=== PATIENT | female | born 1945 | race Caucasian/White ===

== ENCOUNTER → 2020-08-17 10:28 | Outpatient (BNVA) | payer MEDICARE, SELFPAY | PROVIDERS: PCP Internal Medicine; Visit Provider Internal Medicine Cardiovascular Disease | DX: I48.0 Paroxysmal atrial fibrillation (principal); I71.2 Thoracic aortic aneurysm, without rupture | CPT/HCPCS: 93005; 99212 ==

== ENCOUNTER 2021-02-23 09:53 | Outpatient (REF) | payer MEDICARE, SELFPAY ==
[2021-02-23 12:33] LABS: Hematocrit 43.8 % (37-47); Hemoglobin 14.4 g/dl (12.0-16.0); Mean Corpuscular HGB Conc 32.9 g/dl (31.0-35.0); Mean Corpuscular Hemoglobin 29.7 pg (27.0-33.0); Mean Corpuscular Volume 90.3 fL (80-98); Mean Platelet Volume 11.7 fL (9.4-12.3); Platelet Count 261 X10*3/uL (160-400); Red Blood Count 4.85 X10*6/uL (4.20-5.50); Red Cell Distribution Width 12.6 % (11.0-16.0); White Blood Count 7.5 X10*3/uL (4.8-10.8)
[2021-02-23 12:46] LABS: Anion Gap 14 (12-20); Blood Urea Nitrogen 17 mg/dL (9-16); Calcium 10.1 mg/dL (8.4-10.2); Carbon Dioxide 25 mmol/L (22-29); Chloride 106 mmol/L (96-108); Estimated Glomerular Filt Rate > 60; Glucose Random 117 mg/dL (60-115); Potassium 4.2 mmol/L (3.3-5.1); Sodium 141 mmol/L (135-145)
== END 2021-02-23 09:54 | disposition home or self-care (01) ==
LOC: HO.LAB 09:53
PROVIDERS: PCP Internal Medicine; Referring Provider Internal Medicine; Visit Provider Internal Medicine Cardiovascular Disease
DX: I48.0 Paroxysmal atrial fibrillation (principal); I71.2 Thoracic aortic aneurysm, without rupture; Z79.899 Other long term (current) drug therapy
CPT/HCPCS: 36415; 80048; 85027; 93005; 99212

== ENCOUNTER → 2021-03-30 09:31 | Outpatient (REF) | payer MEDICARE, SELFPAY ==
--- NOTE | 2021-03-30 09:35 | CA_ITS ---
Transthoracic Echocardiogram Patient (Last, First, Middle): Robyn Barrios A Gender: Female Date of : 1945 Age: 75 Procedure Date: 03/30/2021 Procedure Type: Transthoracic Echocardiogram Location: OP Height: 162.56 cm Weight: 81.65 kg BSA: 1.87 m2 Heart Rate: bpm BP: 125 / 82 mmHg Senior [employer]: [employer] Referring MD: Bolivar Whitaker MD Toe Laster: Bolivar Whitaker MD Symptoms: I71.2 - Thoracic aortic aneurysm, without rupture Study Quality: Fair ECG Rhythm: Sinus Conclusions: - 1. Normal LV systolic function with impaired relaxation filling pattern 2. Mildly dilated left atrium 3. Normal cardiac valvular Doppler 4. Mildly dilated ascending aorta at 4.3 cm 5. No pericardial effusion 6. Normal RV systolic pressure Findings Left Ventricle Normal left ventricular size, thickness, and systolic function. The visually estimated ejection fraction is between 55-60%. Spectral Doppler is indicative of an impaired relaxation filling pattern. E/E prime ratio is between 8 and 15 consistent with indeterminate filling pressures. Right Ventricle Normal right ventricular cavity size and systolic function. Atria The left atrium is mildly dilated. There is no evidence of interatrial shunt. The right atrium is likely dilated. Aortic Valve Normal aortic valve structure and function. There is no aortic valve stenosis. There is no aortic valve regurgitation. Mitral Valve There is mild anterior and posterior mitral leaflet thickening. There is trace mitral valve regurgitation. There is no mitral valve stenosis. Pulmonic Valve The pulmonic valve is likely normal. Tricuspid Valve Likely normal tricuspid valve structure and function. There is trace tricuspid valve regurgitation. The right ventricular systolic pressure is 21 mmHg. There is no evidence of pulmonary hypertension. Great Vessels The pulmonary artery was not well visualized. There is mild dilatation of the ascending aorta measuring 4.30 cm. Venous The inferior vena cava is normal in size and collapses greater than 50% with inspiration. Pericardium/Pleural There is no evidence of pericardial effusion. Prior Study Comparison No significant change compared to prior study dated: 01/24/2020. Measurements 2D Linear Measurements IVSd: 0.82 0.6-0.9/0.6-1.0 cm LVIDd: 4.55 3.9-5.3/4.2-5.9 cm LVIDd Index: 2.43 2.4-3.2/2.2-3.1 cm/m2 LVIDs: 2.87 2.0-3.6 cm LVPWd: 0.88 0.7-1.1 cm Ao Root: 3.40 2.1-3.5 cm LA Diam: 3.00 2.7-3.8/3.0-4.0 cm LAIDs Index: 1.60 1.5-2.3 cm/m2 LV Mass: 156.31 67-162/88-224 g LV Mass Index: 83.59 43-95/49-115 g/m2 LVOT Diam: 2.30 3.0+(-)1.3 cm 2D Systolic Function EF 4C: 56.20 >55% EF 2C: 49.70 >55% Mitral Valve MV Pk E: 0.56 MV PK A: 0.63 MV Decel Time: 338.00 E/A: 0.90 E'Lateral: 6.31 E'Medial: 5.33 E/E' Med: 10.60 E/E' Lat: 8.90 PHT: 99.00 MVA PHT: 2.22 Decel Bulloch: 1.67 Aortic Valve AoV Pk Adrian: 1.26 AoV Mn Adrian: 0.96 AoV VTI: 0.30 AoV Pk Grad: 6.00 Aov Mn Grad: 4.00 JENNI Cont.VTI: 2.91 LVOT LVOT Pk Adrian: 0.85 LVOT Mn Adrian: 0.59 LVOT VTI: 0.21 LVOT Pk Grad: 3.00 LVOT Mn Grad: 2.00 LVOT Diam: 2.30 LVOT Area: 4.15 Diastolic Function MV Pk E: 0.56 MV Pk A: 0.63 E/A: 0.90 E'Medial: 5.33 E/E' Med: 10.60 E' Laterial: 6.31 E/E' Lat: 8.90 Tricuspid Valve TR Pk Adrian: 2.10 TR Pk Grad: 18.00 RA Press: 3.00 RVSP: 21.00 Great Vessels Aorta Ao Root-2D: 3.40 2.0-3.7 cm Ao Asc: 4.30 2.1-3.4 cm Updated in Other Vendor System with Status of Final Bolivar Whitaker MD electronically signed on 03/30/2021 2:50:48 PM with status of Final
== END ==
LOC: HO.CARD 09:31
PROVIDERS: Visit Provider Internal Medicine Cardiovascular Disease
DX: I71.2 Thoracic aortic aneurysm, without rupture (principal)
CPT/HCPCS: 93306

== ENCOUNTER 2021-07-07 13:40 | Emergency (ER) | payer MEDICARE, SELFPAY ==
--- NOTE | ~2021-07-07 | XR_ITS ---
EXAMINATION: RIGHT HAND AND WRIST X-RAY CLINICAL INFORMATION: Fall. Pain. COMPARISON: None TECHNIQUE: 4 views of the right hand and wrist FINDINGS: Bone alignment is normal. No acute fracture or dislocation is seen. There is a well-corticated soft tissue ossification adjacent to the dorsal wrist seen on the lateral view suggestive of an old triquetral fracture. There is arthritis at the first SKILLED NURSING joint and trapezoid trapezium scaphoid joints. There is diffuse soft tissue swelling of the wrist and distal forearm. XR/XR hand wrist RT IMPRESSION: Probable old triquetral fracture. No acute fracture or dislocation. Degenerative changes.
[2021-07-07 16:37] VITALS: BP 161/78; PULSE 70; RESP 16; TEMP 36.6; O2SAT 98; BMI 30.9
--- NOTE | 2021-07-07 16:48 | ED_ITS ---
HPI - Extremity Problem General Chief complaint: Extremity Injury, Upper Stated complaint: R hand swelling/redness Time Seen by Provider: 07/07/21 16:36 Source: patient Mode of arrival: ambulatory Limitations: no limitations History of Present Illness HPI Narrative: 76-year-old female with a history of hypertension, AFib on eliquis, high cholesterol here with reports of right hand pain and swelling after a fall which occurred on Monday. Patient tells me she slipped on the snow catching herself with her right hand. She also did strike her left upper arm. Since the fall she has been having pain in the right hand. She is right-hand dominant. She denies any head strike or loss of consciousness. No associated numbness, tingling, weakness, fevers. Related Data Home Medications Medication Instructions Recorded Confirmed hydrochlorothiazide 25 mg tablet 25 mg PO DAILY 08/17/20 02/23/21 simvastatin 10 mg tablet 10 mg PO BEDTIME 08/17/20 02/23/21 metoprolol succinate 25 mg 25 mg PO DAILY tab 02/23/21 02/23/21 tablet,extended release 24 hr Previous Rx's Medication Instructions Recorded flecainide 100 mg tablet 100 mg PO Q12H #180 cap 11/30/20 apixaban 5 mg tablet (Eliquis) 5 mg PO BID #60 tab 05/21/21 potassium chloride 20 mEq 20 meq PO DAILY 30 Days #30 tab 05/21/21 tablet,extended release Allergies Allergy/AdvReac Type Severity Reaction Status Date / Time No Known Allergies Allergy Verified 02/23/21 11:03 Review of Systems Review of Systems: Yes all other systems are reviewed and are negative Constitutional: Constitutional: Reports no additional constitutional complaints, Denies body ache(s), Denies chills, Denies fever(s), Denies headache(s) and Denies weakness Eyes: Eyes: Reports no additional eye complaints and Denies change in vision ENT: Reports system reviewed and no additional complaints, except as documented, Denies dizziness, Denies headache(s), Denies nasal congestion, Denies nasal discharge and Denies neck pain Cardiovascular: Cardiovascular: Reports no additional cardiovascular complaints, Denies chest pain, Denies leg edema and Denies dyspnea Respiratory: Respiratory: Reports no additional respiratory complaints, Denies cough and Denies dyspnea Gastrointestinal: Gastrointestinal: Reports no additional gastrointestinal complaints, Denies abdominal pain, Denies diarrhea, Denies nausea and Denies vomiting Genitourinary: Genitourinary: Reports no additional female genitourinary compl aints and Denies urinary incontinence Musculoskeletal: Musculoskeletal: Reports no additional musculoskeletal complaints, Denies back pain, Reports arthralgias, Reports joint swelling, Denies neck pain, Denies numbness and Denies tingling Integumentary/Breasts: Skin/Breast: Reports system reviewed and no additional complaints, except as docu and Denies rash Neurologic: Reports system reviewed and no additional complaints, except as documented, Denies Abnormal speech present, Denies dizziness, Denies headache(s), Denies numbness, Denies tingling and Denies weakness PMFSH Past Medical History Attestation statement: The following information was validated with the patient. Source: old records reviewed and nursing notes reviewed Medical History HTN (hypertension) Left anterior fascicular block Paroxysmal atrial fibrillation Thoracic aortic aneurysm Surgical History History of hysterectomy Family History Family History Father CVD (cardiovascular disease) Mother No problems noted. Social History Social History Patient Tobacco Use Status: Never used Tobacco Advance Directives: No Advance Directives Information Provided: Yes Physical Exam Vital Signs: Vital Signs: Last Vital Signs Temp 97.9 F 07/07/21 16:37 Pulse 70 07/07/21 16:37 Resp 16 07/07/21 16:37 BP 161/78 H 07/07/21 16:37 Pulse Ox 98 07/07/21 16:37 BMI result Body Mass Index 30.9 Const: General: cooperative, healthy appearing, comfortable and no acute distress Orientation/consciousness: patient oriented x3 Limitations: no limitations HENMT: Head: Yes normal to inspection Ears: hearing grossly normal bilaterally General nose exam: Normal external nose present Face and sinus: Yes normal facial exam Mouth: Normal oral and palatal mucosa present Throat: Yes posterior oropharynx normal Eyes: General: appearance normal, both eyes and all related structures Pupils: Equal, round and reactive pupils present Neck: Neck: Yes normal visual inspection Chest: Chest palpation & inspection: normal inspection of the chest Resp: Effort & Inspection: normal respiratory effort Auscultation: clear to auscultation bilaterally Cardio: Rate: regular rate Rhythm: regular rhythm Peripheral pulses: Peripheral pulses 2+ throughout GI: Inspection: Yes normal to inspection Palpation (GI): Soft to palpation and nontender Auscultation: normal bowel sounds Back/Spine/Pelvis: Thoracic/Lumbar Spine: thoracic and lumbar spine normal to inspection Skin: General skin exam: no rashes or lesions noted Neuro: General: patient oriented x3, no focal motor deficits and normal sensation to monofilament Cranial nerves: Yes Equal, round and reactive pupils present Cognition (Neuro): normal cognition Speech: No Abnormal speech present Gait exam (Neuro): Normal gait present Motor exam (neuro): 5/5 motor strength present throughout Extrem: Other: Patient has swelling, tenderness over the distal right wrist at the ulnar aspect with pain with flexion and extension of the wrist Neurovascular intact distally No snuffbox tenderness General: Yes normal to inspection Course Course Course Narrative: 76-year-old female here with right upper extremity pain and swelling after a mechanical fall 2 days ago. Will check x-rays [id number]-ray show -Probable old triquetral fracture. No acute fracture or dislocation. Degenerative changes.? I spoke to the patient. She has no previous injury to this arm. She is quite tender over the reported old fractures we will treated as presumed new fracture and placed her in a splint. Reviewed worrisome signs symptoms with the patient. Reviewed rice. Reviewed follow-up with Orthopedics. Comfortable plan for discharge home. MDM - Extremity (Nontraumatic) Medical Records Attestation: I reviewed the patient's medical records. Lab Data Attestation: I reviewed the patient's lab results. Imaging Data wrist x-ray: Attestation: I personally reviewed and interpreted this imaging study as follows: Radiologist's impression: Launch?Image [address] [address] XRay Report Signed Patient: Robyn Barrios MR#: [id number] : 1945 Acct:[id number] Age/Sex: 76 / F ADM Date: 07/07/21 Loc: HO.ED Attending Dr: Ordering Physician: Cara Brantley NP Date of Service: 07/07/21 Procedure(s): XR hand wrist RT Accession Number(s): [id number] cc: Cara Brantley NP~ EXAMINATION: RIGHT HAND AND WRIST X-RAY CLINICAL INFORMATION: Fall. Pain.? COMPARISON: None TECHNIQUE: 4 views of the right hand and wrist? FINDINGS: Bone alignment is normal. No acute fracture or dislocation is seen. There is a well-corticated soft tissue ossification adjacent to the dorsal wrist seen on the lateral view suggestive of an old triquetral fracture. There is arthritis at the first SKILLED NURSING joint and trapezoid trapezium scaphoid joints. There is diffuse soft tissue swelling of the wrist and distal forearm. XR/XR hand wrist RT IMPRESSION: Probable old triquetral fracture. No acute fracture or dislocation. Degenerative changes.? Procedures Orthopedic Splinting/Casting Injury #1: Side: right Upper Extremity Injury Location: wrist Upper Extremity Immobilizer: ulnar gutter Discharge Plan Discharge Clinical Impression: Fracture of wrist Qualifiers: Encounter type: initial encounter Fracture type: closed Laterality: right Qualified Code(s): S62.101A - Fracture of unspecified carpal bone, right wrist, initial encounter for closed fracture Patient Disposition: Home, Self-Care Instructions: Wrist Fracture in Adults (ED) Additional Instructions: The splint stays on all times. Do not get it wet. For showering you must wrap it with plastic wrap Call Orthopedics for a follow-up appointment Elevate the extremity on 3 or more pillows Tylenol for pain Prescriptions: No Action flecainide 100 mg tablet 100 mg PO Q12H Qty: 180 RF: 1 potassium chloride 20 mEq tablet extended release 20 meq PO DAILY 30 Days Qty: 30 RF: 5 Eliquis 5 mg tablet 5 mg PO BID Qty: 60 RF: 5 simvastatin 10 mg tablet 10 mg PO BEDTIME RF: 0 hydrochlorothiazide 25 mg tablet 25 mg PO DAILY RF: 0 metoprolol succinate 25 mg tablet extended release 24 hr 25 mg PO DAILY RF: 0 Referrals: Hira Harris MD [Physician] - 2 days
== END 2021-07-07 17:35 | disposition home or self-care (01) ==
PROVIDERS: Emergency Provider Emergency Medicine Emergency Medical Services; PCP Internal Medicine Endocrinology, Diabetes & Metabolism
DX: S62.101A Fracture of unspecified carpal bone, right wrist, initial encounter for closed fracture (principal); I48.91 Unspecified atrial fibrillation; W00.0XXA Fall on same level due to ice and snow, initial encounter; Y93.9 Activity, unspecified; Y92.410 Unspecified street and highway as the place of occurrence of the external cause; Y99.9 Unspecified external cause status; Z79.899 Other long term (current) drug therapy; Z79.01 Long term (current) use of anticoagulants
CPT/HCPCS: 29125; 73110; 73130; 99283

== ENCOUNTER 2021-08-06 07:54 | Outpatient (REF) | payer MEDICARE, SELFPAY ==
--- NOTE | ~2021-08-06 | XR_ITS ---
EXAMINATION: XR HAND, RIGHT CLINICAL INFORMATION: Pain COMPARISON: Previous x-ray 07/07/2021 TECHNIQUE: PA, lateral, and oblique views of the right hand. FINDINGS: Bone alignment is normal. There are soft tissue ossifications adjacent to the dorsal wrist seen on the lateral view suggestive of fracture. These again appear well corticated suggestive of old rather than acute fracture.. No definite acute fracture is seen. There is arthritis at the first FCI joint and trapezoid trapezium scaphoid joints. There is diffuse soft tissue swelling over the wrist and distal forearm. XR/XR hand RT min 3V IMPRESSION: Soft tissue ossifications seen in the lateral view adjacent to the dorsal wrist suggestive of old fracture deformity similar to June 2021 exam. Clinical correlation is recommended. There is still diffuse soft tissue swelling over the wrist and distal forearm. This could be better assessed with CT of the wrist if clinically indicated.
== END 2021-08-06 07:55 | disposition home or self-care (01) ==
LOC: HO.HOSX 07:54
PROVIDERS: Visit Provider Physician Assistant
DX: M79.641 Pain in right hand (principal)
CPT/HCPCS: 73130; 99202

== ENCOUNTER 2021-08-14 08:05 | Emergency (ER) | payer MEDICARE, SELFPAY ==
--- NOTE | ~2021-08-14 | XR_ITS ---
EXAMINATION: LEFT HUMERUS AND LEFT SHOULDER. CLINICAL INFORMATION: Fall. Upper arm pain. COMPARISON: None TECHNIQUE: Left humerus 2 views. Left shoulder 3 views. FINDINGS: Left humerus: There is no visible fracture, dislocation or bony abnormality. The soft tissues are normal. Left shoulder: The glenohumeral joint space is maintained normal. No visible acute fracture, dislocation or lytic process seen. Mild periarticular spurring of left AC joint. The soft tissues are normal. XR/XR humerus LT IMPRESSION: No visible acute fracture or dislocation involving left humerus or left shoulder joint. Mild degenerative changes left AC joint.
--- NOTE | ~2021-08-14 | XR_ITS ---
EXAMINATION: LEFT HUMERUS AND LEFT SHOULDER. CLINICAL INFORMATION: Fall. Upper arm pain. COMPARISON: None TECHNIQUE: Left humerus 2 views. Left shoulder 3 views. FINDINGS: Left humerus: There is no visible fracture, dislocation or bony abnormality. The soft tissues are normal. Left shoulder: The glenohumeral joint space is maintained normal. No visible acute fracture, dislocation or lytic process seen. Mild periarticular spurring of left AC joint. The soft tissues are normal. XR/XR shoulder LT min 2V IMPRESSION: No visible acute fracture or dislocation involving left humerus or left shoulder joint. Mild degenerative changes left AC joint.
[2021-08-14 08:15] VITALS: BP 111/88; PULSE 109; RESP 18; TEMP 36; O2SAT 98; BMI 30.6
[2021-08-14 08:25] VITALS: BP 134/65; PULSE 83; RESP 17; TEMP 36.6; O2SAT 97
--- NOTE | 2021-08-14 08:25 | ED.EXTPRO ---
HPI - Extremity Problem General Chief complaint: Extremity Injury, Upper Stated complaint: Fall/l arm pain Time Seen by Provider: 08/14/21 08:25 Source: patient Mode of arrival: ambulatory Limitations: no limitations History of Present Illness HPI Narrative: Patient is a 76 year old female presenting to the emergency department today with left shoulder and upper arm pain. Patient states that she fell awhile ago and hurt her right wrist however, she woke up this morning and is having left shoulder and upper arm pain. Patient denies any dizziness, lightheadedness, abdominal pain, nausea, vomiting, fever, chills, blurry vision, double vision, loss of vision, chest pain, difficulty breathing, shortness of breath, back pain, night sweats, pain with urination, increased urinary frequency, increased urinary urgency, blood in her urine or stool, syncope or a near syncopal episode, recent trauma or falls, bowel incontinence, bladder incontinence, bowel retention, bladder retention, or any other complaints at this time. MD Complaint: extremity pain Onset (ago): minute(s) Pain Consistency: constant Location: left and upper extremity Severity scale (1-10): 4 Quality: stabbing Radiation: none Relieving factors: nothing Exacerbating factors: range of motion Associated symptoms: denies other symptoms Related Data Home Medications Medication Instructions Recorded Confirmed hydrochlorothiazide 25 mg tablet 25 mg PO DAILY 08/17/20 02/23/21 simvastatin 10 mg tablet 10 mg PO BEDTIME 08/17/20 02/23/21 metoprolol succinate 25 mg 25 mg PO DAILY tab 02/23/21 02/23/21 tablet,extended release 24 hr Previous Rx's Medication Instructions Recorded flecainide 100 mg tablet 100 mg PO Q12H #180 cap 11/30/20 apixaban 5 mg tablet (Eliquis) 5 mg PO BID #60 tab 05/21/21 potassium chloride 20 mEq 20 meq PO DAILY 30 Days #30 tab 05/21/21 tablet,extended release Allergies Allergy/AdvReac Type Severity Reaction Status Date / Time No Known Allergies Allergy Verified 08/06/21 10:32 Review of Systems Constitutional: Constitutional: Reports no additional constitutional complaints, Denies chills, Denies fever(s) and Denies night sweats Eyes: Eyes: Reports no additional eye complaints, Denies blurry vision, Denies change in vision, Denies diplopia, Denies eye discharge, Denies loss of vision and Denies eye pain ENT: Denies dizziness Cardiovascular: Cardiovascular: Reports no additional cardiovascular complaints, Denies chest pain, Denies lightheadedness, Denies Loss of Consciousness and Denies dyspnea Respiratory: Respiratory: Reports no additional respiratory complaints and Denies dyspnea Gastrointestinal: Gastrointestinal: Reports no additional gastrointestinal complaints, Denies abdominal pain, Denies melena, Denies hematochezia, Denies change in bowel habits and Denies change in stool character Genitourinary: Genitourinary: Denies hematuria, Denies urinary frequency, Denies dysuria, Denies urinary incontinence, Denies urinary hesitancy and Denies urinary urgency Musculoskeletal: Musculoskeletal: Reports no additional musculoskeletal complaints, Denies numbness and Denies tingling Comments: left upper arm/shoulder pain Neurologic: Denies dizziness, Denies loss of vision, Denies numbness and Denies tingling Psychiatric: Psychiatric: Reports no additional psychiatric complaints Endocrine: Endocrine: Reports no additional endocrine complaints Hematologic/Lymphatic: Hematologic/Lymphatic: Reports no additional hematologic/lymphatic complaints Allergic/Immunologic: Allergic/Immunologic: Reports no additional allergic/immunologic complaints [facility] Past Medical History Attestation statement: The following information was validated with the patient. Source: old records reviewed Medical History HTN (hypertension) Left anterior fascicular block Paroxysmal atrial fibrillation Thoracic aortic aneurysm Surgical History History of hysterectomy Family History Family History Father CVD (cardiovascular disease) Mother No problems noted. Social History Social History Alcohol intake: never Patient Tobacco Use Status: Never used Tobacco Current occupational status: employed Physical Exam Vital Signs: Vital Signs: Last Vital Signs Temp 97.9 F 08/14/21 08:25 Pulse 83 08/14/21 08:25 Resp 17 08/14/21 08:25 BP 134/65 08/14/21 08:25 Pulse Ox 97 08/14/21 08:25 BMI result Body Mass Index 30.6 Const: General: cooperative, no acute distress, alert and awake Nutritional Appearance: well nourished Orientation/consciousness: patient oriented x3 Limitations: no limitations HENMT: Head: Yes normal to inspection and Yes atraumatic Ears: hearing grossly normal bilaterally and external ears normal General nose exam: Normal external nose present, no nasal discharge noted and no epistaxis Face and sinus: Yes normal facial exam, No abrasion and No laceration Mouth: Normal oral and palatal mucosa present, no drooling and no muffled voice Eyes: General: appearance normal, both eyes and all related structures Periorbital: periorbital findings normal Eyelids: Yes eyelids normal Conjunctivae: conjunctivae normal Pupils: Equal, round and reactive pupils present EOM: EOMs intact bilaterally Neck: Neck: Yes normal visual inspection, Yes full ROM and Yes no lymphadenopathy Chest: Chest palpation & inspection: normal inspection of the chest Resp: Effort & Inspection: normal respiratory effort and able to speak in complete sentences Auscultation: clear to auscultation bilaterally Cardio: Rate: regular rate Rhythm: regular rhythm GI: Inspection: Yes normal to inspection Neuro: General: patient oriented x3 and moves all extremities Cranial nerves: Yes Equal, round and reactive pupils present Cognition (Neuro): normal cognition Motor exam (neuro): 5/5 motor strength present throughout Sensory Exam: Normal double simultaneous stimulation for sensation Coordination: [id number] test normal Extrem: General: Yes normal to inspection, Yes full ROM and Yes capillary refill normal Psych: Appearance: grossly normal Mental Status: mental status grossly normal Affect: normal affect Attitude: cooperative Thought process: Normal thought process present Thought content: Normal thought content present Insight: Good insight present (Psych) MDM - Extremity (Nontraumatic) MDM Narrative Medical decision making narrative: Patient is a 76 year old female presenting to the emergency department today with left shoulder pain. Patient's physical exam was unremarkable. Patient's blood work was unremarkable. Patient's EKG was unremarkable. Patient's left shoulder and humerus x-ray showed no acute process. I explained my physical exam findings as well as all test results to the patient. I answered all questions asked by the patient. I stressed the importance of the patient taking her medication as prescribed. I stressed the importance of the patient following up with her primary care provider. I stressed the importance of the patient returning to the emergency department immediately if her symptoms were to worsen or if she were to develop any dizziness, shortness of breath, difficulty breathing, chest pain, blurry vision, loss of vision, nausea, vomiting, abdominal pain, fever, chills, back pain, or any other complaints. Patient verbalized agreement and understanding with this treatment plan and discharge. Differential Diagnosis Differential diagnosis: Unlikely gout (shoulder pain, AC separation, fracture) Medical Records Attestation: I reviewed the patient's medical records. Lab Data Attestation: I reviewed the patient's lab results. Result diagrams: 08/14/21 08:51 08/14/21 08:51 Labs: Lab Results 08/14/21 08/14/21 08/14/21 Range/Units 08:51 08:51 08:51 WBC 8.9 (4.8-10.8) X10*3/uL RBC 5.08 (4.20-5.50) X10*6/uL Hgb 15.3 (12.0-16.0) g/dl Hct 44.5 (37.0-47.0) % MCV 87.6 (80.0-98.0) fL MCH 30.1 (27.0-33.0) pg MCHC 34.4 (31.0-35.0) g/dl RDW 12.5 (11.0-16.0) % Plt Count 345 (160-400) X10*3/uL MPV 10.9 (9.4-12.3) fL Immature Gran % (Auto) 0.1 (0.0-0.4) % Neut % (Auto) 67.8 (45-73) % Lymph % (Auto) 25.6 (20-40) % Stanton % (Auto) 5.2 (2-11) % Eos % (Auto) 1.0 (0-4) % Baso % (Auto) 0.3 (0-2) % Lymph # (Auto) 2.3 (1.2-4.9) X10*3/uL Stanton # (Auto) 0.5 (0.1-1.2) X10*3/uL Eos # (Auto) 0.1 (0.0-0.4) X10*3/uL Baso # (Auto) 0.0 (0.0-0.2) X10*3/uL Abs Immat Gran (auto) 0.01 (0.00-0.03) X10*3/uL Absolute Neuts (auto) 6.0 (2.0-8.3) x10*3/uL Absolute Nucleated RBC 0.000 (0.0-0.012) X10*3/uL Nucleated RBC % (auto) 0.0 (0.0-0.2) /100WBC Sodium 140 (135-145) mmol/L Potassium 3.7 (3.3-5.1) mmol/L Chloride 105 (96-108) mmol/L Carbon Dioxide 23 (22-29) mmol/L Anion Gap 16 (12-20) BUN 16 (9-16) mg/dL Creatinine 0.74 (0.5-1.4) mg/dL Estim Creat Clear Calc 66.1 Estimated GFR > 60 Fasting Glucose 185 H (60-99) mg/dL Calcium 10.3 H (8.4-10.2) mg/dL Total Bilirubin 0.7 (0.0-1.0) mg/dL AST 66 H (5-31) U/L ALT 82 H (0-31) U/L Alkaline Phosphatase 88 (39-117) U/L Troponin I High Sens 4.4 (<3.5-17.0) ng/L Total Protein 7.0 (6.5-8.0) g/dL Albumin 4.5 (3.5-5.0) g/dL Imaging Data Left shoulder and left humerus x-ray: Attestation: I personally reviewed and interpreted this imaging study as follows: Radiologist's impression: EXAMINATION: LEFT HUMERUS AND LEFT SHOULDER. CLINICAL INFORMATION: Fall. Upper arm pain.? COMPARISON: None? TECHNIQUE: Left humerus 2 views. Left shoulder 3 views.? FINDINGS: Left humerus: There is no visible fracture, dislocation or bony abnormality. The soft tissues are normal. Left shoulder: The glenohumeral joint space is maintained normal. No visible acute fracture, dislocation or lytic process seen. Mild periarticular spurring of left AC joint. The soft tissues are normal.? XR/XR shoulder LT min 2V IMPRESSION: No visible acute fracture or dislocation involving left humerus or left shoulder joint. ? Mild degenerative changes left AC joint.? Dictated By: Homer Garcia MD Signed By: Electronically signed by Homer Garcia MD 08/14/21 0854 ECG Data Attestation EKG: I personally reviewed and interpreted this ECG as follows: ECG interpretation date: 08/14/21 ECG interpretation time: 08:39 Prior ECG tracings: available for review Interpretation: Vent. Rate: 068 BPM ? ? Atrial Rate: 068 BPM P-R Int: 170 ms? QRS Dur: 118 ms QT Int: 428 ms ? ? ? P-R-T Axes: 000 -60 014 degrees QTc Int: 455 ms ? Normal sinus rhythm Left axis deviation Minimal voltage criteria for LVH, may be normal variant ( [place]io product ) Possible Anterior infarct (cited on or before 22-AUG-2006) Abnormal ECG When compared with ECG of 27-JAN-2016 13:39, Vent. rate has increased BY? 24 BPM Nonspecific T wave abnormality, improved in Anterolateral leads QT has lengthened Discharge Plan Discharge Clinical Impression: AC joint pain Patient Disposition: Home, Self-Care Instructions: Shoulder Pain (ED) Additional Instructions: Follow up with your primary care provider. Return to the emergency department immediately if your symptoms worsen or if you develop any dizziness, shortness of breath, difficulty breathing, chest pain, blurry vision, loss of vision, nausea, vomiting, abdominal pain, fever, chills, back pain, or any other complaints. Prescriptions: No Action flecainide 100 mg tablet 100 mg PO Q12H Qty: 180 1RF potassium chloride 20 mEq tablet extended release 20 meq PO DAILY 30 Days Qty: 30 5RF Eliquis 5 mg tablet 5 mg PO BID Qty: 60 5RF simvastatin 10 mg tablet 10 mg PO BEDTIME 0RF hydrochlorothiazide 25 mg tablet 25 mg PO DAILY 0RF metoprolol succinate 25 mg tablet extended release 24 hr 25 mg PO DAILY 0RF Referrals: Jennifer Castro MD [Physician] - 2 days Interventions: ED Discharge Assessment Last Done: 08/14/21 09:59 Discharge Date/Time: 08/14/21 10:05 Print Language: Nigerien
--- NOTE | 2021-08-14 08:28 | ECG_ITS ---
Test Reason : SP Blood Pressure : / mmHG Vent. Rate : 068 BPM Atrial Rate : 068 BPM P-R Int : 170 ms QRS Dur : 118 ms QT Int : 428 ms P-R-T Axes : 000 -60 014 degrees QTc Int : 455 ms Normal sinus rhythm Left axis deviation Minimal voltage criteria for LVH, may be normal variant ( [place] product ) Possible Anterior infarct (cited on or before 22-AUG-2006) Abnormal ECG When compared with ECG of 27-JAN-2016 13:39, Vent. rate has increased BY 24 BPM Nonspecific T wave abnormality, improved in Anterolateral leads QT has lengthened Referred By: Nida Segura Electronically Signed By:GUSTABO VUONG
[2021-08-14 08:56] LABS: MANUAL DIFF FLAG NO
[2021-08-14 09:01] LABS: Basophils Percent Auto 0.3 % (0-2); Eosinophils Absolute Auto 0.1 X10*3/uL (0.0-0.4); Hematocrit 44.5 % (37.0-47.0); Hemoglobin 15.3 g/dl (12.0-16.0); Imm Gran Abs Auto 0.01 X10*3/uL (0.00-0.03); Imm Gran Pct Auto 0.1 % (0.0-0.4); Lymphocytes Absolute Auto 2.3 X10*3/uL (1.2-4.9); Lymphocytes Percent Auto 25.6 % (20-40); Mean Corpuscular HGB Conc 34.4 g/dl (31.0-35.0); Mean Corpuscular Hemoglobin 30.1 pg (27.0-33.0); Mean Corpuscular Volume 87.6 fL (80.0-98.0); Mean Platelet Volume 10.9 fL (9.4-12.3); Monocytes Absolute Auto 0.5 X10*3/uL (0.1-1.2); Monocytes Percent Auto 5.2 % (2-11); Neutrophils Percent Auto 67.8 % (45-73); Platelet Count 345 X10*3/uL (160-400); Red Blood Count 5.08 X10*6/uL (4.20-5.50); Red Cell Distribution Width 12.5 % (11.0-16.0); White Blood Count 8.9 X10*3/uL (4.8-10.8)
[2021-08-14 09:22] LABS: Alanine Aminotransferase 82 U/L (0-31); Albumin Level 4.5 g/dL (3.5-5.0); Alkaline Phosphatase 88 U/L (39-117); Anion Gap 16 (12-20); Aspartate Amino Transferase 66 U/L (5-31); Bilirubin Total 0.7 mg/dL (0.0-1.0); Blood Urea Nitrogen 16 mg/dL (9-16); Calcium 10.3 mg/dL (8.4-10.2); Carbon Dioxide 23 mmol/L (22-29); Chloride 105 mmol/L (96-108); Creatinine Clr Calc Pharmacy 66.1; Estimated Glomerular Filt Rate > 60; Glucose Fasting 185 mg/dL (60-99); Potassium 3.7 mmol/L (3.3-5.1); Sodium 140 mmol/L (135-145)
[2021-08-14 09:31] LABS: Troponin-I High Sensitivity 4.4 ng/L (<3.5-17.0)
== END 2021-08-14 10:05 | disposition home or self-care (01) ==
PROVIDERS: Physician Assistant Medical; Emergency Provider Emergency Medicine Emergency Medical Services; PCP Internal Medicine Endocrinology, Diabetes & Metabolism
DX: M25.512 Pain in left shoulder (principal); I10 Essential (primary) hypertension; I48.0 Paroxysmal atrial fibrillation; Z79.01 Long term (current) use of anticoagulants
CPT/HCPCS: 36415; 73030; 73060; 80053; 84484; 85025; 93005; 99283; 99284

== ENCOUNTER → 2021-08-18 10:35 | Outpatient (BNVA) | payer MEDICARE, SELFPAY | PROVIDERS: PCP Internal Medicine Endocrinology, Diabetes & Metabolism; Visit Provider Physician Assistant | DX: S40.012A Contusion of left shoulder, initial encounter (principal) | CPT/HCPCS: 99212 ==

== ENCOUNTER → 2021-08-30 11:25 | Outpatient (BNVA) | payer MEDICARE, SELFPAY | PROVIDERS: PCP Internal Medicine Endocrinology, Diabetes & Metabolism; Visit Provider Internal Medicine Cardiovascular Disease | DX: I48.0 Paroxysmal atrial fibrillation (principal); I71.2 Thoracic aortic aneurysm, without rupture; Z79.01 Long term (current) use of anticoagulants; Z79.899 Other long term (current) drug therapy | CPT/HCPCS: 99212 ==

== ENCOUNTER 2022-02-05 07:54 | Emergency (ER) | payer MEDICARE, SELFPAY ==
--- NOTE | ~2022-02-05 | XR_ITS ---
EXAMINATION: XR ANKLE, LEFT CLINICAL INFORMATION: Left ankle pain status post injury. COMPARISON: Left leg and ankle radiographs dated 11/28/2019. TECHNIQUE: AP, lateral, and mortise views of the left ankle. FINDINGS: Nonacute deformity is seen along the inferior margins of the medial and lateral malleoli. The tibiotalar joint space is unremarkable. The tarsal bones are normally aligned. Small to moderate plantar and retrocalcaneal spurs are noted. There is no overt joint effusion. Mild soft tissue swelling. XR/XR ankle LT min 3V IMPRESSION: Mild soft tissue swelling without definitive acute underlying osseous abnormality. Medial and lateral malleoli findings do not appear acute and likely secondary to old injury. Degenerative calcaneal spurs.
[2022-02-05 08:05] VITALS: BP 133/98; PULSE 68; RESP 18; TEMP 36.8; O2SAT 97; BMI 29.1
--- NOTE | 2022-02-05 08:20 | ED.LOWEXIN ---
HPI - Extremity Injury (Lower) General Chief Complaint: Extremity Injury, Lower Stated Complaint: L ANKLE INJ Time Seen by Provider: 02/05/22 08:08 Source: patient Mode of arrival: ambulatory Limitations: no limitations History of Present Illness HPI Narrative: 76-year-old female with a past medical history of paroxysmal atrial fibrillation currently on eliquis taking as prescribed, hypertension, thoracic aortic aneurysm, presents to the emergency department today with left ankle pain and swelling. Patient reports symptom onset this morning and she is unsure if there is any twisting or ankle injury. Patient endorses mild pain with ambulation. She denies any trauma to the area. She denies any lightheadedness, dizziness, lower extremity numbness or tingling, SOB, AMEZQUITA, orthopnea, CP, leg swelling, calf pain, and any sick symptoms. Onset (ago): day(s) Severity: mild Severity scale (1-10): 1 Relieving factors: nothing Exacerbating factors: palpation Other symptoms: none Related Data Home Medications Medication Instructions Recorded Confirmed hydrochlorothiazide 25 mg tablet 25 mg PO DAILY 08/17/20 08/30/21 simvastatin 10 mg tablet 10 mg PO BEDTIME 08/17/20 08/30/21 metoprolol succinate 25 mg 25 mg PO DAILY 02/23/21 08/30/21 tablet,extended release 24 hr Previous Rx's Medication Instructions Recorded apixaban 5 mg tablet (Eliquis) 5 mg PO BID #60 tabs 11/24/21 potassium chloride 20 mEq 20 meq PO DAILY 30 days #30 tabs 11/24/21 tablet,extended release flecainide 100 mg tablet 100 mg PO Q12H #180 caps 12/22/21 Allergies Allergy/AdvReac Type Severity Reaction Status Date / Time No Known Allergies Allergy Verified 08/30/21 11:40 Review of Systems Review of Systems: Constitutional : No Fever, No Chills, No Fatigue, No Malaise ENT/Mouth : No Hearing loss, No Ear Pain, No Sore Throat Eyes: No Eye Pain, No Swelling, No Redness, No Foreign Body, No Discharge, No Vision Changes Cardiovascular : No Chest Pain, No SOB, No Dyspnea on Exertion Respiratory : No Cough, No Sputum, No Wheezing, No Smoke Exposure, No Dyspnea Gastrointestinal : No Nausea, No Vomiting, No Diarrhea, No Constipation, No Abdominal Pain Genitourinary : No Dysuria, No Urinary Frequency, No Hematuria, No Urinary Incontinence, No Urgency Musculoskeletal : + left Joint pain, No Myalgias, No Joint Swelling Skin : No Skin Lesions, No Rash, +Slight Brusing Neuro : No Weakness, No Numbness, No Paresthesias, No Loss of Consciousness, No Dizziness, No Headache Yes all other systems are reviewed and are negative [facility] Past Medical History Attestation statement: The following information was validated with the patient. Source: old records reviewed and nursing notes reviewed Medical History HTN (hypertension) Left anterior fascicular block Paroxysmal atrial fibrillation Thoracic aortic aneurysm Surgical History History of hysterectomy Family History Family History Father CVD (cardiovascular disease) Mother No problems noted. Social History Social History Alcohol intake: never Patient Tobacco Use Status: Never used Tobacco Advance Directives: No Advance Directives Information Provided: Yes Current occupational status: retired Physical Exam Vital Signs: Vital Signs: Last Vital Signs Temp 98.2 F 02/05/22 08:05 Pulse 53 02/05/22 08:35 Resp 16 02/05/22 08:35 BP 127/73 02/05/22 08:35 Pulse Ox 95 02/05/22 08:35 O2 Del Method 02/05/22 08:35 BMI result Body Mass Index 29.1 Vital signs have been reviewed as normal and appeared to be correct. Blood pressure 133/98 Heart rate normal. Respiration rate normal. Temperature normal. Oxygen saturation normal. Appearance: Alert. Oriented X3. No acute distress. Head: Normal external exam. Normocephalic. Atraumatic. Eyes: PERRLA. EOMI. Conjunctiva and sclera normal. Eyelids normal. ENT: Pharynx normal. Uvula midline. Moist mucous membranes. Normal voice. No trismus noted. No drooling noted. No muffled voice noted. Neck: Normal inspection. Neck supple. FROM. No adenopathy. Thyroid Normal. No meningeal signs. No neck mass noted. No signs of trauma noted. CVS: Normal heart rate and rhythm. Heart sound normal. Pulses normal throughout. No murmurs/rales/gallops. Respiratory: No respiratory distress. Painless inspiration. Breath sounds normal. No wheezes/rales/rhonchi noted. No accessory muscle usage noted or decreased air movement noted. Abdomen: Soft and nontender. Bowel sounds normal in all 4 quadrants. No distention noted. No visible injury noted. Back: Full range of motion noted. Skin: Skin warm and dry. Normal skin color. Normal skin turgor. No rashes/lesions/lacerations noted. Extremities: pt c soft tissues swelling/ttp to left lateral malleolus. No obvious ligamentous or tendon injury noted. She has full range of motion of the left ankle joint. No lower extremity edema or calf tenderness noted bilaterally. Otherwise all other extremities exhibit normal range of motion nontender. Neuro: Oriented X 3. No motor deficit. No sensory deficit. Reflexes normal. Normal steady gait. No focal neuro deficits noted. CN's II-XII intact bilaterally? Vascular: + radial pulses/+ 2 distal pedal pulses/+2 dorsalis pedis b/l. Normal cap refill. No cyanosis noted to upper extremity nails and lower extremity toes nails. Course Course Course Narrative: Patient able to bear weight on affected ankle well although reports pain. Patient most likely sprain. X-ray negative for any acute processes. Not consistent with based 5th meta tarsal fracture. No Achilles rupture. Not a Maisonneuve fracture. No evidence of vascular injury. Will place in an Louie wrap, for support. Ice, rest, and elevate ankle along with Motrin and Tylenol for pain and swelling. I explained to patient that it takes time for ankle sprains to heal and that if there are any new or worsening symptoms/any persistent symptoms to follow-up with PCP/orthopedic for further evaluation treatment. Patient understands and agrees with this plan. Reevaluation(s) Reevaluation #1: X-ray reveals soft tissue swelling otherwise no other acute processes will place an Louie wrap and treat symptomatic knee instructed follow-up orthopedic if symptoms persist for longer than 2-3 weeks and PCP and to return if any new or worsening symptoms. Patient understands agrees with this plan. Time: 09:34 MDM - Extremity Injury (Lower) Medical Records Attestation: I reviewed the patient's medical records. Imaging Data Left ankle x-ray: Attestation: I personally reviewed and interpreted this imaging study as follows: Radiologist's impression: FINDINGS: Nonacute deformity is seen along the inferior margins of the medial and lateral malleoli. The tibiotalar joint space is unremarkable. The tarsal bones are normally aligned. Small to moderate plantar and retrocalcaneal spurs are noted. There is no overt joint effusion. Mild soft tissue swelling. XR/XR ankle LT min 3V IMPRESSION: Mild soft tissue swelling without definitive acute underlying osseous abnormality. Medial and lateral malleoli findings do not appear acute and likely secondary to old injury. Degenerative calcaneal spurs. Discharge Plan Discharge Clinical Impression: Ankle sprain and strain Patient Disposition: Home, Self-Care Instructions: Ankle Sprain (ED) Additional Instructions: You were seen today for a left ankle sprain. X-ray was reassuring and showed no acute fracture. Please use Louie wrap when walking around outside and remove it once at home. Please continue to elevate your leg while at home. Pain management with either Tylenol. Should you have any increased swelling, numbness or tingling in the lower extremity, weakness, or cold extremity please return to the emergency department for further care. Prescriptions: No Action potassium chloride 20 mEq tablet extended release 20 meq PO DAILY 30 Days Qty: 30 5RF Eliquis 5 mg tablet 5 mg PO BID Qty: 60 5RF flecainide 100 mg tablet 100 mg PO Q12H Qty: 180 1RF simvastatin 10 mg tablet 10 mg PO BEDTIME hydrochlorothiazide 25 mg tablet 25 mg PO DAILY metoprolol succinate 25 mg tablet extended release 24 hr 25 mg PO DAILY Referrals: [facility] [Provider Group] (Please follow-up with a primary care doctor in 2-3 days. If you have your own PCP please follow-up with them. ) [facility] [Provider Group] (Please follow-up with a primary care doctor in 2-3 days. If you have your own PCP please follow-up with them. ) Interventions: ED Discharge Assessment Last Done: 02/05/22 10:02 Discharge Date/Time: 02/05/22 10:03 Print Language: Uruguayan
[2022-02-05 08:35] VITALS: BP 127/73; PULSE 53; RESP 16; O2SAT 95
== END 2022-02-05 10:03 | disposition home or self-care (01) ==
PROVIDERS: Emergency Provider Emergency Medicine; PCP Internal Medicine Endocrinology, Diabetes & Metabolism
DX: S93.402A Sprain of unspecified ligament of left ankle, initial encounter (principal); S96.912A Strain of unspecified muscle and tendon at ankle and foot level, left foot, initial encounter; X58.XXXA Exposure to other specified factors, initial encounter; Y93.9 Activity, unspecified; Y92.013 Bedroom of single-family (private) house as the place of occurrence of the external cause; Y99.9 Unspecified external cause status
CPT/HCPCS: 73610; 99283

== ENCOUNTER → 2022-03-08 14:04 | Outpatient (BNVA) | payer MEDICARE, SELFPAY | PROVIDERS: PCP Internal Medicine Endocrinology, Diabetes & Metabolism; Visit Provider Internal Medicine Cardiovascular Disease | DX: I48.0 Paroxysmal atrial fibrillation (principal); I71.2 Thoracic aortic aneurysm, without rupture | CPT/HCPCS: 93005; 99212 ==

== ENCOUNTER → 2022-04-07 09:16 | Outpatient (REF) | payer MEDICARE, SELFPAY ==
--- NOTE | 2022-04-07 09:20 | CA_ITS ---
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 The visually estimated ejection fraction is between 60-65%. - No obvious valvular pathology seen on this study. - There is mild dilatation of the ascending aorta measuring 4.30 cm. Findings Left Ventricle Normal left ventricular cavity size. There is normal left ventricular wall thickness. The left ventricular systolic function is normal. The visually estimated ejection fraction is between 60-65%. There is no evidence of regional wall motion abnormalities. Diastolic function is normal for age. Right Ventricle Normal right ventricular cavity size and systolic function. Atria Both atria are normal in size. Aortic Valve There is a normal trileaflet aortic valve. There is no aortic valve stenosis. There is no aortic valve regurgitation. Mitral Valve The mitral valve appears normal. There is trace mitral valve regurgitation. There is no mitral valve stenosis. Pulmonic Valve The pulmonic valve is likely normal. Tricuspid Valve Normal tricuspid valve structure. There is trace tricuspid valve regurgitation. There is no evidence of pulmonary hypertension. Great Vessels There is mild dilatation of the ascending aorta measuring 4.30 cm. Small plaque is seen in the sino tubular ridge. Venous The inferior vena cava is normal in size and collapses greater than 50% with inspiration. Pericardium/Pleural There is no evidence of pericardial effusion. Prior Study Comparison No significant change compared to prior study dated: 03/30/2021. Recommendations, Care & Conclusions No obvious valvular pathology seen on this study. Measurements 2D Linear Measurements IVSd: 0.94 0.6-0.9/0.6-1.0 cm LVIDd: 4.96 3.9-5.3/4.2-5.9 cm LVIDd Index: 2.68 2.4-3.2/2.2-3.1 cm/m2 LVIDs: 3.26 2.0-3.6 cm LVPWd: 1.08 0.7-1.1 cm LA Diam: 3.50 2.7-3.8/3.0-4.0 cm LAIDs Index: 1.89 1.5-2.3 cm/m2 LV Mass: 227.07 67-162/88-224 g LV Mass Index: 122.74 43-95/49-115 g/m2 LVOT Diam: 2.30 3.0+(-)1.3 cm 2D Systolic Function EF 4C: 62.30 >55% EF 2C: 69.90 >55% EF BiP: 67.70 >55% Mitral Valve MV Pk E: 0.36 MV PK A: 0.52 MV Decel Time: 365.00 E/A: 0.70 E'Lateral: 6.74 E'Medial: 4.68 E/E' Med: 7.70 E/E' Lat: 5.30 PHT: 107.00 MVA PHT: 2.06 Decel Rice: 0.99 Aortic Valve AoV Pk Adrian: 1.27 AoV Mn Adrian: 0.86 AoV VTI: 0.28 AoV Pk Grad: 6.00 Aov Mn Grad: 3.00 JENNI Cont.VTI: 2.56 LVOT LVOT Pk Adrian: 0.78 LVOT Mn Adrian: 0.49 LVOT VTI: 0.17 LVOT Pk Grad: 2.00 LVOT Mn Grad: 1.00 LVOT Diam: 2.30 LVOT Area: 4.15 Diastolic Function MV Pk E: 0.36 MV Pk A: 0.52 E/A: 0.70 E'Medial: 4.68 E/E' Med: 7.70 E' Laterial: 6.74 E/E' Lat: 5.30 Right Ventricle TAPSE (mm): 28.50 TVS' Adrian: 15.20 Tricuspid Valve TR Pk Adrian: 2.36 TR Pk Grad: 22.00 RA Press: 3.00 RVSP: 25.00 Great Vessels Aorta Sinus of Valsalva: 3.35 2.0-3.[address] Ridge: 2.85 1.7-3.4 cm Ao Asc: 4.30 2.1-3.4 cm Updated in Other Vendor System with Status of Final John Castle MD electronically signed on 04/07/2022 6:08:33 PM with status of Final
== END ==
LOC: HO.CARD 09:16
PROVIDERS: Visit Provider Internal Medicine Cardiovascular Disease
DX: I71.20 Thoracic aortic aneurysm, without rupture, unspecified (principal)
CPT/HCPCS: 93306

== ENCOUNTER 2022-09-13 10:58 | Outpatient (REF) | payer MEDICARE, SELFPAY ==
[2022-09-13 12:51] LABS: Hematocrit 46.8 % (37.0-47.0); Hemoglobin 15.7 g/dl (12.0-16.0); Mean Corpuscular HGB Conc 33.5 g/dl (31.0-35.0); Mean Corpuscular Volume 89.3 fL (80.0-98.0); Mean Platelet Volume 11.7 fL (9.4-12.3); Platelet Count 317 X10*3/uL (160-400); Red Blood Count 5.24 X10*6/uL (4.20-5.50); Red Cell Distribution Width 12.2 % (11.0-16.0); White Blood Count 8.7 X10*3/uL (4.8-10.8)
[2022-09-13 14:56] LABS: Anion Gap 13 (12-20); Blood Urea Nitrogen 15 mg/dL (9-16); Carbon Dioxide 27 mmol/L (22-29); Chloride 104 mmol/L (96-108); Estimated Glomerular Filt Rate > 60; Glucose Random 112 mg/dL (60-115); Potassium 4.3 mmol/L (3.3-5.1); Sodium 140 mmol/L (135-145)
== END 2022-09-13 10:59 | disposition home or self-care (01) ==
LOC: HO.LAB 10:58
PROVIDERS: PCP Internal Medicine Endocrinology, Diabetes & Metabolism; Visit Provider Internal Medicine Cardiovascular Disease
DX: I48.0 Paroxysmal atrial fibrillation (principal); I71.20 Thoracic aortic aneurysm, without rupture, unspecified; Z79.899 Other long term (current) drug therapy
CPT/HCPCS: 36415; 80048; 85027; 93005; 99212

== ENCOUNTER 2022-10-28 07:30 | Emergency (ER) | payer MEDICARE, SELFPAY ==
[2022-10-28 07:33] VITALS: BP 131/83; PULSE 73; RESP 16; TEMP 36.6; O2SAT 99; BMI 29.1
--- NOTE | 2022-10-28 07:43 | ED_ITS ---
HPI - Wound/Laceration General Chief Complaint: Wound/Laceration Stated Complaint: finger lac Time Seen by Provider: 10/28/22 07:43 Source: patient Mode of arrival: ambulatory Limitations: no limitations History of Present Illness HPI narrative: 77 yo female presents to the ER for evaluation of left middle finger laceration sustained yesterday afternoon while cutting a bagel. She states there is a skin flap that she closed tightly with Band-Aids and tape. She was able to control the bleeding with direct pressure. She is not sure when her last tetanus shot was. She states she is able to fully extend and flex the finger. No numbness or tingling. No bleeding today. She is coming in to see if she needs stitches. Onset (ago): day(s) (1) Extremity Location: left: hand (Middle finger) Place: home Patient tetanus UTD: No Context: accidental Associated symptoms: pain Treatments prior to arrival: bandage Related Data Home Medications Medication Instructions Recorded Confirmed hydrochlorothiazide 25 mg tablet 25 mg PO DAILY 08/17/20 09/13/22 metoprolol succinate 25 mg 25 mg PO DAILY 02/23/21 09/13/22 tablet,extended release 24 hr Previous Rx's Medication Instructions Recorded potassium chloride 20 mEq 20 meq PO DAILY 30 days #30 tabs 05/23/22 tablet,extended release apixaban 5 mg tablet (Eliquis) 5 mg PO BID #60 tabs 05/25/22 flecainide 100 mg tablet 100 mg PO Q12H 90 days #180 caps 06/22/22 simvastatin 10 mg tablet 10 mg PO BEDTIME #90 tabs 10/04/22 Allergies Allergy/AdvReac Type Severity Reaction Status Date / Time No Known Allergies Allergy Verified 08/30/21 11:40 Review of Systems Review of Systems: Yes all other systems are reviewed and are negative [facility] Past Medical History Medical History HTN (hypertension) Left anterior fascicular block Paroxysmal atrial fibrillation Thoracic aortic aneurysm Surgical History History of hysterectomy Family History Family History Father CVD (cardiovascular disease) Mother No problems noted. Social History Social History Alcohol intake: never Patient Tobacco Use Status: Never used Tobacco Advance Directives: No Advance Directives Information Provided: No Current occupational status: retired Physical Exam Vital Signs: Vital Signs: Last Vital Signs Temp 97.9 F 10/28/22 07:33 Pulse 73 10/28/22 07:33 Resp 16 10/28/22 07:33 BP 131/83 10/28/22 07:33 Pulse Ox 99 10/28/22 07:33 O2 Del Method Room Air 10/28/22 07:33 BMI result Body Mass Index 29.1 Appearance: Alert. Oriented X3. No acute distress. HEENT: normal inspection CVS: Normal heart rate and rhythm. Pulses normal. Respiratory: No respiratory distress. Skin: Skin warm and dry. Normal skin color. Normal skin turgor. No rashes. Extremities: Left middle finger with a small, less than 1 cm skin avulsion flap just proximal to the nail bed, no active bleeding. Area is white and macerated from previous bandage. No active bleeding. Normal flexion and extension of the DIP. Cap refill less than 3 seconds. Neuro: Oriented X 3. No motor deficit. No sensory deficit. Medical Decision Making Medical Decision Making MDM Narrative: 77 yo female presenting to the ER for evaluation of left middle finger laceration sustained yesterday afternoon cutting a bagel. exam c/w superficial avulsion. dermabond and steristrips used to close the wound. wound care discussed. stable for d/c home. Differential Diagnosis Differential Diagnoses: The differential diagnosis associated with the presentation includes Skin avulsion, deep laceration, superficial laceration, contaminated wound External Record Review External record reviewed: Prior outpatient labs Chronic Conditions Patient?s care impacted by: Other (afib on eliquis) Procedures Laceration Laceration 1: Site: hand Side (If applicable): left Size (cm): 1 Description: flap Depth: simple, single layer Pre-repair: irrigated extensively Skin layer closed with: other (dermabond and steri strips) Critical Care Time Critical Care Time Critical Care Time: No Discharge Plan Discharge Clinical Impression: Avulsion of skin Patient Disposition: Home, Self-Care Instructions: Skin Avulsion (ED) Additional Instructions: Glue and Steri-Strips were used to closure wound today. Do not get your wound wet today. Keep clean and dry. The Steri-Strips will come off on their own, usually within a week. When the edges start to stanley just trim them. Do not peel them off. If you develop new or worsening symptoms call 911 or come back to the ER for further evaluation. Prescriptions: No Action potassium chloride 20 mEq tablet extended release 20 meq PO DAILY 30 Days Qty: 30 5RF Eliquis 5 mg tablet 5 mg PO BID Qty: 60 5RF flecainide 100 mg tablet 100 mg PO Q12H 90 Days Qty: 180 3RF simvastatin 10 mg tablet 10 mg PO BEDTIME Qty: 90 3RF hydrochlorothiazide 25 mg tablet 25 mg PO DAILY metoprolol succinate 25 mg tablet extended release 24 hr 25 mg PO DAILY
[2022-10-28] MEDS: Diphth,Pertus(ACell),Tet Adult 0.5 ML SYRINGE IM (08:17)
== END 2022-10-28 08:22 | disposition home or self-care (01) ==
PROVIDERS: Emergency Provider Emergency Medicine; PCP Internal Medicine
DX: S61.213A Laceration without foreign body of left middle finger without damage to nail, initial encounter (principal); W26.0XXA Contact with knife, initial encounter; I10 Essential (primary) hypertension; I48.0 Paroxysmal atrial fibrillation; Y93.89 Activity, other specified; Y92.010 Kitchen of single-family (private) house as the place of occurrence of the external cause; Y99.9 Unspecified external cause status; Z79.01 Long term (current) use of anticoagulants; Z79.02 Long term (current) use of antithrombotics/antiplatelets; Z79.899 Other long term (current) drug therapy
CPT/HCPCS: 12001; 90471; 90715; 99282; 99284

== ENCOUNTER 2023-03-14 14:33 | Outpatient (AMB) | payer MEDICARE, SELFPAY ==
[2023-03-14 14:43] VITALS: BP 120/80; PULSE 78; BMI 30.8
--- NOTE | 2023-03-14 14:43 | MHC.OFFVIS ---
Intake Vital Signs 03/14/23 14:43 Height 5 ft 5 in Weight 185 lb 3.013 oz BMI 30.8 BP 120/80 Blood Pressure Location Lt brachial Position Sitting Pulse 78 Intake Visit Reasons: 6 month follow up Intake Note: 6 month follow-up with ekg feeling Cardiovascular Disease Specialist Required: No Allergies No Known Allergies Allergy (Verified 08/30/21 11:40) Medication List - Last Reconciled 03/14/23 by Bolivar Whitaker MD apixaban (Eliquis) 5 mg PO BID flecainide 100 mg PO Q12H 90 days hydrochlorothiazide 25 mg PO DAILY metoprolol succinate ER 25 mg PO DAILY potassium chloride ER 20 mEq PO DAILY 30 days simvastatin 10 mg PO BEDTIME HPI HPI Comments History of Present Illness Details Robyn comes for follow-up. She has been remaining active and doing well. She denies any cardiac symptoms. Denies any prolonged palpitation irregular heartbeat. No bleeding issues or neurologic events. No exertional chest pain. No shortness of breath, orthopnea, PND. Takes all her medications. It [facility] Medical History Thoracic aortic aneurysm Left anterior fascicular block HTN (hypertension) Paroxysmal atrial fibrillation Surgical History History of hysterectomy Family History Father CVD (cardiovascular disease) Mother No problems noted. Social History Alcohol intake: never Patient Tobacco Use Status: Never used Tobacco Current occupational status: retired Review of Systems Const Denies chills, Denies fatigue, Denies fever(s), Denies frequent falls, Denies weakness, Denies weight gain and Denies weight loss ENT Denies dizziness Card Denies chest pain, Denies leg edema, Denies lightheadedness, Denies palpitations, Denies dyspnea, Denies dyspnea on exertion, Denies orthopnea and Denies other (loss of consciousness) Resp Denies cough, Denies dyspnea and Denies dyspnea on exertion GI Denies hematochezia and Denies change in stool character Musc Denies abnormal gait, Denies muscle weakness, Denies numbness, Denies radiating pain into limb and Denies tingling Neuro Denies abnormal gait, Denies dizziness, Denies frequent falls, Denies numbness, Denies tingling and Denies weakness Endo Denies fatigue and Denies palpitations Physical Exam Vital Signs: Last Vital Signs Pulse 78 03/14/23 14:43 BP 120/80 03/14/23 14:43 BMI result Body Mass Index 30.8 Const General: cooperative, comfortable, alert and awake Nutritional Appearance: obese Orientation/consciousness: patient oriented x3 Limitations: no limitations Neck Neck: Yes trachea midline, Yes supple and Yes no JVD Chest Chest palpation & inspection: normal inspection of the chest Resp Effort & Inspection: normal respiratory effort Auscultation: clear to auscultation bilaterally Cardio Jugular venous distension: no JVD Palpation: normal PMI Rate: regular rate Rhythm: regular rhythm Heart sounds: S1 normal heart sound present and S2 normal heart sound present GI Auscultation: normal bowel sounds Skin General skin exam: no rashes or lesions noted Neuro General: patient oriented x3 and no focal motor deficits Extrem General: Yes no clubbing, cyanosis or edema Psych Appearance: grossly normal Office Procedures EKG Details: EKG with normal sinus rhythm with left anterior fascicular block with QRS duration about 120 milliseconds, unchanged from before [id number], Complete Assessment & Plan Assessment & Plan (1) Paroxysmal atrial fibrillation: Code(s): I48.0 - Paroxysmal atrial fibrillation Plan: Paroxysmal atrial fibrillation highly symptomatic has done very well with rhythm control approach. Continue rhythm control approach. Continue current therapy with flecainide and concomitant metoprolol therapy. Importance of medical therapy was discussed. EKGs every 6 months. Continue full oral anticoagulation, currently on Eliquis 5 mg b.i.d.. Semi annual renal function test should be pursued. (2) Thoracic aortic aneurysm: Code(s): I71.2 - Thoracic aortic aneurysm, without rupture Plan: Thoracic aortic aneurysm which has remained stable the past a follow-up echocardiogram 6 months time. No interventions required except for medical therapy. Continue aggressive blood pressure control which is currently well optimized. Target goal LDL less than 100 mg/dL. Advised to avoid sudden strenuous isometric exercise. Will follow up in the clinic in 6 months time, sooner p.r.n.. Thank you for allowing me to partake Orders: Orders Basic Metabolic Panel Today I48.0 - Paroxysmal atrial fibrillation CA echo transthoracic complete 6 Months I71.2 - Thoracic aortic aneurysm, without rupture Coding Level of Care Code Est Pt Level 4 (21446) Diagnoses Paroxysmal atrial fibrillation I48.0 Thoracic aortic aneurysm I71.2 CPT Codes EKG - CPT: 40619-[id number], Complete ([id number])
== END 2023-03-14 15:01 | disposition home or self-care (01) ==
PROVIDERS: PCP Internal Medicine; Visit Provider Internal Medicine Cardiovascular Disease
DX: I48.0 Paroxysmal atrial fibrillation (principal); I71.20 Thoracic aortic aneurysm, without rupture, unspecified
CPT/HCPCS: 93010; 99214

== ENCOUNTER 2023-03-14 14:33 | Outpatient (REF) | payer MEDICARE, SELFPAY ==
[2023-03-14 16:16] LABS: Anion Gap 13 (12-20); Blood Urea Nitrogen 17 mg/dL (9-16); Calcium 10.2 mg/dL (8.4-10.2); Carbon Dioxide 26 mmol/L (22-29); Chloride 104 mmol/L (96-108); Estimated Glomerular Filt Rate > 60; Glucose Random 126 mg/dL (60-115); Potassium 3.6 mmol/L (3.3-5.1); Sodium 139 mmol/L (135-145)
== END 2023-03-14 14:34 | disposition home or self-care (01) ==
LOC: HO.LAB 14:33
PROVIDERS: PCP Internal Medicine; Visit Provider Internal Medicine Cardiovascular Disease
DX: I48.0 Paroxysmal atrial fibrillation (principal); I71.20 Thoracic aortic aneurysm, without rupture, unspecified
CPT/HCPCS: 36415; 80048; 93005; 99212

== ENCOUNTER 2023-07-22 15:11 | Emergency (ER) | payer MEDICARE, SELFPAY ==
[2023-07-22 15:22] VITALS: BP 150/87; PULSE 78; RESP 18; TEMP 36.7; O2SAT 97; BMI 29.9
--- NOTE | 2023-07-22 15:22 | ED.GENADULT ---
HPI - General Adult General Chief complaint: Urogenital-Female Stated complaint: pain using bathroom Time Seen by Provider: 07/22/23 15:30 Source: patient, RN notes reviewed and old records reviewed Mode of arrival: ambulatory History of Present Illness HPI narrative: 78-year-old female with a past medical history of proximal AFib on Eliquis, HTN, thoracic aortic aneurysm, presenting to the ED complaining of dysuria and suprapubic discomfort times today. Denies fever, chills, hematuria, flank pain, vaginal bleeding/discharge, concern for STI or being currently sexually active Related Data Home Medications Medication Instructions Recorded Confirmed hydrochlorothiazide 25 mg tablet 25 mg PO DAILY 08/17/20 03/14/23 metoprolol succinate 25 mg 25 mg PO DAILY 02/23/21 03/14/23 tablet,extended release 24 hr Previous Rx's Medication Instructions Recorded potassium chloride 20 mEq 20 meq PO DAILY 30 days #30 tabs 05/23/22 tablet,extended release flecainide 100 mg tablet 100 mg PO Q12H 90 days #180 caps 06/22/22 simvastatin 10 mg tablet 10 mg PO BEDTIME #90 tabs 10/04/22 apixaban 5 mg tablet (Eliquis) 5 mg PO BID #60 tabs 04/21/23 cefuroxime axetil 500 mg tablet 500 mg PO BID #13 tabs 07/22/23 Allergies Allergy/AdvReac Type Severity Reaction Status Date / Time No Known Allergies Allergy Verified 07/22/23 15:26 Review of Systems Review of Systems: Constitutional: No Fever, No Chills ENT/Mouth: No Ear Pain, No Nasal Congestion, No sore throat, No Rhinorrhea, No Swallowing Difficulty Cardiovascular: No Chest Pain, No SOB Respiratory: No Cough, No Sputum, No Wheezing Gastrointestinal: No Nausea, No Vomiting, No Diarrhea, No Constipation, +suprapubic pain Genitourinary: + Dysuria, No Urinary Frequency, No Hematuria, No Urinary Incontinence/retention, No Urgency, No Flank Pain Musculoskeletal: No joint pain Skin: No Skin Lesions, No rash Neuro: No Weakness Yes all other systems are reviewed and are negative Constitutional: Constitutional: Reports as per [facility] Past Medical History Attestation statement: The following information was validated with the patient. Source: old records reviewed Medical History Thoracic aortic aneurysm Left anterior fascicular block HTN (hypertension) Paroxysmal atrial fibrillation Surgical History History of hysterectomy Family History Family History Father CVD (cardiovascular disease) Mother No problems noted. Social History Social History Alcohol intake: never Patient Tobacco Use Status: Never used Tobacco Advance Directives: No Advance Directives Information Provided: No Current occupational status: retired Physical Exam ED Vital Signs: Vital Signs - 24 hr 07/22/23 15:22 Temperature 98.1 F Pulse Rate 78 Respiratory Rate 18 Blood Pressure 150/87 H Pulse Oximetry 97 Oxygen Delivery Method Room Air BMI result Body Mass Index 29.9 Const General: cooperative, healthy appearing and no acute distress Orientation/consciousness: patient oriented x3 Limitations: no limitations HENMT Head: Yes normal to inspection and Yes atraumatic Ears: hearing grossly normal bilaterally General nose exam: Normal external nose present Face and sinus: Yes normal facial exam Eyes General: appearance normal, both eyes and all related structures EOM: EOMs intact bilaterally Neck Neck: Yes normal visual inspection and Yes no meningeal signs Resp Effort & Inspection: normal respiratory effort and no respiratory distress Cardio Rate: regular rate GI Inspection: Yes normal to inspection Palpation (GI): Soft to palpation, nontender, no guarding and not rigid General: Yes no CVA tenderness Back/Spine/Pelvis Back: no CVA tenderness Skin Rashes: no rashes Wounds: no wounds Neuro General: patient oriented x3, tone normal and no meningeal signs Cranial nerves: Yes CN's II-XII intact bilaterally Gait exam (Neuro): Normal gait present Extrem General: Yes normal to inspection Course Course Course Narrative: This is a rapid medical exam: Additional HPI, ROS, PE not included below will be deferred to primary provider. Patient is a 78-year-old female with history of afib, HTN, thoracic aortic aneurism presenting to the ED with complaint of dysuria and suprapubic pain. Denies fevers, back, or flank pain. Denies nausea or vomiting. Plan: UA > patient has been unable to give us urine sample. Has tried multiple times. > staff continues to encourage patient and push p.o. fluids -1900--ED care transferred to MATTIE Callejas pending UA and anticipated discharge Reevaluation(s) Reevaluation #1: Patient received in sign out from BROOK Robertson. Urinalysis notable for 3+ leukocytes, >50 WBCs, 3+ blood. Will treat for UTI with cefuroxime, first dose given in ED as patient will not be able to grape picker prescription until tomorrow morning. Instructed patient to follow up with PCP. Return precautions discussed. Patient verbalized understanding of and agreement with plan. Time: 19:57 Medical Decision Making Medical Decision Making [facility] Narrative: 78-year-old female with a past medical history of proximal AFib on Eliquis, HTN, thoracic aortic aneurysm, presenting to the ED complaining of dysuria and suprapubic discomfort x today. On exam vital signs stable, NAD, nontoxic appearing, abdomen soft/nontender, no CVAT appreciated. Concern for UTI. Lower suspicion for STI, renal stone/pyelo, ovarian cyst/torsion, appendicitis or diverticulitis Plan: UA Please refer to course for remaining clinical decision making, interpretation of labs/imaging results, and discussions with consultants and/or family members. Differential Diagnosis Differential Diagnoses: The differential diagnosis associated with the presentation includes As above Lab Data [facility] Lab Attestation statement: I reviewed the patient's lab results. Labs: Lab Results 07/22/23 Range/Units 18:51 Urine Color Yellow Urine Appearance Turbid Urine pH 6.0 (5.0-9.0) Ur Specific [place] 1.010 (1.005-1.025) Urine Protein 30 (1+) H (Neg-Trace) mg/dL Urine Glucose (UA) Negative (Negative) mg/dL Urine Ketones Negative (Negative) mg/dL Urine Blood Large (3+) H (Negative) Urine Nitrite Negative (Negative) Ur Leukocyte Esterase Large (3+) H (Negative) Urine RBC 11-20 H (0-2) /HPF Urine WBC >50 H (0-5) /HPF Ur Squamous Epith Cells 3-5 (0-2) /HPF Urine Bacteria None Seen (None Seen) Hyaline Casts 0-2 (0-2) /LPF External Record Review External record reviewed: Inpatient record, Office record, Outpatient record, Prior outpatient labs, Prior outpatient radiology, Primary care record and Outside ED record Tests considered The following testing was considered but not selected: As above Prescription Management I considered prescription management with: Pain Medication and Antibiotic Chronic Conditions Patient?s care impacted by: Hypertension Discharge Plan Discharge Clinical Impression: Urinary tract infection, Dysuria Patient Disposition: Home, Self-Care Instructions: Urinary Tract Infection in Older Adults (ED) Additional Instructions: You have been evaluated in the emergency department today for your urinary symptoms. Your evaluation, including urinalysis, suggests that your symptoms are due to urinary tract infection. Please take your prescribed antibiotics for the full course of medication as directed. Please follow-up with your primary care provider within 2 days. Return to the emergency department if you experience fevers 100.4? F or greater, worsening or uncontrolled pain, vomiting, flank pain, or for any other concerning symptoms. Prescriptions: New cefuroxime axetil 500 mg tablet 500 mg PO BID Qty: 13 0RF Rx Instructions: You were given the first dose in the emergency department. Please take the next dose on 07/23/23 in the morning. No Action potassium chloride 20 mEq tablet extended release 20 meq PO DAILY 30 Days Qty: 30 5RF flecainide 100 mg tablet 100 mg PO Q12H 90 Days Qty: 180 3RF simvastatin 10 mg tablet 10 mg PO BEDTIME Qty: 90 3RF Eliquis 5 mg tablet 5 mg PO BID Qty: 60 5RF hydrochlorothiazide 25 mg tablet 25 mg PO DAILY metoprolol succinate 25 mg tablet extended release 24 hr 25 mg PO DAILY Referrals: Po,Lina Hernandez MD [Primary Care Provider] -
[2023-07-22 18:59] LABS: Appearance Urine Turbid; Color Urine Yellow; Glucose Urine UA Negative (Negative); Leukocyte Esterase Urine Large (3+) (Negative); Nitrite Urine Negative (Negative); UMIC TRIGGER UACC YES; Urine Blood Large (3+) (Negative); Urine Ketones Negative (Negative); Urine Protein 30 (1+) mg/dL (Neg-Trace)
[2023-07-22 19:01] LABS: Bacteria Urine None Seen (None Seen); Hyaline Casts Urine 0-2 /LPF (0-2); UACC Culture Trigger YES; WBC Urine >50 /HPF (0-5)
[2023-07-22] MEDS: cefuroxime axetiL 500 MG TABLET PO (20:03)
== END 2023-07-22 20:07 | disposition home or self-care (01) ==
PROVIDERS: Registered Nurse Emergency; Emergency Provider Student in an Organized Health Care Education/Training Program; PCP Internal Medicine
DX: N39.0 Urinary tract infection, site not specified (principal); R30.0 Dysuria; I10 Essential (primary) hypertension; I48.0 Paroxysmal atrial fibrillation; Z79.01 Long term (current) use of anticoagulants; Z79.899 Other long term (current) drug therapy
CPT/HCPCS: 81001; 81003; 87086; 99282; 99283

== ENCOUNTER 2023-07-31 16:31 | Outpatient (AMB) | payer MEDICARE, SELFPAY ==
[2023-07-31 16:33] VITALS: BP 130/80; PULSE 79; O2SAT 98
--- NOTE | 2023-07-31 16:33 | MHC.PC.OV ---
Vital Signs 07/31/23 16:33 Height 5 ft 5 in Weight 180 lb 0.4 oz BMI 30.0 BP 130/80 Blood Pressure Location Lt brachial Position Sitting Pulse 79 Pulse Source Pulse Oximeter Pulse Oximetry (%) 98 Oxygen Delivery Method Room Air Intake Visit Reasons: [facility] 2/3 pain when using bathroom Intake Note: Patient is here to follow-up after a visit the emergency department at [facility] on 07/22/2023 Parking Ramp Attendant Required: No Allergies No Known Allergies Allergy (Verified 07/31/23 16:39) Tobacco use date assessed: 07/31/23 Fall risk assessment: No Falls in past year Last assessed Fall Risk: 07/31/23 HPI [facility] 2/3 pain when using bathroom HPI Details 78-year-old obese female with atrial fibrillation hypertension history of thoracic aortic aneurysm coming in for follow-up. I have not seen the patient for long time. Recent ER visit July 2023 for dysuria treated for UTI with cefuroxime. Patient also follows up with Cardiology February 2023 with the atrial fibrillation on rhythm control approach flecainide with metoprolol continuing anti coagulation has a thoracic aneurysm stable and follow-up echocardiogram in 6 months continue aggressive blood pressure control with a target LDL of less than 100 advised avoid sudden strenuous isometric exercise November 2022 ER visit also for finger laceration left middle finger while cutting a bagel March 2022 echocardiogram:The left ventricular systolic function is normal. The visually estimated ejection fraction is between 60-65%. - No obvious valvular pathology seen on this study. - There is mild dilatation of the ascending aorta measuring 4.30 cm. Patient feels there a cyst on her private and concern just started [facility] Medical History (Updated 07/31/23 @ 17:02 by Lina Coyne MD) Thoracic aortic aneurysm Left anterior fascicular block HTN (hypertension) Paroxysmal atrial fibrillation Surgical History History of hysterectomy Family History Father CVD (cardiovascular disease) Mother No problems noted. Social History Alcohol intake: never Patient Tobacco Use Status: Never used Tobacco Current occupational status: retired Questionnaire Thrive Questionnaire Date Thrive assessed: 07/31/23 AUDIT C Alcohol Use Questionnaire (AUDIT-C) 1. How often do you have a drink containing alcohol?: Never 3. How often do you have six or more drinks on one occasion?: Never Total Score: 0 Physical exam (Primary Care) Vital Signs: Last Vital Signs Pulse 79 07/31/23 16:33 BP 130/80 07/31/23 16:33 Pulse Ox 98 07/31/23 16:33 Oxygen Delivery Method Room Air 07/31/23 16:33 BMI result Body Mass Index 30.0 Tobacco/Smoking Status: Tobacco use Status Tobacco use date assessed 07/31/23 07/31/23 16:34 Patient Tobacco Use Status Never used Tobacco 07/31/23 16:34 Thrive Assessment: Date of Thrive Assessment Date Thrive assessed 07/31/23 07/31/23 16:34 Const General: alert; No acute distress Eyes Conjunctivae: conjunctivae normal Resp Auscultation: clear to auscultation bilaterally Cardio Rate: regular rate Rhythm: regular rhythm GI Inspection: Yes normal to inspection Other: evaluation noted vaginal wall prolapse Female genitals images: 1. Vaginal wall mass protruding through the vaginal canal Extrem General: Yes normal to inspection and No edema Assessment and Plan Assessment & Plan (1) Urinary tract infection: Code(s): N39.0 - Urinary tract infection, site not specified Plan: Treated with cefuroxime (2) Paroxysmal atrial fibrillation: Code(s): I48.0 - Paroxysmal atrial fibrillation Plan: Continue to follow-up with cardiology continue with anticoagulation on flecainide and metoprolol (3) HTN (hypertension): Code(s): I10 - Essential (primary) hypertension Plan: Continue with blood pressure medication. Decrease salt intake and exercise continue with hydrochlorothiazide and metoprolol (4) Thoracic aortic aneurysm: Comment: March 2022 echocardiogram 4.3 Code(s): I71.2 - Thoracic aortic aneurysm, without rupture Plan: Continue to monitor echocardiogram has been requested (5) Elevated blood sugar: Code(s): R73.9 - Hyperglycemia, unspecified (6) Vaginal wall prolapse: Code(s): N81.10 - Cystocele, unspecified Plan: Referral to Gynecology Orders: Orders Hemoglobin A1c Today R73.9 - Hyperglycemia, unspecified Free T4 (Free Thyroxine) Today I10 - Essential (primary) hypertension Comprehensive Met. 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
== END 2023-07-31 17:09 | disposition home or self-care (01) ==
PROVIDERS: PCP Internal Medicine; Visit Provider Internal Medicine
DX: N39.0 Urinary tract infection, site not specified (principal); I48.0 Paroxysmal atrial fibrillation; I10 Essential (primary) hypertension; I71.20 Thoracic aortic aneurysm, without rupture, unspecified; R73.9 Hyperglycemia, unspecified; N81.10 Cystocele, unspecified
CPT/HCPCS: 99214

== ENCOUNTER 2023-08-08 09:41 | Outpatient (AMB) | payer MEDICARE, SELFPAY ==
--- NOTE | 2023-08-08 10:24 | MHC.OFFVIS ---
Intake Vital Signs 08/08/23 10:25 Height 5 ft 5 in Weight 178 lb BMI 29.6 BP 124/80 Intake Visit Reasons: Cystocele/PCP referral General Cargo Clerk Required: No Information Interpreted: non-clinical & clinical Manager Home Healthcare: Manager Home Healthcare Present (Eun) Allergies No Known Allergies Allergy (Verified 08/08/23 10:26) Is last menstrual period known: No Post menopausal: Yes Patient : No HPI HPI Comments History of Present Illness Details Presenting complaining of bulge per vagina, with no associated urine incontinence or constipation. No other complaints PFSH Medical History Thoracic aortic aneurysm Left anterior fascicular block HTN (hypertension) Paroxysmal atrial fibrillation Surgical History History of hysterectomy Family History Father CVD (cardiovascular disease) Mother No problems noted. Social History Alcohol intake: never Patient Tobacco Use Status: Never used Tobacco Patient : No Current occupational status: retired Female Reproductive History Menstrual Age of Menarche: 11 Total pregnancies: 3 Full term: 2 Number of Living Children: 2 Ab spontaneous: 1 Review of Systems Const All systems reviewed & are unremarkable except as noted in HPI and below Card Reports as per HPI and Reports no additional complaints Resp Reports as per HPI and Reports no additional complaints GI Reports as per HPI and Reports no additional complaints Reports as per HPI Physical Exam Vital Signs: Last Vital Signs BP 124/80 08/08/23 10:25 BMI result Body Mass Index 29.6 Const General: cooperative, healthy appearing and comfortable General: Yes bladder normal to palpation External Female Exam: No lesion Speculum Exam - Vagina: not erythematous and other (Moderate cystocele central and left paravaginal defect, mild rectocele) Speculum Exam - Cervix: Cervix absent Bimanual exam- vagina & uterus: bladder normal to palpation and uterus absent Bimanual Exam- Adnexa, other: Other (No masses detected) Assessment & Plan Assessment & Plan (1) Cystocele with rectocele: Comment: Moderate cystocele central and left paravaginal defect, mild rectocele Code(s): N81.10 - Cystocele, unspecified; N81.6 - Rectocele Plan: Discussed with the patient the finding on pelvic exam and options of treatment including expectant management, pessary is or surgical treatment. All pros and cons, risks and benefits of each were discussed with the patient, the patient decided to proceed with expectant management and will call if her symptoms get worse or if she changes her mind in the future. All questions answered, the patient verbalized understanding Coding Level of Care Code New Pt Level 3 (37111) Diagnoses Cystocele with rectocele N81.10; N81.6
[2023-08-08 10:25] VITALS: BP 124/80; BMI 29.6
== END 2023-08-08 13:15 | disposition home or self-care (01) ==
LOC: HO.HWS 09:41
PROVIDERS: PCP Internal Medicine; Visit Provider Obstetrics & Gynecology
DX: N81.10 Cystocele, unspecified (principal); N81.6 Rectocele
CPT/HCPCS: 99203; 99213

== ENCOUNTER → 2023-08-08 09:41 | Outpatient (BNVA) | payer MEDICARE, SELFPAY | PROVIDERS: PCP Internal Medicine; Visit Provider Obstetrics & Gynecology | DX: N81.10 Cystocele, unspecified (principal); N81.6 Rectocele | CPT/HCPCS: 99202 ==

== ENCOUNTER 2023-09-12 13:39 | Outpatient (AMB) | payer MEDICARE, SELFPAY ==
[2023-09-12 13:53] VITALS: BP 120/74; PULSE 80; BMI 29.3
--- NOTE | 2023-09-12 13:53 | A.OFFVIS_ITS ---
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 She said a couple weeks ago she had a brief episode of atrial fibrillation that lasted for about a minute and then dissipated. There is no clear triggers. She was resting at that point in time. She has no new symptoms. Denies any other prolonged palpitation denies any lightheadedness, syncope. No exertional chest pain. No shortness of breath, orthopnea, PND. Takes all her medications regularly. No bleeding issues or neurologic events. No echocardiogram done recently [facility] Medical History Thoracic aortic aneurysm Left anterior fascicular block HTN (hypertension) Paroxysmal atrial fibrillation Surgical History History of hysterectomy Family History Father CVD (cardiovascular disease) Mother No problems noted. Social History Alcohol intake: never Patient Tobacco Use Status: Never used Tobacco Current occupational status: retired Female Reproductive History Menstrual Age of Menarche: 11 Review of Systems Const Denies chills, Denies fatigue, Denies fever(s), Denies frequent falls, Denies we akness, Denies weight gain and Denies weight loss ENT Denies dizziness Card Denies chest pain, Denies leg edema, Denies lightheadedness, Denies palpit ations, Denies dyspnea, Denies dyspnea on exertion, Denies orthopnea and Denies other (loss of consciousness) Resp Denies cough, Denies dyspnea and Denies dyspnea on exertion GI Denies hematochezia and Denies change in stool character Musc Denies abnormal gait, Denies muscle weakness, Denies numbness, Denies radiating pain into limb and Denies tingling Neuro Denies abnormal gait, Denies dizziness, Denies frequent falls, Denies numbness, Denies tingling and Denies weakness Endo Denies fatigue and Denies palpitations Physical Exam Vital Signs: Last Vital Signs Pulse 80 09/12/23 13:53 BP 120/74 09/12/23 13:53 BMI result Body Mass Index 29.3 Const General: cooperative, comfortable, alert and awake Nutritional Appearance: obese Orientation/consciousness: patient oriented x3 Limitations: no limitations Neck Neck: Yes trachea midline, Yes supple and Yes no JVD Chest Chest palpation & inspection: normal inspection of the chest Resp Effort & Inspection: normal respiratory effort Auscultation: clear to auscultation bilaterally Cardio Jugular venous distension: no JVD Palpation: normal PMI Rate: regular rate Rhythm: regular rhythm Heart sounds: S1 normal heart sound present and S2 normal heart sound present GI Auscultation: normal bowel sounds Skin General skin exam: no rashes or lesions noted Neuro General: patient oriented x3 and no focal motor deficits Extrem General: Yes no clubbing, cyanosis or edema Psych Appearance: grossly normal Office Procedures EKG Details: EKG shows normal sinus rhythm with PACs with left anterior fascicular block with wide QRS, unchanged from before. [id number], Complete Assessment & Plan Assessment & Plan (1) Paroxysmal atrial fibrillation: Code(s): I48.0 - Paroxysmal atrial fibrillation Plan: Highly symptomatic paroxysmal atrial fibrillation 1 recent episode that lasted less than a minute. We discussed about management of atrial fibrillation. Advise her that if she is more prolonged episode to take additional 100 mg flecainide that day and if the symptoms do not resolve present to the emergency room for further treatment. Continue flecainide otherwise for maintenance and pursuing rhythm control approach will will need EKGs every 6 months. Continue full oral anticoagulation, currently on Eliquis 5 mg b.i.d.. Continue concomitant metoprolol therapy as well. Avoidance of stimulants was discussed. Stress mitigation strategy was discussed. (2) Thoracic aortic aneurysm: Comment: March 2022 echocardiogram 4.3 Code(s): I71.2 - Thoracic aortic aneurysm, without rupture Plan: Mild thoracic aortic aneurysm without any new symptoms at this point time. Continue to monitor by echocardiogram on annual basis. Continue aggressive blood pressure control. Continue statin therapy with target goal LDL less than 100 mg/dL. Management of thoracic aortic aneurysm was discussed. No surgical interventions required if it remains stable at this point time. Will follow up in the clinic in 6 months for EKG in 1 year with me. Thank you for allowing me to partake in her care Orders: Orders CA echo transthoracic complete Today I71.2 - Thoracic aortic aneurysm, without rupture Coding Level of Care Code Est Pt Level 4 (15022) Diagnoses Paroxysmal atrial fibrillation I48.0 Thoracic aortic aneurysm I71.2 CPT Codes EKG - CPT: [id number], Complete ([id number])
== END 2023-09-12 14:16 | disposition home or self-care (01) ==
PROVIDERS: PCP Internal Medicine; Visit Provider Internal Medicine Cardiovascular Disease
DX: I48.0 Paroxysmal atrial fibrillation (principal); I71.20 Thoracic aortic aneurysm, without rupture, unspecified
CPT/HCPCS: 93010; 99214

== ENCOUNTER → 2023-09-12 13:39 | Outpatient (BNVA) | payer MEDICARE, SELFPAY | PROVIDERS: PCP Internal Medicine; Visit Provider Internal Medicine Cardiovascular Disease | DX: I48.0 Paroxysmal atrial fibrillation (principal); I71.20 Thoracic aortic aneurysm, without rupture, unspecified | CPT/HCPCS: 93005; 99212 ==

== ENCOUNTER 2023-10-31 13:37 | Outpatient (AMB) | payer MEDICARE, SELFPAY ==
[2023-10-31 13:43] VITALS: BP 104/76; PULSE 74; O2SAT 99; BMI 29.1
--- NOTE | 2023-10-31 13:43 | A.OFFPC_ITS ---
Vital Signs 10/31/23 13:43 Height 5 ft 5 in Weight 175 lb BMI 29.1 BP 104/76 Blood Pressure Location Lt brachial Position Sitting Pulse 74 Pulse Source Pulse Oximeter Pulse Oximetry (%) 99 Oxygen Delivery Method Room Air Intake Visit Reasons: PE, cholesterol , PAF Intake Note: Patient is here today for a physical. 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 Allergies No Known Allergies Allergy (Verified 10/31/23 13:43) Medication List - Last Reconciled 10/31/23 by Lina Coyne MD apixaban (Eliquis) 5 mg PO BID flecainide 100 mg PO Q12H 90 days hydrochlorothiazide 25 mg PO DAILY metoprolol succinate ER 25 mg PO DAILY potassium chloride ER 20 mEq PO DAILY 30 days simvastatin 10 mg PO BEDTIME Tobacco use date assessed: 10/31/23 Fall risk assessment: No Falls in past year Last assessed Fall Risk: 10/31/23 Dental Screening Dental Screen Date: 10/31/23 Did you have a dental visit in the last 12 months?: No Did you have a dental problem in the last 6 months where you did not have access to dental care?: No Was dental information given to patient?: Patient has dentist HPI PE, cholesterol , PAF HPI Details 78-year-old overweight female with a his tory of atrial fibrillation hypertension and thoracic aortic aneurysm last seen in July 2023 noted an elevated blood sugar. Review of the notes has seen Cardiology in August had a brief episode of atrial fibrillation has been advised for prolonged episode of atrial fibrillation to take additional flecainide 100 mg and if does not resolve advised ER visit. Presently on anticoagulation with Eliquis 5 mg twice a day and metoprolol last echocardiogram March 2022 thoracic aorta 4.3 cm LDL goal of less than 100 echocardiogram patient has a cystocele moderate central and left paravaginal defect seen Gynecology option of pessary or surgical patient decided to just monitor. [facility] Medical History (Updated 10/31/23 @ 14:14 by Lina Coyne MD) Vaginal wall prolapse Thoracic aortic aneurysm Left anterior fascicular block HTN (hypertension) Paroxysmal atrial fibrillation Surgical History History of hysterectomy Family History Father CVD (cardiovascular disease) Mother No problems noted. Social History Housing: House Alcohol intake: never Patient Tobacco Use Status: Never used Tobacco Current occupational status: retired Cognitive needs: No Hearing needs: No Vision needs: No Female Reproductive History Menstrual Age of Menarche: 11 Questionnaire PHQ-9 Over the last 2 weeks, how often have you been bothered by any of the following problems? 1. Little interest or pleasure in doing things: not at all 2. Feeling down, depressed, or hopeless: not at all 3. Trouble falling or staying asleep, or sleeping too much: not at all 4. Feeling tired or having little energy: not at all 5. Poor appetite or overeating: not at all 6. Feeling bad about yourself - or that you are a failure or have let yourself or your family down: not at all 7. Trouble concentrating on things, such as reading the newspaper or watching television: not at all 8. Moving or speaking so slowly that other people could have noticed. Or the opposite - being so fidgety or restless that you have been moving around a lot more than usual: not at all 9. Thoughts that you would be better off or of hurting yourself in some way: not at all Total score: 0 Depression Screening Interpretation: Negative Depression Screening Done: Yes 07034 - PHQ-9 Billing: Yes Source: Developed by Drs. Armando Trinh, Kaylee Sanchez, Shadi Mclaughlin and colleagues, with an educational adriane from [employer]. Thrive Questionnaire Date Thrive assessed: 10/31/23 I am a: Patient What is your living situation today?: I have a steady place to live Within the past 12 months, did the food you bought not last and you didn't have the money to get more?: Never true Within the past 12 months, did you worry whether your food would run out before you got money to buy more?: Never true Do you have trouble paying for medicines?: No Do you have trouble getting transportation to medical appointments?: No Do you have trouble paying your heating and electricity bill?: No Do you have trouble taking care of your child, family member or friend?: No Do you have trouble with day-to-day activities such as bathing, preparing meals, shopping, managing finances, etc.?: No Are you currently unemployed and looking for a job?: No Are you interested in more education?: No Please select the resources that you would like help with: None Currently or been in a relationship where the following occur: no concerns reported THRIVE Score: 0 AUDIT C Alcohol Use Questionnaire (AUDIT-C) 1. How often do you have a drink containing alcohol?: Never 3. How often do you have six or more drinks on one occasion?: Never Total Score: 0 ALEXANDER-7 AMB Questionnaire ALEXANDER-7 Date ALEXANDER - 7 assessed: 10/31/23 Feeling nervous, anxious, or on edge: 0 = Not at all Not being able to stop or control worryin = Not at all Worrying too much about different things: 0 = Not at all Trouble relaxin = Not at all Being so restless that it is hard to sit still: 0 = Not at all Becoming easily annoyed or irritable: 0 = Not at all Feeling afraid as if something awful might happen: 0 = Not at all Total ALEXANDER-7 score (0-4 normal; 5-9 mild; 10-14 moderate; 15-21 severe): 0 Source: Developed by Drs. Armando Trinh, Kaylee Sanchez, Shadi Mclaughlin and colleagues, with an educational adriane from [employer]. ALEXANDER-7 Assessment Billing ALEXANDER-7 Assessment Tool: ALEXANDER-7 Assessment 62312 Review of Systems Const Denies poor appetite and Denies weakness Eyes Denies no additional complaints ENT Reports Normal hearing present, Denies dizziness, Denies nasal congestion, Denies tinnitus and Denies sore throat Card Denies chest pain, Denies syncope, Denies rapid heart rate and Denies dyspnea Resp Denies cough and Denies dyspnea GI Denies change in stool character, Reports constipation, Denies diarrhea, Denies nausea and Denies vomiting Denies urinary frequency, Denies difficulty voiding and Denies dysuria Neuro Reports Normal hearing present, Denies confusion, Denies dizziness, Denies syncope and Denies weakness Psych Denies confusion Physical exam (Primary Care) Vital Signs: Last Vital Signs Pulse 74 10/31/23 13:43 BP 104/76 10/31/23 13:43 Pulse Ox 99 10/31/23 13:43 Oxygen Delivery Method Room Air 10/31/23 13:43 BMI result Body Mass Index 29.1 Tobacco/Smoking Status: Tobacco use Status Tobacco use date assessed 10/31/23 10/31/23 13:44 Patient Tobacco Use Status Never used Tobacco 10/31/23 13:44 PHQ-9: PHQ-9 Score PHQ-9: Total score 0 10/31/23 13:58 Depression Screening Interpretation: Negative Thrive Assessment: Date of Thrive Assessment Date Thrive assessed 10/31/23 10/31/23 13:44 Currently or been in a relationship where the following occur: no concerns reported Const General: No confusion Orientation/consciousness: No confusion HENMT Head: Yes normocephalic Ears: external ears normal and TM's normal bilaterally Face and sinus: Yes normal facial exam Mouth: moist mucous membranes Throat: Yes tonsils normal Eyes Conjunctivae: conjunctivae normal Pupils: Equal, round and reactive pupils present and Pupil accommodation reflex normal Direct Ophthalmoscopy: normal light reflex Neck Neck: No lymphadenopathy Thyroid: Thyroid normal Chest Chest palpation & inspection: normal inspection of the chest Resp Effort & Inspection: normal respiratory effort and no audible wheezes Auscultation: clear to auscultation bilaterally, no crackles, no wheezes and lung sounds not diminished Cardio Rate: regular rate Rhythm: regular rhythm Peripheral pulses: radial pulses present and dorsalis pedis present GI Other: decline rectal Palpation (GI): no masses Auscultation: normal bowel sounds and normoactive bowel sounds Rectal Exam - Female: deferred Skin General skin exam: no rashes or lesions noted Rashes: no rashes Neuro General: No confusion Cranial nerves: Yes Equal, round and reactive pupils present and Yes Normal hearing present Cognition (Neuro): normal cognition Gait exam (Neuro): Normal gait present Motor exam (neuro): 5/5 motor strength present throughout Deep tendon reflexes (DTR's): Right brachioradialis reflex intensity grade: 2+, Left brachioradialis reflex intensity grade: 2+, Right patellar reflex intensity grade: 2+ and Left patellar reflex intensity grade: 2+ Extrem General: No edema Assessment and Plan Assessment & Plan (1) Annual physical exam: Code(s): Z00.00 - Encounter for general adult medical examination without abnormal findings (2) Paroxysmal atrial fibrillation: Code(s): I48.0 - Paroxysmal atrial fibrillation Plan: Patient follows up with Cardiology on anticoagulation with apixaban and flecainide. Cardiology has been monitoring and if atrial fibrillation is persisting advised to take flecainide additional. Otherwise will need to go to the ER. (3) HTN (hypertension): Code(s): I10 - Essential (primary) hypertension Plan: Continue with blood pressure medication. Decrease salt intake and exercise on metoprolol 25 mg once a day (4) Thoracic aortic aneurysm: Comment: March 2022 echocardiogram 4.3 Code(s): I71.2 - Thoracic aortic aneurysm, without rupture Plan: Echocardiogram has been requested. (5) Elevated blood sugar: Code(s): R73.9 - Hyperglycemia, unspecified Plan: Blood work reminded. Decrease the amount of carbohydrate intake, pasta, bread, rice and potatoes are all sugar and that is aside from all the sweet stuff, remember that fruits are good but they are Sweet also. (6) Cystocele with rectocele: Comment: Moderate cystocele central and left paravaginal defect, mild rectocele Code(s): N81.10 - Cystocele, unspecified; N81.6 - Rectocele Plan: Patient has followed up with gynecology and active surveillance Coding Level of Care Code Est Pt Prev Care >65y(77806) Diagnoses Annual physical exam Z00.00 Paroxysmal atrial fibrillation I48.0 HTN (hypertension) I10 Thoracic aortic aneurysm I71.2 Elevated blood sugar R73.9 Cystocele with rectocele N81.10; N81.6 Additional Codes ALEXANDER-7 Assessment Billing - ALEXANDER-7 Assessment Tool: ALEXANDER-7 Assessment [id number] ([id number])
== END 2023-10-31 14:36 | disposition home or self-care (01) ==
PROVIDERS: PCP Internal Medicine; Visit Provider Internal Medicine
DX: Z00.00 Encounter for general adult medical examination without abnormal findings (principal); I48.0 Paroxysmal atrial fibrillation; I10 Essential (primary) hypertension; I71.20 Thoracic aortic aneurysm, without rupture, unspecified; R73.9 Hyperglycemia, unspecified; N81.10 Cystocele, unspecified; N81.6 Rectocele
CPT/HCPCS: 99397

== ENCOUNTER 2023-11-01 09:55 | Outpatient (REF) | payer MEDICARE, SELFPAY ==
[2023-11-01 10:13] LABS: MANUAL DIFF FLAG NO
[2023-11-01 10:36] LABS: Basophils Absolute Auto 0.1 X10*3/uL (0.0-0.2); Basophils Percent Auto 0.7 % (0-2); Eosinophils Absolute Auto 0.1 X10*3/uL (0.0-0.4); Eosinophils Percent Auto 1.6 % (0-4); Hemoglobin 15.1 g/dl (12.0-16.0); Imm Gran Abs Auto 0.02 X10*3/uL (0.00-0.03); Imm Gran Pct Auto 0.3 % (0.0-0.4); Lymphocytes Absolute Auto 2.2 X10*3/uL (1.2-4.9); Lymphocytes Percent Auto 29.9 % (20-40); Mean Corpuscular HGB Conc 34.3 g/dl (31.0-35.0); Mean Corpuscular Hemoglobin 31.1 pg (27.0-33.0); Mean Corpuscular Volume 90.5 fL (80.0-98.0); Mean Platelet Volume 11.8 fL (9.4-12.3); Monocytes Absolute Auto 0.7 X10*3/uL (0.1-1.2); Monocytes Percent Auto 9.7 % (2-11); Neutrophils Absolute Auto 4.2 x10*3/uL (2.0-8.3); Neutrophils Percent Auto 57.8 % (45-73); Platelet Count 299 X10*3/uL (160-400); Red Blood Count 4.86 X10*6/uL (4.20-5.50); Red Cell Distribution Width 12.8 % (11.0-16.0); White Blood Count 7.3 X10*3/uL (4.8-10.8)
[2023-11-01 10:39] LABS: Estimated Average Glucose 111 mg/dL; Hemoglobin A1c % 5.5 % (<6.0)
[2023-11-01 11:21] LABS: Alanine Aminotransferase 19 U/L (0-31); Albumin Level 3.9 g/dL (3.5-5.0); Alkaline Phosphatase 91 U/L (39-117); Anion Gap 14 (12-20); Aspartate Amino Transferase 18 U/L (5-31); Bilirubin Total 0.6 mg/dL (0.0-1.0); Blood Urea Nitrogen 19 mg/dL (9-16); Calcium 9.7 mg/dL (8.4-10.2); Carbon Dioxide 24 mmol/L (22-29); Chloride 108 mmol/L (96-108); Cholesterol 144 mg/dL (<200); Estimated Glomerular Filt Rate > 60; Glucose Random 113 mg/dL (60-115); HDL Cholesterol 50 mg/dL (>40); LDL Cholesterol Calculated 76 mg/dL (<100); Potassium 3.7 mmol/L (3.3-5.1); Sodium 142 mmol/L (135-145); Total Protein 6.3 g/dL (6.5-8.0); Triglycerides 90 mg/dL (<150)
[2023-11-01 11:26] LABS: Free T4 (Free Thyroxine) 0.86 ng/dL (0.71-1.85); Thyroid Stimulating Hormone 1.76 uIU/mL (0.32-4.0); Vitamin D 25-OH Total 8.3 ng/mL (>30)
[2023-11-01 11:36] LABS: Folate 10.5 ng/mL (> or = 4.0); Vitamin B12 298 pg/mL (200-900)
== END 2023-11-01 09:56 | disposition home or self-care (01) ==
LOC: HO.LAB 09:55
PROVIDERS: PCP Internal Medicine; Visit Provider Internal Medicine
DX: I10 Essential (primary) hypertension (principal); R73.9 Hyperglycemia, unspecified; E78.00 Pure hypercholesterolemia, unspecified
CPT/HCPCS: 36415; 80053; 80061; 82306; 82607; 82746; 83036; 84439; 84443; 85025

== ENCOUNTER 2024-03-07 10:13 | Outpatient (AMB) | payer MEDICARE, SELFPAY ==
--- NOTE | 2024-03-07 10:24 | AM.OFFVISNUR ---
Intake Visit Reasons: ekg Allergies No Known Allergies Allergy (Verified 10/31/23 13:43) Nursing Note pt is here for nurse visit with ekg pt is on Flecainide 100 mg PO Q12H ekg left on providers desk for review Office Procedures EKG [id number], Complete
== END 2024-03-07 10:44 | disposition home or self-care (01) ==
PROVIDERS: PCP Internal Medicine; Visit Provider Internal Medicine Cardiovascular Disease
DX: R94.31 Abnormal electrocardiogram [ECG] [EKG] (principal)
CPT/HCPCS: 93010

== ENCOUNTER → 2024-03-07 10:13 | Outpatient (BNVA) | payer MEDICARE, SELFPAY | PROVIDERS: PCP Internal Medicine; Visit Provider Internal Medicine Cardiovascular Disease | DX: R94.31 Abnormal electrocardiogram [ECG] [EKG] (principal) | CPT/HCPCS: 93005 ==

== ENCOUNTER 2024-03-22 18:34 | Emergency (ER) | payer MEDICARE, SELFPAY ==
[2024-03-22 19:46] VITALS: BP 141/69; PULSE 64; RESP 20; TEMP 36.4; O2SAT 97; BMI 28.3
--- NOTE | 2024-03-22 19:51 | ED_ITS ---
HPI - Female Genitourinary General Chief complaint: Urogenital-Female Stated complaint: vag abscess? Time Seen by Provider: 03/23/24 02:43 Source: patient Mode of arrival: ambulatory Limitations: no limitations History of Present Illness ED Provider: Dr. Jo Patel HPI Narrative: Patient comes to the emergency room complaining of a UTI. Patient states that she has frequency and significant discomfort when urinating. Patient states that earlier today she had a lump on her labia but now it disappeared. Patient denies flank pain or suprapubic discomfort. Denies fever chills Related Data Previous Rx's ?Medication ?Instructions ?Recorded potassium chloride 20 mEq 20 meq PO DAILY 30 days #30 tabs 05/23/22 tablet,extended release flecainide 100 mg tablet 100 mg PO Q12H 90 days #180 caps 09/25/23 metoprolol succinate 25 mg 25 mg PO DAILY #90 tabs 11/17/23 tablet,extended release 24 hr simvastatin 10 mg tablet 10 mg PO BEDTIME #90 tabs 12/06/23 hydrochlorothiazide 25 mg tablet 25 mg PO DAILY #90 tabs 12/11/23 apixaban 5 mg tablet (Eliquis) 5 mg PO BID #60 tabs 01/01/24 cefuroxime axetil 250 mg tablet 250 mg PO BID #14 tabs 03/23/24 phenazopyridine 100 mg tablet 100 mg PO TID 6 doses #6 tabs 03/23/24 Allergies Allergy/AdvReac Type Severity Reaction Status Date / Time No Known Allergies Allergy Verified 03/22/24 19:47 Review of Systems 2 Review of Systems: Constitutional : No Weight loss, No Fever, No Chills, No Night Sweats, No Fatigue, No Malaise ENT/Mouth : No Hearing loss, No Ear Pain, No Nasal Congestion, No Sinus Pain, No Hoarseness, No sore throat, No Rhinorrhea, No Swallowing Difficulty Eyes: No Eye Pain, No Swelling, No Redness, No Foreign Body, No Discharge, No Vision Changes Cardiovascular : No Chest Pain, No SOB, No Dyspnea on Exertion, No Orthopnea, No Edema, No Palpitations Respiratory : No Cough, No Sputum, No Wheezing, No Smoke Exposure, No Dyspnea Gastrointestinal : No Nausea, No Vomiting, No Diarrhea, No Constipation, No abdominal Pain, No Hematochezia, No Melena Genitourinary : Complaining of dysuria , urgency and frequency, No Hematuria, No Urinary Incontinence, no flank pain Musculoskeletal : No joint pain, No Myalgias, No Joint Swelling Skin : No Skin Lesions, No rash Neuro : No Weakness, No Numbness, No Paresthesias, No Loss of Consciousness, No Dizziness, No Headache Psych : No Anxiety/Panic, No Depression, No SI/HI/AH/VH, No Social Issues, Heme/Lymph: No Bruising, No Bleeding,No Lymphadenopathy Endocrine : No Polyuria, No Polydipsia, No Temperature Intolerance [facility] Past Medical History Medical History Vaginal wall prolapse Thoracic aortic aneurysm Left anterior fascicular block HTN (hypertension) Paroxysmal atrial fibrillation Surgical History History of hysterectomy Family History Family History Father CVD (cardiovascular disease) Mother No problems noted. Social History Social History Housing: House Alcohol intake: never Patient Tobacco Use Status: Never used Tobacco Smoked in Last 30 Days: No Use of substances other than those prescribed or required for medical reasons: No Advance Directives: No Advance Directives Information Provided: Yes Current occupational status: retired Cognitive needs: No Hearing needs: No Vision needs: No Physical Exam 2 Vital Signs: Vital Signs: Last Vital Signs Temp 97.7 F 03/22/24 23:47 Pulse 49 L 03/22/24 23:47 Resp 16 03/22/24 23:47 BP 142/78 H 03/22/24 23:47 Pulse Ox 95 03/22/24 23:47 O2 Del Method Room Air 03/22/24 23:47 BMI result Body Mass Index 28.3 Const: Other: Appearance: Alert. Oriented X3. No acute distress. Eyes: Pupils equal, round and reactive to light. ENT: Pharynx normal. Neck: Normal inspection. Neck supple. No lymph nodes noted. No crepitus CVS: Normal heart rate and rhythm. Pulses normal. Normal S1 and S2 Respiratory: No respiratory distress. Breath sounds normal. No Wheezing. No rales Abdomen: Soft and nontender. No rigidity. No distention. : No Bartholin abscess Skin: Skin warm and dry. Normal skin color. Normal skin turgor. Extremities: No lower extremity edema. No Lacerations. No Rash Neuro: Oriented X 3. No motor deficit. No sensory deficit. Moving all extremities. No slurred speech. CN 2 through 12 grossly intact Psych: calm, cooperative, normal affect Course Course Course Narrative: This is a Rapid Medical Examination (RME) performed by Elizabeth Noonan PA-C in triage. Full HPI, ROS, assessment and treatment plan per primary provider in the Main ED. 78 yo female here for eval of pelvic pain, urinary freq, and urinary urgency. admits to lump to right labia. + exam deferred in triage. Plan: labs, UA Medications Administered Discontinued Medications Generic Name Dose Route Start Last Admin Trade Name Freq PRN Reason Stop Dose Admin Cefuroxime Axetil 250 mg 03/23/24 02:49 03/23/24 02:58 Cefuroxime Axetil 250 Mg Tablet PO 03/23/24 02:50 250 mg ONCE ONE Administration Phenazopyridine HCl 100 mg 03/23/24 02:49 03/23/24 02:58 Phenazopyridine Hcl 100 Mg Tablet PO 03/23/24 02:50 100 mg ONCE ONE Administration Medical Decision Making Medical Decision Making [facility] Narrative: My interpretation of labs: Patient's white blood cell count normal, chemistry at baseline, urine positive for UTI. -patient has no fever chills, normal blood pressure, no flank pain, no abdominal pain, sepsis not suspected -patient given cefuroxime here in the ED -patient states that she feels well, does not feel fatigued, denies any falls. Patient feels well going home Differential Diagnosis Differential Diagnoses: The differential diagnosis associated with the presentation includes (UTI, cystitis, pyelonephritis) Lab Data [facility] Lab Attestation statement: I reviewed the patient's lab results. 03/22/24 20:07 03/22/24 20:07 Labs: Lab Results 03/22/24 03/22/24 Range/Units 20:07 21:34 WBC 8.6 (4.8-10.8) X10*3/uL RBC 4.79 (4.20-5.50) X10*6/uL Hgb 14.9 (12.0-16.0) g/dl Hct 43.6 (37.0-47.0) % MCV 91.0 (80.0-98.0) fL MCH 31.1 (27.0-33.0) pg MCHC 34.2 (31.0-35.0) g/dl RDW 12.5 (11.0-16.0) % Plt Count 295 (160-400) X10*3/uL MPV 11.5 (9.4-12.3) fL Immature Gran % (Auto) 0.3 (0.0-0.4) % Neut % (Auto) 59.4 (45-73) % Lymph % (Auto) 27.0 (20-40) % [place] % (Auto) 11.6 H (2-11) % Eos % (Auto) 1.4 (0-4) % Baso % (Auto) 0.3 (0-2) % Lymph # (Auto) 2.3 (1.2-4.9) X10*3/uL [place] # (Auto) 1.0 (0.1-1.2) X10*3/uL Eos # (Auto) 0.1 (0.0-0.4) X10*3/uL Baso # (Auto) 0.0 (0.0-0.2) X10*3/uL Abs Immat Gran (auto) 0.03 (0.00-0.03) X10*3/uL Absolute Neuts (auto) 5.1 (2.0-8.3) x10*3/uL Absolute Nucleated RBC 0.000 (0.0-0.012) X10*3/uL Nucleated RBC % (auto) 0.0 (0.0-0.2) /100WBC Sodium 143 (135-145) mmol/L Potassium 3.7 (3.3-5.1) mmol/L Chloride 106 (96-108) mmol/L Carbon Dioxide 27 (22-29) mmol/L Anion Gap 14 (12-20) BUN 20 H (9-16) mg/dL Creatinine 0.82 (0.5-1.4) mg/dL Estim Creat Clear Calc 59.9 Estimated GFR > 60 Random Glucose 121 H (60-115) mg/dL Calcium 9.7 (8.4-10.2) mg/dL Total Bilirubin 0.3 (0.0-1.0) mg/dL AST 19 (5-31) U/L ALT 17 (0-31) U/L Alkaline Phosphatase 105 (39-117) U/L Total Protein 6.9 (6.5-8.0) g/dL Albumin 4.2 (3.5-5.0) g/dL Urine Color Yellow Urine Appearance Turbid Urine pH 6.0 (5.0-9.0) Ur Specific [place] >= 1.030 H (1.005-1.025) Urine Protein 100 (2+) H (Neg-Trace) mg/dL Urine Glucose (UA) Negative (Negative) mg/dL Urine Ketones Negative (Negative) mg/dL Urine Blood Moderate (2+) H (Negative) Urine Nitrite Positive H (Negative) Ur Leukocyte Esterase Large (3+) H (Negative) Urine RBC 3-5 H (0-2) /HPF Urine WBC >50 H (0-5) /HPF Ur Squamous Epith Cells 6-10 (0-2) /HPF Urine Bacteria 4+ (None Seen) Hyaline Casts 0-2 (0-2) /LPF Discharge Plan Discharge Clinical Impression: Acute UTI (urinary tract infection) Patient Disposition: Home, Self-Care Instructions: Urinary Tract Infection in Older Adults (ED) Additional Instructions: Please follow-up with your primary care physician tomorrow. If you have any worsening or new symptoms, please return to the emergency room or call 911 Prescriptions: New cefuroxime axetil 250 mg tablet 250 mg PO BID Qty: 14 0RF phenazopyridine 100 mg tablet 100 mg PO TID Qty: 6 0RF No Action potassium chloride 20 mEq tablet extended release 20 meq PO DAILY 30 Days Qty: 30 5RF flecainide 100 mg tablet 100 mg PO Q12H 90 Days Qty: 180 3RF metoprolol succinate 25 mg tablet extended release 24 hr 25 mg PO DAILY Qty: 90 3RF simvastatin 10 mg tablet 10 mg PO BEDTIME Qty: 90 3RF hydrochlorothiazide 25 mg tablet 25 mg PO DAILY Qty: 90 1RF Eliquis 5 mg tablet 5 mg PO BID Qty: 60 5RF Print Language: Citizen Of [place]
--- NOTE | 2024-03-22 20:08 | MHC.EDTECH ---
Patient brought into triage area,labs,urine obtained and sent to lab.
[2024-03-22 20:19] LABS: MANUAL DIFF FLAG NO
[2024-03-22 20:23] LABS: Basophils Percent Auto 0.3 % (0-2); Eosinophils Absolute Auto 0.1 X10*3/uL (0.0-0.4); Eosinophils Percent Auto 1.4 % (0-4); Hematocrit 43.6 % (37.0-47.0); Hemoglobin 14.9 g/dl (12.0-16.0); Imm Gran Abs Auto 0.03 X10*3/uL (0.00-0.03); Imm Gran Pct Auto 0.3 % (0.0-0.4); Lymphocytes Absolute Auto 2.3 X10*3/uL (1.2-4.9); Mean Corpuscular HGB Conc 34.2 g/dl (31.0-35.0); Mean Corpuscular Hemoglobin 31.1 pg (27.0-33.0); Mean Platelet Volume 11.5 fL (9.4-12.3); Monocytes Percent Auto 11.6 % (2-11); Neutrophils Absolute Auto 5.1 x10*3/uL (2.0-8.3); Neutrophils Percent Auto 59.4 % (45-73); Platelet Count 295 X10*3/uL (160-400); Red Blood Count 4.79 X10*6/uL (4.20-5.50); Red Cell Distribution Width 12.5 % (11.0-16.0); White Blood Count 8.6 X10*3/uL (4.8-10.8)
[2024-03-22 20:36] LABS: Alanine Aminotransferase 17 U/L (0-31); Albumin Level 4.2 g/dL (3.5-5.0); Alkaline Phosphatase 105 U/L (39-117); Anion Gap 14 (12-20); Aspartate Amino Transferase 19 U/L (5-31); Bilirubin Total 0.3 mg/dL (0.0-1.0); Blood Urea Nitrogen 20 mg/dL (9-16); Calcium 9.7 mg/dL (8.4-10.2); Carbon Dioxide 27 mmol/L (22-29); Chloride 106 mmol/L (96-108); Creatinine Clr Calc Pharmacy 59.9; Estimated Glomerular Filt Rate > 60; Glucose Random 121 mg/dL (60-115); Potassium 3.7 mmol/L (3.3-5.1); Sodium 143 mmol/L (135-145); Total Protein 6.9 g/dL (6.5-8.0)
[2024-03-22 21:40] LABS: Appearance Urine Turbid; Color Urine Yellow; Glucose Urine UA Negative (Negative); Leukocyte Esterase Urine Large (3+) (Negative); Nitrite Urine Positive (Negative); Specific Gravity - Urine >= 1.030 (1.005-1.025); UMIC TRIGGER UACC YES; Urine Blood Moderate (2+) (Negative); Urine Ketones Negative (Negative); Urine Protein 100 (2+) mg/dL (Neg-Trace)
[2024-03-22 21:56] LABS: Bacteria Urine 4+ (None Seen); Hyaline Casts Urine 0-2 /LPF (0-2); UACC Culture Trigger YES; WBC Urine >50 /HPF (0-5)
[2024-03-22 23:47] VITALS: BP 142/78; PULSE 49; RESP 16; TEMP 36.5; O2SAT 95
[2024-03-23] MEDS: Phenazopyridine HCL 100 MG TABLET PO (02:58)
[2024-03-23] MEDS: cefuroxime axetiL 250 MG TABLET PO (02:58)
[2024-03-23 03:53] VITALS: BP 152/78; PULSE 61; RESP 16; TEMP 36.6; O2SAT 97
== END 2024-03-23 03:54 | disposition home or self-care (01) ==
PROVIDERS: Physician Assistant Medical; Emergency Provider Emergency Medicine; PCP Internal Medicine
DX: N39.0 Urinary tract infection, site not specified (principal); R10.2 Pelvic and perineal pain; I10 Essential (primary) hypertension; I48.0 Paroxysmal atrial fibrillation; Z79.01 Long term (current) use of anticoagulants; Z79.02 Long term (current) use of antithrombotics/antiplatelets; Z79.899 Other long term (current) drug therapy
CPT/HCPCS: 36415; 80053; 81001; 85025; 87086; 87088; 87186; 99283; 99284

== ENCOUNTER 2024-11-01 12:44 | Outpatient (REF) | payer MEDICARE, SELFPAY ==
--- OUTSIDE RECORDS SUMMARY | 2024-11-01 13:35 | XMS_ITS | Clinical Summary ---
Author Organization [facility] [address] [facility] Address [address] [place] [address] Phone Care Team Providers Care Geographic Information Systems Analyst Name Role Phone Alley Corrales MD Primary Care Provider [phone] Allergies No known active allergies Medications flecainide [...] Severe obesity (BMI 35.0-35. 9 with comorbidity) ([facility] V24, [facility] V28) 05/13/2024 Cognitive impairment 09/07/2022 Assessment & [...] both lower extrem ities 09/30/2005 Atrial fibrillation ([facility] V24, [facility] V28) 0 09/30/2005 Overview (05/13/2024): Onset 1999, [...] 2:45 PM EDT Office Visit Adult Medicine [address] [phone] Alley Corrales MD Encounter for annual wellness visit (AWV) in Medicare patient (Primary Dx); Chronic atrial fibrillation ([facility] V24, [facility] V28); Other hyperlipidemia; Cognitive impairment; Essential hypertension, [...] 09/30/2005 Asymptomatic varicose veins 09/30/2005 Atrial fibrillation ([facility] V24, [facility] V28) Tubular adenoma of colon 01/21/2015 Hyperlipidemia [...] 10:40 AM EDT Appointment Radiology Department - [address] [phone] 02/18/2025 11:00 AM EDT Office Visit Adult Medicine [address] [phone] Alley Corrales MD [address] [place] [address] 04/01/2025 4:30 PM EDT Office Visit Adult Medicine [address] [phone] Jennie Caraballo PA [address] [place] [address] Health Maintenance Due Date Last Done Comments [...] LAB CHEMISTRY METHOD 09/30/2024 7:16 PM EDT [facility] Triglycerides 120 0 - 150 mg/dL LAB CHEMISTRY METHOD 09/30/2024 7:16 PM EDT [facility] HDL 66 >=40 mg/dL LAB CHEMISTRY METHOD 09/30/2024 7:16 PM EDT [facility] LDL Calculated 67 0 - 100 mg/dL LAB CHEMISTRY METHOD 09/30/2024 7:16 PM EDT [facility] VLDL Cholesterol Emanuel 24 mg/dL LAB CHEMISTRY METHOD 09/30/2024 7:16 PM EDT [facility] Non HDL Chol. (LDL+VLDL) 91 <145 mg/dL LAB CHEMISTRY METHOD 09/30/2024 7:16 PM EDT [facility] Chol/HDL Ratio 2.4 0.0 - 4.4 LAB CHEMISTRY METHOD 09/30/2024 7:16 PM EDT [facility] Blood Venous blood specimen / Unknown Venipuncture / Unknown 09/30/2024 3:30 PM EDT 09/30/2024 3:30 PM EDT us Alley Corrales MD LAB BLOOD ORDERABLES Final Resul t [facility] [address] [place] [address], [place] [phone] * (ABNORMAL) CBC auto differential (09/30/2024 3:30 PM EDT) WBC 9.5 4.8 - 10.8 K/mcL LAB HEMETOLOGY METHOD 09/30/2024 5:12 PM EDT [facility] RBC 4.60 3.80 - 4.80 M/mcL LAB HEMETOLOGY METHOD 09/30/2024 5:12 PM EDT [facility] Hemoglobin 13.9 11.5 - 16.0 g/dL LAB HEMETOLOGY METHOD 09/30/2024 5:12 PM EDT [facility] Hematocrit 41.6 35.0 - 47.0 % LAB HEMETOLOGY METHOD 09/30/2024 5:12 PM EDT [facility] MCV 89.7 79.0 - 98.0 FL LAB HEMETOLOGY METHOD 09/30/2024 5:12 PM EDT [facility] MCH 30.0 27.0 - 32.0 pcg LAB HEMETOLOGY METHOD 09/30/2024 5:12 PM EDT [facility] MCHC 33.4 32.0 - 37.0 g/dL LAB HEMETOLOGY METHOD 09/30/2024 5:12 PM EDT [facility] RDW 12.8 11.0 - 15.0 % LAB HEMETOLOGY METHOD 09/30/2024 5:12 PM [facility] Platelets 320 130 - 400 K/mcL LAB HEMETOLOGY METHOD 09/30/2024 5:12 PM [facility] MPV 12.1(H) 7.0 - 11.0 FL LAB HEMETOLOGY METHOD 09/30/2024 5:12 PM [facility] NRBC 0.0 <1.0 % LAB HEMETOLOGY METHOD 09/30/2024 5:12 PM [facility] NRBC Absolute 0.00 <0.10 K/mcL LAB HEMETOLOGY METHOD 09/30/2024 5:12 PM [facility] Neutrophils Relative 71.4 % LAB HEMETOLOGY METHOD 09/30/2024 5:12 PM [facility] Lymphocytes Relative 17.6 % LAB HEMETOLOGY METHOD 09/30/2024 5:12 PM [facility] Monocytes Relative 9.4 % LAB HEMETOLOGY METHOD 09/30/2024 5:12 PM [facility] Eosinophils Relative 0.9 % LAB HEMETOLOGY METHOD 09/30/2024 5:12 PM [facility] Basophils Relative 0.4 % LAB HEMETOLOGY METHOD 09/30/2024 5:12 PM [facility] Immature Granulocytes Relative 0.3 % LAB HEMETOLOGY METHOD 09/30/2024 5:12 PM [facility] Neutrophils Absolute 6.78 1.50 - 7.00 K/mcL LAB HEMETOLOGY METHOD 09/30/2024 5:12 PM [facility] Lymphocytes Absolute 1.67 1.00 - 5.00 K/mcL LAB HEMETOLOGY METHOD 09/30/2024 5:12 PM [facility] Monocytes Absolute 0.89 0.20 - 1.00 K/mcL LAB HEMETOLOGY METHOD 09/30/2024 5:12 PM EDT [facility] Eosinophils Absolute 0.09 0.00 - 0.50 K/[facility] LAB HEMETOLOGY METHOD 09/30/2024 5:12 PM EDT [facility] Basophils Absolute 0.04 0.00 - 0.20 K/[facility] LAB HEMETOLOGY METHOD 09/30/2024 5:12 PM EDT [facility] Immature Granulocytes Absolute 0.03 0.00 - 0.03 K/[facility] HEMETOLOGY METHOD 09/30/2024 5:12 PM EDT [facility] Blood Venous blood specimen / Unknown Venipuncture / Unknown 09/30/2024 3:30 PM EDT 09/30/2024 3:30 PM EDT us Alley Corrales MD LAB BLOOD ORDERABLES Final Resul t [facility] [address] [place] [address], [place] [phone] * (ABNORMAL) Basic metabolic panel (09/30/2024 3:30 PM EDT) Sodium 138 133 - 145 mmol/L LAB CHEMISTRY METHOD 09/30/2024 6:56 PM T [facility] Potassium 3.5 3.5 - 5.5 mmol/L LAB CHEMISTRY METHOD 09/30/2024 6:56 PM T [facility] Chloride 104 96 - 110 mmol/L LAB CHEMISTRY [facility]24 [facility] CO2 29 21 - 32 mmol/L LAB CHEMISTRY METHOD 09/30/2024 6:56 PM [facility] Anion Gap 5 3 - 11 LAB CHEMISTRY METHOD 09/30/2024 6:56 PM EDT [facility] Glucose 140(H) 70 - 100 mg/dL LAB CHEMISTRY METHOD 09/30/2024 6:56 PM EDT [facility] BUN 22 5 - 25 mg/dL LAB CHEMISTRY METHOD 09/30/2024 6:56 PM EDT [facility] Creatinine 0.59 0.50 - 1.10 mg/dL LAB CHEMISTRY METHOD 09/30/2024 6:56 PM EDT [facility] eGFR 93 >=60 mL/min/1. 73m2 LAB CHEMISTRY METHOD 09/30/2024 6:56 PM EDT [facility] Comment:Calculation based on the??Chronic Kidney Disease Epidemiology Collaboration (CKD-EPI) equation refit??without adjustment for race. BUN/Creatinine Ratio 37.3 LAB CHEMISTRY METHOD 09/30/2024 6:56 PM EDT [facility] Calcium 10.1 8.5 - 10.5 mg/dL LAB CHEMISTRY METHOD 09/30/2024 6:56 PM EDT [facility] Blood Venous blood specimen / Unknown Venipuncture / Unknown 09/30/2024 3:30 PM EDT 09/30/2024 3:30 PM EDT Alley Corrales MD LAB BLOOD ORDERABLES Final Resul t [facility] [address] [place] [address], * Depression Screening (09/08/2023) Depression Screening Abstracted Historical Provider HEALTH MAINTENANCE Final Result * Hepatitis C Screening (07/11/2013) Hepatitis C Screening Abstracted Historical Provider HEALTH MAINTENANCE Final Result from Last 3 Months or Most Recently Relevant to Health Maintenance Insurance [employer] MED[employer]ARE Care Teams Geographic Information Systems Analyst Relationship Specialty Start Date End Date Alley Corrales MD [address] [place] [address] PCP - General Internal Medicine 12/18/19
[2024-11-01 14:07] LABS: Hematocrit 40.8 % (37.0-47.0); Hemoglobin 13.8 g/dl (12.0-16.0); Mean Corpuscular HGB Conc 33.8 g/dl (31.0-35.0); Mean Corpuscular Hemoglobin 30.9 pg (27.0-33.0); Mean Corpuscular Volume 91.3 fL (80.0-98.0); Mean Platelet Volume 11.6 fL (9.4-12.3); Platelet Count 314 X10*3/uL (160-400); Red Blood Count 4.47 X10*6/uL (4.20-5.50); Red Cell Distribution Width 12.4 % (11.0-16.0); White Blood Count 9.6 X10*3/uL (4.8-10.8)
[2024-11-01 14:40] LABS: Alanine Aminotransferase 22 U/L (0-31); Albumin Level 4.2 g/dL (3.5-5.0); Alkaline Phosphatase 97 U/L (39-117); Anion Gap 12 (12-20); Aspartate Amino Transferase 23 U/L (5-31); Bilirubin Direct 0.2 mg/dL (0.0-0.5); Bilirubin Total 0.5 mg/dL (0.0-1.0); Blood Urea Nitrogen 17 mg/dL (9-16); Calcium 9.9 mg/dL (8.4-10.2); Carbon Dioxide 27 mmol/L (22-29); Chloride 106 mmol/L (96-108); Estimated Glomerular Filt Rate > 60; Glucose Random 106 mg/dL (60-115); Potassium 4.1 mmol/L (3.3-5.1); Sodium 141 mmol/L (135-145); Total Protein 6.6 g/dL (6.5-8.0)
== END 2024-11-01 12:45 | disposition home or self-care (01) ==
LOC: HO.LAB 12:44
PROVIDERS: PCP Internal Medicine
DX: I48.0 Paroxysmal atrial fibrillation (principal); I10 Essential (primary) hypertension; Z79.01 Long term (current) use of anticoagulants
CPT/HCPCS: 36415; 80048; 80076; 85027; 93005; 99212

== ENCOUNTER 2024-11-01 12:44 | Outpatient (AMB) | payer MEDICARE, SELFPAY ==
--- OUTSIDE RECORDS SUMMARY | 2024-11-01 12:47 | XMS_ITS | Clinical Summary ---
Author Organization [facility] [address] [facility] Address [address] [place] [address] Phone Care Team Providers Care Bulldozer/Loader/Compactor/Scraper Name Role Phone Alley Corrales MD Primary Care Provider [phone] Allergies No known active allergies Medications flecainide (TAMBOCOR) 100 mg tablet Take 1 Tab by mouth 2 times daily. 0 Active potassium chloride (KLOR-CON M20) 20 mEq CR tablet Take 1 tablet (20 mEq total) by mouth 1 (one) time each day. 90 each 1 5 Active apixaban (Eliquis) 5 mg tablet Take 1 tablet (5 mg total) by mouth 2 (two) times a day. 180 each 1 5 Active hydroCHLOROthia zide (HYDRODIURIL) 25 mg tablet Take 1 tablet (25 mg total) by mouth 1 (one) time each day. 90 tablet 1 5 Active simvastatin (ZOCOR) 10 mg tablet Take 1 tablet (10 mg total) by mouth at bedtime. at bedtime. 90 tablet 1 5 Active calcium carbonate-milagros calciferol 500 mg-10 mcg (400 unit) per tablet Take 1 tablet by mouth 1 (one) time each day. 90 tablet 1 5 Active metoprolol succinate (TOPROL-XL) 25 mg 24 hr tablet Take 0.5 tablets (12.5 mg total) by mouth 1 (one) time each day. 135 tablet 1 5 Active hydroCHLOROthia zide (HYDRODIURIL) 25 mg tablet Take 1 Tablet by mouth daily. 4 10/18/19 25 Discontinu ed(Reorder ) simvastatin (ZOCOR) 10 mg tablet Take 1 Tablet by mouth at bedtime. 3 10/18/19 25 Discontinu ed(Reorder ) calcium carbonate-milagros calciferol 500 mg-10 mcg (400 unit) per tablet Take 1 tablet by mouth 1 (one) time each day. 30 tablet 5 10/18/19 25 Discontinu ed(Reorder ) metoprolol succinate (TOPROL-XL) 25 mg 24 hr tablet Take 0.5 tablets (12.5 mg total) by mouth 1 (one) time each day. 45 tablet 5 10/18/19 25 Discontinu ed(Reorder ) Active Problems Problem Noted Date Diagnosed Date Severe obesity (BMI 35.0-35. 9 with comorbidity) ([facility] V24, [facility] V28) 05/13/2024 Cognitive impairment 09/07/2022 Assessment & Plan (09/30/2024 3:11 PM EDT): Wrist fracture 07/20/2021 Overview (05/13/2024): 07/10 right Tubular adenoma of colon 01/21/2015 Overview (05/13/2024): 02/05/2014, 3 year followup recommended by Dr. Khan Cystocele, midline 10/15/2014 Hyperlipidemia 05/18/2011 Assessment & Plan (09/30/2024 3:11 PM EDT): Orders: Lipid panel with reflex to direct LDL; Future Asymptomatic varicose veins of both lower extrem ities 09/30/2005 Atrial fibrillation ([facility] V24, [facility] V28) 0 09/30/2005 Overview (05/13/2024): Onset 1999, followed by Cardiology, on anticoagulation med since onset (Pradaxa, 2017). Assessment & Plan (09/30/2024 3:11 PM EDT): Orders: CBC and differential; Future One eye: profound vision imp airment; other eye: normal vision 09/30/2005 Essential hypertension, benign 09/30/2005 Assessment & Plan (09/30/2024 3:11 PM EDT): Orders: Basic metabolic panel; Future Encounters Date Type Department Care Team Description 09/30/2024 2:45 PM EDT Office Visit Adult Medicine [address] [phone] Alley Corrales MD Encounter for annual wellness visit (AWV) in Medicare patient (Primary Dx); Chronic atrial fibrillation ([facility] V24, [facility] V28); Other hyperlipidemia; Cognitive impairment; Essential hypertension, benign from Last 3 Months Immunizations Name Administration Dates Next Due Influenza trivalent, 0.5mL ( Fluad) 65yo and older 03/10/2023,03/07/2022,07/24/2021,03/19,02/16/2020,02/28/2017,03/02/2016 Influenza trivalent, with pr eservative (Fluzone; Afluria) 6mo and older 03/09/2019,03/12/2018,03/23/2015 Influenza, Unspecified 03/12/2018,03/02/2016, Pneumococcal conjugate 13 va lent (Prevnar 13, PCV13) 2mo and older 03/02/2016 Pneumococcal polysaccharide 23 valent (Pneumovax 23) 2yo and older 03/08/2017 Td Tetanus diptheria (Tdvax) 7yo and older 03/27/2018 Tdap Tetanus diptheria acell ular pertussis (Boostrix; Adacel) 7yo and older 06/29/2007 Surgical History Surgery Date Site/Laterality Comments HYSTERECTOMY 1990 pelvic mass, benign TONSILLECTOMY COLONOSCOPY 02/12/14 adenomas, tics and hemorrhoids; repeat in 3 yrs Medical History Medical History Date Comments One eye: profound vision impairment; other eye: normal vision 09/30/2005 Asymptomatic varicose veins 09/30/2005 Atrial fibrillation ([facility] V24, [facility] V28) Tubular adenoma of colon 01/21/2015 Hyperlipidemia 05/18/2011 Wrist fracture 07/20/202107/10 right Cognitive impairment 09/07/2022 Family History Medical History Relation Name Comments Diabetes Father Hypertension Father age 69 Hypertension Mother age 69 Breast cancer Neg Hx Colon cancer Neg Hx Ovarian cancer Neg Hx Relation Name Status Comments Father Mother Social History Tobacco Use Types Packs/Day Years Used Date Smoking Tobacco: Never Smokeless Tobacco: Never Tobacco Cessation:Counseling Given: Not Answered Alcohol Use Standard Drinks/Week Comments No 0 (1 standard drink = 0.6 oz pur e alcohol) Comments Unknown Sex and Gender Information Value Date Recorded Sex Assigned at Not on file Legal Sex Female 4:09 AM EST Gender Identity Not on file Sexual Orientation Not on file Obstetrics History Last Filed Vital Signs Vital Sign Reading Time Taken Comments Blood Pressure 110/62 09/30/2024 2:59 PM EDT Pulse 96 09/30/2024 2:59 PM EDT Temperature 36.4 ??C (97.5 ??F) 09/30/2024 2:59 PM ED T Respiratory Rate 16 09/30/2024 2:59 PM EDT Oxygen Saturation 98% 09/30/2024 2:59 PM EDT Inhaled Oxygen Concentration - - Weight 77.2 kg (170 lb 1.6 oz) 09/30/2024 2:59 P M EDT Height 160 cm (5' 3 ) 09/30/2024 2:59 PM EDT Body Mass Index 30.13 09/30/2024 2:59 PM EDT Plan of Treatment Upcoming Encounters Date Type Department Care Team (Late st Contact Info) Description 01/13/2025 10:40 AM EDT Appointment Radiology Department - [address] [phone] 02/18/2025 11:00 AM EDT Office Visit Adult Medicine [address] [phone] Alley Corrales MD [address] [place] [address] 04/01/2025 4:30 PM EDT Office Visit Adult Medicine [address] [phone] Jennie Caraballo PA [address] [place] [address] Health Maintenance Due Date Last Done Comments Zoster Vaccines (1 of 2) 1997 RSV Immunization Adult Patients (1 - 1-dose 75+ series) 2022 Osteoporosis Screening (Bone Density Screening) 05/28/2022 Social Influencers of Health Screening 05/28/2022 COVID-19 Vaccine (3 - 2023- season) 2024 11/11/2020, 10/14/2020 Influenza Vaccine (Season Ended) 2025 03/10/2023, 03/07/2022, 07/24/2021, Additional history exists Depression Screening 09/30/2025 09/30/2024, 09/08/19 Falls Risk Assessment 09/30/2025 09/30/2024 Hypertension/CHF/CAD Annual BMP Blood Test 09/30/2025 09/30/2024, 09/08/2023 Medicare Annual Wellness Visit 09/30/2025 09/30/2024 DTaP,Tdap,and Td Vaccines (3 - Td or Tdap) 03/27/2028 03/27/2018, 06/29/2007 Cholesterol Screening (Lipid Panel) 09/30/2029 09/30/2024, 09/08/2023 Hepatitis C Screening Completed 07/11/2013 Pneumococcal Vaccine: 50+ Years Completed 03/08/2017, 03/02/2016 HIB Vaccines Aged Out No longer eligi ble based on patient's age to complete this topic HPV Vaccines Aged Out No longer eligi ble based on patient's age to complete this topic Hepatitis A Vaccines Aged Out No long er eligible based on patient's age to complete this topic Hepatitis B Vaccines Aged Out No long er eligible based on patient's age to complete this topic IPV Vaccines Aged Out No longer eligi ble based on patient's age to complete this topic MMR Vaccines Aged Out No longer eligi ble based on patient's age to complete this topic Meningococcal ACWY Vaccine Aged Out N o longer eligible based on patient's age to complete this topic Meningococcal B Vaccine Aged Out No l onger eligible based on patient's age to complete this topic RSV Immunization Patients Under 20 months Aged Out No longer eligible based on patient's age to complete this topic Varicella Vaccines Aged Out No longer eligible based on patient's age to complete this topic Procedures Procedure Name Priority Date/Time Associated Diagnosis Comments CBC WITH AUTO DIFFERENTIAL Routine 09/30/2024 3:30 PM EDT Chronic atrial fibrillation (CMS/HCC V24, CMS/HCC V28) CBC AND DIFFERENTIAL Routine 09/30/2024 3:30 PM EDT Chronic atrial fibrillation (CMS/HCC V24, CMS/HCC V28) BASIC METABOLIC PANEL Routine 09/30/2024 3:30 PM EDT Essential hypertension, benign LIPID PANEL WITH REFLEX TO DIRECT LDL Routine 09/30/2024 3:30 PM EDT Other hyperlipidemia DEPRESSION SCREENING Routine 09/08/2023 HEPATITIS C SCREENING Routine 07/11/2013 from Last 3 Months or Most Recently Relevant to Health Maintenance Results * Lipid panel with reflex to direct LDL (09/30/2024 3:30 PM EDT) Cholesterol 157 0 - 200 mg/dL LAB CHEMISTRY METHOD 09/30/2024 7:16 PM EDT [facility] Triglycerides 120 0 - 150 mg/dL LAB CHEMISTRY METHOD 09/30/2024 7:16 PM EDT [facility] HDL 66 >=40 mg/dL LAB CHEMISTRY METHOD 09/30/2024 7:16 PM EDT [facility] LDL Calculated 67 0 - 100 mg/dL LAB CHEMISTRY METHOD 09/30/2024 7:16 PM EDT [facility] VLDL Cholesterol Emanuel 24 mg/dL LAB CHEMISTRY METHOD 09/30/2024 7:16 PM EDT [facility] Non HDL Chol. (LDL+VLDL) 91 <145 mg/dL LAB CHEMISTRY METHOD 09/30/2024 7:16 PM EDT [facility] Chol/HDL Ratio 2.4 0.0 - 4.4 LAB CHEMISTRY METHOD 09/30/2024 7:16 PM EDT [facility] Blood Venous blood specimen / Unknown Venipuncture / Unknown 09/30/2024 3:30 PM EDT 09/30/2024 3:30 PM EDT us Alley Corrales MD LAB BLOOD ORDERABLES Final Resul t [facility] [address] [place] [address], [place] [phone] * (ABNORMAL) CBC auto differential (09/30/2024 3:30 PM EDT) WBC 9.5 4.8 - 10.8 K/mcL LAB HEMETOLOGY METHOD 09/30/2024 5:12 PM EDT [facility] RBC 4.60 3.80 - 4.80 M/mcL LAB HEMETOLOGY METHOD 09/30/2024 5:12 PM EDT [facility] Hemoglobin 13.9 11.5 - 16.0 g/dL LAB HEMETOLOGY METHOD 09/30/2024 5:12 PM EDT [facility] Hematocrit 41.6 35.0 - 47.0 % LAB HEMETOLOGY METHOD 09/30/2024 5:12 PM EDT [facility] MCV 89.7 79.0 - 98.0 FL LAB HEMETOLOGY METHOD 09/30/2024 5:12 PM EDT [facility] MCH 30.0 27.0 - 32.0 pcg LAB HEMETOLOGY METHOD 09/30/2024 5:12 PM EDT [facility] MCHC 33.4 32.0 - 37.0 g/dL LAB HEMETOLOGY METHOD 09/30/2024 5:12 PM EDT [facility] RDW 12.8 11.0 - 15.0 % LAB HEMETOLOGY METHOD 09/30/2024 5:12 PM [facility] Platelets 320 130 - 400 K/mcL LAB HEMETOLOGY METHOD 09/30/2024 5:12 PM [facility] MPV 12.1(H) 7.0 - 11.0 FL LAB HEMETOLOGY METHOD 09/30/2024 5:12 PM [facility] NRBC 0.0 <1.0 % LAB HEMETOLOGY METHOD 09/30/2024 5:12 PM [facility] NRBC Absolute 0.00 <0.10 K/mcL LAB HEMETOLOGY METHOD 09/30/2024 5:12 PM [facility] Neutrophils Relative 71.4 % LAB HEMETOLOGY METHOD 09/30/2024 5:12 PM [facility] Lymphocytes Relative 17.6 % LAB HEMETOLOGY METHOD 09/30/2024 5:12 PM [facility] Monocytes Relative 9.4 % LAB HEMETOLOGY METHOD 09/30/2024 5:12 PM [facility] Eosinophils Relative 0.9 % LAB HEMETOLOGY METHOD 09/30/2024 5:12 PM [facility] Basophils Relative 0.4 % LAB HEMETOLOGY METHOD 09/30/2024 5:12 PM [facility] Immature Granulocytes Relative 0.3 % LAB HEMETOLOGY METHOD 09/30/2024 5:12 PM [facility] Neutrophils Absolute 6.78 1.50 - 7.00 K/mcL LAB HEMETOLOGY METHOD 09/30/2024 5:12 PM [facility] Lymphocytes Absolute 1.67 1.00 - 5.00 K/mcL LAB HEMETOLOGY METHOD 09/30/2024 5:12 PM [facility] Monocytes Absolute 0.89 0.20 - 1.00 K/mcL LAB HEMETOLOGY METHOD 09/30/2024 5:12 PM EDT [facility] Eosinophils Absolute 0.09 0.00 - 0.50 K/[facility] LAB HEMETOLOGY METHOD 09/30/2024 5:12 PM EDT [facility] Basophils Absolute 0.04 0.00 - 0.20 K/[facility] LAB HEMETOLOGY METHOD 09/30/2024 5:12 PM EDT [facility] Immature Granulocytes Absolute 0.03 0.00 - 0.03 K/[facility] LAB HEMETOLOGY METHOD 09/30/2024 5:12 PM EDT [facility] Blood Venous blood specimen / Unknown Venipuncture / Unknown 09/30/2024 3:30 PM EDT 09/30/2024 3:30 PM EDT us Alley Corrales MD LAB BLOOD ORDERABLES Final Resul t [facility] [address] [place] [address], [place] [phone] * (ABNORMAL) Basic metabolic panel (09/30/2024 3:30 PM EDT) Sodium 138 133 - 145 mmol/L LAB CHEMISTRY METHOD 09/30/2024 6:56 PM T [facility] Potassium 3.5 3.5 - 5.5 mmol/L LAB CHEMISTRY METHOD 09/30/2024 6:56 PM T [facility] Chloride 104 96 - 110 mmol/L LAB CHEMISTRY METHOD 09/30/2024 6:[facility] CO2 29 21 - 32 mmol/L LAB CHEMISTRY METHOD 09/30/2024 6:56 PM [facility] Anion Gap 5 3 - 11 LAB CHEMISTRY METHOD 09/30/2024 6:56 PM EDT [facility] Glucose 140(H) 70 - 100 mg/dL LAB CHEMISTRY METHOD 09/30/2024 6:56 PM EDT [facility] BUN 22 5 - 25 mg/dL LAB CHEMISTRY METHOD 09/30/2024 6:56 PM EDT [facility] Creatinine 0.59 0.50 - 1.10 mg/dL LAB CHEMISTRY METHOD 09/30/2024 6:56 PM EDT [facility] eGFR 93 >=60 mL/min/1. 73m2 LAB CHEMISTRY METHOD 09/30/2024 6:56 PM EDT [facility] Comment:Calculation based on the??Chronic Kidney Disease Epidemiology Collaboration (CKD-EPI) equation refit??without adjustment for race. BUN/Creatinine Ratio 37.3 LAB CHEMISTRY METHOD 09/30/2024 6:56 PM EDT [facility] Calcium 10.1 8.5 - 10.5 mg/dL LAB CHEMISTRY METHOD 09/30/2024 6:56 PM EDT [facility] Blood Venous blood specimen / Unknown Venipuncture / Unknown 09/30/2024 3:30 PM EDT 09/30/2024 3:30 PM EDT Alley Corrales MD LAB BLOOD ORDERABLES Final Resul t [facility] [address] [place] [address], * Depression Screening (09/08/2023) Depression Screening Abstracted Historical Provider HEALTH MAINTENANCE Final Result * Hepatitis C Screening (07/11/2013) Hepatitis C Screening Abstracted Historical Provider HEALTH MAINTENANCE Final Result from Last 3 Months or Most Recently Relevant to Health Maintenance Insurance [employer] [place] [address] Care Teams Bulldozer/Loader/Compactor/Scraper Relationship Specialty Start Date End Date Alley Corrales MD [address] [place] [address] PCP - General Internal Medicine 12/18/19
--- NOTE | 2024-11-01 12:59 | A.OFFVIS_ITS ---
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 Accompanied by: Son Allergies No Known Allergies Allergy (Verified 03/22/24 19:47) Medication List - Last Reconciled 11/01/24 by Ariel Tinoco NP apixaban (Eliquis) 5 mg PO BID cefuroxime axetil 250 mg PO BID flecainide 100 mg PO Q12H 90 days hydrochlorothiazide 25 mg PO DAILY metoprolol succinate ER 25 mg PO DAILY phenazopyridine 100 mg PO TID 6 doses potassium chloride ER 20 mEq PO DAILY 30 days simvastatin 10 mg PO BEDTIME HPI Comments Details: This is a 79-year-old female patient presenting for annual follow-up visit, accompanied by her son, who reports he will be taking a a more active role in managing her medical care due to concerns about progressive cognitive decline and medication confusion. The patient has known history of hypertension, paroxysmal AFib, and a dilated thoracic aorta. Today, she reports feeling well overall and denies any cardiac symptoms including exertional chest pain, shortness of breath, palpitations, dizziness, orthopnea, PND, leg edema, presyncope, or syncope. Her son expresses concerns that patient has not been consistently taking her medications and maybe out of refills for several prescriptions. He believes she is currently only taking 3 pills, and suspect she may be taking multiple doses of the same medication as she runs out earlier than expected. Son at this time does not know what she is taking for medications but plans to work with her primary care to arrange for additional support at home to assist with medication management. [facility] Medical History Vaginal wall prolapse Thoracic aortic aneurysm Left anterior fascicular block HTN (hypertension) Paroxysmal atrial fibrillation Surgical History History of hysterectomy Family History Father CVD (cardiovascular disease) Mother No problems noted. Social History Housing: House Alcohol intake: never Patient Tobacco Use Status: Never used Tobacco Current occupational status: retired Cognitive needs: No Hearing needs: No Vision needs: No Female Reproductive History Menstrual Age of Menarche: 11 Review of Systems Const Denies chills, Denies fatigue, Denies fever(s), Denies frequent falls, Denies weakness, Denies weight gain and Denies weight loss ENT Denies dizziness Card Denies chest pain, Reports leg edema, Denies lightheadedness, Reports palpitations, Reports dyspnea, Reports dyspnea on exertion and Reports orthopnea Resp Denies cough, Reports dyspnea and Reports dyspnea on exertion GI Denies hematochezia Musc Denies abnormal gait, Denies muscle weakness, Denies numbness, Denies radiating pain into limb and Denies tingling Neuro Denies abnormal gait, Denies dizziness, Denies frequent falls, Denies numbness, Denies tingling and Denies weakness Endo Denies fatigue and Reports palpitations Physical Exam Vital Signs: Last Vital Signs Pulse 78 11/01/24 13:00 BP 120/70 11/01/24 13:00 BMI result Body Mass Index 28.0 Const General: cooperative, healthy appearing, comfortable and no acute distress Orientation/consciousness: patient oriented x3 HEENT Head: Yes normal to inspection Neck Neck: Yes normal visual inspection, Yes trachea midline and Yes supple Chest Chest palpation & inspection: normal inspection of the chest Resp Effort & Inspection: normal respiratory effort Auscultation: clear to auscultation bilaterally, no crackles, no rales, no rhonchi and no wheezes Cardio Jugular venous distension: no JVD Palpation: normal PMI Rate: regular rate Rhythm: regular rhythm Heart sounds: S1 normal heart sound present, S2 normal heart sound present, no click, no gallops, no murmurs and no rubs Peripheral pulses: Peripheral pulses 2+ throughout GI Inspection: Yes normal to inspection Palpation (GI): Soft to palpation Auscultation: normal bowel sounds Skin General skin exam: no rashes or lesions noted Neuro General: patient oriented x3 Extrem General: Yes normal to inspection, No no pedal edema and No calf tenderness Psych Appearance: grossly normal Mental Status: mental status grossly normal Speech and movement: Normal speech and movement present Office Procedures EKG Details: EKG today showed normal sinus rhythm with PACs, rate 78 beats per minute, left anterior fascicular block, nonspecific STT wave, [place], [place]. [id number], Complete Assessment & Plan Assessment & Plan (1) Paroxysmal atrial fibrillation: Code(s): I48.0 - Paroxysmal atrial fibrillation Category: Medical Plan: EKG today shows normal sinus rhythm. The patient will continue Eliquis for anticoagulation, denies any signs of bleeding or recent falls. We will continue flecainide as part of rhythm control and metoprolol for rate control strategy. Given concerns about possible medication duplication or dozing errors, we will obtain lab tests to monitor for potential adverse effects. (2) Thoracic aortic aneurysm: Code(s): I71.2 - Thoracic aortic aneurysm, without rupture Category: Medical Plan: 04/07/22-patient's echo study showed a normal LV systolic function with an ejection fraction between 60-65%, with mild dilation of the ascending aorta at 4.3 cm. We will obtain an updated echocardiogram to reassess LV function and monitor the aortic dimensions. (3) HTN (hypertension): Code(s): I10 - Essential (primary) hypertension Category: Medical Plan: Blood pressure today is well-controlled. No med changes at this time. Advised monitoring blood pressures at home with a goal of less than 130/80. In regards to patient's care at home, son we will discuss this further with the PCP's office. Patient may benefit from pill in a box approach. Advised heart healthy diet, regular exercise, med compliance, and management of vascular risk factors. We will follow up with the patient in 6 months. In the interim, patient and her son will call the office for any concerns or change in symptoms. This note was generated using voice recognition software. While every effort has been made to ensure accuracy and proper exhaust equipment operator, there may be occasional errors that could affect the content or meaning of the described symptoms. Orders: Orders Liver Panel Today I48.0 - Paroxysmal atrial fibrillation CA echo transthoracic complete Today I71.2 - Thoracic aortic aneurysm, without rupture Basic Metabolic Panel Today I48.0 - Paroxysmal atrial fibrillation Complete Blood Count no Diff Today I48.0 - Paroxysmal atrial fibrillation AMB EKG-In Office Today I48.0 - Paroxysmal atrial fibrillation Medications: Refilled flecainide 100 mg PO Q12H 180 caps 3RF 90 days I48.91 - Unspecified atrial fibrillation apixaban (Eliquis) 5 mg PO BID 60 tabs 5RF Coding Level of Care Code Est Pt Level 4 (63051) Complex EM visit Add On G2211 Diagnoses Paroxysmal atrial fibrillation I48.0 Thoracic aortic aneurysm I71.2 HTN (hypertension) I10 CPT Codes EKG - CPT: 35489-[id number], Complete ([id number]) Time Spent (min) 32 Comment Time spent in reviewing the chart, test results, assessment, counseling and documentation.
[2024-11-01 13:00] VITALS: BP 120/70; PULSE 78; BMI 28.0
== END 2024-11-01 13:28 | disposition home or self-care (01) ==
LOC: HO.HCS 12:45
PROVIDERS: PCP Internal Medicine
DX: I48.0 Paroxysmal atrial fibrillation (principal); I71.20 Thoracic aortic aneurysm, without rupture, unspecified; I10 Essential (primary) hypertension
CPT/HCPCS: 93010; 99214; G2211

== ENCOUNTER 2024-11-04 08:53 | Outpatient (REF) | payer MEDICARE, SELFPAY ==
--- OUTSIDE RECORDS SUMMARY | 2024-11-04 10:17 | XMS_ITS | Clinical Summary ---
Author Organization [facility] 444 [facility] Address [address] [place] [address] Phone Care Team Providers Care Hydrate Thickener Operator Name Role Phone Alley Corrales MD Primary Care Provider [phone] Allergies No known active allergies Medications flecainide [...] Severe obesity (BMI 35.0-35. 9 with comorbidity) ([facility] V24, [facility] V28) 05/13/2024 Cognitive impairment 09/07/2022 Assessment [...] both lower extrem ities 09/30/2005 Atrial fibrillation ([facility] V24, [facility] V28) 0 09/30/2005 Overview (05/13/2024): Onset [...] 2:45 PM EDT Office Visit Adult Medicine [address] [phone] Alley Corrales MD Encounter for annual wellness visit (AWV) in Medicare patient (Primary Dx); Chronic atrial fibrillation ([facility] V24, [facility] V28); Other hyperlipidemia; Cognitive impairment; Essential [...] varicose veins 09/30/2005 Atrial fibrillation ([facility] V24, [facility] V28) Tubular adenoma of colon 01/21/2015 [...] AM EDT Appointment Radiology Department - [address] [phone] 02/18/2025 11:00 AM EDT Office Visit Adult Medicine [address] [phone] Alley Corrales MD [address] [place] [address] 04/01/2025 4:30 PM EDT Office Visit Adult Medicine [address] [phone] Jennie Caraballo PA [address] [place] [address] Health Maintenance Due Date Last Done Comments [...] LAB CHEMISTRY METHOD 09/30/2024 7:16 PM EDT [facility] Triglycerides 120 0 - 150 mg/dL LAB CHEMISTRY METHOD 09/30/2024 7:16 PM EDT [facility] HDL 66 >=40 mg/dL LAB CHEMISTRY METHOD 09/30/2024 7:16 PM EDT [facility] LDL Calculated 67 0 - 100 mg/dL LAB CHEMISTRY METHOD 09/30/2024 7:16 PM EDT [facility] VLDL Cholesterol Emanuel 24 mg/dL LAB CHEMISTRY METHOD 09/30/2024 7:16 PM EDT [facility] Non HDL Chol. (LDL+VLDL) 91 <145 mg/dL LAB CHEMISTRY METHOD 09/30/2024 7:16 PM EDT [facility] Chol/HDL Ratio 2.4 0.0 - 4.4 LAB CHEMISTRY METHOD 09/30/2024 7:16 PM EDT [facility] Blood Venous blood specimen / Unknown Venipuncture / Unknown 09/30/2024 3:30 PM EDT 09/30/2024 3:30 PM EDT us Alley Corrales MD LAB BLOOD ORDERABLES Final Resul t [facility] [address] [place] [address], [place] [phone] * (ABNORMAL) CBC auto differential (09/30/2024 3:30 PM EDT) WBC 9.5 4.8 - 10.8 K/mcL LAB HEMETOLOGY METHOD 09/30/2024 5:12 PM EDT [facility] RBC 4.60 3.80 - 4.80 M/mcL LAB HEMETOLOGY METHOD 09/30/2024 5:12 PM EDT [facility] Hemoglobin 13.9 11.5 - 16.0 g/dL LAB HEMETOLOGY METHOD 09/30/2024 5:12 PM EDT [facility] Hematocrit 41.6 35.0 - 47.0 % LAB HEMETOLOGY METHOD 09/30/2024 5:12 PM EDT [facility] MCV 89.7 79.0 - 98.0 FL LAB HEMETOLOGY METHOD 09/30/2024 5:12 PM EDT [facility] MCH 30.0 27.0 - 32.0 pcg LAB HEMETOLOGY METHOD 09/30/2024 5:12 PM EDT [facility] MCHC 33.4 32.0 - 37.0 g/dL LAB HEMETOLOGY METHOD 09/30/2024 5:12 PM EDT [facility] RDW 12.8 11.0 - 15.0 % LAB HEMETOLOGY METHOD 09/30/2024 5:12 PM [facility] Platelets 320 130 - 400 K/mcL LAB HEMETOLOGY METHOD 09/30/2024 5:12 PM [facility] MPV 12.1(H) 7.0 - 11.0 FL LAB HEMETOLOGY METHOD 09/30/2024 5:12 PM [facility] NRBC 0.0 <1.0 % LAB HEMETOLOGY METHOD 09/30/2024 5:12 PM [facility] NRBC Absolute 0.00 <0.10 K/mcL LAB HEMETOLOGY METHOD 09/30/2024 5:12 PM [facility] Neutrophils Relative 71.4 % LAB HEMETOLOGY METHOD 09/30/2024 5:12 PM [facility] Lymphocytes Relative 17.6 % LAB HEMETOLOGY METHOD 09/30/2024 5:12 PM [facility] Monocytes Relative 9.4 % LAB HEMETOLOGY METHOD 09/30/2024 5:12 PM [facility] Eosinophils Relative 0.9 % LAB HEMETOLOGY METHOD 09/30/2024 5:12 PM [facility] Basophils Relative 0.4 % LAB HEMETOLOGY METHOD 09/30/2024 5:12 PM [facility] Immature Granulocytes Relative 0.3 % LAB HEMETOLOGY METHOD 09/30/2024 5:12 PM [facility] Neutrophils Absolute 6.78 1.50 - 7.00 K/mcL LAB HEMETOLOGY METHOD 09/30/2024 5:12 PM [facility] Lymphocytes Absolute 1.67 1.00 - 5.00 K/mcL LAB HEMETOLOGY METHOD 09/30/2024 5:12 PM [facility] Monocytes Absolute 0.89 0.20 - 1.00 K/mcL LAB HEMETOLOGY METHOD 09/30/2024 5:12 PM EDT [facility] Eosinophils Absolute 0.09 0.00 - 0.50 K/[facility] LAB HEMETOLOGY METHOD 09/30/2024 5:12 PM EDT [facility] Basophils Absolute 0.04 0.00 - 0.20 K/[facility] LAB HEMETOLOGY METHOD 09/30/2024 5:12 PM EDT [facility] Immature Granulocytes Absolute 0.03 0.00 - 0.03 K/[facility] LAB HEMETOLOGY METHOD 09/30/2024 5:12 PM EDT [facility] Blood Venous blood specimen / Unknown Venipuncture / Unknown 09/30/2024 3:30 PM EDT 09/30/2024 3:30 PM EDT us Alley Corrales MD LAB BLOOD ORDERABLES Final Resul t [facility] [address] [place] [address], [place] [phone] * (ABNORMAL) Basic metabolic panel (09/30/2024 3:30 PM EDT) Sodium 138 133 - 145 mmol/L LAB CHEMISTRY METHOD 09/30/2024 6:56 PM T [facility] Potassium 3.5 3.5 - 5.5 mmol/L LAB CHEMISTRY METHOD 09/30/2024 6:56 PM T [facility] Chloride 104 96 - 110 mmol/L LAB CHEMISTRY METHOD 09/30[facility]24 [facility] CO2 29 21 - 32 mmol/L LAB CHEMISTRY METHOD 09/30/2024 6:56 PM [facility] Anion Gap 5 3 - 11 LAB CHEMISTRY METHOD 09/30/2024 6:56 PM EDT [facility] Glucose 140(H) 70 - 100 mg/dL LAB CHEMISTRY METHOD 09/30/2024 6:56 PM EDT [facility] BUN 22 5 - 25 mg/dL LAB CHEMISTRY METHOD 09/30/2024 6:56 PM EDT [facility] Creatinine 0.59 0.50 - 1.10 mg/dL LAB CHEMISTRY METHOD 09/30/2024 6:56 PM EDT [facility] eGFR 93 >=60 mL/min/1. 73m2 LAB CHEMISTRY METHOD 09/30/2024 6:56 PM EDT [facility] Comment:Calculation based on the??Chronic Kidney Disease Epidemiology Collaboration (CKD-EPI) equation refit??without adjustment for race. BUN/Creatinine Ratio 37.3 LAB CHEMISTRY METHOD 09/30/2024 6:56 PM EDT [facility] Calcium 10.1 8.5 - 10.5 mg/dL LAB CHEMISTRY METHOD 09/30/2024 6:56 PM EDT [facility] Blood Venous blood specimen / Unknown Venipuncture / Unknown 09/30/2024 3:30 PM EDT 09/30/2024 3:30 PM EDT Alley Corrales MD LAB BLOOD ORDERABLES Final Resul t [facility] [address] [place] [address], * Depression Screening (09/08/2023) Depression Screening Abstracted Historical Provider HEALTH MAINTENANCE Final Result * Hepatitis C Screening (07/11/2013) Hepatitis C Screening Abstracted Historical Provider HEALTH MAINTENANCE Final Result from Last 3 Months or Most Recently Relevant to Health Maintenance Insurance [employer] MED[employer]ARE Care Teams Hydrate Thickener Operator Relationship Specialty Start Date End Date Alley Corrales MD [address] [place] [address] PCP - General Internal Medicine 12/18/19
[2024-11-04 11:01] LABS: Estimated Average Glucose 105 mg/dL; Hemoglobin A1C 127.3992 umol/L; Hemoglobin A1c % 5.3 % (<6.0); Total Hemoglobin (HGBA1C) 3752.1967 umol/L
[2024-11-04 11:52] LABS: Anion Gap 11 (12-20); Blood Urea Nitrogen 14 mg/dL (9-16); Calcium 9.9 mg/dL (8.4-10.2); Carbon Dioxide 28 mmol/L (22-29); Chloride 107 mmol/L (96-108); Cholesterol 159 mg/dL (<200); Estimated Glomerular Filt Rate > 60; Glucose Random 114 mg/dL (60-115); HDL Cholesterol 59 mg/dL (>40); LDL Cholesterol Calculated 83 mg/dL (<100); Potassium 3.5 mmol/L (3.3-5.1); Sodium 142 mmol/L (135-145); Triglycerides 86 mg/dL (<150)
[2024-11-04 12:07] LABS: Free T4 (Free Thyroxine) 1.09 ng/dL (0.71-1.85); Thyroid Stimulating Hormone 2.21 uIU/mL (0.32-4.0)
== END 2024-11-04 08:54 | disposition home or self-care (01) ==
LOC: HO.LAB 08:53
PROVIDERS: PCP Internal Medicine; Visit Provider Internal Medicine
DX: Z00.00 Encounter for general adult medical examination without abnormal findings (principal); I48.0 Paroxysmal atrial fibrillation; I10 Essential (primary) hypertension; I71.20 Thoracic aortic aneurysm, without rupture, unspecified; R73.9 Hyperglycemia, unspecified; E78.00 Pure hypercholesterolemia, unspecified; G31.84 Mild cognitive impairment of uncertain or unknown etiology; Z79.01 Long term (current) use of anticoagulants; Z79.899 Other long term (current) drug therapy
CPT/HCPCS: 36415; 80048; 80061; 83036; 84439; 84443; 96127; 99397

== ENCOUNTER 2024-11-04 08:53 | Outpatient (AMB) | payer MEDICARE, SELFPAY ==
--- NOTE | 2024-11-04 08:57 | MHC.PC.OV ---
Vital Signs 11/04/24 08:58 Height 5 ft 5 in Weight 166 lb BMI 27.6 BP 130/88 Blood Pressure Location Lt brachial Position Sitting Pulse 81 Pulse Source Pulse Oximeter Pulse Oximetry (%) 96 Oxygen Delivery Method Room Air Intake Visit Reasons: annual exam - see comments Allergies No Known Allergies Allergy (Verified 11/04/24 08:59) Medication List - Last Reconciled 11/04/24 by Lina Coyne MD apixaban (Eliquis) 5 mg PO BID flecainide 100 mg PO Q12H 90 days hydrochlorothiazide 25 mg PO DAILY metoprolol succinate ER 25 mg PO DAILY potassium chloride ER 20 mEq PO DAILY 30 days simvastatin 10 mg PO BEDTIME Tobacco use date assessed: 11/04/24 Fall risk assessment: No Falls in past year Last assessed Fall Risk: 11/04/24 Dental Screening Dental Screen Date: 11/04/24 Did you have a dental visit in the last 12 months?: No Did you have a dental problem in the last 6 months where you did not have access to dental care?: No Was dental information given to patient?: No [facility] Medical History Vaginal wall prolapse Thoracic aortic aneurysm Left anterior fascicular block HTN (hypertension) Paroxysmal atrial fibrillation Surgical History History of hysterectomy Family History (Updated 11/04/24 @ 09:00 by Tran Bagley CMA) Father CVD (cardiovascular disease) Mother No problems noted. Social History Housing: House Alcohol intake: never Patient Tobacco Use Status: Never used Tobacco Tobacco use type: Cigarette e-Cigarette/Vaping Use: Never Used Second Hand Smoke Exposure: No Current occupational status: retired Cognitive needs: No Hearing needs: No Vision needs: Yes Female Reproductive History Menstrual Age of Menarche: 11 Questionnaire PHQ-9 Over the last 2 weeks, how often have you been bothered by any of the following problems? 1. Little interest or pleasure in doing things: not at all 2. Feeling down, depressed, or hopeless: not at all 3. Trouble falling or staying asleep, or sleeping too much: not at all 4. Feeling tired or having little energy: several days 5. Poor appetite or overeating: not at all 6. Feeling bad about yourself - or that you are a failure or have let yourself or your family down: not at all 7. Trouble concentrating on things, such as reading the newspaper or watching television: not at all 8. Moving or speaking so slowly that other people could have noticed. Or the opposite - being so fidgety or restless that you have been moving around a lot more than usual: several days 9. Thoughts that you would be better off or of hurting yourself in some way: not at all Total score: 2 Depression Screening Interpretation: Positive Depression Screening Done: Yes 44023 - PHQ-9 Billing: Yes Source: Developed by Drs. Armando Trinh, Kaylee Sanchez, Shadi Mclaughlin and colleagues, with an educational adriane from [employer]. Thrive Questionnaire Date Thrive assessed: 11/04/24 I am a: Patient What is your living situation today?: I have a steady place to live Within the past 12 months, did the food you bought not last and you didn't have the money to get more?: Never true Within the past 12 months, did you worry whether your food would run out before you got money to buy more?: Never true Do you have trouble paying for medicines?: Yes Do you have trouble getting transportation to medical appointments?: No Do you have trouble paying your heating and electricity bill?: Yes Do you have trouble taking care of your child, family member or friend?: No Do you have trouble with day-to-day activities such as bathing, preparing meals, shopping, managing finances, etc.?: Yes Are you currently unemployed and looking for a job?: No Are you interested in more education?: No Please select the resources that you would like help with: Housing/Group Home, Food, Paying for medicine, Transportation, Utilities, Care for elder or disabled and Daily support Currently or been in a relationship where the following occur: No concerns reported THRIVE Score: 1 AUDIT C Alcohol Use Questionnaire (AUDIT-C) 1. How often do you have a drink containing alcohol?: Never Total Score: 0 ALEXANDER-7 AMB Questionnaire ALEXANDER-7 Date ALEXANDER - 7 assessed: 11/04/24 Feeling nervous, anxious, or on edge: 0 = Not at all Not being able to stop or control worryin = Not at all Worrying too much about different things: 0 = Not at all Trouble relaxin = Not at all Being so restless that it is hard to sit still: 0 = Not at all Becoming easily annoyed or irritable: 0 = Not at all Feeling afraid as if something awful might happen: 0 = Not at all Total ALEXANDER-7 score (0-4 normal; 5-9 mild; 10-14 moderate; 15-21 severe): 0 Source: Developed by Drs. Armando Trinh, Kaylee Sanchez, Shadi Mclaughlin and colleagues, with an educational adriane from [employer]. ALEXANDER-7 Assessment Billing ALEXANDER-7 Assessment Tool: ALEXANDER-7 Assessment 59512 Review of Systems Const Denies poor appetite and Denies weakness Eyes Denies no additional complaints ENT Reports Normal hearing present, Denies dizziness, Denies nasal congestion, Denies tinnitus and Denies sore throat Card Denies chest pain, Denies syncope, Denies rapid heart rate and Denies dyspnea Resp Denies cough and Denies dyspnea GI Denies change in stool character, Reports constipation, Denies diarrhea, Denies nausea and Denies vomiting Denies urinary frequency, Denies difficulty voiding and Denies dysuria Neuro Reports Normal hearing present, Denies confusion, Denies dizziness, Denies syncope and Denies weakness Psych Denies confusion Physical exam (Primary Care) Vital Signs: Oxygen Delivery Method Room Air 11/04/24 08:58 BMI result Body Mass Index 27.6 Tobacco/Smoking Status: Tobacco use Status Tobacco use date assessed 10/31/23 10/14/24 10:47 Patient Tobacco Use Status Never used Tobacco 10/14/24 10:47 Depression Screening Interpretation: Positive Thrive Assessment: Date of Thrive Assessment Date Thrive assessed 10/31/23 10/14/24 10:47 Currently or been in a relationship where the following occur: No concerns reported Const General: No confusion Orientation/consciousness: No confusion HENMT Head: Yes normocephalic Ears: external ears normal and TM's normal bilaterally Face and sinus: Yes normal facial exam Mouth: moist mucous membranes Throat: Yes tonsils normal Eyes Conjunctivae: conjunctivae normal Pupils: Equal, round and reactive pupils present and Pupil accommodation reflex normal Direct Ophthalmoscopy: normal light reflex Neck Neck: No lymphadenopathy Thyroid: Thyroid normal Chest Chest palpation & inspection: normal inspection of the chest Resp Effort & Inspection: normal respiratory effort and no audible wheezes Auscultation: clear to auscultation bilaterally, no crackles, no wheezes and lung sounds not diminished Cardio Rate: regular rate Rhythm: regular rhythm Peripheral pulses: radial pulses present and dorsalis pedis present GI Palpation (GI): no masses Auscultation: normal bowel sounds and normoactive bowel sounds Rectal Exam - Female: deferred Skin General skin exam: no rashes or lesions noted Rashes: no rashes Neuro General: No confusion Cranial nerves: Yes Equal, round and reactive pupils present and Yes Normal hearing present Cognition (Neuro): normal cognition Gait exam (Neuro): Normal gait present Motor exam (neuro): 5/5 motor strength present throughout Deep tendon reflexes (DTR's): Right brachioradialis reflex intensity grade: 2+, Left brachioradialis reflex intensity grade: 2+, Right patellar reflex intensity grade: 2+ and Left patellar reflex intensity grade: 2+ Extrem General: No edema Coding Level of Care Code Est Pt Prev Care >65y(33448) Diagnoses Annual physical exam Z00.00 Paroxysmal atrial fibrillation I48.0 HTN (hypertension) I10 Thoracic aortic aneurysm I71.2 Elevated blood sugar R73.9 Colon cancer screening Z12.11 Hypercholesterolemia E78.00 Mild cognitive impairment G31.84 Additional Codes ALEXANDER-7 Assessment Billing - ALEXANDER-7 Assessment Tool: ALEXANDER-7 Assessment 87322 ([id number]) PHQ-9 - 77579 - PHQ-9 Billing: Yes ([id number]) Assessment & Plan Assessment & Plan (1) Annual physical exam: Code(s): Z00.00 - Encounter for general adult medical examination without abnormal findings Category: Medical Plan: Patient is advised to eat healthy, keep well hydrated, keep active and have adequate sleep. (2) Paroxysmal atrial fibrillation: Code(s): I48.0 - Paroxysmal atrial fibrillation Category: Medical Plan: Continue with anticoagulation with Eliquis and flecainide. Patient will need blood work (3) HTN (hypertension): Code(s): I10 - Essential (primary) hypertension Category: Medical Plan: Continue with blood pressure medication. Decrease salt intake and exercise patient on metoprolol 25 mg once a day hydrochlorothiazide 25 mg once a day (4) Thoracic aortic aneurysm: Code(s): I71.2 - Thoracic aortic aneurysm, without rupture Category: Medical Plan: Patient has met with Cardiology and echocardiogram pending (5) Elevated blood sugar: Code(s): R73.9 - Hyperglycemia, unspecified Category: Medical Plan: Decrease the amount of carbohydrate intake, pasta, bread, rice and potatoes are all sugar and that is aside from all the sweet stuff, remember that fruits are good but they are Sweet also. (6) Colon cancer screening: Code(s): Z12.11 - Encounter for screening for malignant neoplasm of colon Category: Medical Plan: Patient is reminded about colonoscopy (7) Hypercholesterolemia: Code(s): E78.00 - Pure hypercholesterolemia, unspecified Category: Medical Plan: Avoid fried foods, chicken skin, eggs, butter margarine, pastries and meat. Be it pork or beef they have a lot of cholesterol LDL goal of less than 100 and triglyceride of less than 150 on simvastatin (8) Mild cognitive impairment: Comment: 10/2024 MMSE Code(s): G31.84 - Mild cognitive impairment of uncertain or unknown etiology Category: Medical Plan History of Present Illness The patient is a 79-year-old female presenting for a physical exam and to discuss cognitive health. She has a documented medical history of atrial fibrillation, currently managed with Eliquis and flecainide, but reports challenges with consistent medication adherence. The patient has a thoracic aorta aneurysm, which was last evaluated to be 4.3 cm in size; ongoing monitoring is understood to be necessary. Recently, the patient has demonstrated issues with cognitive function, such as medication mismanagement, and requires assistance from family members in this regard. Her son reports concerns over her ability to manage her medication schedule, as she may inadvertently double dose or skip doses, concomitant with her cognitive decline. Despite these concerns, the patient maintains she can care for herself and is resistant to outside help, citing privacy issues. Routine blood tests showed normal blood panel results, with slightly elevated blood glucose and an LDL of 76 from the previous year. Health Maintenance - Repeat colonoscopy recommended; last performed January 2014 - Mammogram advised for December 2023, accordance with the last mammogram in December 2023 - Cholesterol monitoring continues, last LDL was 76 in October 2023 - Blood glucose monitoring recommended due to mild elevation - Consideration of cognitive evaluation by a neurologist - Encouraged routine physical activity and adherence to a diet focused on reducing animal proteins while increasing vegetable intake Social History - The patient is accompanied by her son, who assists with medication management. - Reports independence in daily living activities and denies requiring personal care assistance. - Denies use of soda, primarily drinks water. - Engages in limited physical activity, primarily walking in stores. Review of Systems - Cardiovascular: Reports atrial fibrillation, denies chest pain. - Cognitive: Reports with concerns for memory lapses. - Metabolic: Reports mildly elevated blood glucose. - Musculoskeletal: Denies falls. - Nutrition: Reports dietary transition to water, avoiding soda; limited exercise. Physical Exam General: Cooperative, healthy appearing, comfortable, no acute distress and well developed Orientation: Patient oriented x3, but does have cognitive problems Limitations: No limitations Head: Normal to inspection Ears: Hearing grossly normal bilaterally Nose: Normal external nose present Face and sinus: Normal facial exam Eyes: Appearance normal, both eyes and all related structures Neck: Normal visual inspection and Yes full ROM Respiratory: Normal respiratory effort and able to speak in complete sentences. Clear to auscultation bilaterally Cardiovascular: Regular rate and rhythm. Normal S1 and S2 GI: Normal to inspection. Soft to palpation and nontender Skin: No rashes or lesions noted Neuro: Patient oriented x3, but does have cognitive problems Extremities: Normal to inspection Results - Labs: Blood work (October 2024) showed normal blood count, electrolytes, normal renal function, and normal liver function. Blood glucose mildly elevated. - Cholesterol: Last tested in October 2023, LDL 76. - Imaging: None discussed during the visit. - Tests: Echocardiogram pending review for thoracic aorta aneurysm. Plan The patient will maintain current anticoagulation therapy on Eliquis and flecainide, with active efforts to enhance medication adherence under the guidance of her son. Regular twice-yearly blood work will be allayed to monitor side-effects and efficacy related to renal and hepatic function. A neuro-referal is recommended for inspection of existing cognitive issues, and a CAT scan is placed to eliminate possible intracranial etiology. Emphasis is on bolstering dietary habits, notably involving hydrating and reducing animal protein uptake, in addition to promoting an augmented regimen of physical exercise. Meanwhile, blood glucose will be consistently checked owing to slight hyperglycemic levels. An echocardiogram will be revised following its pending status for the aneurysm evaluation. On relations to health conservation, mammogram and colonoscopy follow-ups are designated following preset intervals. Potential arrangements for personal in-home companion will be considered should cognitive matters evolve. Patient was informed and verbally consented to the use of an ambient scribe for clinic note documentation during this visit. Discussion Notes I reviewed with the patient and her son the importance of consistent medication management to control her medical conditions, particularly atrial fibrillation and potential cognitive impairment. I advised close monitoring of her anticoagulation therapy with Eliquis and flecainide and the necessity of regular blood work for safety checks. Additionally, I advised a referral to a neurologist for a comprehensive evaluation of her cognitive status and ordered a CAT scan to assess for possible intracranial factors affecting memory. We discussed her slightly elevated blood glucose, underscoring the importance of dietary adjustments and regular physical activity. The patient was informed about and reminded of her pending echocardiogram to evaluate her thoracic aorta aneurysm further. Mammogram and colonoscopy follow-ups were arranged as health maintenance protocols for screening. Discussions about potential gradual assistance for her household activities were broached, to optimize safe living conditions if cognitive functions worsen. Patient Instructions - Take your Eliquis and flecainide as prescribed by your doctor. - Go for blood work twice a year to check kidney and liver health. - Eat a healthy diet with more vegetables and less meat. - Drink lots of water and keep exercising. - Visit the doctor for regular check-ups. - Complete your mammogram and colonoscopy screenings as scheduled. - Follow up with the neurologist for memory evaluation. - Inform the doctor if there are any changes in your health or if you have concerns about your medications. - Keep in touch with your son for assistance with medication and daily activities to prevent skipped or doubled doses. Orders: Orders Lipid Panel Today E78.00 - Pure hypercholesterolemia, unspecified CT head/brain wo IV con Today G31.84 - Mild cognitive impairment of uncertain or unknown etiology Basic Metabolic Panel Today G31.84 - Mild cognitive impairment of uncertain or unknown etiology Free T4 (Free Thyroxine) Today E78.00 - Pure hypercholesterolemia, unspecified Thyroid Stimulating Hormone Today E78.00 - Pure hypercholesterolemia, unspecified Hemoglobin A1c Today E78.00 - Pure hypercholesterolemia, unspecified Referrals Neurology Referral G31.84 - Mild cognitive impairment of uncertain or unknown etiology Medications: Refilled hydrochlorothiazide 25 mg PO DAILY 90 tabs 1RF E78.00 - Pure hypercholesterolemia, unspecified Discontinued potassium chloride ER Discontinued Reason: Doctor's Order 20 mEq PO DAILY 30 days 30 tabs 5RF
[2024-11-04 08:58] VITALS: BP 130/88; PULSE 81; O2SAT 96; BMI 27.6
--- OUTSIDE RECORDS SUMMARY | 2024-11-04 09:02 | XMS_ITS | Clinical Summary ---
Author Organization [facility] [address] [facility] Address [address] [place] [address] Phone Care Team Providers Care [employer]s And Shoes Supervisor Name Role Phone Alley Corrales MD Primary Care Provider Allergies No known active allergies Medications flecainide [...] Severe obesity (BMI 35.0-35. 9 with comorbidity) ([facility] V24, [facility] V28) 05/13/2024 Cognitive impairment 09/07/2022 Assessment [...] both lower extrem ities 09/30/2005 Atrial fibrillation ([facility] V24, [facility] V28) 0 09/30/2005 Overview (05/13/2024): Onset [...] 2:45 PM EDT Office Visit Adult Medicine [address] [phone] Alley Corrales MD Encounter for annual wellness visit (AWV) in Medicare patient (Primary Dx); Chronic atrial fibrillation ([facility] V24, [facility] V28); Other hyperlipidemia; Cognitive impairment; Essential [...] 09/30/2005 Asymptomatic varicose veins 09/30/2005 Atrial fibrillation ([facility] V24, [facility] V28) Tubular adenoma of colon 01/21/2015 [...] 10:40 AM EDT Appointment Radiology Department - [address] [phone] 02/18/2025 11:00 AM EDT Office Visit Adult Medicine [address] [phone] Alley Corrales MD [address] [place] [address] 04/01/2025 4:30 PM EDT Office Visit Adult Medicine [address] [phone] Jennie Caraballo PA [address] [place] [address] Health Maintenance Due Date Last Done Comments [...] LAB CHEMISTRY METHOD 09/30/2024 7:16 PM EDT [facility] Triglycerides 120 0 - 150 mg/dL LAB CHEMISTRY METHOD 09/30/2024 7:16 PM EDT [facility] HDL 66 >=40 mg/dL LAB CHEMISTRY METHOD 09/30/2024 7:16 PM EDT [facility] LDL Calculated 67 0 - 100 mg/dL LAB CHEMISTRY METHOD 09/30/2024 7:16 PM EDT [facility] VLDL Cholesterol Emanuel 24 mg/dL LAB CHEMISTRY METHOD 09/30/2024 7:16 PM EDT [facility] Non HDL Chol. (LDL+VLDL) 91 <145 mg/dL LAB CHEMISTRY METHOD 09/30/2024 7:16 PM EDT [facility] Chol/HDL Ratio 2.4 0.0 - 4.4 LAB CHEMISTRY METHOD 09/30/2024 7:16 PM EDT [facility] Blood Venous blood specimen / Unknown Venipuncture / Unknown 09/30/2024 3:30 PM EDT 09/30/2024 3:30 PM EDT us Alley Corrales MD LAB BLOOD ORDERABLES Final Resul t [facility] [address] [place] [address], [place] [phone] * (ABNORMAL) CBC auto differential (09/30/2024 3:30 PM EDT) WBC 9.5 4.8 - 10.8 K/mcL LAB HEMETOLOGY METHOD 09/30/2024 5:12 PM EDT [facility] RBC 4.60 3.80 - 4.80 M/mcL LAB HEMETOLOGY METHOD 09/30/2024 5:12 PM EDT [facility] Hemoglobin 13.9 11.5 - 16.0 g/dL LAB HEMETOLOGY METHOD 09/30/2024 5:12 PM EDT [facility] Hematocrit 41.6 35.0 - 47.0 % LAB HEMETOLOGY METHOD 09/30/2024 5:12 PM EDT [facility] MCV 89.7 79.0 - 98.0 FL LAB HEMETOLOGY METHOD 09/30/2024 5:12 PM EDT [facility] MCH 30.0 27.0 - 32.0 pcg LAB HEMETOLOGY METHOD 09/30/2024 5:12 PM EDT [facility] MCHC 33.4 32.0 - 37.0 g/dL LAB HEMETOLOGY METHOD 09/30/2024 5:12 PM EDT [facility] RDW 12.8 11.0 - 15.0 % LAB HEMETOLOGY METHOD 09/30/2024 5:12 PM [facility] Platelets 320 130 - 400 K/mcL LAB HEMETOLOGY METHOD 09/30/2024 5:12 PM [facility] MPV 12.1(H) 7.0 - 11.0 FL LAB HEMETOLOGY METHOD 09/30/2024 5:12 PM [facility] NRBC 0.0 <1.0 % LAB HEMETOLOGY METHOD 09/30/2024 5:12 PM [facility] NRBC Absolute 0.00 <0.10 K/mcL LAB HEMETOLOGY METHOD 09/30/2024 5:12 PM [facility] Neutrophils Relative 71.4 % LAB HEMETOLOGY METHOD 09/30/2024 5:12 PM [facility] Lymphocytes Relative 17.6 % LAB HEMETOLOGY METHOD 09/30/2024 5:12 PM [facility] Monocytes Relative 9.4 % LAB HEMETOLOGY METHOD 09/30/2024 5:12 PM [facility] Eosinophils Relative 0.9 % LAB HEMETOLOGY METHOD 09/30/2024 5:12 PM [facility] Basophils Relative 0.4 % LAB HEMETOLOGY METHOD 09/30/2024 5:12 PM [facility] Immature Granulocytes Relative 0.3 % LAB HEMETOLOGY METHOD 09/30/2024 5:12 PM [facility] Neutrophils Absolute 6.78 1.50 - 7.00 K/mcL LAB HEMETOLOGY METHOD 09/30/2024 5:12 PM [facility] Lymphocytes Absolute 1.67 1.00 - 5.00 K/mcL LAB HEMETOLOGY METHOD 09/30/2024 5:12 PM [facility] Monocytes Absolute 0.89 0.20 - 1.00 K/mcL LAB HEMETOLOGY METHOD 09/30/2024 5:12 PM EDT [facility] Eosinophils Absolute 0.09 0.00 - 0.50 K/[facility] LAB HEMETOLOGY METHOD 09/30/2024 5:12 PM EDT [facility] Basophils Absolute 0.04 0.00 - 0.20 K/[facility] LAB HEMETOLOGY METHOD 09/30/2024 5:12 PM EDT [facility] Immature Granulocytes Absolute 0.03 0.00 - 0.03 K/[facility] LAB HEMETOLOGY METHOD 09/30/2024 5:12 PM EDT [facility] Blood Venous blood specimen / Unknown Venipuncture / Unknown 09/30/2024 3:30 PM EDT 09/30/2024 3:30 PM EDT us Alley Corrales MD LAB BLOOD ORDERABLES Final Resul t [facility] [address] [place] [address], [place] [phone] * (ABNORMAL) Basic metabolic panel (09/30/2024 3:30 PM EDT) Sodium 138 133 - 145 mmol/L LAB CHEMISTRY METHOD 09/30/2024 6:56 PM T [facility] Potassium 3.5 3.5 - 5.5 mmol/L LAB CHEMISTRY METHOD 09/30/2024 6:56 PM T [facility] Chloride 104 96 - 110 mmol/L LAB [facility]STR[facility] CO[facility] 29 21 - 32 mmol/L LAB CHEMISTRY METHOD 09/30/2024 6:56 PM [facility] Anion Gap 5 3 - 11 LAB CHEMISTRY METHOD 09/30/2024 6:56 PM EDT [facility] Glucose 140(H) 70 - 100 mg/dL LAB CHEMISTRY METHOD 09/30/2024 6:56 PM EDT [facility] BUN 22 5 - 25 mg/dL LAB CHEMISTRY METHOD 09/30/2024 6:56 PM EDT [facility] Creatinine 0.59 0.50 - 1.10 mg/dL LAB CHEMISTRY METHOD 09/30/2024 6:56 PM EDT [facility] eGFR 93 >=60 mL/min/1. 73m2 LAB CHEMISTRY METHOD 09/30/2024 6:56 PM EDT [facility] Comment:Calculation based on the??Chronic Kidney Disease Epidemiology Collaboration (CKD-EPI) equation refit??without adjustment for race. BUN/Creatinine Ratio 37.3 LAB CHEMISTRY METHOD 09/30/2024 6:56 PM EDT [facility] Calcium 10.1 8.5 - 10.5 mg/dL LAB CHEMISTRY METHOD 09/30/2024 6:56 PM EDT [facility] Blood Venous blood specimen / Unknown Venipuncture / Unknown 09/30/2024 3:30 PM EDT 09/30/2024 3:30 PM EDT Alley Corrales MD LAB BLOOD ORDERABLES Final Resul t [facility] [address] [place] [address], * Depression Screening (09/08/2023) Depression Screening Abstracted Historical Provider HEALTH MAINTENANCE Final Result * Hepatitis C Screening (07/11/2013) Hepatitis C Screening Abstracted Historical Provider HEALTH MAINTENANCE Final Result from Last 3 Months or Most Recently Relevant to Health Maintenance Insurance [employer] MEDICARE Care Teams Boots And Shoes Supervisor Relationship Specialty Start Date End Date Alley Corrales MD [address] [place] [address] PCP - General Internal Medicine 12/18/19
== END 2024-11-04 09:46 | disposition home or self-care (01) ==
LOC: HO.HMCH 08:54
PROVIDERS: PCP Internal Medicine; Visit Provider Internal Medicine
DX: Z00.00 Encounter for general adult medical examination without abnormal findings (principal); I48.0 Paroxysmal atrial fibrillation; I10 Essential (primary) hypertension; I71.20 Thoracic aortic aneurysm, without rupture, unspecified; R73.9 Hyperglycemia, unspecified; Z12.11 Encounter for screening for malignant neoplasm of colon; E78.00 Pure hypercholesterolemia, unspecified; G31.84 Mild cognitive impairment of uncertain or unknown etiology

== ENCOUNTER 2024-11-11 03:48 | Emergency (ER) | payer MEDICARE, SELFPAY ==
--- NOTE | 2024-11-11 | ECG_ITS ---
Test Reason : CHEST PAIN Blood Pressure : */* mmHG Vent. Rate : 79 BPM Atrial Rate : 79 BPM P-R Int : 172 ms QRS Dur : 122 ms QT Int : 406 ms P-R-T Axes : -65 -60 54 degrees QTcB Int : 465 ms Normal sinus rhythm Left axis deviation Non-specific intra-ventricular conduction delay Minimal voltage criteria for LVH, may be normal variant ( Pavan product ) Nonspecific ST abnormality Abnormal ECG When compared with ECG of 14-Aug-2021 08:39, No significant changes seen Referred By: Generic ED Physician Electronically Signed By: Remy Abel
[2024-11-11 03:54] VITALS: BP 150/94; PULSE 90; O2SAT 99
[2024-11-11 04:04] VITALS: BP 143/86; PULSE 78; RESP 20; TEMP 36.5; O2SAT 99; BMI 27.3
[2024-11-11 04:04] LABS: Basophils Percent Auto 0.3 % (0-2); Eosinophils Absolute Auto 0.2 X10*3/uL (0.0-0.4); Eosinophils Percent Auto 2.4 % (0-4); Hematocrit 44.4 % (37.0-47.0); Hemoglobin 15.5 g/dl (12.0-16.0); Imm Gran Abs Auto 0.01 X10*3/uL (0.00-0.03); Imm Gran Pct Auto 0.1 % (0.0-0.4); Lymphocytes Absolute Auto 3.2 X10*3/uL (1.2-4.9); Lymphocytes Percent Auto 36.4 % (20-40); MANUAL DIFF FLAG NO; Mean Corpuscular HGB Conc 34.9 g/dl (31.0-35.0); Mean Corpuscular Hemoglobin 30.8 pg (27.0-33.0); Mean Corpuscular Volume 88.3 fL (80.0-98.0); Mean Platelet Volume 11.3 fL (9.4-12.3); Monocytes Absolute Auto 0.9 X10*3/uL (0.1-1.2); Monocytes Percent Auto 10.1 % (2-11); Neutrophils Absolute Auto 4.5 x10*3/uL (2.0-8.3); Neutrophils Percent Auto 50.7 % (45-73); Platelet Count 314 X10*3/uL (160-400); Red Blood Count 5.03 X10*6/uL (4.20-5.50); Red Cell Distribution Width 12.5 % (11.0-16.0); White Blood Count 8.9 X10*3/uL (4.8-10.8)
[2024-11-11 04:20] LABS: Alanine Aminotransferase 19 U/L (0-31); Albumin Level 4.6 g/dL (3.5-5.0); Alkaline Phosphatase 106 U/L (39-117); Anion Gap 15 (12-20); Aspartate Amino Transferase 21 U/L (5-31); Bilirubin Total 0.6 mg/dL (0.0-1.0); Blood Urea Nitrogen 13 mg/dL (9-16); Calcium 10.6 mg/dL (8.4-10.2); Carbon Dioxide 27 mmol/L (22-29); Chloride 103 mmol/L (96-108); Creatinine Clr Calc Pharmacy 75.5; Estimated Glomerular Filt Rate > 60; Glucose Random 136 mg/dL (60-115); Potassium 3.7 mmol/L (3.3-5.1); Sodium 141 mmol/L (135-145)
--- NOTE | 2024-11-11 04:22 | ED.CHESTPAIN ---
HPI - Chest Pain General Chief Complaint: Chest Pain Stated Complaint: Chest pain & AMS Time Seen by Provider: 11/11/24 04:22 Source: patient Mode of arrival: EMS Limitations: no limitations History of Present Illness ED Provider: Dr. Javier Bermudez HPI narrative: 78-year-old female with a past medical history of paroxysmal atrial fibrillation on Eliquis, HTN, thoracic aortic aneurysm, who presents emergency department for evaluation of chest pain. Patient states she feels like her heart is in atrial fibrillation. She states that her heart was beating fast and slow and she felt very shaky. She denied associated nausea, vomiting, diaphoresis, lightheadedness or dizziness, radiation of the pain to her neck, jaw, arms or back. Patient continued to repeat that her son puts her medications in a cup and she did not take them because she did not know which medications were in the cup. Review of systems was negative for fever, chills, sore throat, cough, frequency, urgency or dysuria. Related Data Previous Rx's ?Medication ?Instructions ?Recorded metoprolol succinate 25 mg 25 mg PO DAILY #90 tabs 11/17/23 tablet,extended release 24 hr simvastatin 10 mg tablet 10 mg PO BEDTIME #90 tabs 10/14/24 apixaban 5 mg tablet (Eliquis) 5 mg PO BID #60 tabs 11/01/24 flecainide 100 mg tablet 100 mg PO Q12H 90 days #180 caps 11/01/24 hydrochlorothiazide 25 mg tablet 25 mg PO DAILY #90 tabs 11/04/24 Allergies Allergy/AdvReac Type Severity Reaction Status Date / Time No Known Allergies Allergy Verified 11/11/24 04:12 Review of Systems Review of Systems: Yes all other systems are reviewed and are negative [facility] Past Medical History [facility] Narrative: Social history: She states she lives alone but her son lives nearby. She denies tobacco, alcohol and drug use. Medical History Vaginal wall prolapse Thoracic aortic aneurysm Left anterior fascicular block HTN (hypertension) Paroxysmal atrial fibrillation Surgical History History of hysterectomy Family History Family History (Updated 11/04/24 @ 09:00 by Tran Bagley CMA) Father CVD (cardiovascular disease) Mother No problems noted. Social History Social History Housing: House Alcohol intake: never Patient Tobacco Use Status: Never used Tobacco Tobacco use type: Cigarette e-Cigarette/Vaping Use: Never Used Second Hand Smoke Exposure: No Current occupational status: retired Cognitive needs: No Hearing needs: No Vision needs: Yes Physical Exam Vital Signs: Vital Signs: BMI result Body Mass Index 27.3 Exam: General: Awake, alert in no distress Head: Normocephalic, atraumatic EENT: PERRL, Lids normal, sclera normal, conjunctiva normal, nose normal , ears normal, throat without erythema or exudates Neck: Supple, no adenopathy Lung: breath sounds symmetric, no wheezing, rales or rhonchi Chest: symmetric movement, nontender Heart: regular rate and rhythm, normal S1, S2 no murmurs or rubs Abdomen: soft, non-tender, nondistended, normal bowel sounds Back: no vertebral tenderness, no CVAT Extremities: no deformities, moves all extremities symmetrically Neuro: Awake, alert, oriented, normal speech, cranial nerves intact, moves all extremities symmetrically Psych: Anxious, cooperative Medical Decision Making Medical Decision Making MDM Narrative: 78-year-old female with a past medical history of paroxysmal atrial fibrillation on Eliquis, HTN, thoracic aortic aneurysm, who presents emergency department for evaluation of chest pain. Patient states she feels like her heart is in atrial fibrillation. She states that her heart was beating fast and slow and she felt very shaky. She denied associated nausea, vomiting, diaphoresis, lightheadedness or dizziness, radiation of the pain to her neck, jaw, arms or back. Patient continued to repeat that her son puts her medications in a cup and she did not take them because she did not know which medications were in the cup. Review of systems was negative for fever, chills, sore throat, cough, frequency, urgency or dysuria. Physical examination was unremarkable, the patient did appear to be anxious. Differential diagnosis: ?Includes but is not limited to myocardial infarction, myocardial ischemia, atrial fibrillation, arrhythmia, palpitations, anxiety, anemia, electrolyte abnormalities Course: 05:49 My interpretation patient's laboratory evaluation is as follows CBC was normal. CMP revealed an elevated glucose of 136. High sensitive troponin I was detectable but not elevated at 3.0. BNP was normal. Patient's 12 EKG revealed a sinus rhythm with no significant abnormalities. The patient's symptoms are most consistent with palpitations and at this time I do not think that she has had myocardial infarction or myocardial injury is the cause of her symptoms. The patient is currently in a normal sinus rhythm but she does have a history of paroxysmal atrial fibrillation and she may have been in atrial fibrillation prior to coming to the emergency department. The patient did appear to be anxious and she was given Ativan 0.5 mg orally. The patient was told to continue taking her outpatient medications and follow up with her PCP for further evaluation of her palpitations. She was given printed and verbal instructions and discharged home. Admission/Observation Consideration of admission/observation: Escalation of care including admission/observation considered (Yes) Lab Data MDM Lab Attestation statement: I reviewed the patient's lab results. 11/11/24 03:59 11/11/24 03:59 Labs: Lab Results 11/11/24 11/11/24 Range/Units 03:59 04:02 WBC 8.9 (4.8-10.8) X10*3/uL RBC 5.03 (4.20-5.50) X10*6/uL Hgb 15.5 (12.0-16.0) g/dl Hct 44.4 (37.0-47.0) % MCV 88.3 (80.0-98.0) fL MCH 30.8 (27.0-33.0) pg MCHC 34.9 (31.0-35.0) g/dl RDW 12.5 (11.0-16.0) % Plt Count 314 (160-400) X10*3/uL MPV 11.3 (9.4-12.3) fL Immature Gran % (Auto) 0.1 (0.0-0.4) % Neut % (Auto) 50.7 (45-73) % Lymph % (Auto) 36.4 (20-40) % [place] % (Auto) 10.1 (2-11) % Eos % (Auto) 2.4 (0-4) % Baso % (Auto) 0.3 (0-2) % Lymph # (Auto) 3.2 (1.2-4.9) X10*3/uL [place] # (Auto) 0.9 (0.1-1.2) X10*3/uL Eos # (Auto) 0.2 (0.0-0.4) X10*3/uL Baso # (Auto) 0.0 (0.0-0.2) X10*3/uL Abs Immat Gran (auto) 0.01 (0.00-0.03) X10*3/uL Absolute Neuts (auto) 4.5 (2.0-8.3) x10*3/uL Absolute Nucleated RBC 0.000 (0.0-0.012) X10*3/uL Nucleated RBC % (auto) 0.0 (0.0-0.2) /100WBC Hold Blue Top SEE NOTE Sodium 141 (135-145) mmol/L Potassium 3.7 (3.3-5.1) mmol/L Chloride 103 (96-108) mmol/L Carbon Dioxide 27 (22-29) mmol/L Anion Gap 15 (12-20) BUN 13 (9-16) mg/dL Creatinine 0.63 (0.5-1.4) mg/dL Estim Creat Clear Calc 75.5 Estimated GFR > 60 Random Glucose 136 H (60-115) mg/dL Calcium 10.6 H D (8.4-10.2) mg/dL Total Bilirubin 0.6 (0.0-1.0) mg/dL AST 21 (5-31) U/L ALT 19 (0-31) U/L Alkaline Phosphatase 106 (39-117) U/L Total Protein 7.0 (6.5-8.0) g/dL Albumin 4.6 (3.5-5.0) g/dL Independent Interpretation I performed an independent interpretation of an: EKG Interpretation: My independent interpretation patient's 12 EKG done on 11/11/2024 at 03:56 hours is as follows: Normal sinus rhythm with a rate of 79, normal NM interval, prolonged QRS of 122 milliseconds, normal QTC, no ST segment elevation, no ST segment depression, patient Q-wave in V1 with poor R-wave progression V1 through V3, there is a nonspecific intraventricular conduction delay, no significant T-wave abnormalities, no PACs, no PVCs. When compared to an EKG dated 08/14/2021 there was no significant change. Chronic Conditions Patient?s care impacted by: Hypertension and Other (Hyperlipidemia, paroxysmal atrial fibrillation) Discharge Plan Discharge Clinical Impression: Chest pain, Anxiety Patient Disposition: Home, Self-Care Instructions: Chest Pain (ED), Anxiety (ED) Additional Instructions: Your blood work was normal. Your EKG revealed that you are not in atrial fibrillation but in a normal rhythm. You were given Ativan 0.5 mg orally for anxiety Continue taking your medications as prescribed by your providers. Follow-up with your doctor in 2 days. Please return to the emergency department if your symptoms get worse or if you develop any symptoms that are concerning to you. Prescriptions: No Action metoprolol succinate 25 mg tablet extended release 24 hr 25 mg PO DAILY Qty: 90 3RF simvastatin 10 mg tablet 10 mg PO BEDTIME Qty: 90 3RF hydrochlorothiazide 25 mg tablet 25 mg PO DAILY Qty: 90 1RF flecainide 100 mg tablet 100 mg PO Q12H 90 Days Qty: 180 3RF Eliquis 5 mg tablet 5 mg PO BID Qty: 60 5RF Print Language: Slovak
--- OUTSIDE RECORDS SUMMARY | 2024-11-11 04:22 | XMS_ITS | Clinical Summary ---
Author Organization [facility] 444 [facility] Address [address] [place] [address] Phone Care Team Providers Care Viticulturist Name Role Phone Alley Corrales MD Primary Care Provider [phone] Allergies No known active allergies Medications flecainide [...] Severe obesity (BMI 35.0-35. 9 with comorbidity) ([facility] V24, [facility] V28) 05/13/2024 Cognitive impairment 09/07/2022 [...] both lower extrem ities 09/30/2005 Atrial fibrillation ([facility] V24, [facility] V28) 0 09/30/2005 Overview (05/13/2024): [...] 2:45 PM EDT Office Visit Adult Medicine [address] [phone] Alley Corrales MD Encounter for annual wellness visit (AWV) in Medicare patient (Primary Dx); Chronic atrial fibrillation ([facility] V24, [facility] V28); Other hyperlipidemia; Cognitive impairment; [...] 09/30/2005 Asymptomatic varicose veins 09/30/2005 Atrial fibrillation (CMS/[facility] V24, [facility] V28) Tubular adenoma of colon [...] 10:40 AM EDT Appointment Radiology Department - [address] [phone] 02/18/2025 11:00 AM EDT Office Visit Adult Medicine [address] [phone] Alley Corrales MD [address] [place] [address] 04/01/2025 4:30 PM EDT Office Visit Adult Medicine [address] [phone] Jennie Caraballo PA [address] [place] [address] Health Maintenance Due Date Last Done Comments [...] LAB CHEMISTRY METHOD 09/30/2024 7:16 PM EDT [facility] Triglycerides 120 0 - 150 mg/dL LAB CHEMISTRY METHOD 09/30/2024 7:16 PM EDT [facility] HDL 66 >=40 mg/dL LAB CHEMISTRY METHOD 09/30/2024 7:16 PM EDT [facility] LDL Calculated 67 0 - 100 mg/dL LAB CHEMISTRY METHOD 09/30/2024 7:16 PM EDT [facility] VLDL Cholesterol Emanuel 24 mg/dL LAB CHEMISTRY METHOD 09/30/2024 7:16 PM EDT [facility] Non HDL Chol. (LDL+VLDL) 91 <145 mg/dL LAB CHEMISTRY METHOD 09/30/2024 7:16 PM EDT [facility] Chol/HDL Ratio 2.4 0.0 - 4.4 LAB CHEMISTRY METHOD 09/30/2024 7:16 PM EDT [facility] Blood Venous blood specimen / Unknown Venipuncture / Unknown 09/30/2024 3:30 PM EDT 09/30/2024 3:30 PM EDT us Alley Corrales MD LAB BLOOD ORDERABLES Final Resul t [facility] [address] [place] [address], [place] [phone] * (ABNORMAL) CBC auto differential (09/30/2024 3:30 PM EDT) WBC 9.5 4.8 - 10.8 K/mcL LAB HEMETOLOGY METHOD 09/30/2024 5:12 PM EDT [facility] RBC 4.60 3.80 - 4.80 M/mcL LAB HEMETOLOGY METHOD 09/30/2024 5:12 PM EDT [facility] Hemoglobin 13.9 11.5 - 16.0 g/dL LAB HEMETOLOGY METHOD 09/30/2024 5:12 PM EDT [facility] Hematocrit 41.6 35.0 - 47.0 % LAB HEMETOLOGY METHOD 09/30/2024 5:12 PM EDT [facility] MCV 89.7 79.0 - 98.0 FL LAB HEMETOLOGY METHOD 09/30/2024 5:12 PM EDT [facility] MCH 30.0 27.0 - 32.0 pcg LAB HEMETOLOGY METHOD 09/30/2024 5:12 PM EDT [facility] MCHC 33.4 32.0 - 37.0 g/dL LAB HEMETOLOGY METHOD 09/30/2024 5:12 PM EDT [facility] RDW 12.8 11.0 - 15.0 % LAB HEMETOLOGY METHOD 09/30/2024 5:[address] [facility] Platelets 320 130 - 400 K/mcL LAB HEMETOLOGY METHOD 09/30/2024 5:[address] [facility] MPV 12.1(H) 7.0 - 11.0 FL LAB HEMETOLOGY METHOD 09/30/2024 5:[address] [facility] NRBC 0.0 <1.0 % LAB HEMETOLOGY METHOD 09/30/2024 5:[address] [facility] NRBC Absolute 0.00 <0.10 K/mcL LAB HEMETOLOGY METHOD 09/30/2024 5:[address] [facility] Neutrophils Relative 71.4 % LAB HEMETOLOGY METHOD 09/30/2024 5:[address] [facility] Lymphocytes Relative 17.6 % LAB HEMETOLOGY METHOD 09/30/2024 5:[address] [facility] Monocytes Relative 9.4 % LAB HEMETOLOGY METHOD 09/30/2024 5:[address] [facility] Eosinophils Relative 0.9 % LAB HEMETOLOGY METHOD 09/30/2024 5:[address] [facility] Basophils Relative 0.4 % LAB HEMETOLOGY METHOD 09/30/2024 5:[address] [facility] Immature Granulocytes Relative 0.3 % LAB HEMETOLOGY METHOD 09/30/2024 5:[address] [facility] Neutrophils Absolute 6.78 1.50 - 7.00 K/mcL LAB HEMETOLOGY METHOD 09/30/2024 5:[address] [facility] Lymphocytes Absolute 1.67 1.00 - 5.00 K/mcL LAB HEMETOLOGY METHOD 09/30/2024 5:[address] [facility] Monocytes Absolute 0.89 0.20 - 1.00 K/mcL LAB HEMETOLOGY METHOD 09/30/2024 5:12 PM EDT [facility] Eosinophils Absolute 0.09 0.00 - 0.50 K/[facility] HEMETOLOGY METHOD 09/30/2024 5:12 PM EDT [facility] Basophils Absolute 0.04 0.00 - 0.20 K/[facility] HEMETOLOGY METHOD 09/30/2024 5:12 PM EDT [facility] Immature Granulocytes Absolute 0.03 0.00 - 0.03 K/[facility] HEMETOLOGY METHOD 09/30/2024 5:12 PM EDT [facility] Blood Venous blood specimen / Unknown Venipuncture / Unknown 09/30/2024 3:30 PM EDT 09/30/2024 3:30 PM EDT us Alley Corrales MD LAB BLOOD ORDERABLES Final Resul t [facility] [address] [place] [address], [place] [phone] * (ABNORMAL) Basic metabolic panel (09/30/2024 3:30 PM EDT) Sodium 138 133 - 145 mmol/L LAB CHEMISTRY METHOD 09/30/2024 6:56 PM T [facility] Potassium 3.5 3.5 - 5.5 mmol/L LAB CHEMISTRY METHOD 09/30/2024 6:56 PM T [facility] Chloride 104 96 - 110 mmol/L LAB CHEMISTRY METHOD [facility]/30[facility]24 [facility] 29 21 - 32 mmol/L LAB CHEMISTRY METHOD 09/30/2024 6:[address] [facility] Anion Gap 5 3 - 11 LAB CHEMISTRY METHOD 09/30/2024 6:56 PM EDT [facility] Glucose 140(H) 70 - 100 mg/dL LAB CHEMISTRY METHOD 09/30/2024 6:56 PM EDT [facility] BUN 22 5 - 25 mg/dL LAB CHEMISTRY METHOD 09/30/2024 6:56 PM EDT [facility] Creatinine 0.59 0.50 - 1.10 mg/dL LAB CHEMISTRY METHOD 09/30/2024 6:56 PM EDT [facility] eGFR 93 >=60 mL/min/1. 73m2 LAB CHEMISTRY METHOD 09/30/2024 6:56 PM EDT [facility] Comment:Calculation based on the??Chronic Kidney Disease Epidemiology Collaboration (CKD-EPI) equation refit??without adjustment for race. BUN/Creatinine Ratio 37.3 LAB CHEMISTRY METHOD 09/30/2024 6:56 PM EDT [facility] Calcium 10.1 8.5 - 10.5 mg/dL LAB CHEMISTRY METHOD 09/30/2024 6:56 PM EDT [facility] Blood Venous blood specimen / Unknown Venipuncture / Unknown 09/30/2024 3:30 PM EDT 09/30/2024 3:30 PM EDT Alley Corrales MD LAB BLOOD ORDERABLES Final Resul t [facility] [address] [place] [address], * Depression Screening (09/08/2023) Depression Screening Abstracted Historical Provider HEALTH MAINTENANCE Final Result * Hepatitis C Screening (07/11/2013) Hepatitis C Screening Abstracted Historical Provider HEALTH MAINTENANCE Final Result from Last 3 Months or Most Recently Relevant to Health Maintenance Insurance [employer] MED[employer] Care Teams Viticulturist Relationship Specialty Start Date End Date Alley Corrales MD [address] [place] [address] PCP - General Internal Medicine 12/18/19
[2024-11-11 04:24] LABS: B Type Natriuretic Peptide 24 pg/mL (<100)
[2024-11-11] MEDS: LORazepam 0.5 MG TABLET PO (04:40)
--- NOTE | 2024-11-11 05:03 | PC.NURSE ---
ambulated steadily to bathroom. urinate. no complaints from patient besides fixating on son and her evening medications. back in bed now, call [facility]user in reach
[2024-11-11 05:35] VITALS: BP 142/61; PULSE 64; RESP 14; TEMP 36.4; O2SAT 98
[2024-11-11 05:40] VITALS: BP 142/61; PULSE 64; RESP 14; TEMP 36.4; O2SAT 98
--- NOTE | 2024-11-11 05:59 | PC.NURSE ---
son called. no answer
--- NOTE | 2024-11-11 06:49 | PC.NURSE ---
attempted to call son again. this time the unavailable tone plays. ambulance arranged
== END 2024-11-11 07:33 | disposition home or self-care (01) ==
PROVIDERS: Emergency Provider Emergency Medicine Emergency Medical Services; PCP Internal Medicine
DX: R07.9 Chest pain, unspecified (principal); F41.9 Anxiety disorder, unspecified; I10 Essential (primary) hypertension; E78.00 Pure hypercholesterolemia, unspecified; I48.0 Paroxysmal atrial fibrillation; I44.4 Left anterior fascicular block; Z79.01 Long term (current) use of anticoagulants; Z79.02 Long term (current) use of antithrombotics/antiplatelets; Z79.899 Other long term (current) drug therapy
CPT/HCPCS: 36415; 80053; 83880; 84484; 85025; 93005; 99283; 99285

== ENCOUNTER → 2024-11-11 03:56 | Outpatient (BNV) | payer MEDICARE, SELFPAY | PROVIDERS: Emergency Provider Emergency Medicine Emergency Medical Services; PCP Internal Medicine; Visit Provider Internal Medicine Cardiovascular Disease | DX: I45.9 Conduction disorder, unspecified (principal) | CPT/HCPCS: 93010 ==

== ENCOUNTER 2024-11-12 20:16 | Emergency (ER) | payer MEDICARE, SELFPAY ==
--- NOTE | 2024-11-12 | ECG_ITS ---
Test Reason : PALPITAIONS Blood Pressure : */* mmHG Vent. Rate : 75 BPM Atrial Rate : 75 BPM P-R Int : 178 ms QRS Dur : 128 ms QT Int : 404 ms P-R-T Axes : * -52 69 degrees QTcB Int : 451 ms Normal sinus rhythm Left axis deviation Left ventricular hypertrophy with QRS widening ( R in aVL , [place] product ) Abnormal ECG When compared with ECG of 11-Nov-2024 03:56, No significant changes seen Referred By: Generic ED Physician Electronically Signed By: SU EVANS MD
[2024-11-12 20:24] VITALS: BP 147/74; PULSE 81; O2SAT 95; BMI 31.3
[2024-11-12 20:25] VITALS: PULSE 84
[2024-11-12 20:28] VITALS: BP 117/66; PULSE 83; RESP 20; TEMP 36.7; O2SAT 96
--- OUTSIDE RECORDS SUMMARY | 2024-11-12 20:40 | XMS_ITS | Clinical Summary ---
Author Organization [facility] [address] [facility] Address [address] [place] [address] Phone Care Team Providers Care Social Service Coordinator Name Role Phone Alley Corrales MD Primary Care Provider [phone] Allergies No known active allergies Medications flecainide [...] Severe obesity (BMI 35.0-35. 9 with comorbidity) ([facility] V24, [facility] V28) 05/13/2024 Cognitive impairment 09/07/2022 [...] both lower extrem ities 09/30/2005 Atrial fibrillation ([facility] V24, [facility] V28) 0 09/30/2005 Overview (05/13/2024): [...] 2:45 PM EDT Office Visit Adult Medicine [address] [phone] Alley Corrales MD Encounter for annual wellness visit (AWV) in Medicare patient (Primary Dx); Chronic atrial fibrillation ([facility] V24, [facility] V28); Other hyperlipidemia; Cognitive impairment; [...] varicose veins 09/30/2005 Atrial fibrillation ([facility] V24, [facility] V28) Tubular adenoma of colon [...] 10:40 AM EDT Appointment Radiology Department - [address] [phone] 02/18/2025 11:00 AM EDT Office Visit Adult Medicine [address] [phone] Alley Corrales MD [address] [place] [address] 04/01/2025 4:30 PM EDT Office Visit Adult Medicine [address] [phone] Jennie Caraballo PA [address] [place] [address] Health Maintenance Due Date Last Done Comments [...] LAB CHEMISTRY METHOD 09/30/2024 7:16 PM EDT [facility] Triglycerides 120 0 - 150 mg/dL LAB CHEMISTRY METHOD 09/30/2024 7:16 PM EDT [facility] HDL 66 >=40 mg/dL LAB CHEMISTRY METHOD 09/30/2024 7:16 PM EDT [facility] LDL Calculated 67 0 - 100 mg/dL LAB CHEMISTRY METHOD 09/30/2024 7:16 PM EDT [facility] VLDL Cholesterol Emanuel 24 mg/dL LAB CHEMISTRY METHOD 09/30/2024 7:16 PM EDT [facility] Non HDL Chol. (LDL+VLDL) 91 <145 mg/dL LAB CHEMISTRY METHOD 09/30/2024 7:16 PM EDT [facility] Chol/HDL Ratio 2.4 0.0 - 4.4 LAB CHEMISTRY METHOD 09/30/2024 7:16 PM EDT [facility] Blood Venous blood specimen / Unknown Venipuncture / Unknown 09/30/2024 3:30 PM EDT 09/30/2024 3:30 PM EDT us Alley Corrales MD LAB BLOOD ORDERABLES Final Resul t [facility] [address] [place] [address], [place] [phone] * (ABNORMAL) CBC auto differential (09/30/2024 3:30 PM EDT) WBC 9.5 4.8 - 10.8 K/mcL LAB HEMETOLOGY METHOD 09/30/2024 5:12 PM EDT [facility] RBC 4.60 3.80 - 4.80 M/mcL LAB HEMETOLOGY METHOD 09/30/2024 5:12 PM EDT [facility] Hemoglobin 13.9 11.5 - 16.0 g/dL LAB HEMETOLOGY METHOD 09/30/2024 5:12 PM EDT [facility] Hematocrit 41.6 35.0 - 47.0 % LAB HEMETOLOGY METHOD 09/30/2024 5:12 PM EDT [facility] MCV 89.7 79.0 - 98.0 FL LAB HEMETOLOGY METHOD 09/30/2024 5:12 PM EDT [facility] MCH 30.0 27.0 - 32.0 pcg LAB HEMETOLOGY METHOD 09/30/2024 5:12 PM EDT [facility] MCHC 33.4 32.0 - 37.0 g/dL LAB HEMETOLOGY METHOD 09/30/2024 5:12 PM EDT [facility] RDW 12.8 11.0 - 15.0 % LAB HEMETOLOGY METHOD 09/30/2024 5:12 PM [facility] Platelets 320 130 - 400 K/mcL LAB HEMETOLOGY METHOD 09/30/2024 5:12 PM [facility] MPV 12.1(H) 7.0 - 11.0 FL LAB HEMETOLOGY METHOD 09/30/2024 5:12 PM [facility] NRBC 0.0 <1.0 % LAB HEMETOLOGY METHOD 09/30/2024 5:12 PM [facility] NRBC Absolute 0.00 <0.10 K/mcL LAB HEMETOLOGY METHOD 09/30/2024 5:12 PM [facility] Neutrophils Relative 71.4 % LAB HEMETOLOGY METHOD 09/30/2024 5:12 PM [facility] Lymphocytes Relative 17.6 % LAB HEMETOLOGY METHOD 09/30/2024 5:12 PM [facility] Monocytes Relative 9.4 % LAB HEMETOLOGY METHOD 09/30/2024 5:12 PM [facility] Eosinophils Relative 0.9 % LAB HEMETOLOGY METHOD 09/30/2024 5:12 PM [facility] Basophils Relative 0.4 % LAB HEMETOLOGY METHOD 09/30/2024 5:12 PM [facility] Immature Granulocytes Relative 0.3 % LAB HEMETOLOGY METHOD 09/30/2024 5:12 PM [facility] Neutrophils Absolute 6.78 1.50 - 7.00 K/mcL LAB HEMETOLOGY METHOD 09/30/2024 5:12 PM [facility] Lymphocytes Absolute 1.67 1.00 - 5.00 K/mcL LAB HEMETOLOGY METHOD 09/30/2024 5:12 PM [facility] Monocytes Absolute 0.89 0.20 - 1.00 K/mcL LAB HEMETOLOGY METHOD 09/30/2024 5:12 PM EDT [facility] Eosinophils Absolute 0.09 0.00 - 0.50 K/[facility] LAB HEMETOLOGY METHOD 09/30/2024 5:12 PM EDT [facility] Basophils Absolute 0.04 0.00 - 0.20 K/[facility] HEMETOLOGY METHOD 09/30/2024 5:12 PM EDT [facility] Immature Granulocytes Absolute 0.03 0.00 - 0.03 K/[facility] HEMETOLOGY METHOD 09/30/2024 5:12 PM EDT [facility] Blood Venous blood specimen / Unknown Venipuncture / Unknown 09/30/2024 3:30 PM EDT 09/30/2024 3:30 PM EDT us Alley Corrales MD LAB BLOOD ORDERABLES Final Resul t [facility] [address] [place] [address], [place] [phone] * (ABNORMAL) Basic metabolic panel (09/30/2024 3:30 PM EDT) Sodium 138 133 - 145 mmol/L LAB CHEMISTRY METHOD 09/30/2024 6:56 PM T [facility] Potassium 3.5 3.5 - 5.5 mmol/L LAB CHEMISTRY METHOD 09/30/2024 6:56 PM T [facility] Chloride 104 96 - 110 mmol/L LAB CHEMISTRY METHOD [facility]24 [facility] CO2 29 21 - 32 mmol/L LAB CHEMISTRY METHOD 09/30/2024 6:56 PM [facility] Anion Gap 5 3 - 11 LAB CHEMISTRY METHOD 09/30/2024 6:56 PM EDT [facility] Glucose 140(H) 70 - 100 mg/dL LAB CHEMISTRY METHOD 09/30/2024 6:56 PM EDT [facility] BUN 22 5 - 25 mg/dL LAB CHEMISTRY METHOD 09/30/2024 6:56 PM EDT [facility] Creatinine 0.59 0.50 - 1.10 mg/dL LAB CHEMISTRY METHOD 09/30/2024 6:56 PM EDT [facility] eGFR 93 >=60 mL/min/1. 73m2 LAB CHEMISTRY METHOD 09/30/2024 6:56 PM EDT [facility] Comment:Calculation based on the??Chronic Kidney Disease Epidemiology Collaboration (CKD-EPI) equation refit??without adjustment for race. BUN/Creatinine Ratio 37.3 LAB CHEMISTRY METHOD 09/30/2024 6:56 PM EDT [facility] Calcium 10.1 8.5 - 10.5 mg/dL LAB CHEMISTRY METHOD 09/30/2024 6:56 PM EDT [facility] Blood Venous blood specimen / Unknown Venipuncture / Unknown 09/30/2024 3:30 PM EDT 09/30/2024 3:30 PM EDT Alley Corrales MD LAB BLOOD ORDERABLES Final Resul t [facility] [address] [place] [address], * Depression Screening (09/08/2023) Depression Screening Abstracted Historical Provider HEALTH MAINTENANCE Final Result * Hepatitis C Screening (07/11/2013) Hepatitis C Screening Abstracted Historical Provider HEALTH MAINTENANCE Final Result from Last 3 Months or Most Recently Relevant to Health Maintenance Insurance [employer] MED[employer]ARE Care Teams Social Service Coordinator Relationship Specialty Start Date End Date Alley Corrales MD [address] [place] [address] PCP - General Internal Medicine 12/18/19
[2024-11-12 20:49] LABS: MANUAL DIFF FLAG NO
[2024-11-12 20:52] LABS: Basophils Percent Auto 0.5 % (0-2); Eosinophils Absolute Auto 0.2 X10*3/uL (0.0-0.4); Hematocrit 38.5 % (37.0-47.0); Hemoglobin 13.5 g/dl (12.0-16.0); Imm Gran Abs Auto 0.01 X10*3/uL (0.00-0.03); Imm Gran Pct Auto 0.1 % (0.0-0.4); Lymphocytes Absolute Auto 2.1 X10*3/uL (1.2-4.9); Lymphocytes Percent Auto 25.8 % (20-40); Mean Corpuscular HGB Conc 35.1 g/dl (31.0-35.0); Mean Corpuscular Volume 88.5 fL (80.0-98.0); Mean Platelet Volume 11.6 fL (9.4-12.3); Monocytes Absolute Auto 0.7 X10*3/uL (0.1-1.2); Monocytes Percent Auto 9.1 % (2-11); Neutrophils Absolute Auto 5.1 x10*3/uL (2.0-8.3); Neutrophils Percent Auto 62.5 % (45-73); Platelet Count 283 X10*3/uL (160-400); Red Blood Count 4.35 X10*6/uL (4.20-5.50); Red Cell Distribution Width 12.1 % (11.0-16.0); White Blood Count 8.1 X10*3/uL (4.8-10.8)
--- NOTE | 2024-11-12 20:58 | ED_ITS ---
HPI - General Adult General Chief complaint: Arrhythmia/Palpitations Stated complaint: palpataions 2days, returning same cc [facility] yesterday Time Seen by Provider: 11/12/24 20:58 History of Present Illness ED Provider: Rui BUTTS narrative: The patient is a 79-year-old woman with a history of paroxysmal atrial fibrillation who is supposed to be on metoprolol, flecainide, and apixaban. The patient had presented to the emergency room yesterday with complaints that she felt her atrial fibrillation was acting up and that she was out of her regular medications and that her son was not helping her manage her medications. She had a negative workup in the emergency room yesterday and was discharged. She returns today by ambulance with the same complaint of having had palpitations that she thinks were indicative of her atrial fibrillation. Apparently her symptoms resolved prior to EMS arrival but she still wanted to come to the hospital. She is concerned because she is having trouble with her medications. She says she does not have a regular medications at home and she can not tell me when she last took her regular medications. She says her son has not picked up her refills. The patient denied any chest pain or shortness of breath. Related Data Home Medications ?Medication ?Instructions ?Recorded ?Confirmed aspirin 81 mg tablet,delayed 81 mg PO DAILY 11/13/24 11/13/24 release metoprolol succinate 25 mg 12.5 mg PO DAILY 11/13/24 11/13/24 tablet,extended release 24 hr potassium chloride 20 mEq 20 meq PO DAILY 11/13/24 11/13/24 tablet,extended release(part/cryst) Previous Rx's ?Medication ?Instructions ?Recorded simvastatin 10 mg tablet 10 mg PO BEDTIME #90 tabs 10/14/24 apixaban 5 mg tablet (Eliquis) 5 mg PO BID #60 tabs 11/01/24 flecainide 100 mg tablet 100 mg PO Q12H 90 days #180 caps 11/01/24 hydrochlorothiazide 25 mg tablet 25 mg PO DAILY #90 tabs 11/04/24 Allergies Allergy/AdvReac Type Severity Reaction Status Date / Time No Known Allergies Allergy Verified 11/12/24 20:26 Review of Systems 2 Review of Systems: Yes all other systems are reviewed and are negative PMFSH Past Medical History Medical History Vaginal wall prolapse Thoracic aortic aneurysm Left anterior fascicular block HTN (hypertension) Paroxysmal atrial fibrillation Surgical History History of hysterectomy Family History Family History (Updated 11/04/24 @ 09:00 by Tran Bagley CMA) Father CVD (cardiovascular disease) Mother No problems noted. Social History Social History Housing: House Alcohol intake: never Patient Tobacco Use Status: Never used Tobacco Tobacco use type: Cigarette e-Cigarette/Vaping Use: Never Used Second Hand Smoke Exposure: No Current occupational status: retired Cognitive needs: No Hearing needs: No Vision needs: Yes Physical Exam ED Vital Signs: Vital Signs - 24 hr 11/12/24 20:28 11/12/24 21:47 11/12/24 22:24 Temperature 98.0 F 98.1 F Pulse Rate 83 81 69 Respiratory Rate 20 14 Blood Pressure 117/66 141/78 H 151/62 H Pulse Oximetry 96 96 Oxygen Delivery Method Room Air Room Air 11/13/24 00:04 11/13/24 02:30 11/13/24 07:59 Temperature 97.8 F 98.1 F 97.1 F Pulse Rate 67 60 68 Respiratory Rate 14 16 18 Blood Pressure 133/61 154/74 H 141/65 H Pulse Oximetry 97 96 96 Oxygen Delivery Method Room Air Room Air Room Air 11/13/24 10:24 Temperature 98.2 F Pulse Rate 60 Respiratory Rate 20 Blood Pressure 150/81 H Pulse Oximetry 98 Oxygen Delivery Method Nasal Cannula BMI result Body Mass Index 31.3 Const Other: The patient is awake and alert and does not appear in any distress. She has a jovial demeanor but seems to have a very poor memory and can not answer many questions about her medical history. HENMT Other: Face is symmetrical. Mucous membranes are moist. Eyes General: appearance normal, both eyes and all related structures Conjunctivae: conjunctivae normal Pupils: Equal, round and reactive pupils present EOM: EOMs intact bilaterally Neck Neck: Yes no JVD Resp Effort & Inspection: normal respiratory effort Auscultation: clear to auscultation bilaterally Cardio Rate: regular rate Rhythm: regular rhythm Heart sounds: S1 normal heart sound present and S2 normal heart sound present GI Other: Abdomen is soft and nontender Skin Other: Skin is dry and unremarkable Neuro Other: The patient is awake and alert. She has a jovial demeanor. She seems to have a very poor memory. Cranial nerves 2-12 are intact. She moves her extremities normally and appropriately with normal strength and sensation. She has a normal gait. I believe she has cognitive impairments and memory difficulties but no focal neurological deficit Cranial nerves: Yes Equal, round and reactive pupils present Extrem Other: No calf swelling or tenderness. No asymmetry. No pitting edema. Medications Administered Discontinued Medications Generic Name Dose Route Start Last Admin Trade Name Freq PRN Reason Stop Dose Admin Apixaban 5 mg 11/12/24 21:07 11/12/24 21:46 Apixaban 5 Mg Tablet PO 11/12/24 21:08 5 mg ONCE ONE Administration Aspirin 650 mg 11/12/24 23:49 11/13/24 00:02 Aspirin 325 Mg Tablet PO 11/12/24 23:50 Not Given ONCE ONE Flecainide Acetate 100 mg 11/12/24 21:07 11/12/24 21:46 Flecainide Acetate 50 Mg Tablet PO 11/12/24 21:08 100 mg ONCE ONE Administration Flecainide Acetate 100 mg 11/13/24 17:00 11/13/24 16:59 Flecainide Acetate 50 Mg Tablet PO 100 mg Q12H MIGNON Administration Metoprolol Succinate 25 mg 11/12/24 21:07 11/12/24 21:47 Metoprolol Succinate Er 25 Mg Tab.Er.24h PO 11/12/24 21:08 25 mg ONCE ONE Administration Protocol Metoprolol Succinate 12.5 mg 11/13/24 17:00 11/13/24 16:59 Metoprolol Succinate Er 12.5 Mg Halftab.Er.24h PO 12.5 mg DAILY MIGNON Administration Protocol Medical Decision Making Medical Decision Making MDM Narrative: The patient is a 79-year-old female who returns to the emergency room with the complaints very similar to complaint she had when she came here yesterday. She complains of having had palpitations at home that resolved before she got here. She has a history of paroxysmal atrial fibrillation and she is concerned that she is having episodes of atrial fibrillation. She is also concerned because she believes she has run out of her medications. She tells me she has not taken her regular medications for the last couple of days. In reviewing the patient's medical records she was seen at the cardiology office 11 days ago on November 01. At that point the son was with the patient at the doctor's office and the son expressed his concern that the patient is not taking her medications properly. I attempted to reach the son but, calling his number went to voiceChattyil and the mailbox was full and I could not leave a message. The patient's workup in the emergency room today is essentially negative. Since I was unable to reach the son and since the patient has no capacity to get home without her son, and since the patient seems to have significant cognitive and memory deficits, I ultimately felt that it would be prudent to keep the patient in the emergency room overnight to be seen by case management his see what might be arranged to help this patient and her son manage her medications so that she does not continue to come to the emergency department. The patient agreed to stay in the emergency room but after being told that she should stay here she complained of some chest discomfort. She says this is a chest discomfort she often has a at home and for which she usually takes 2 aspirin. The patient was adamant that she wished to have 2 aspirin for the discomfort she is currently having. We obtained a 2nd EKG that is unchanged. The patient looks quite well. My suspicion for an acute coronary syndrome remains very low. Her initial troponin has been undetectable. We will send another troponin now and in 3 hours. I expect the patient has troponins we will not rise. I do not think the patient is having an acute coronary syndrome. I think the patient should be placed in physician observation to keep her in the emergency room and have her speak with the case management tomorrow. Time: 12:56 Date: 11/13/24 Provider: BROOK Abel Physician observation ended at 12:56PM. Patient has been cleared for discharge. No acute events reported overnight.? Patient will be discharged home with new A referral for SN, son will be here at 4:00 p.m. to transport patient home. 11/13/2024 1456 - who was brought to my attention that patient was now complaining of chest pain. Stating that she is having the ?palpitation pain again?. She is requesting aspirin. She is already on Eliquis. Will obtain repeat EKG which revealed sinus sulema. She was evaluated by me. No chest pain. Reports that she did not receive her morning medications which is why she is feeling this way. Pt will receive medication and is feeling comfortable for d/c home. Pt stable for d/c. Lab Data 11/12/24 20:46 11/12/24 20:46 Labs: Lab Results 11/12/24 11/13/24 Range/Units 20:46 03:56 WBC 8.1 (4.8-10.8) X10*3/uL RBC 4.35 (4.20-5.50) X10*6/uL Hgb 13.5 (12.0-16.0) g/dl Hct 38.5 (37.0-47.0) % MCV 88.5 (80.0-98.0) fL MCH 31.0 (27.0-33.0) pg MCHC 35.1 H (31.0-35.0) g/dl RDW 12.1 (11.0-16.0) % Plt Count 283 (160-400) X10*3/uL MPV 11.6 (9.4-12.3) fL Immature Gran % (Auto) 0.1 (0.0-0.4) % Neut % (Auto) 62.5 (45-73) % Lymph % (Auto) 25.8 (20-40) % [place] % (Auto) 9.1 (2-11) % Eos % (Auto) 2.0 (0-4) % Baso % (Auto) 0.5 (0-2) % Lymph # (Auto) 2.1 (1.2-4.9) X10*3/uL [place] # (Auto) 0.7 (0.1-1.2) X10*3/uL Eos # (Auto) 0.2 (0.0-0.4) X10*3/uL Baso # (Auto) 0.0 (0.0-0.2) X10*3/uL Abs Immat Gran (auto) 0.01 (0.00-0.03) X10*3/uL Absolute Neuts (auto) 5.1 (2.0-8.3) x10*3/uL Absolute Nucleated RBC 0.000 (0.0-0.012) X10*3/uL Nucleated RBC % (auto) 0.0 (0.0-0.2) /100WBC Sodium 141 (135-145) mmol/L Potassium 3.6 (3.3-5.1) mmol/L Chloride 103 (96-108) mmol/L Carbon Dioxide 28 (22-29) mmol/L Anion Gap 14 (12-20) BUN 15 (9-16) mg/dL Creatinine 0.79 (0.5-1.4) mg/dL Estim Creat Clear Calc 62.0 Estimated GFR > 60 Random Glucose 120 H (60-115) mg/dL Calcium 9.7 D (8.4-10.2) mg/dL Total Bilirubin 0.3 (0.0-1.0) mg/dL AST 22 (5-31) U/L ALT 17 (0-31) U/L Alkaline Phosphatase 95 (39-117) U/L Troponin I High Sens < 2.7 6.1 D (<3.5-17.0) ng/L Total Protein 6.1 L (6.5-8.0) g/dL Albumin 4.0 (3.5-5.0) g/dL Discharge Plan Discharge Clinical Impression: Palpitations, Paroxysmal atrial fibrillation, Cognitive impairment, Chest pain Patient Disposition: Home, Self-Care Additional Instructions: You were seen in the emergency department due to palpitations. Your workup in the emergency room was reassuring. Please utilize all resources that were provided to you by the case management department. Please follow-up with your primary care physician. Please continue taking all at-home medications as prescribed. If any new or worsening symptoms occur including but not limited to severe chest pain, shortness of breath, please seek emergent care. Prescriptions: No Action simvastatin 10 mg tablet 10 mg PO BEDTIME Qty: 90 3RF potassium chloride 20 mEq tablet,ER particles/crystals 20 meq PO DAILY aspirin 81 mg Tablet,Delayed Release (Dr/Ec) 81 mg PO DAILY metoprolol succinate 25 mg tablet extended release 24 hr 12.5 mg PO DAILY hydrochlorothiazide 25 mg tablet 25 mg PO DAILY Qty: 90 1RF flecainide 100 mg tablet 100 mg PO Q12H 90 Days Qty: 180 3RF Eliquis 5 mg tablet 5 mg PO BID Qty: 60 5RF Referrals: [facility] [Outside] Interventions: ED Discharge Assessment Last Done: 11/13/24 17:17 Discharge Date/Time: 11/13/24 17:05 Print Language: New Zealander
[2024-11-12 21:06] LABS: Alanine Aminotransferase 17 U/L (0-31); Alkaline Phosphatase 95 U/L (39-117); Anion Gap 14 (12-20); Aspartate Amino Transferase 22 U/L (5-31); Bilirubin Total 0.3 mg/dL (0.0-1.0); Blood Urea Nitrogen 15 mg/dL (9-16); Calcium 9.7 mg/dL (8.4-10.2); Carbon Dioxide 28 mmol/L (22-29); Chloride 103 mmol/L (96-108); Estimated Glomerular Filt Rate > 60; Glucose Random 120 mg/dL (60-115); Potassium 3.6 mmol/L (3.3-5.1); Sodium 141 mmol/L (135-145); Total Protein 6.1 g/dL (6.5-8.0)
[2024-11-12 21:14] LABS: Troponin-I High Sensitivity < 2.7 ng/L (<3.5-17.0)
[2024-11-12] MEDS: Apixaban 5 MG TABLET PO (21:46)
[2024-11-12] MEDS: Flecainide Acetate 50 MG TABLET 100 MG PO (21:46)
[2024-11-12 21:47] VITALS: BP 141/78; PULSE 81
[2024-11-12] MEDS: Metoprolol Succinate ER 25 MG TAB.ER.24H PO (21:47)
[2024-11-12 22:24] VITALS: BP 151/62; PULSE 69; RESP 14; TEMP 36.7; O2SAT 96
--- NOTE | 2024-11-12 22:55 | PC.NURSE ---
pt reported CP started, usually happens before bed and usually takes aspirin at home. MD made aware, states no repeat ekg, will order aspirin and repeat trop.
--- NOTE | 2024-11-12 23:04 | ECG_ITS ---
Test Reason : CHEST PAIN Blood Pressure : */* mmHG Vent. Rate : 63 BPM Atrial Rate : 63 BPM P-R Int : 172 ms QRS Dur : 128 ms QT Int : 404 ms P-R-T Axes : * -53 51 degrees QTcB Int : 413 ms Normal sinus rhythm Left axis deviation Left ventricular hypertrophy with QRS widening Abnormal ECG When compared with ECG of 12-Nov-2024 20:38, No significant changes seen Referred By: Ankit Fabian Electronically Signed By: SU EVANS MD
--- NOTE | 2024-11-12 23:30 | PC.NURSE ---
was not made aware will order repeat ekg as previously documented, ekg delayed for this reason. md aware.
--- NOTE | 2024-11-13 | PC.NURSE ---
pt refused aspirin as states pain went away and does not need it anymore.
[2024-11-13 00:04] VITALS: BP 133/61; PULSE 67; RESP 14; TEMP 36.6; O2SAT 97
[2024-11-13 02:30] VITALS: BP 154/74; PULSE 60; RESP 16; TEMP 36.7; O2SAT 96
[2024-11-13 05:03] LABS: Troponin-I High Sensitivity 6.1 ng/L (<3.5-17.0)
--- NOTE | 2024-11-13 05:19 | PC.NURSE ---
pt wanted iv removed.
[2024-11-13 07:59] VITALS: BP 141/65; PULSE 68; RESP 18; TEMP 36.2; O2SAT 96
--- NOTE | 2024-11-13 09:35 | MHC.CM.ED ---
Received case management consult overnight. Patient came to the ER due to palpitations. Patient was apparently in the ER the previous day for the same issue. Patient's son, Geovanny, felt there are compliance issues due to cognitive issues. Met with patient in regards to discharge planning. Patient lives alone, ambulates independently and had no services prior to coming to the ER. PCP verified. Patient feels she can safely return home. However, patient feels she has a difficult time taking meds because her son will just leave them out for me. If I had the bottles I would know how to take them. Patient feels she can safely return home. Spoke with Geovanny via telephone at [phone]. Above information in relayed to Geovanny. Geovanny verifies patient does not have [facility]. T/W explained [facility] would be able to help with assisting in arranging medication administration but would not be able to administer meds because patient does not have [facility]. Geovanny verbalized understanding. Stated Dr Coyne was supposed to arrange [facility] but he hasn't heard anything yet. T/W verifies patient is active with [facility] and they are only contracted with a few amount of [facility] agencies. Geovanny agreeable to T/W referring out for [facility] for half-way. Geovanny also agreeable to referral to [facility] to see if patient would qualify for any other additional servcies at home. Information on [facility] financial counselors and [employer] application requirements resources will be left with patient for Geovanny. Geovanny will be onsite at 4pm to transport patient home. Patient, Bethany PINEDA and Nayla DOE aware. [facility] referral will be broadcasted in [facility]. Continue to monitor for d/c needs.
[2024-11-13 10:24] VITALS: BP 150/81; PULSE 60; RESP 20; TEMP 36.8; O2SAT 98
--- NOTE | 2024-11-13 14:57 | ECG_ITS ---
Test Reason : CHEST PAIN Blood Pressure : */* mmHG Vent. Rate : 59 BPM Atrial Rate : 59 BPM P-R Int : 192 ms QRS Dur : 122 ms QT Int : 404 ms P-R-T Axes : * -53 -6 degrees QTcB Int : 399 ms Sinus bradycardia Left axis deviation Left ventricular hypertrophy with QRS widening ( R in aVL , Pavan product ) Nonspecific T wave abnormality Abnormal ECG When compared with ECG of 12-Nov-2024 23:31, No significant changes seen Referred By: Nayla Baum Electronically Signed By: SU EVANS MD
--- NOTE | 2024-11-13 16:28 | PHA.MEDREC ---
Addendum entered by Silva Boudreaux [facility] 11/13/24 16:36: Reviewed by [facility] Original Note: Pharmacy Consult ? Medication Reconciliation Pharmacy has completed the medication reconciliation. Spoke with pt and pt son at bedside who were able to confirm the medications. Pt states she is not taking the Calcium Carbonate-Vitamin D3 and pt son not aware of that medication, despite it being last filled 10/21/24 for 90 days in claims .
[2024-11-13] MEDS: Flecainide Acetate 50 MG TABLET 100 MG PO (16:59)
[2024-11-13] MEDS: Metoprolol Succinate ER 12.5 MG HALFTAB.ER.24H PO (16:59)
[2024-11-13 17:01] VITALS: PULSE 64
[2024-11-13 17:17] VITALS: BP 150/81; PULSE 64; RESP 20; TEMP 36.8
== END 2024-11-13 17:05 | disposition home or self-care (01) ==
PROVIDERS: Emergency Provider Emergency Medicine; PCP Internal Medicine
DX: I49.8 Other specified cardiac arrhythmias (principal); R00.2 Palpitations; I48.0 Paroxysmal atrial fibrillation; R07.89 Other chest pain; G31.84 Mild cognitive impairment of uncertain or unknown etiology; Z79.899 Other long term (current) drug therapy
CPT/HCPCS: 36415; 80053; 84484; 85025; 93005; 99285

== ENCOUNTER → 2024-11-12 20:38 | Outpatient (BNV) | payer MEDICARE, SELFPAY | PROVIDERS: Emergency Provider Emergency Medicine; PCP Internal Medicine; Visit Provider Internal Medicine Cardiovascular Disease | DX: I51.7 Cardiomegaly (principal) | CPT/HCPCS: 93010 ==

== ENCOUNTER → 2024-11-13 14:57 | Outpatient (BNV) | payer MEDICARE, SELFPAY | PROVIDERS: Emergency Provider Emergency Medicine; PCP Internal Medicine; Visit Provider Internal Medicine Cardiovascular Disease | DX: I51.7 Cardiomegaly (principal); R00.1 Bradycardia, unspecified | CPT/HCPCS: 93010 ==

== ENCOUNTER 2024-11-19 23:55 | Emergency (ER) | payer MEDICARE, SELFPAY ==
[2024-11-20] VITALS (7 sets, daily range): BP systolic 126–159; BP diastolic 62–99; PULSE 56–65; RESP 16–20; TEMP 36.4–36.9; O2SAT 94–96; BMI 23.3
[2024-11-20 00:29] LABS: MANUAL DIFF FLAG NO
[2024-11-20 00:31] LABS: Basophils Percent Auto 0.4 % (0-2); Eosinophils Absolute Auto 0.1 X10*3/uL (0.0-0.4); Eosinophils Percent Auto 1.8 % (0-4); Hematocrit 38.3 % (37.0-47.0); Hemoglobin 13.5 g/dl (12.0-16.0); Imm Gran Abs Auto 0.02 X10*3/uL (0.00-0.03); Imm Gran Pct Auto 0.3 % (0.0-0.4); Lymphocytes Percent Auto 26.9 % (20-40); Mean Corpuscular HGB Conc 35.2 g/dl (31.0-35.0); Mean Corpuscular Hemoglobin 30.8 pg (27.0-33.0); Mean Corpuscular Volume 87.4 fL (80.0-98.0); Mean Platelet Volume 11.1 fL (9.4-12.3); Monocytes Absolute Auto 0.8 X10*3/uL (0.1-1.2); Monocytes Percent Auto 10.3 % (2-11); Neutrophils Absolute Auto 4.6 x10*3/uL (2.0-8.3); Neutrophils Percent Auto 60.3 % (45-73); Platelet Count 268 X10*3/uL (160-400); Red Blood Count 4.38 X10*6/uL (4.20-5.50); Red Cell Distribution Width 12.1 % (11.0-16.0); White Blood Count 7.6 X10*3/uL (4.8-10.8)
[2024-11-20 00:42] LABS: Anion Gap 11 (12-20); Blood Urea Nitrogen 19 mg/dL (9-16); Calcium 9.5 mg/dL (8.4-10.2); Carbon Dioxide 26 mmol/L (22-29); Chloride 108 mmol/L (96-108); Creatinine Clr Calc Pharmacy 68.3; Estimated Glomerular Filt Rate > 60; Glucose Random 122 mg/dL (60-115); Potassium 3.5 mmol/L (3.3-5.1); Sodium 141 mmol/L (135-145)
[2024-11-20 00:50] LABS: Troponin-I High Sensitivity 3.3 ng/L (<3.5-17.0)
--- NOTE | 2024-11-20 02:01 | ED.CHESTPAIN ---
HPI - Chest Pain General Chief Complaint: Chest Pain Stated Complaint: CHEST PAIN Time Seen by Provider: 11/20/24 01:44 Source: patient and EMS Mode of arrival: EMS Limitations: no limitations History of Present Illness ED Provider: Dr. Jo Patel HPI narrative: Patient comes to the emergency room via ambulance complaining of chest discomfort and palpitations. Patient coming from home, arriving via ambulance. Patient states that she ran out of her medications. Patient states that her some picks him medications up. However, patient said that she took her medications prior to arrival. It is unclear if patient did or did not take her medications. I am suspecting that she did, patient's vitals are stable. Patient known to be taking metoprolol, flecainide and apixaban. At this time, patient states that she has no chest pain or palpitations, no shortness of breath. Patient states that it is her time to go to bed and would like to take a nap at this time Related Data Home Medications ?Medication ?Instructions ?Recorded ?Confirmed metoprolol succinate 25 mg 25 mg PO DAILY 11/13/24 11/20/24 tablet,extended release 24 hr Previous Rx's ?Medication ?Instructions ?Recorded simvastatin 10 mg tablet 10 mg PO BEDTIME #90 tabs 10/14/24 apixaban 5 mg tablet (Eliquis) 5 mg PO BID #60 tabs 11/01/24 flecainide 100 mg tablet 100 mg PO Q12H 90 days #180 caps 11/01/24 hydrochlorothiazide 25 mg tablet 25 mg PO DAILY #90 tabs 11/04/24 Allergies Allergy/AdvReac Type Severity Reaction Status Date / Time No Known Allergies Allergy Verified 11/20/24 00:10 Review of Systems Review of Systems: Constitutional : No Weight loss, No Fever, No Chills, No Night Sweats, No Fatigue, No Malaise ENT/Mouth : No Hearing loss, No Ear Pain, No Nasal Congestion, No Sinus Pain, No Hoarseness, No sore throat, No Rhinorrhea, No Swallowing Difficulty Eyes: No Eye Pain, No Swelling, No Redness, No Foreign Body, No Discharge, No Vision Changes Cardiovascular : No Chest Pain, No SOB, No Dyspnea on Exertion, No Orthopnea, earlier today complaining of palpitations, now resolved, no edema Respiratory : No Cough, No Sputum, No Wheezing, No Smoke Exposure, No Dyspnea Gastrointestinal : No Nausea, No Vomiting, No Diarrhea, No Constipation, No abdominal Pain, No Hematochezia, No Melena Genitourinary : no irregular bleeding, No Dysuria, No Urinary Frequency, No Hematuria, No Urinary Incontinence, No Urgency, No Flank Pain, No Urinary Flow Changes, No Hesitancy Musculoskeletal : No joint pain, No Myalgias, No Joint Swelling Skin : No Skin Lesions, No rash Neuro : No Weakness, No Numbness, No Paresthesias, No Loss of Consciousness, No Dizziness, No Headache Psych : No Anxiety/Panic, No Depression, No SI/HI/AH/VH, No Social Issues, Heme/Lymph: No Bruising, No Bleeding,No Lymphadenopathy Endocrine : No Polyuria, No Polydipsia, No Temperature Intolerance [facility] Past Medical History Medical History Vaginal wall prolapse Thoracic aortic aneurysm Left anterior fascicular block HTN (hypertension) Paroxysmal atrial fibrillation Surgical History History of hysterectomy Family History Family History (Updated 11/04/24 @ 09:00 by Tran Bagley CMA) Father CVD (cardiovascular disease) Mother No problems noted. Social History Social History Housing: House Alcohol intake: never Patient Tobacco Use Status: Never used Tobacco Tobacco use type: Cigarette Smoked in Last 30 Days: No e-Cigarette/Vaping Use: Never Used Second Hand Smoke Exposure: No Use of substances other than those prescribed or required for medical reasons: No Advance Directives: No Advance Directives Information Provided: Yes Current occupational status: retired Cognitive needs: No Hearing needs: No Vision needs: Yes Physical Exam Vital Signs: Vital Signs: Last Vital Signs Temp 97.5 F 11/20/24 08:29 Pulse 56 11/20/24 08:29 Resp 18 11/20/24 08:29 BP 146/64 H 11/20/24 08:29 Pulse Ox 96 11/20/24 08:29 O2 Del Method Room Air 11/20/24 08:29 BMI result Body Mass Index 23.3 Const: Other: Appearance: Alert. Oriented X3. No acute distress. Eyes: Pupils equal, round and reactive to light. ENT: Pharynx normal. Neck: Normal inspection. Neck supple. No lymph nodes noted. No crepitus CVS: Normal heart rate and rhythm. Pulses normal. Normal S1 and S2 Respiratory: No respiratory distress. Breath sounds normal. No Wheezing. No rales Abdomen: Soft and nontender. No rigidity. No distention. Skin: Skin warm and dry. Normal skin color. Normal skin turgor. Extremities: No lower extremity edema. No Lacerations. No Rash Neuro: Oriented X 3. No motor deficit. No sensory deficit. Moving all extremities. No slurred speech. CN 2 through 12 grossly intact Psych: calm, cooperative, normal affect seems to have a bit of trouble with memory. Course Course Course Narrative: I reviewed patient's notes, about a week ago patient was seen her 2 days in a row with the same complaints. Cardiac workup was negative that this time, patient is asymptomatic. All of patient's labs opening. I was informed by the patient's nurse that the patient lives by herself I reviewed patient's notes from previous visit, patient was discharged home with a new VNA referral for fpc facility. Reevaluation(s) Reevaluation #1: Time: 08:20 Date: 11/20/24 Provider: Jeny Carrillo PA-C Patient in physician observation for case management needs. PT recommended STR to bridge to long care physical- No acute events reported overnight.? No current issues or complaints. VS stable. Patient is pending placement at facility VNA services were arranged for chronic dz mgt. Will continue to monitor.; 12:54 pm: Patient passed PT ; she will be going home with son to resume VNA services. Time: 13:03 Date: 11/20/24 Provider: Jeny Carrillo PA-C Physician observation ended at 1:04 pm. Patient has been cleared for discharge by the CARE team. Will follow up as an outpatient. Medications Administered Discontinued Medications Generic Name Dose Route Start Last Admin Trade Name Freq PRN Reason Stop Dose Admin Aspirin 81 mg 11/20/24 08:28 11/20/24 10:43 Aspirin 81 Mg Tab.Chew PO 11/20/24 08:29 81 mg ONCE ONE Administration Medical Decision Making Medical Decision Making MDM Narrative: My interpretation of EKG: Normal sinus rhythm, heart rate 57, no ST segment depression or elevation, no T-wave inversion, QTC 402 My interpretation of labs: No exudates difficult abnormality in patient's hematology and chemistry, troponin negative Patient's vitals stable, blood pressure 126/62, heart rate 59, respirations 18, oxygen saturation 95% on room air Patient stated she was feeling well and need a nap, patient is sleeping comfortably. Patient likely had anxiety. I do not see in the system any new prescriptions including metoprolol all Eliquis. Seems that patient ran out over a week ago. We will check with the patient's son if she is taking her medications. We have tried to contact the patient's son multiple times. Patient lives alone, patient keeps changing her story. It is unclear if she is actually taking her medications or not. As mentioned above, there are no new meds listed since September that the medication may be take. Given the patient's list of medications and when she picked up her meds, by now she should be out of meds. Patient may need visiting nurses? May even need a consult for capacity At this time, patient does not feel like talking, states that it is her bedtime and wants to sleep. With a getting touch with her son, we can not make any further progress. Patient is calm, sleeping, seems comfortable, has no complaints, no chest pain. Vitals stable Case management consult pending Differential Diagnosis Differential Diagnoses: The differential diagnosis associated with the presentation includes (Anxiety, musculoskeletal pain, medication noncompliance) Admission/Observation Consideration of admission/observation: Escalation of care including admission/observation considered (Patient is under physician observation waiting to be seen by the care team) Lab Data MDM Lab Attestation statement: I reviewed the patient's lab results. 11/20/24 00:22 11/20/24 00:22 Labs: Lab Results 11/20/24 11/20/24 Range/Units 00:22 10:03 WBC 7.6 (4.8-10.8) X10*3/uL RBC 4.38 (4.20-5.50) X10*6/uL Hgb 13.5 (12.0-16.0) g/dl Hct 38.3 (37.0-47.0) % MCV 87.4 (80.0-98.0) fL MCH 30.8 (27.0-33.0) pg MCHC 35.2 H (31.0-35.0) g/dl RDW 12.1 (11.0-16.0) % Plt Count 268 (160-400) X10*3/uL MPV 11.1 (9.4-12.3) fL Immature Gran % (Auto) 0.3 (0.0-0.4) % Neut % (Auto) 60.3 (45-73) % Lymph % (Auto) 26.9 (20-40) % [place] % (Auto) 10.3 (2-11) % Eos % (Auto) 1.8 (0-4) % Baso % (Auto) 0.4 (0-2) % Lymph # (Auto) 2.0 (1.2-4.9) X10*3/uL [place] # (Auto) 0.8 (0.1-1.2) X10*3/uL Eos # (Auto) 0.1 (0.0-0.4) X10*3/uL Baso # (Auto) 0.0 (0.0-0.2) X10*3/uL Abs Immat Gran (auto) 0.02 (0.00-0.03) X10*3/uL Absolute Neuts (auto) 4.6 (2.0-8.3) x10*3/uL Absolute Nucleated RBC 0.000 (0.0-0.012) X10*3/uL Nucleated RBC % (auto) 0.0 (0.0-0.2) /100WBC Sodium 141 (135-145) mmol/L Potassium 3.5 (3.3-5.1) mmol/L Chloride 108 (96-108) mmol/L Carbon Dioxide 26 (22-29) mmol/L Anion Gap 11 L (12-20) BUN 19 H (9-16) mg/dL Creatinine 0.62 (0.5-1.4) mg/dL Estim Creat Clear Calc 68.3 Estimated GFR > 60 Random Glucose 122 H (60-115) mg/dL Calcium 9.5 (8.4-10.2) mg/dL Troponin I High Sens 3.3 (<3.5-17.0) ng/L Influenza Type A (PCR) NEGATIVE (Negative) Influenza Type B (PCR) NEGATIVE (Negative) RSV RNA Qual (PCR) NEGATIVE (Negative) SARS-CoV-2 RNA (RT-PCR) NEGATIVE (Negative) Critical Care Time Critical Care Time Critical Care Time: Yes Total Critical Care Time: 40 Attestation: I have personally provided critical care time. Time includes review of lab data, radiology results, discussion with consultants, and monitoring for potential decompensation. Intervention performed as documented. Discharge Plan Discharge Clinical Impression: Atypical chest pain, At risk for medication noncompliance Patient Disposition: Home, Self-Care Additional Instructions: You were seen in the emergency department due to chest pain. He had a workup that shows no acute coronary syndrome other life-threatening causes of your discomfort. You are being discharged home with VNA services to help with your med compliance. Hope you continue to do well, please return to the emergency department she is you experience any new onset of shortness of breath chest pain or other concerning symptoms. Prescriptions: No Action simvastatin 10 mg tablet 10 mg PO BEDTIME Qty: 90 3RF metoprolol succinate 25 mg tablet extended release 24 hr 25 mg PO DAILY hydrochlorothiazide 25 mg tablet 25 mg PO DAILY Qty: 90 1RF flecainide 100 mg tablet 100 mg PO Q12H 90 Days Qty: 180 3RF Eliquis 5 mg tablet 5 mg PO BID Qty: 60 5RF Referrals: [facility] [Outside] Print Language: Yi
--- NOTE | 2024-11-20 04:36 | PC.NURSE ---
attempted to call patient's son who is listed as patient's emergency contact, phone number listed did not answer, MD made aware, patient is otherwise resting comfortably on stretcher, respirations even and unlabored, no signs of distress, no complaints, dispo pending
--- NOTE | 2024-11-20 07:40 | PC.NURSE ---
assumed care of patient at 0700, patient is awake and alert. patient ambulated with steady gait to bathroom with this RN. patient sitting up and eating breakfast. report given to Maritza PINEDA for transfer to [facility]
[2024-11-20] MEDS: Aspirin 81 MG TAB.CHEW PO (10:43)
[2024-11-20 10:51] LABS: Influenza A PCR NEGATIVE (Negative); Influenza B PCR NEGATIVE (Negative); Resp Syncy Virus RNA Qual PCR NEGATIVE (Negative); SARS COV2 PCR INHOUSE NEGATIVE (Negative)
--- NOTE | 2024-11-20 10:59 | PHA.MEDREC ---
Pharmacy Consult ? Medication Reconciliation Pharmacy has completed the medication reconciliation. Received medication list from [facility]. There are a couple of discrepancies between it and recent office visit from Dr Lina Coyne. Dr Coyne's note states Metoprolol Succinate 25mg and a d/c order for Potassium Chloride 20mEq daily. Will discuss with provider here whether to change or not.
--- NOTE | 2024-11-20 11:32 | MHC.CM.ED ---
Received case management consult overnight from Dr Patel. Patient came to the ER overnight due to CP. Work up essentially negative. Dr Patel was unable to contact son. Physical therapy eval completed. No services indicated. Patient is known to T/W due to recent ER visit. Patient lives alone, has a memory issue. Patient's son, Geovanny, is very involved in his mother's care but doesn't live with the patient. Patient is active with [facility] for custodial. Attempted to speak with Geovanny via telephone at [phone]. Left message requesting return telephone call. Continue to monitor for d/c needs.
--- NOTE | 2024-11-20 11:42 | PC.NURSE ---
Per cardiology, no ekg on file for pt. EKG done, confirmed with MD Patel documentation and paper copy of EKG, done @0017 11/20/2024 by high lighter Poonam. Cardiology requesting repeat EKG- to be obtained by high lighter.
--- NOTE | 2024-11-20 12:48 | MHC.CM.ED ---
Received telephone call from patient's son, Geovanny. Geovanny agreeable to d/c home with resumption of services. Geovanny will transport patient home at 4pm. Geovanny verifies he still provides patient with her medication. Geovanny verifies patient has significant memory issues and doesn't remember that she is given her medication. Oneyda PINEDA and Jeny DOE aware. Continue to monitor for d/c needs.
[2024-11-20] MEDS: Flecainide Acetate 50 MG TABLET 100 MG PO (13:34)
== END 2024-11-20 15:57 | disposition home or self-care (01) ==
PROVIDERS: Physician Assistant Medical; Emergency Provider Emergency Medicine; PCP Internal Medicine
DX: R07.89 Other chest pain (principal); R00.2 Palpitations; I10 Essential (primary) hypertension; I48.0 Paroxysmal atrial fibrillation; Z79.01 Long term (current) use of anticoagulants; Z79.899 Other long term (current) drug therapy; Z03.818 Encounter for observation for suspected exposure to other biological agents ruled out
CPT/HCPCS: 0241U; 36415; 80048; 84484; 85025; 97161; 99285

== ENCOUNTER 2024-11-24 19:13 | Emergency (ER) | payer MEDICARE, SELFPAY ==
--- NOTE | 2024-11-24 | ECG_ITS ---
Test Reason : PALPITATIONS Blood Pressure : */* mmHG Vent. Rate : 62 BPM Atrial Rate : 62 BPM P-R Int : 200 ms QRS Dur : 134 ms QT Int : 420 ms P-R-T Axes : 153 -31 147 degrees QTcB Int : 426 ms Normal sinus rhythm Left axis deviation Left ventricular hypertrophy with QRS widening and repolarization abnormality ( R in aVL , Pavan product ) Cannot rule out Septal infarct , age undetermined Abnormal ECG When compared with ECG of 13-Nov-2024 15:12, T wave inversion now evident in Lateral leads Referred By: Generic ED Physician Electronically Signed By: SU EVANS MD
[2024-11-24 19:17] VITALS: BP 131/75; BP 134/78; PULSE 62; PULSE 84; RESP 18; TEMP 36.8; O2SAT 96; O2SAT 97; BMI 28.7
--- NOTE | 2024-11-24 19:17 | PC.NURSE ---
pt biba from home, a&ox4, respirations even and unlabored. pt reports intermittent palpitations X1 day. pt reports she has not had any chest pain or sob. pt reports she has been seen recently without any diagnosis. 20g placed in left wrist by ems
--- NOTE | 2024-11-24 19:30 | ED_ITS ---
HPI - Arrhythmia/Palpitations General Chief Complaint: Arrhythmia/Palpitations Stated Complaint: chest palpitations for a few days Time Seen by Provider: 11/24/24 19:17 Source: patient Mode of arrival: ambulatory Limitations: no limitations History of Present Illness ED Provider: bharat santoyo np HPI narrative: Patient is a 79-year-old female past medical history of paroxysmal atrial fibrillation she is supposed to be on metoprolol, flecainide, and apixaban who presents in the emergency department for evaluation. She has been experiencing palpitations, she states for ?awhile?. She admits that she has not been taking medication, does not believe she has taken it for at least a week when asked why she states ?my son is a pain in my ass and has not gotten them, he is stupid, he took my car away from me so I can not get them myself . Related Data Home Medications ?Medication ?Instructions ?Recorded ?Confirmed calcium 500 mg (as 1 tab PO DAILY 11/25/24 11/25/24 carbonate)-vitamin D3 10 mcg (400 unit) tablet (Calcium 500 With D) metoprolol succinate 25 mg 12.5 mg PO DAILY 11/25/24 11/25/24 tablet,extended release 24 hr potassium chloride 20 mEq 20 meq PO DAILY 11/25/24 11/25/24 tablet,extended release(part/cryst) Previous Rx's ?Medication ?Instructions ?Recorded simvastatin 10 mg tablet 10 mg PO BEDTIME #90 tabs 10/14/24 apixaban 5 mg tablet (Eliquis) 5 mg PO BID #60 tabs 11/01/24 flecainide 100 mg tablet 100 mg PO Q12H 90 days #180 caps 11/01/24 hydrochlorothiazide 25 mg tablet 25 mg PO DAILY #90 tabs 11/04/24 Allergies Allergy/AdvReac Type Severity Reaction Status Date / Time No Known Allergies Allergy Verified 11/24/24 19:25 [facility] Past Medical History Medical History Vaginal wall prolapse Thoracic aortic aneurysm Left anterior fascicular block HTN (hypertension) Paroxysmal atrial fibrillation Surgical History History of hysterectomy Family History Family History (Updated 11/04/24 @ 09:00 by Tran Bagley CMA) Father CVD (cardiovascular disease) Mother No problems noted. Social History Social History Housing: House Alcohol intake: never Patient Tobacco Use Status: Never used Tobacco Tobacco use type: Cigarette Smoked in Last 30 Days: No e-Cigarette/Vaping Use: Never Used Second Hand Smoke Exposure: No Use of substances other than those prescribed or required for medical reasons: No Advance Directives: No Advance Directives Information Provided: Yes Current occupational status: retired Cognitive needs: No Hearing needs: No Vision needs: Yes Physical Exam 2 Vital Signs: Vital Signs: Last Vital Signs Temp 98 F 11/25/24 06:40 Pulse 56 11/25/24 06:40 Resp 16 11/25/24 06:40 BP 128/56 L 11/25/24 06:40 Pulse Ox 98 11/25/24 06:40 O2 Del Method Room Air 11/25/24 06:40 BMI result Body Mass Index 28.7 Course Reevaluation(s) Reevaluation #1: I do not feel that the patient is safe for discharge home alone given her underlying cognitive impairment. I am not able to make contact with her son to gain collateral information. Entirely clear whether she has been taking her medications or not per her account she has not, however she arrives rate controlled, her blood pressure is otherwise well controlled. I will place her in physician observation at this time pending case management evaluation determination as to whether she can safely be discharged home. Reevaluation #2: Per Daniela from , patient to be discharged home with resumption of VNA services, son will corn picker at 16:00. Confirmed with son that he has been administering meds to patient BID, patient forgets secondary to her dementia. Observation care revealed that patient does not meet medical necessity for hospitalization. Final disposition discussed with patient. The patient completed observation care at 1600 on 11/25/24. Time: 09:16 Medical Decision Making Medical Decision Making MDM Narrative: Patient is a 79-year-old female with past medical history paroxysmal atrial fibrillation, hypertension, thoracic aortic aneurysm who presents emergency department for evaluation palpitations endorsing that she has not been taking her medications as per HPI. She states that the palpitations are intermittent she is concerned about her atrial fibrillation. There was some concern from recent visits as well that she may not be taking her medication as prescribed. I attempted to contact her son Chris by phone, unfortunately call when to voicemail, I left a voicemail for call back to gain collateral information regards to her medications. Will obtain CBC to evaluate for leukocytosis/ anemia, CMP and lipase to evaluate for abnormal electrolytes /abnormal renal function/ abnormal hepatic/biliary function, EKG and troponin to evaluate for ischemia/ACS. Chest x-ray to evaluate for consolidation/ infiltrate/ mass/ pulmonary congestion and Urinalysis. She has had multiple ED visits similarly for this on 11/11/2024, 11/12/2024, 11/20/2024 in addition to today. Review of pharmacy records it appears as though on 11/04/2024 flecainide and hydrochlorothiazide were filled, on 11/01/2024 flecainide and Eliquis was filled, on 10/15/24 metoprolol was filled, I am unable to confirm whether patient actually picked these prescriptions up, she uses a pharmacy that is currently closed. Differential Diagnosis Differential Diagnoses: The differential diagnosis associated with the presentation includes (Arrhythmia, medication noncompliance, anxiety, ACS) Admission/Observation Consideration of admission/observation: Escalation of care including admission/observation considered Lab Data MDM Lab Attestation statement: I reviewed the patient's lab results. CBC is without leukocytosis anemia or thrombocytopenia. No electrolyte derangement. No ANGELA. High sensitive troponin normal. BNP in normal range 11/24/24 19:57 11/24/24 19:57 Labs: Lab Results 11/24/24 Range/Units 19:57 WBC 7.9 (4.8-10.8) X10*3/uL RBC 4.47 (4.20-5.50) X10*6/uL Hgb 13.8 (12.0-16.0) g/dl Hct 39.7 (37.0-47.0) % MCV 88.8 (80.0-98.0) fL MCH 30.9 (27.0-33.0) pg MCHC 34.8 (31.0-35.0) g/dl RDW 12.2 (11.0-16.0) % Plt Count 270 (160-400) X10*3/uL MPV 11.3 (9.4-12.3) fL Immature Gran % (Auto) 0.3 (0.0-0.4) % Neut % (Auto) 64.9 (45-73) % Lymph % (Auto) 22.6 (20-40) % [place] % (Auto) 9.9 (2-11) % Eos % (Auto) 1.9 (0-4) % Baso % (Auto) 0.4 (0-2) % Lymph # (Auto) 1.8 (1.2-4.9) X10*3/uL [place] # (Auto) 0.8 (0.1-1.2) X10*3/uL Eos # (Auto) 0.2 (0.0-0.4) X10*3/uL Baso # (Auto) 0.0 (0.0-0.2) X10*3/uL Abs Immat Gran (auto) 0.02 (0.00-0.03) X10*3/uL Absolute Neuts (auto) 5.1 (2.0-8.3) x10*3/uL Absolute Nucleated RBC 0.000 (0.0-0.012) X10*3/uL Nucleated RBC % (auto) 0.0 (0.0-0.2) /100WBC Sodium 141 (135-145) mmol/L Potassium 3.5 (3.3-5.1) mmol/L Chloride 104 (96-108) mmol/L Carbon Dioxide 30 H (22-29) mmol/L Anion Gap 11 L (12-20) BUN 15 (9-16) mg/dL Creatinine 0.67 (0.5-1.4) mg/dL Estim Creat Clear Calc 72.7 Estimated GFR > 60 Random Glucose 118 H (60-115) mg/dL Calcium 9.9 (8.4-10.2) mg/dL Total Bilirubin 0.4 (0.0-1.0) mg/dL AST 23 (5-31) U/L ALT 21 (0-31) U/L Alkaline Phosphatase 93 (39-117) U/L Troponin I High Sens 3.4 (<3.5-17.0) ng/L B-Natriuretic Peptide 67 (<100) pg/mL Total Protein 6.1 L (6.5-8.0) g/dL Albumin 4.1 (3.5-5.0) g/dL Independent Interpretation I performed an independent interpretation of an: EKG Independent Historian Clinical information obtained from an independent historian. History obtained from or confirmed by: EMS External Record Review External record reviewed: Outpatient record Chronic Conditions Patient?s care impacted by: Other (See narrative above) Discharge Plan Discharge Clinical Impression: Palpitations, Dementia Patient Disposition: Home, Self-Care Additional Instructions: You are being discharged home to the care of your son with VNA services. Follow up with PCP as needed. Return with new or concerning symptoms. Prescriptions: No Action simvastatin 10 mg tablet 10 mg PO BEDTIME Qty: 90 3RF potassium chloride 20 mEq tablet,ER particles/crystals 20 meq PO DAILY calcium carbonate-vitamin D3 [Calcium 500 With D] 500 mg-10 mcg (400 unit) tablet 1 tab PO DAILY metoprolol succinate 25 mg tablet extended release 24 hr 12.5 mg PO DAILY hydrochlorothiazide 25 mg tablet 25 mg PO DAILY Qty: 90 1RF flecainide 100 mg tablet 100 mg PO Q12H 90 Days Qty: 180 3RF Eliquis 5 mg tablet 5 mg PO BID Qty: 60 5RF Referrals: [facility] [Outside] Print Language: Kazakh
[2024-11-24 19:45] VITALS: PULSE 74
[2024-11-24 20:03] LABS: MANUAL DIFF FLAG NO
[2024-11-24 20:05] LABS: Basophils Percent Auto 0.4 % (0-2); Eosinophils Absolute Auto 0.2 X10*3/uL (0.0-0.4); Eosinophils Percent Auto 1.9 % (0-4); Hematocrit 39.7 % (37.0-47.0); Hemoglobin 13.8 g/dl (12.0-16.0); Imm Gran Abs Auto 0.02 X10*3/uL (0.00-0.03); Imm Gran Pct Auto 0.3 % (0.0-0.4); Lymphocytes Absolute Auto 1.8 X10*3/uL (1.2-4.9); Lymphocytes Percent Auto 22.6 % (20-40); Mean Corpuscular HGB Conc 34.8 g/dl (31.0-35.0); Mean Corpuscular Hemoglobin 30.9 pg (27.0-33.0); Mean Corpuscular Volume 88.8 fL (80.0-98.0); Mean Platelet Volume 11.3 fL (9.4-12.3); Monocytes Absolute Auto 0.8 X10*3/uL (0.1-1.2); Monocytes Percent Auto 9.9 % (2-11); Neutrophils Absolute Auto 5.1 x10*3/uL (2.0-8.3); Neutrophils Percent Auto 64.9 % (45-73); Platelet Count 270 X10*3/uL (160-400); Red Blood Count 4.47 X10*6/uL (4.20-5.50); Red Cell Distribution Width 12.2 % (11.0-16.0); White Blood Count 7.9 X10*3/uL (4.8-10.8)
[2024-11-24 20:06] VITALS: BP 141/72; PULSE 63; RESP 16; O2SAT 96
[2024-11-24 20:18] LABS: Alanine Aminotransferase 21 U/L (0-31); Albumin Level 4.1 g/dL (3.5-5.0); Alkaline Phosphatase 93 U/L (39-117); Anion Gap 11 (12-20); Aspartate Amino Transferase 23 U/L (5-31); Bilirubin Total 0.4 mg/dL (0.0-1.0); Blood Urea Nitrogen 15 mg/dL (9-16); Calcium 9.9 mg/dL (8.4-10.2); Carbon Dioxide 30 mmol/L (22-29); Chloride 104 mmol/L (96-108); Creatinine Clr Calc Pharmacy 72.7; Estimated Glomerular Filt Rate > 60; Glucose Random 118 mg/dL (60-115); Potassium 3.5 mmol/L (3.3-5.1); Sodium 141 mmol/L (135-145); Total Protein 6.1 g/dL (6.5-8.0)
--- NOTE | 2024-11-24 20:21 | ECG_ITS ---
Test Reason : AFIB Blood Pressure : */* mmHG Vent. Rate : 54 BPM Atrial Rate : 54 BPM P-R Int : 210 ms QRS Dur : 134 ms QT Int : 442 ms P-R-T Axes : -69 -55 60 degrees QTcB Int : 419 ms Normal sinus rhythm Left axis deviation Intra-ventricular conduction delay Abnormal ECG When compared with ECG of 24-Nov-2024 19:19, Minimal criteria for Septal infarct are no longer Present Referred By: Ivana Medeiros Electronically Signed By: SU EVANS MD
[2024-11-24 20:24] LABS: B Type Natriuretic Peptide 67 pg/mL (<100)
[2024-11-24 20:25] LABS: Troponin-I High Sensitivity 3.4 ng/L (<3.5-17.0)
--- NOTE | 2024-11-24 20:28 | PC.NURSE ---
pt ambulated well with 1 assist to br
[2024-11-24 22:39] VITALS: BP 156/68; PULSE 55; RESP 16; O2SAT 96
[2024-11-25] VITALS (7 sets, daily range): BP systolic 93–174; BP diastolic 51–78; PULSE 56–110; RESP 16–18; TEMP 36.6–37.3; O2SAT 94–98
--- NOTE | 2024-11-25 00:08 | PC.NURSE ---
elopement band place on pt.
--- NOTE | 2024-11-25 08:10 | PC.NURSE ---
This Rn assumed care of patient @ 0700. Patient resting comfortably in bed. Denies SOB, Denies pain. PAtient on manager monitoring bradycardia noted, Denies dizziness and lightheadedness. Plan of care on going
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
--- NOTE | 2024-11-25 10:00 | MHC.EDTECH ---
Helped pt go to bathroom.
--- NOTE | 2024-11-25 10:20 | PC.NURSE ---
medication reconciliation completed. provider notified/aware. will medicate per provider order when able.
--- NOTE | 2024-11-25 10:43 | PC.NURSE ---
patient currently up for discharge but will not be able to get picked up by son until 1600. supercharge repair supervisor notified/aware.
--- NOTE | 2024-11-25 10:58 | PHA.MEDREC ---
Pharmacy Consult ? Medication Reconciliation Pharmacy has reviewed the medication reconciliation done by nursing.
[2024-11-25] MEDS: Apixaban 5 MG TABLET PO (12:01)
[2024-11-25] MEDS: Potassium Chloride ER 20 MEQ TAB.ER.PRT PO (12:01)
[2024-11-25] MEDS: hydroCHLOROthiazide 25 MG TABLET PO (12:01)
[2024-11-25] MEDS: Metoprolol Succinate ER 12.5 MG HALFTAB.ER.24H PO (12:02)
[2024-11-25] MEDS: Atorvastatin Calcium 10 MG TABLET PO (12:04)
[2024-11-25] MEDS: Calcium + Vitamin D 250 MG TABLET 500 MG PO (12:51)
[2024-11-25] MEDS: Acetaminophen 325 MG TABLET 650 MG PO (14:45)
--- NOTE | 2024-11-25 15:00 | PC.NURSE ---
Assumed care of patient upon transfer from Main ED. Patient resting quietly in bed, no needs at this time. Waiting for son to pick her up & drive home.
--- NOTE | 2024-11-25 16:01 | PC.NURSE ---
Patient getting up OOB without assistance, without ringing call hauser, walking w/ steady gait to the bathroom. Patient educated on use of the call hauser, yellow socks on, bed alarm on. Patient verbalized understanding but stating oh I don't need all of that I walk just fine. Patient escorted back to bed.
== END 2024-11-25 16:33 | disposition home or self-care (01) ==
PROVIDERS: Nurse Practitioner Family; Emergency Provider Emergency Medicine; PCP Internal Medicine
DX: R00.2 Palpitations (principal); F03.90 Unspecified dementia, unspecified severity, without behavioral disturbance, psychotic disturbance, mood disturbance, and anxiety; I10 Essential (primary) hypertension; E78.00 Pure hypercholesterolemia, unspecified; I48.0 Paroxysmal atrial fibrillation; Z79.02 Long term (current) use of antithrombotics/antiplatelets; Z79.01 Long term (current) use of anticoagulants; Z79.899 Other long term (current) drug therapy
CPT/HCPCS: 36415; 80053; 83880; 84484; 85025; 93005; 99285

== ENCOUNTER → 2024-11-24 19:19 | Outpatient (BNV) | payer MEDICARE, SELFPAY | PROVIDERS: Emergency Provider Emergency Medicine; PCP Internal Medicine; Visit Provider Internal Medicine Cardiovascular Disease | DX: I51.7 Cardiomegaly (principal); I45.4 Nonspecific intraventricular block | CPT/HCPCS: 93010 ==

== ENCOUNTER 2024-11-26 20:09 | Emergency (ER) | payer MEDICARE, SELFPAY ==
--- NOTE | 2024-11-26 | ECG_ITS ---
Test Reason : CP Blood Pressure : */* mmHG Vent. Rate : 64 BPM Atrial Rate : 64 BPM P-R Int : 188 ms QRS Dur : 126 ms QT Int : 426 ms P-R-T Axes : 73 -50 61 degrees QTcB Int : 439 ms Normal sinus rhythm Left axis deviation Non-specific intra-ventricular conduction block Minimal voltage criteria for LVH, may be normal variant ( Pavan product ) Cannot rule out Anterior infarct , age undetermined Abnormal ECG When compared with ECG of 24-Nov-2024 20:23, No significant changes seen Referred By: Generic ED Physician Electronically Signed By: SU EVANS MD
[2024-11-26 20:21] VITALS: BP 112/71; BP 122/61; PULSE 63; PULSE 80; RESP 17; TEMP 36.9; O2SAT 97; O2SAT 98; BMI 30.5
[2024-11-26 20:43] LABS: MANUAL DIFF FLAG NO
[2024-11-26 20:44] LABS: Basophils Percent Auto 0.4 % (0-2); Eosinophils Absolute Auto 0.1 X10*3/uL (0.0-0.4); Eosinophils Percent Auto 1.5 % (0-4); Hematocrit 41.1 % (37.0-47.0); Hemoglobin 14.1 g/dl (12.0-16.0); Imm Gran Abs Auto 0.02 X10*3/uL (0.00-0.03); Imm Gran Pct Auto 0.3 % (0.0-0.4); Lymphocytes Percent Auto 26.9 % (20-40); Mean Corpuscular HGB Conc 34.3 g/dl (31.0-35.0); Mean Corpuscular Hemoglobin 30.4 pg (27.0-33.0); Mean Corpuscular Volume 88.6 fL (80.0-98.0); Mean Platelet Volume 11.2 fL (9.4-12.3); Monocytes Absolute Auto 0.6 X10*3/uL (0.1-1.2); Monocytes Percent Auto 7.7 % (2-11); Neutrophils Absolute Auto 4.6 x10*3/uL (2.0-8.3); Neutrophils Percent Auto 63.2 % (45-73); Platelet Count 267 X10*3/uL (160-400); Red Blood Count 4.64 X10*6/uL (4.20-5.50); Red Cell Distribution Width 12.3 % (11.0-16.0); White Blood Count 7.3 X10*3/uL (4.8-10.8)
--- OUTSIDE RECORDS SUMMARY | 2024-11-26 20:56 | XMS_ITS | Clinical Summary ---
Author Organization [facility] [address] [facility] Address [address] [place] [address] Phone Care Team Providers Care Parking Control Officer Name Role Phone Alley Corrales MD Primary Care Provider [phone] Allergies No known active allergies Medications flecainide (TAMBOCOR) 100 mg tablet Take 1 Tab by mouth 2 times daily. 01/09/2020 Active potassium chloride (KLOR-CON M20) 20 mEq CR tablet Take 1 tablet (20 mEq total) by mouth 1 (one) time each day. 90 each 1 09/30/2024 Active apixaban (Eliquis) 5 mg tablet Take 1 tablet (5 mg total) by mouth 2 (two) times a day. 180 each 1 09/30/2024 Active hydroCHLOROthia zide (HYDRODIURIL) 25 mg tablet Take 1 tablet (25 mg total) by mouth 1 (one) time each day. 90 tablet 1 10/18/2024 Active simvastatin (ZOCOR) 10 mg tablet Take 1 tablet (10 mg total) by mouth at bedtime. at bedtime. 90 tablet 1 10/18/2024 Active calcium carbonate-milagros calciferol 500 mg-10 mcg (400 unit) per tablet Take 1 tablet by mouth 1 (one) time each day. 90 tablet 1 10/18/2024 Active metoprolol succinate (TOPROL-XL) 25 mg 24 hr tablet Take 0.5 tablets (12.5 mg total) by mouth 1 (one) time each day. 135 tablet 1 10/18/2024 Active Active Problems Problem Noted Date Diagnosed Date Severe obesity (BMI 35.0-35. 9 with comorbidity) ([facility] V24, [facility] V28) 05/13/2024 Cognitive impairment 09/07/2022 Assessment [...] both lower extrem ities 09/30/2005 Atrial fibrillation ([facility] V24, [facility] V28) 0 09/30/2005 Overview (05/13/2024): Onset [...] 2:45 PM EDT Office Visit Adult Medicine [address] [phone] Alley Corrales MD Encounter for annual wellness visit (AWV) in Medicare patient (Primary Dx); Chronic atrial fibrillation ([facility] V24, [facility] V28); Other hyperlipidemia; Cognitive impairment; Essential [...] 09/30/2005 Asymptomatic varicose veins 09/30/2005 Atrial fibrillation (CMS/HCC V24, CMS/HCC V28) Tubular adenoma of colon 01/21/2015 Hyperlipidemia [...] 10:40 AM EDT Appointment Radiology Department - [address] [phone] 02/18/2025 11:00 AM EDT Office Visit Adult Medicine [address] [phone] Alley Corrales MD [address] [place] [address] 04/01/2025 4:30 PM EDT Office Visit Adult [address] [phone] Jennie Caraballo PA [address] [place] [address] Health Maintenance Due Date Last Done Comments Zoster Vaccines (1 of 2) 1997 RSV Immunization Adult Patients (1 - 1-dose 75+ series) 2022 Osteoporosis Screening (Bone Density Screening) 05/28/2022 Social Influencers of Health Screening 05/28/2022 COVID-19 Vaccine ( season) 2024 11/11/2020, 10/14/2020 Influenza Vaccine (Season Ended) 2025 03/10/2023, 03/07/2022, 07/24/2021, Additional history exists Depression Screening 09/30/2025 09/30/2024, 09/08/19 24 Falls Risk Assessment 09/30/2025 09/30/2024 Hypertension/CHF/CAD Annual [...] LAB CHEMISTRY METHOD 09/30/2024 7:16 PM EDT [facility] Triglycerides 120 0 - 150 mg/dL LAB CHEMISTRY METHOD 09/30/2024 7:16 PM EDT [facility] HDL 66 >=40 mg/dL LAB CHEMISTRY METHOD 09/30/2024 7:16 PM EDT [facility] LDL Calculated 67 0 - 100 mg/dL LAB CHEMISTRY METHOD 09/30/2024 7:16 PM EDT [facility] VLDL Cholesterol Emanuel 24 mg/dL LAB CHEMISTRY METHOD 09/30/2024 7:16 PM EDT [facility] Non HDL Chol. (LDL+VLDL) 91 <145 mg/dL LAB CHEMISTRY METHOD 09/30/2024 7:16 PM EDT [facility] Chol/HDL Ratio 2.4 0.0 - 4.4 LAB CHEMISTRY METHOD 09/30/2024 7:16 PM EDT [facility] Blood Venous blood specimen / Unknown Venipuncture / Unknown 09/30/2024 3:30 PM EDT 09/30/2024 3:30 PM EDT us Alley Corrlaes MD LAB BLOOD ORDERABLES Final Resul t [facility] [address] [place] [address], [place] [phone] * (ABNORMAL) CBC auto differential (09/30/2024 3:30 PM EDT) WBC 9.5 4.8 - 10.8 K/mcL LAB HEMETOLOGY METHOD 09/30/2024 5:12 PM [facility] RBC 4.60 3.80 - 4.80 M/mcL LAB HEMETOLOGY METHOD 09/30/2024 5:12 PM [facility] Hemoglobin 13.9 11.5 - 16.0 g/dL LAB HEMETOLOGY METHOD 09/30/2024 5:12 PM [facility] Hematocrit 41.6 35.0 - 47.0 % LAB HEMETOLOGY METHOD 09/30/2024 5:12 PM [facility] MCV 89.7 79.0 - 98.0 FL LAB HEMETOLOGY METHOD 09/30/2024 5:12 PM [facility] MCH 30.0 27.0 - 32.0 pcg LAB HEMETOLOGY METHOD 09/30/2024 5:12 PM [facility] MCHC 33.4 32.0 - 37.0 g/dL LAB HEMETOLOGY METHOD 09/30/2024 5:12 PM [facility] RDW 12.8 11.0 - [...] K/mcL LAB HEMETOLOGY METHOD 09/30/2024 5:12 [facility] Neutrophils Relative 71.4 % LAB HEMETOLOGY METHOD 09/30/2024 5:12 [facility] Lymphocytes [...] [facility] Eosinophils Absolute 0.09 0.00 - 0.50 K/mcL LAB HEMETOLOGY METHOD 09/30/2024 5:12 PM [facility] Basophils Absolute 0.04 0.00 - 0.20 K/mcL LAB HEMETOLOGY METHOD 09/30/2024 5:12 PM [facility] Immature Granulocytes Absolute 0.03 0.00 - 0.03 K/mcL LAB HEMETOLOGY METHOD 09/30/2024 5:12 PM [facility] Blood Venous blood specimen / Unknown Venipuncture / Unknown 09/30/2024 3:30 PM EDT 09/30/2024 3:30 PM EDT us Alley Corrales MD LAB BLOOD ORDERABLES Final Resul t [facility] [address] [place] [address], [place] [phone] * (ABNORMAL) Basic metabolic panel (09/30/2024 3:30 PM EDT) Pathologist [facility] Sodium 138 133 - 145 mmol/L LAB CHEMISTRY METHOD 09/30/2024 6:56 PM EDT [facility] Potassium 3.5 3.5 - 5.5 mmol/L LAB CHEMISTRY METHOD 09/30/2024 6:56 PM EDT [facility] Chloride 104 96 - 110 mmol/L LAB CHEMISTRY METHOD 09/30/2024 6:56 PM EDT [facility] CO2 29 21 - 32 mmol/L LAB CHEMISTRY METHOD 09/30/2024 6:56 PM EDT [facility] Anion Gap 5 3 - 11 LAB CHEMISTRY METHOD 09/30/2024 6[facility] Glucose 140(H) 70 - 100 mg/dL LAB CHEMISTRY METHOD 09/30/2024 6:56 PM [facility] BUN 22 5 - 25 mg/dL LAB CHEMISTRY METHOD 09/30/2024 6:56 PM EDT [facility] Creatinine 0.59 0.50 - 1.10 mg/dL LAB CHEMISTRY METHOD 09/30/2024 6:56 PM EDT [facility] eGFR 93 >=60 mL/min/1. 73m2 LAB CHEMISTRY METHOD 09/30/2024 6:56 PM EDT [facility] Comment:Calculation based on the??Chronic Kidney Disease Epidemiology Collaboration (CKD-EPI) equation refit??without adjustment for race. BUN/Creatinine Ratio 37.3 LAB CHEMISTRY METHOD 09/30/2024 6:56 PM EDT [facility] Calcium 10.1 8.5 - 10.5 mg/dL LAB CHEMISTRY METHOD 09/30/2024 6:56 PM EDT [facility] Blood Venous blood specimen / Unknown Venipuncture / Unknown 09/30/2024 3:30 PM EDT 09/30/2024 3:30 PM EDT Alley Corrales MD LAB BLOOD ORDERABLES Final Resul t [facility] [address] [place] [address], * Depression Screening (09/08/2023) Pathologist [facility] Depression Screening Abstracted Historical Provider HEALTH MAINTENANCE Final Result * Hepatitis C Screening (07/11/2013) [facility] Hepatitis C Screening Abstracted Historical Provider HEALTH MAINTENANCE Final Result from Last 3 Months or Most Recently Relevant to Health Maintenance Insurance [employer] Care Teams Parking Control Officer Relationship Specialty Start Date End Date Alley Corrales MD [address] [place] [address] PCP - General Internal Medicine 12/18/19
[2024-11-26 20:57] LABS: Alanine Aminotransferase 19 U/L (0-31); Albumin Level 4.1 g/dL (3.5-5.0); Alkaline Phosphatase 100 U/L (39-117); Anion Gap 10 (12-20); Aspartate Amino Transferase 20 U/L (5-31); Bilirubin Total 0.2 mg/dL (0.0-1.0); Blood Urea Nitrogen 17 mg/dL (9-16); Calcium 9.5 mg/dL (8.4-10.2); Carbon Dioxide 28 mmol/L (22-29); Chloride 108 mmol/L (96-108); Creatinine Clr Calc Pharmacy 68.6; Estimated Glomerular Filt Rate > 60; Glucose Random 133 mg/dL (60-115); Potassium 3.6 mmol/L (3.3-5.1); Sodium 142 mmol/L (135-145); Total Protein 6.1 g/dL (6.5-8.0)
[2024-11-26 21:04] LABS: Troponin-I High Sensitivity 3.1 ng/L (<3.5-17.0)
--- NOTE | 2024-11-26 21:07 | PC.NURSE ---
pt biba from home, a&ox4, respirations even and unlabored. pt reports intermittent chest pain x1 day, reports she did not take her medications though she is not sure what they are. 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 pt also states she has not seen her son in 2 weeks but son picked [place] [facility] [place]. labs and ekg obtained. vss.
[2024-11-26 22:38] VITALS: BP 111/65; PULSE 60; RESP 16; O2SAT 98
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
--- NOTE | 2024-11-26 23:43 | PC.NURSE ---
attempted to reach pt son to provide ride home, unable to reach, plan to stay until am. aware
[2024-11-27 03:52] VITALS: BP 119/56; PULSE 56; RESP 16; TEMP 36.5; O2SAT 97
--- NOTE | 2024-11-27 07:11 | PC.NURSE ---
attempted to call son Geovanny this AM for patient obtain ride home. No answer and voicemail box is full will try again shortly.
--- NOTE | 2024-11-27 09:50 | PC.NURSE ---
attempted to call patient son and again no answer. made aware.
[2024-11-27 12:00] VITALS: BP 127/69; PULSE 52; RESP 16; TEMP 36.7; O2SAT 98
--- NOTE | 2024-11-27 12:10 | PHA.MEDREC ---
Pharmacy Consult ? Medication Reconciliation Pharmacy has completed the medication reconciliation.
[2024-11-27 12:59] VITALS: BP 127/69
[2024-11-27] MEDS: Apixaban 5 MG TABLET PO (12:59)
[2024-11-27] MEDS: Flecainide Acetate 50 MG TABLET 100 MG PO (12:59)
[2024-11-27] MEDS: hydroCHLOROthiazide 25 MG TABLET PO (12:59)
[2024-11-27] MEDS: Potassium Chloride ER 20 MEQ TAB.ER.PRT PO (13:00)
[2024-11-27 16:24] VITALS: BP 132/63; PULSE 62; RESP 16; TEMP 36.6; O2SAT 96
== END 2024-11-27 16:25 | disposition home or self-care (01) ==
PROVIDERS: Emergency Provider Emergency Medicine; PCP Internal Medicine
DX: R07.89 Other chest pain (principal); F03.90 Unspecified dementia, unspecified severity, without behavioral disturbance, psychotic disturbance, mood disturbance, and anxiety; I10 Essential (primary) hypertension; Z79.899 Other long term (current) drug therapy
CPT/HCPCS: 36415; 80053; 84484; 85025; 93005; 99283; 99285

== ENCOUNTER → 2024-11-26 20:28 | Outpatient (BNV) | payer MEDICARE, SELFPAY | PROVIDERS: Emergency Provider Emergency Medicine; PCP Internal Medicine; Visit Provider Internal Medicine Cardiovascular Disease | DX: I45.4 Nonspecific intraventricular block (principal) | CPT/HCPCS: 93010 ==

== ENCOUNTER 2024-12-14 23:35 | Emergency (ER) | payer MEDICARE, SELFPAY ==
--- NOTE | 2024-12-14 | ECG_ITS ---
Test Reason : PALPATATION Blood Pressure : */* mmHG Vent. Rate : 58 BPM Atrial Rate : 58 BPM P-R Int : 206 ms QRS Dur : 136 ms QT Int : 438 ms P-R-T Axes : 9 -53 38 degrees QTcB Int : 429 ms Sinus bradycardia Left axis deviation Left ventricular hypertrophy with QRS widening ( R in aVL , [place] product ) Nonspecific T wave abnormality Abnormal ECG When compared with ECG of 26-Nov-2024 20:28, No significant change was found Referred By: Generic ED Physician Electronically Signed By: GUSTABO VUONG
[2024-12-14 23:38] VITALS: BP 145/77; PULSE 58; O2SAT 98
[2024-12-14 23:56] VITALS: BP 144/73; PULSE 60; RESP 14; TEMP 37; O2SAT 95; BMI 27.9
[2024-12-15 00:01] VITALS: BP 127/67; PULSE 54; RESP 13; TEMP 36.7; O2SAT 94; BMI 27.7
[2024-12-15 00:04] LABS: MANUAL DIFF FLAG NO
[2024-12-15 00:06] LABS: Basophils Percent Auto 0.5 % (0-2); Eosinophils Absolute Auto 0.2 X10*3/uL (0.0-0.4); Eosinophils Percent Auto 1.9 % (0-4); Hematocrit 38.6 % (37.0-47.0); Hemoglobin 13.9 g/dl (12.0-16.0); Imm Gran Abs Auto 0.02 X10*3/uL (0.00-0.03); Imm Gran Pct Auto 0.2 % (0.0-0.4); Lymphocytes Absolute Auto 2.4 X10*3/uL (1.2-4.9); Lymphocytes Percent Auto 28.5 % (20-40); Mean Corpuscular Hemoglobin 30.5 pg (27.0-33.0); Mean Corpuscular Volume 84.8 fL (80.0-98.0); Mean Platelet Volume 11.1 fL (9.4-12.3); Monocytes Absolute Auto 0.9 X10*3/uL (0.1-1.2); Monocytes Percent Auto 10.4 % (2-11); Neutrophils Percent Auto 58.5 % (45-73); Platelet Count 265 X10*3/uL (160-400); Red Blood Count 4.55 X10*6/uL (4.20-5.50); Red Cell Distribution Width 12.6 % (11.0-16.0); White Blood Count 8.5 X10*3/uL (4.8-10.8)
[2024-12-15 00:31] LABS: Alanine Aminotransferase 14 U/L (0-31); Albumin Level 4.3 g/dL (3.5-5.0); Alkaline Phosphatase 91 U/L (39-117); Anion Gap 13 (12-20); Aspartate Amino Transferase 20 U/L (5-31); Bilirubin Total 0.3 mg/dL (0.0-1.0); Blood Urea Nitrogen 14 mg/dL (9-16); Calcium 9.6 mg/dL (8.4-10.2); Carbon Dioxide 24 mmol/L (22-29); Chloride 106 mmol/L (96-108); Creatinine Clr Calc Pharmacy 79.7; Estimated Glomerular Filt Rate > 60; Glucose Random 125 mg/dL (60-115); Magnesium 1.8 mg/dL (1.6-2.6); Potassium 3.2 mmol/L (3.3-5.1); Sodium 140 mmol/L (135-145); Total Protein 6.4 g/dL (6.5-8.0)
[2024-12-15 00:37] LABS: Troponin-I High Sensitivity 3.8 ng/L (<3.5-17.0)
--- NOTE | 2024-12-15 00:42 | ED.ARRPALP ---
HPI - Arrhythmia/Palpitations General Chief Complaint: Arrhythmia/Palpitations Stated Complaint: Chest palpitations bp:145/77 ra: 97% Time Seen by Provider: 12/15/24 00:30 Source: patient Mode of arrival: ambulatory Limitations: no limitations History of Present Illness ED Provider: HPI narrative: Patient is 79 years old with history of paroxysmal AFib on Eliquis flecainide and metoprolol, also history of hypertension patient's ran off her medication for last few days comes here as she noticed palpitation episode today lasted for few minutes no dizziness no chest pain no shortness a breath on arrival patient was in sinus rhythm Related Data Home Medications ?Medication ?Instructions ?Recorded ?Confirmed calcium 500 mg (as 1 tab PO DAILY 11/25/24 11/27/24 carbonate)-vitamin D3 10 mcg (400 unit) tablet (Calcium 500 With D) metoprolol succinate 25 mg 12.5 mg PO DAILY 11/25/24 11/27/24 tablet,extended release 24 hr potassium chloride 20 mEq 20 meq PO DAILY 11/25/24 11/27/24 tablet,extended release(part/cryst) Previous Rx's ?Medication ?Instructions ?Recorded simvastatin 10 mg tablet 10 mg PO BEDTIME #90 tabs 10/14/24 apixaban 5 mg tablet (Eliquis) 5 mg PO BID #60 tabs 11/01/24 flecainide 100 mg tablet 100 mg PO Q12H 90 days #180 caps 11/01/24 hydrochlorothiazide 25 mg tablet 25 mg PO DAILY #90 tabs 11/04/24 apixaban 5 mg tablet (Eliquis) 5 mg PO BID #60 tabs 12/15/24 flecainide 100 mg tablet 100 mg PO Q12H #180 tabs 12/15/24 metoprolol succinate 25 mg 25 mg PO BID #60 tabs 12/15/24 tablet,extended release 24 hr Allergies Allergy/AdvReac Type Severity Reaction Status Date / Time No Known Allergies Allergy Verified 12/15/24 00:03 [facility] Past Medical History Medical History Vaginal wall prolapse Thoracic aortic aneurysm Left anterior fascicular block HTN (hypertension) Paroxysmal atrial fibrillation Surgical History History of hysterectomy Family History Family History (Updated 11/04/24 @ 09:00 by Tran Bagley CMA) Father CVD (cardiovascular disease) Mother No problems noted. Social History Social History Housing: House Alcohol intake: never Patient Tobacco Use Status: Never used Tobacco Tobacco use type: Cigarette Smoked in Last 30 Days: No e-Cigarette/Vaping Use: Never Used Second Hand Smoke Exposure: No Use of substances other than those prescribed or required for medical reasons: No Advance Directives: No Advance Directives Information Provided: Yes Current occupational status: retired Cognitive needs: No Hearing needs: No Vision needs: Yes Physical Exam Vital Signs: Vital Signs: Last Vital Signs Temp 98.0 F 12/15/24 00:01 Pulse 60 12/15/24 00:48 Resp 16 12/15/24 00:48 BP 146/77 H 12/15/24 00:48 Pulse Ox 96 12/15/24 00:48 O2 Del Method Room Air 12/15/24 00:48 BMI result Body Mass Index 27.7 Appearance: Alert. Oriented X3. No acute distress. Eyes: PERRLA, No Nystagmus ENT: Pharynx normal. Oral Mucosa moist Neck: Normal inspection. Neck supple. CVS: Normal heart rate and rhythm. Pulses normal. Respiratory: No respiratory distress. Equal air entry bilateral, no wheezing/rales/rhonchi Abdomen: Soft and nontender. Bowel sounds are present, no mass palpable, no CVA tenderness Skin: Skin warm and dry. Normal skin color. Normal skin turgor. Extremities: No lower extremity edema. No calf tenderness nonpitting leg edema Neuro: Oriented X 3. No motor deficit. No sensory deficit.No cerebellar signs , cranial nerves II-XII intact Medical Decision Making Medical Decision Making MDM Narrative: Patient has paroxysmal AFib on Eliquis flecainide and metoprolol which she missed for last few days comes here with episode of palpitation labs are stable will give her a dose of metoprolol and Eliquis and flecainide at this time patient in sinus rhythm Lab Data [facility] Lab Attestation statement: I reviewed the patient's lab results. 12/15/24 00:00 12/15/24 00:00 Labs: Lab Results 12/15/24 Range/Units 00:00 WBC 8.5 (4.8-10.8) X10*3/uL RBC 4.55 (4.20-5.50) X10*6/uL Hgb 13.9 (12.0-16.0) g/dl Hct 38.6 (37.0-47.0) % MCV 84.8 (80.0-98.0) fL MCH 30.5 (27.0-33.0) pg MCHC 36.0 H (31.0-35.0) g/dl RDW 12.6 (11.0-16.0) % Plt Count 265 (160-400) X10*3/uL MPV 11.1 (9.4-12.3) fL Immature Gran % (Auto) 0.2 (0.0-0.4) % Neut % (Auto) 58.5 (45-73) % Lymph % (Auto) 28.5 (20-40) % [place] % (Auto) 10.4 (2-11) % Eos % (Auto) 1.9 (0-4) % Baso % (Auto) 0.5 (0-2) % Lymph # (Auto) 2.4 (1.2-4.9) X10*3/uL [place] # (Auto) 0.9 (0.1-1.2) X10*3/uL Eos # (Auto) 0.2 (0.0-0.4) X10*3/uL Baso # (Auto) 0.0 (0.0-0.2) X10*3/uL Abs Immat Gran (auto) 0.02 (0.00-0.03) X10*3/uL Absolute Neuts (auto) 5.0 (2.0-8.3) x10*3/uL Absolute Nucleated RBC 0.000 (0.0-0.012) X10*3/uL Nucleated RBC % (auto) 0.0 (0.0-0.2) /100WBC Sodium 140 (135-145) mmol/L Potassium 3.2 L (3.3-5.1) mmol/L Chloride 106 (96-108) mmol/L Carbon Dioxide 24 (22-29) mmol/L Anion Gap 13 (12-20) BUN 14 (9-16) mg/dL Creatinine 0.60 (0.5-1.4) mg/dL Estim Creat Clear Calc 79.7 Estimated GFR > 60 Random Glucose 125 H (60-115) mg/dL Calcium 9.6 (8.4-10.2) mg/dL Magnesium 1.8 (1.6-2.6) mg/dL Total Bilirubin 0.3 (0.0-1.0) mg/dL AST 20 (5-31) U/L ALT 14 (0-31) U/L Alkaline Phosphatase 91 (39-117) U/L Troponin I High Sens 3.8 (<3.5-17.0) ng/L Total Protein 6.4 L (6.5-8.0) g/dL Albumin 4.3 (3.5-5.0) g/dL Independent Interpretation I performed an independent interpretation of an: EKG Interpretation: Sinus bradycardia with ventricular rate of 58 beats per minute LVH left axis deviation no acute ST-T changes no acute ischemia Discharge Plan Discharge Clinical Impression: Paroxysmal atrial fibrillation Patient Disposition: Home, Self-Care Instructions: A-fib (Atrial Fibrillation) (ED) Additional Instructions: Continue take your medications for heart as prescribed by deck lid fitter And follow up with PCP Prescriptions: New flecainide 100 mg tablet 100 mg PO Q12H Qty: 180 0RF metoprolol succinate 25 mg tablet extended release 24 hr 25 mg PO BID Qty: 60 0RF Eliquis 5 mg tablet 5 mg PO BID Qty: 60 0RF No Action simvastatin 10 mg tablet 10 mg PO BEDTIME Qty: 90 3RF potassium chloride 20 mEq tablet,ER particles/crystals 20 meq PO DAILY calcium carbonate-vitamin D3 [Calcium 500 With D] 500 mg-10 mcg (400 unit) tablet 1 tab PO DAILY metoprolol succinate 25 mg tablet extended release 24 hr 12.5 mg PO DAILY hydrochlorothiazide 25 mg tablet 25 mg PO DAILY Qty: 90 1RF flecainide 100 mg tablet 100 mg PO Q12H 90 Days Qty: 180 3RF Eliquis 5 mg tablet 5 mg PO BID Qty: 60 5RF Print Language: Telugu
[2024-12-15 00:48] VITALS: BP 146/77; PULSE 60; RESP 16; O2SAT 96
[2024-12-15 01:18] VITALS: BP 157/82; PULSE 63; RESP 19; TEMP 37; O2SAT 97
[2024-12-15] MEDS: Metoprolol Tartrate 12.5 MG HALFTAB PO (01:30)
[2024-12-15] MEDS: Flecainide Acetate 50 MG TABLET 100 MG PO (01:30)
[2024-12-15 01:36] VITALS: BP 157/82; PULSE 63; RESP 19; TEMP 37; O2SAT 97
== END 2024-12-15 03:06 | disposition home or self-care (01) ==
PROVIDERS: Emergency Provider Internal Medicine
DX: I48.0 Paroxysmal atrial fibrillation (principal); R00.2 Palpitations; I10 Essential (primary) hypertension; Z79.01 Long term (current) use of anticoagulants; Z79.899 Other long term (current) drug therapy
CPT/HCPCS: 36415; 80053; 83735; 84484; 85025; 93005; 99283; 99284

== ENCOUNTER → 2024-12-14 23:48 | Outpatient (BNV) | payer MEDICARE, SELFPAY | PROVIDERS: Emergency Provider Internal Medicine; Visit Provider Internal Medicine | DX: I51.7 Cardiomegaly (principal); R00.1 Bradycardia, unspecified | CPT/HCPCS: 93010 ==

== ENCOUNTER 2025-01-16 21:06 | Emergency (ER) | payer MEDICARE, SELFPAY ==
--- NOTE | 2025-01-16 | ECG_ITS ---
Test Reason : a fib Blood Pressure : */* mmHG Vent. Rate : 44 BPM Atrial Rate : 44 BPM P-R Int : 202 ms QRS Dur : 138 ms QT Int : 440 ms P-R-T Axes : 67 -55 28 degrees QTcB Int : 376 ms Marked sinus bradycardia Left axis deviation Left ventricular hypertrophy with QRS widening ( R in aVL , [place] product ) Nonspecific T wave abnormality Abnormal ECG When compared with ECG of 14-Dec-2024 23:48, QT has shortened Referred By: Generic ED Physician Electronically Signed By: SU EVANS MD
[2025-01-16 21:11] VITALS: BP 169/95; PULSE 65; O2SAT 96; BMI 28.5
[2025-01-16 21:18] VITALS: BP 151/67; PULSE 56; RESP 15; TEMP 36.8; O2SAT 94
--- OUTSIDE RECORDS SUMMARY | 2025-01-16 21:27 | XMS_ITS ---
Author Name [facility] Organization Unknown Care Team Organization Name Specialty Phone Email Start Date End Da te [facility] 04/26/2022 4
[2025-01-16 21:35] LABS: MANUAL DIFF FLAG NO
[2025-01-16 21:36] LABS: Hematocrit 39.1 % (37.0-47.0); Hemoglobin 14.0 g/dl (12.0-16.0); Imm Gran Abs Auto 0.02 X10*3/uL (0.00-0.03); Imm Gran Pct Auto 0.2 % (0.0-0.4); Lymphocytes Absolute Auto 2.3 X10*3/uL (1.2-4.9); Mean Corpuscular HGB Conc 35.8 g/dl (31.0-35.0); Mean Corpuscular Hemoglobin 30.8 pg (27.0-33.0); Mean Corpuscular Volume 85.9 fL (80.0-98.0); NRBC Abs Auto 0.000 X10*3/uL (0.0-0.012); NRBC Pct Auto 0.0 /100WBC (0.0-0.2); Platelet Count 266 X10*3/uL (160-400); Red Blood Count 4.55 X10*6/uL (4.20-5.50); White Blood Count 8.1 X10*3/uL (4.8-10.8)
--- NOTE | 2025-01-16 21:46 | ED_ITS ---
HPI - Arrhythmia/Palpitations General Chief Complaint: Arrhythmia/Palpitations Stated Complaint: Heart palpitations, a-fib between 60-100 Time Seen by Provider: 01/16/25 21:45 Source: patient Mode of arrival: EMS Limitations: no limitations History of Present Illness ED Provider: HPI narrative: Patient is 79 years old with history of hypertension paroxysmal AFib dilated thoracic aorta size 4.3 cm on Eliquis flecainide and metoprolol which she ran out of it for last few days her son supposed to package pick up the prescription but he is on vacation with his girlfriend, noticed episodes of palpitation off and on lasting only for few minutes no syncope episode no chest pain according to medical records patient's should be having the medicine till next 2 weeks Related Data Home Medications ?Medication ?Instructions ?Recorded ?Confirmed calcium 500 mg (as 1 tab PO DAILY 11/25/2411/17 carbonate)-vitamin D3 10 mcg (400 unit) tablet (Calcium 500 With D) metoprolol succinate 25 mg 12.5 mg PO DAILY 11/25/24 0 11/27/24 tablet,extended release 24 hr potassium chloride 20 mEq 20 meq PO DAILY 11/25/2405/13 tablet,extended release(part/cryst) Previous Rx's ?Medication ?Instructions ?Recorded simvastatin 10 mg tablet 10 mg PO BEDTIME #90 tabs flecainide 100 mg tablet 100 mg PO Q12H 90 days #180 caps 11/01/24 hydrochlorothiazide 25 mg tablet 25 mg PO DAILY #90 ta bs 11/04/24 apixaban 5 mg tablet (Eliquis) 5 mg PO BID #60 tabs Allergies Allergy/AdvReac Type Severity Reaction Status Date / Time No Known Allergies Allergy Verified 01/16/25 21:13 Review of Systems 2 Review of Systems: Yes all other systems are reviewed and are negative [facility] Past Medical History Medical History Vaginal wall prolapse Thoracic aortic aneurysm Left anterior fascicular block HTN (hypertension) Paroxysmal atrial fibrillation Surgical History History of hysterectomy Family History Family History (Updated 11/04/24 @ 09:00 by Tran M Maitin, [employer] CLERK) Father CVD (cardiovascular disease) Mother No problems noted. Social History Social History Housing: House Alcohol intake: never Patient Tobacco Use Status: Never used Tobacco Tobacco use type: Cigarette Smoked in Last 30 Days: No e-Cigarette/Vaping Use: Never Used Second Hand Smoke Exposure: No Use of substances other than those prescribed or required for medical reasons: No Advance Directives: No Advance Directives Information Provided: No Current occupational status: retired Cognitive needs: No Hearing needs: No Vision needs: Yes Physical Exam 2 Vital Signs: Vital Signs: Last Vital Signs Temp 97.4 F 01/17/25 10:36 Pulse 58 01/17/25 12:09 Resp 14 01/17/25 12:09 BP 143/77 H 01/17/25 12:09 Pulse Ox 97 01/17/25 12:09 O2 Del Method Room Air 01/17/25 12:09 BMI result Body Mass Index 28.5 Appearance: Alert. Oriented X3. No acute distress. Eyes: No pallor or icterus ENT: Pharynx normal. Oral Mucosa moist Neck: Normal inspection. Neck supple. CVS: Normal heart rate and rhythm. Pulses normal. Respiratory: No respiratory distress. Equal air entry bilateral, no wheezing/rales/rhonchi Abdomen: Soft and nontender. Bowel sounds are present, no mass palpable, no CVA tenderness Skin: Skin warm and dry. Normal skin color. Normal skin turgor. Extremities: No lower extremity edema. No calf tenderness Neuro: Oriented X 3. No motor deficit. No sensory deficit.No cerebellar signs , cranial nerves II-XII intact Medications Administered Discontinued Medications Generic Name Dose Route Start Last Admin Trade Name Catrina PRN Reason Stop Dose Admin Acetaminophen 650 mg 01/17/25 12:33 01/17/25 12:37 Acetaminophen 325 Mg Tablet PO 01/17/25 12:34 650 mg ONCE ONE Administration Medical Decision Making Medical Decision Making [facility] Narrative: Patient with history of paroxysmal AFib ran out of her medication flecainide and metoprolol comes here with having episodes of palpitation EKG normal sinus rhythm no AFib at this time will give her metoprolol advised to follow up with her PCP according to record patient's should have other medications at home Patient is unable to be discharged home unable to reach patient's son will give patient in the ED and called patient's son again in the morning Differential Diagnosis Differential Diagnoses: The differential diagnosis associated with the presentation includes Admission/Observation Consideration of admission/observation: Escalation of care including admission/observation considered Lab Data MDM Lab Attestation statement: I reviewed the patient's lab results. 01/16/25 21:27 01/16/25 21:27 Labs: Lab Results 01/16/25 Range/Units 21:27 WBC 8.1 (4.8-10.8) X10*3/uL RBC 4.55 (4.20-5.50) X10*6/uL Hgb 14.0 (12.0-16.0) g/dl Hct 39.1 (37.0-47.0) % MCV 85.9 (80.0-98.0) fL MCH 30.8 (27.0-33.0) pg MCHC 35.8 H (31.0-35.0) g/dl RDW 12.6 (11.0-16.0) % Plt Count 266 (160-400) X10*3/uL MPV 10.8 (9.4-12.3) fL Immature Gran % (Auto) 0.2 (0.0-0.4) % Neut % (Auto) 57.2 (45-73) % Lymph % (Auto) 29.0 (20-40) % [place] % (Auto) 11.8 H (2-11) % Eos % (Auto) 1.4 (0-4) % Baso % (Auto) 0.4 (0-2) % Lymph # (Auto) 2.3 (1.2-4.9) X10*3/uL [place] # (Auto) 1.0 (0.1-1.2) X10*3/uL Eos # (Auto) 0.1 (0.0-0.4) X10*3/uL Baso # (Auto) 0.0 (0.0-0.2) X10*3/uL Abs Immat Gran (auto) 0.02 (0.00-0.03) X10*3/uL Absolute Neuts (auto) 4.6 (2.0-8.3) x10*3/uL Absolute Nucleated RBC 0.000 (0.0-0.012) X10*3/uL Nucleated RBC % (auto) 0.0 (0.0-0.2) /100WBC Sodium 143 (135-145) mmol/L Potassium 3.3 (3.3-5.1) mmol/L Chloride 106 (96-108) mmol/L Carbon Dioxide 26 (22-29) mmol/L Anion Gap 14 (12-20) BUN 22 H (9-16) mg/dL Creatinine 0.75 (0.5-1.4) mg/dL Estim Creat Clear Calc 62.4 Estimated GFR > 60 Random Glucose 108 (60-115) mg/dL Calcium 9.4 (8.4-10.2) mg/dL Magnesium 1.9 (1.6-2.6) mg/dL Total Bilirubin 0.3 (0.0-1.0) mg/dL AST 20 (5-31) U/L ALT 13 (0-31) U/L Alkaline Phosphatase 99 (39-117) U/L Troponin I High Sens 3.6 (<3.5-17.0) ng/L Total Protein 6.4 L (6.5-8.0) g/dL Albumin 4.1 (3.5-5.0) g/dL Independent Interpretation I performed an independent interpretation of an: EKG Discharge Plan Discharge Clinical Impression: AF (paroxysmal atrial fibrillation), Mild cognitive impairment, Palpitations Patient Disposition: Home, Self-Care Instructions: Heart Palpitations (ED) Additional Instructions: Your complete blood cell count was normal, you were not anemic in your white blood cell count was normal. Your comprehensive metabolic panel was normal. Your troponin (marker of heart attack) was normal at 3.6. Your 12 EKG did not reveal any significant abnormalities and was unchanged from your previous Prescriptions: No Action simvastatin 10 mg tablet 10 mg PO BEDTIME Qty: 90 3RF potassium chloride 20 mEq tablet,ER particles/crystals 20 meq PO DAILY calcium carbonate-vitamin D3 [Calcium 500 With D] 500 mg-10 mcg (400 unit) tablet 1 tab PO DAILY metoprolol succinate 25 mg tablet extended release 24 hr 12.5 mg PO DAILY Eliquis 5 mg tablet 5 mg PO BID Qty: 60 0RF hydrochlorothiazide 25 mg tablet 25 mg PO DAILY Qty: 90 1RF flecainide 100 mg tablet 100 mg PO Q12H 90 Days Qty: 180 3RF Print Language: Faroese
[2025-01-16 21:51] LABS: Alanine Aminotransferase 13 U/L (0-31); Albumin Level 4.1 g/dL (3.5-5.0); Alkaline Phosphatase 99 U/L (39-117); Anion Gap 14 (12-20); Aspartate Amino Transferase 20 U/L (5-31); Blood Urea Nitrogen 22 mg/dL (9-16); Calcium 9.4 mg/dL (8.4-10.2); Carbon Dioxide 26 mmol/L (22-29); Chloride 106 mmol/L (96-108); Creatinine Clr Calc Pharmacy 62.4; Estimated Glomerular Filt Rate > 60; Magnesium 1.9 mg/dL (1.6-2.6); Potassium 3.3 mmol/L (3.3-5.1); Sodium 143 mmol/L (135-145); Total Protein 6.4 g/dL (6.5-8.0)
[2025-01-16 21:55] LABS: Troponin-I High Sensitivity 3.6 ng/L (<3.5-17.0)
[2025-01-16 22:19] VITALS: BP 137/59; PULSE 57; RESP 16; TEMP 36.2; O2SAT 94
--- NOTE | 2025-01-16 23:13 | MHC.CM.ED ---
Addendum entered by Leila Quiroz 01/17/25 11:36: LEO RECEIVED A CALL FROM PTS SON ABRAHAM WHO REPORTS HE IS NOT ON VACATION, HE WAS TWO WEEKS AGO HE SAYS HE IS CURRENTLY WORKING WHEN ASKED ABOUT PS MEDS, HE SAYS HE GAVE THEM TO HER BEFORE HE WENT TO WORK THIS MORNING AND RETURNS AFTER WORK TO GIVE HER THE EVENING MEDS HE SAYS SHE HAS SOME ANXIETY AND OFTEN FORGETS THAT SHE TOOK THE MED, THAT IS WHY HE ADMINISTERS THEM CM OFFERED REFERRALS FOR HOME SERVICES HOWEVER ABRAHAM INDICATED SHE WOULD NOT LET THEM IN HE WILL BE OUT OF WORK AROUND 1630 HOURS, PT CAN BE SENT HOME VIA [facility]FT AND HE WILL MEET HER THERE, HE SAYS SHE CAN GET INTO THE HOME ON HER OWN Original Note: CM placed a telephone call to patient's son, Abraham. Message left to call back. Pt will remain in ED overnight, as she has dementia and unable to contact family.
[2025-01-17 00:09] VITALS: BP 118/54; PULSE 61; RESP 11; TEMP 36.9; O2SAT 97
[2025-01-17 05:00] VITALS: BP 119/68; PULSE 54; RESP 16; O2SAT 96
[2025-01-17 06:02] VITALS: PULSE 47; RESP 15; O2SAT 97
--- NOTE | 2025-01-17 09:30 | PC.NURSE ---
Attempted to call pt alf Small at phone number listed- unable to reach son. Pt states son is only contact.
[2025-01-17 10:36] VITALS: BP 137/73; PULSE 57; RESP 18; TEMP 36.3; O2SAT 96
--- NOTE | 2025-01-17 10:37 | MHC.EDTECH ---
patient ambulated to bathroom with steady gait. Patient offers no complaints of discomfort
[2025-01-17 12:09] VITALS: BP 143/77; PULSE 58; RESP 14; O2SAT 97
--- NOTE | 2025-01-17 16:01 | MHC.CM.PN ---
CM SPOKE TO PTS SON ABRAHAM THIS MORNING HE REPORTED HE WAS AT WORK, NOT ON VACATION, HE SAYS HE DID GO ON A VACATION 2 WEEKS AGO HE REPORTS HE GOES TO THE PTS HOME BOTH BEFORE AND AFTER WORK TO ADMINISTER HER MEDS HE SAYS SHE HAS ANXIETY AND OFTEN THINKS SHE DID NOT GET HER MEDS PT WILL DC HOME TODAY WITH NO SERVICES, PT AND SON DECLINED [facility]NA. SON WILL TRANSPORT
[2025-01-17 16:17] VITALS: BP 128/76; PULSE 65; RESP 18; TEMP 36.4; O2SAT 96
== END 2025-01-17 16:18 | disposition home or self-care (01) ==
PROVIDERS: Internal Medicine; Emergency Provider Emergency Medicine Emergency Medical Services; PCP Internal Medicine
DX: I48.0 Paroxysmal atrial fibrillation (principal); I49.9 Cardiac arrhythmia, unspecified; G31.84 Mild cognitive impairment of uncertain or unknown etiology; R00.2 Palpitations; Z79.899 Other long term (current) drug therapy
CPT/HCPCS: 36415; 80053; 83735; 84484; 85025; 93005; 99283; 99285

== ENCOUNTER → 2025-01-16 21:12 | Outpatient (BNV) | payer MEDICARE, SELFPAY | PROVIDERS: Emergency Provider Internal Medicine; PCP Internal Medicine; Visit Provider Internal Medicine Cardiovascular Disease | DX: I51.7 Cardiomegaly (principal); R00.1 Bradycardia, unspecified | CPT/HCPCS: 93010 ==

== ENCOUNTER → 2025-02-15 03:53 | Outpatient (BNV) | payer MEDICARE, SELFPAY | PROVIDERS: Emergency Provider Emergency Medicine; Visit Provider Radiology Vascular & Interventional Radiology | DX: R07.89 Other chest pain (principal) | CPT/HCPCS: 71045 ==

== ENCOUNTER 2025-02-15 04:45 | Emergency (ER) | payer MEDICARE, SELFPAY ==
--- NOTE | 2025-02-15 | ECG_ITS ---
Test Reason : chest px Blood Pressure : */* mmHG Vent. Rate : 48 BPM Atrial Rate : 48 BPM P-R Int : 204 ms QRS Dur : 132 ms QT Int : 438 ms P-R-T Axes : 69 -52 1 degrees QTcB Int : 391 ms Sinus bradycardia with marked sinus arrhythmia Left axis deviation Non-specific intra-ventricular conduction block Minimal voltage criteria for LVH, may be normal variant ( [place] product ) Nonspecific T wave abnormality Abnormal ECG When compared with ECG of 16-Jan-2025 21:12, No significant changes seen Referred By: Generic ED Physician Electronically Signed By: GUSTABO VUONG
--- NOTE | ~2025-02-15 | XR_ITS ---
CLINICAL HISTORY: chest px 1 view chest x-ray. Comparison: None Findings: The lungs are adequately expanded. No focal consolidation. No effusion or pneumothorax. Cardiac and mediastinal contours are within normal limits. No acute osseous abnormality Impression: No acute process. This document has been electronically signed by: José Antonio Malagon MD on 02/15/2025 05:21:51
[2025-02-15 04:56] VITALS: BP 126/80; BP 129/57; PULSE 46; PULSE 59; RESP 16; TEMP 36.4; O2SAT 92; O2SAT 95; BMI 62.9
[2025-02-15 05:13] LABS: MANUAL DIFF FLAG NO
--- NOTE | 2025-02-15 05:15 | PC.NURSE ---
pt denies dizziness upon arrival, mild chest pain, xray, ekg and blood work done.
[2025-02-15 05:16] LABS: Hematocrit 38.2 % (37.0-47.0); Hemoglobin 13.3 g/dl (12.0-16.0); Imm Gran Abs Auto 0.02 X10*3/uL (0.00-0.03); Imm Gran Pct Auto 0.3 % (0.0-0.4); Lymphocytes Absolute Auto 2.5 X10*3/uL (1.2-4.9); Mean Corpuscular HGB Conc 34.8 g/dl (31.0-35.0); Mean Corpuscular Hemoglobin 31.0 pg (27.0-33.0); Mean Corpuscular Volume 89.0 fL (80.0-98.0); NRBC Abs Auto 0.000 X10*3/uL (0.0-0.012); NRBC Pct Auto 0.0 /100WBC (0.0-0.2); Platelet Count 268 X10*3/uL (160-400); Red Blood Count 4.29 X10*6/uL (4.20-5.50); White Blood Count 7.4 X10*3/uL (4.8-10.8)
--- NOTE | 2025-02-15 05:28 | ED_ITS ---
HPI - Chest Pain General Chief Complaint: Chest Pain Stated Complaint: CHEST PAIN Time Seen by Provider: 02/15/25 05:28 History of Present Illness ED Provider: Rui BUTTS narrative: The patient is a 79-year-old woman with a history of paroxysmal atrial fibrillation. She is on flecainide, apixaban, metoprolol, and hydrochlorothiazide. The patient has frequent emergency room visits with complaints of palpitations possibly consistent with the atrial fibrillation. The patient says that tonight she felt palpitations that made her worried that she might be in atrial fibrillation. This was associated with some chest discomfort as it usually is. She called an ambulance and was brought to the hospital. She received 324 mg of aspirin from paramedics. She is feeling somewhat better here in the emergency room. No fever, sweats, chills. The patient complains that her son has not kept up with all of her medications and she worries that he will not be able to machine operator picker all her med education so that she has the appropriate medications. This is a common complaint with her. Related Data Home Medications ?Medication ?Instructions ?Recorded ?Confirmed calcium 500 mg (as 1 tab PO DAILY 11/25/2411/17 carbonate)-vitamin D3 10 mcg (400 unit) tablet (Calcium 500 With D) metoprolol succinate 25 mg 12.5 mg PO DAILY 11/25/24 0 11/27/24 tablet,extended release 24 hr potassium chloride 20 mEq 20 meq PO DAILY 11/25/2405/13 tablet,extended release(part/cryst) Previous Rx's ?Medication ?Instructions ?Recorded simvastatin 10 mg tablet 10 mg PO BEDTIME #90 tabs flecainide 100 mg tablet 100 mg PO Q12H 90 days #180 caps 11/01/24 hydrochlorothiazide 25 mg tablet 25 mg PO DAILY #90 ta bs 11/04/24 apixaban 5 mg tablet (Eliquis) 5 mg PO BID #60 tabs Allergies Allergy/AdvReac Type Severity Reaction Status Date / Time No Known Allergies Allergy Verified 02/15/25 04:58 Review of Systems 2 Review of Systems: Yes all other systems are reviewed and are negative [facility] Past Medical History Medical History Vaginal wall prolapse Thoracic aortic aneurysm Left anterior fascicular block HTN (hypertension) Paroxysmal atrial fibrillation Surgical History History of hysterectomy Family History Family History (Updated 11/04/24 @ 09:00 by Tran Bagley CMA) Father CVD (cardiovascular disease) Mother No problems noted. Social History Social History Housing: House Alcohol intake: never Patient Tobacco Use Status: Never used Tobacco Tobacco use type: Cigarette e-Cigarette/Vaping Use: Never Used Second Hand Smoke Exposure: No Advance Directives: No Advance Directives Information Provided: Yes Current occupational status: retired Cognitive needs: No Hearing needs: No Vision needs: Yes Physical Exam 2 Vital Signs: Vital Signs: Last Vital Signs Temp 97.5 F 02/15/25 07:06 Pulse 47 L 02/15/25 07:06 Resp 15 02/15/25 07:06 BP 127/64 02/15/25 07:06 Pulse Ox 97 02/15/25 07:06 O2 Del Method Room Air 02/15/25 07:06 BMI result Body Mass Index 62.9 Const: Other: The patient is an elderly woman who was awake, alert, pleasant, cooperative. She looks somewhat chronically ill. She does not seem in acute distress. HEENT: Other: The face is symmetrical. ?Mucous membranes moist. Eyes: Other: Pupils are round equal, conjunctivae are clear, extraocular movements intact Neck: Neck: Yes normal visual inspection, Yes full ROM and Yes no JVD Resp: Effort & Inspection: normal respiratory effort Auscultation: clear to auscultation bilaterally Cardio: Rate: bradycardic Rhythm: regular rhythm Heart sounds: S1 normal heart sound present and S2 normal heart sound present GI: Other: Abdomen is soft and nontender Skin: Other: Skin is pale and dry Neuro: Other: The patient is awake and alert with a normal mental status. Cranial nerves are grossly intact. She moves her extremities symmetrically. No obvious focal finding. Extrem: Other: The patient has some mild edema to the lower legs which may be very slightly pitting. Legs are symmetrical. Medical Decision Making Medical Decision Making MDM Narrative: The patient is a 79-year-old woman with a history of paroxysmal atrial fibrillation on flecainide, metoprolol, and apixaban comes to the emergency room complaining of palpitations associated with chest discomfort. The patient has a history of frequent ER presentations with similar complaints. She looks well. My suspicion for an acute coronary syndrome in his the patient is very low. She is mildly bradycardic but otherwise seems stable. She was not significantly symptomatic in the emergency room. She is in sinus rhythm. Labs are unremarkable. She was reassured. She will be discharged to continue her regular medications and to follow up with her regular doctors. Lab Data 02/15/25 05:09 02/15/25 05:09 Labs: Lab Results 02/15/25 Range/Units 05:09 WBC 7.4 (4.8-10.8) X10*3/uL RBC 4.29 (4.20-5.50) X10*6/uL Hgb 13.3 (12.0-16.0) g/dl Hct 38.2 (37.0-47.0) % MCV 89.0 (80.0-98.0) fL MCH 31.0 (27.0-33.0) pg MCHC 34.8 (31.0-35.0) g/dl RDW 13.1 (11.0-16.0) % Plt Count 268 (160-400) X10*3/uL MPV 10.5 (9.4-12.3) fL Immature Gran % (Auto) 0.3 (0.0-0.4) % Neut % (Auto) 53.9 (45-73) % Lymph % (Auto) 33.7 (20-40) % Cabell % (Auto) 9.3 (2-11) % Eos % (Auto) 2.3 (0-4) % Baso % (Auto) 0.5 (0-2) % Lymph # (Auto) 2.5 (1.2-4.9) X10*3/uL Cabell # (Auto) 0.7 (0.1-1.2) X10*3/uL Eos # (Auto) 0.2 (0.0-0.4) X10*3/uL Baso # (Auto) 0.0 (0.0-0.2) X10*3/uL Abs Immat Gran (auto) 0.02 (0.00-0.03) X10*3/uL Absolute Neuts (auto) 4.0 (2.0-8.3) x10*3/uL Absolute Nucleated RBC 0.000 (0.0-0.012) X10*3/uL Nucleated RBC % (auto) 0.0 (0.0-0.2) /100WBC Sodium 145 (135-145) mmol/L Potassium 3.7 (3.3-5.1) mmol/L Chloride 110 H (96-108) mmol/L Carbon Dioxide 25 (22-29) mmol/L Anion Gap 14 (12-20) BUN 21 H (9-16) mg/dL Creatinine 0.63 (0.5-1.4) mg/dL Estim Creat Clear Calc 117.2 Estimated GFR > 60 Random Glucose 95 (60-115) mg/dL Calcium 9.3 (8.4-10.2) mg/dL Total Bilirubin 0.6 (0.0-1.0) mg/dL AST 20 (5-31) U/L ALT 13 (0-31) U/L Alkaline Phosphatase 83 (39-117) U/L Troponin I High Sens < 2.7 (<3.5-17.0) ng/L Total Protein 5.8 L (6.5-8.0) g/dL Albumin 3.9 (3.5-5.0) g/dL Independent Interpretation I performed an independent interpretation of an: EKG Interpretation: EKG at 04:53 shows sinus bradycardia at 48 beats per minute. There is a left axis deviation. There is a nonspecific intraventricular block. The EKG is similar to previous EKGs. Discharge Plan Discharge Clinical Impression: Palpitations, Chest pain Patient Disposition: Home, Self-Care Additional Instructions: Your testing in the emergency room today is very reassuring. Please continue your regular medications. Please follow up with your regular doctor and your family dinner service specialist. Return to the emergency room if significantly worse. Prescriptions: No Action simvastatin 10 mg tablet 10 mg PO BEDTIME Qty: 90 3RF potassium chloride 20 mEq tablet,ER particles/crystals 20 meq PO DAILY calcium carbonate-vitamin D3 [Calcium 500 With D] 500 mg-10 mcg (400 unit) tablet 1 tab PO DAILY metoprolol succinate 25 mg tablet extended release 24 hr 12.5 mg PO DAILY Eliquis 5 mg tablet 5 mg PO BID Qty: 60 0RF hydrochlorothiazide 25 mg tablet 25 mg PO DAILY Qty: 90 1RF flecainide 100 mg tablet 100 mg PO Q12H 90 Days Qty: 180 3RF Referrals: Po,Lina Hernandez MD [Physician, Internal Medicine] Bolivar Whitaker MD [Physician, Cardiology] Interventions: ED Discharge Assessment Last Done: 02/15/25 07:06 Print Language: Cypriot
[2025-02-15 05:30] LABS: Alanine Aminotransferase 13 U/L (0-31); Albumin Level 3.9 g/dL (3.5-5.0); Alkaline Phosphatase 83 U/L (39-117); Anion Gap 14 (12-20); Aspartate Amino Transferase 20 U/L (5-31); Blood Urea Nitrogen 21 mg/dL (9-16); Calcium 9.3 mg/dL (8.4-10.2); Carbon Dioxide 25 mmol/L (22-29); Chloride 110 mmol/L (96-108); Creatinine Clr Calc Pharmacy 117.2; Estimated Glomerular Filt Rate > 60; Potassium 3.7 mmol/L (3.3-5.1); Sodium 145 mmol/L (135-145); Total Protein 5.8 g/dL (6.5-8.0)
[2025-02-15 05:34] LABS: Troponin-I High Sensitivity < 2.7 ng/L (<3.5-17.0)
--- OUTSIDE RECORDS SUMMARY | 2025-02-15 05:42 | XMS_ITS | Clinical Summary ---
Author Organization [facility] [address] [facility] Address [address] [place] [address] Phone Care Team Providers Care Reverser Name Role Phone Alley Corrales MD Primary Care Provider [phone] Allergies No known active allergies Medications flecainide [...] Severe obesity (BMI 35.0-35. 9 with comorbidity) ([facility] V24, [facility] V28) 05/13/2024 Cognitive impairment 09/07/2022 [...] both lower extrem ities 09/30/2005 Atrial fibrillation ([facility] V24, [facility] V28) 0 09/30/2005 Overview (05/13/2024): Onset 1999, followed by Cardiology, on anticoagulation med since onset (Pradaxa, 2017). Assessment & Plan (09/30/2024 3:11 PM EDT): Orders: CBC and differential; Future One eye: profound vision imp airment; other eye: normal vision 09/30/2005 Essential hypertension, benign 09/30/2005 Assessment & Plan (09/30/2024 3:11 PM EDT): Orders: Basic metabolic panel; Future Encounters Date Type Department Care Team Description 01/13/2025 10:40 AM EDT - 01/13/2025 11:59 PM EDT Hospital Encounter Radiology Department [address] [address] Encounter for screening mammogram for breast cancer Discharge Disposition: Home or Self Care from Last 3 Months Immunizations Name Administration [...] = 0.6 oz pur e alcohol) Comments No Sex and Gender Information Value Date Recorded Sex Assigned at Not on file Legal Sex Female 4:09 AM EST Gender Identity Not on file Sexual Orientation Not on file Obstetrics History Para Term AB IAB SAB Ectopic Multiple Livin g Live Births 2 2 2 2 Date Outcome GA Total Labor Labor/2nd/3rd Weight Sex Type Anes PTL Rhiannon A1 A5 Name Clin Term Term Last Filed Vital Signs Vital Sign Reading Time Taken Comments Blood Pressure 110/62 09/30/2024 2:59 PM EDT Pulse 96 09/30/2024 2:59 PM EDT Temperature 36.4 C (97.5 F) 09/30/2024 2:59 PM EDT Respiratory Rate 16 09/30/2024 2:59 PM EDT [...] Care Team (Late st Contact Info) Description 02/18/2025 11:00 AM EDT Office Visit Adult Medicine [address] [phone] Alley Corrales MD [address] [place] [address] 04/01/2025 4:30 PM EDT Office Visit Adult [address] [phone] Jennie Caraballo PA [address] [place], [place] Health Maintenance Due Date Last Done Comments Zoster Vaccines (1 of 2) 1997 RSV Immunization Adult Patients (1 - 1-dose 75+ series) 2022 Osteoporosis Screening (Bone Density Screening) 05/28/2022 Social Influencers of Health Screening 05/28/2022 COVID-19 Vaccine ( season) 2024 11/11/2020, 10/14/2020 Influenza Vaccine (#1) 2025 3, 03/07/2022, 07/24/2021, Additional history exists Falls Risk Assessment 09/30/2025 09/30/2024 Hypertension/CHF/CAD Annual BMP Blood Test 09/30/2025 09/30/2024, 09/08/2023 Medicare Annual Wellness Visit 09/30/2025 09/30/2024 DTaP,Tdap,and Td Vaccines (3 - Td or Tdap) 03/27/2028 03/27/2018, 06/29/2007 Cholesterol Screening (Lipid Panel) 09/30/2029 09/30/2024, 09/08/2023 Hepatitis C Screening Completed 07/11/2013 Pneumococcal Vaccine: 50+ Years Completed 03/08/2017, 03/02/2016 Depression Screening Completed 09/30/2024, 09/08/19 24 HIB Vaccines Aged Out No longer eligi [...] Procedure Name Priority Date/Time Associated Diagnosis Comments MG MAMMO DIGITAL SCREENING W JONATAN BILAT Routine 01/13/2025 11:06 AM EDT Encounter for screening mammogram for breast cancer BASIC METABOLIC PANEL Routine 09/30/2024 3:30 PM EDT Essential hypertension, benign LIPID PANEL WITH REFLEX TO DIRECT LDL Routine 09/30/2024 3:30 PM EDT Other hyperlipidemia DEPRESSION SCREENING Routine 09/08/2023 HEPATITIS C SCREENING Routine 07/11/2013 from Last 3 Months or Most Recently Relevant to Health Maintenance Results * MG Mammo Digital Screening w Jonatan bilat (01/13/2025 11:06 AM EDT) Anatomical Region Laterality Modality Breast Bilateral Mammography 01/14/2025 3:20 PM EDT Impressions 01/14/2025 3:22 PM EDT Benign. BI-RADS CATEGORY: 1 - NEGATIVE RECOMMENDATION: Screening bilateral mammogram is recommended in 1 year. Mammo Location: [facility], [address] [place] [address], [id number], . -------- FINAL REPORT -------- Dictated By: Chuyita Bonilla Dictated Date: 01/14/2025 15:20 ET Assigned Physician: Chuyita Bonilla Reviewed and Electronically Signed By: Chuyita Bonilla Signed Date: 01/14/2025 15:22 ET Workstation ID: [id number] Transcribed By: Self Edit Transcribed Date: 01/14/2025 15:20 ET Narrative 01/14/2025 3:22 PM EDT CLINICAL: 79 years old, Female, routine annual exam. COMPARISON: Mammograms dating back to 08/18/2020 with most recent of 01/04/2024. TECHNIQUE: Bilateral MLO and CC views were obtained digitally with 3-D mammogram (digital breast tomosynthesis). Computer-aided detection was utilized in evaluation of this exam (CAD). FINDINGS: There is no evidence of suspicious mass or architectural distortion. No worrisome calcifications are evident. There has been no significant change from prior exam(s). BREAST DENSITY: B - There are scattered areas of fibroglandular density. Procedure Note Chuyita Bonilla MD - 01/14/2025 CLINICAL: 79 years old, Female, routine annual exam. COMPARISON: Mammograms dating back to 08/18/2020 with most recent of01/04/2024. TECHNIQUE: Bilateral MLO and CC views were obtained digitally with 3-Dmammogram (digital breast tomosynthesis). Computer-aided detection wasutilized in evaluation of this exam (CAD). FINDINGS: There is no evidence of suspicious mass or architectural distortion. Noworrisome calcifications are evident. There has been no significantchange from prior exam(s). BREAST DENSITY: B - There are scattered areas of fibroglandular density. IMPRESSION: Benign. BI-RADS CATEGORY: 1 - NEGATIVE RECOMMENDATION: Screening bilateral mammogram is recommended in 1 year. Mammo Location: [facility], [address] [place] [address], [id number], . -------- FINAL REPORT -------- Dictated By: Chuyita Bonilla Dictated Date: 01/14/2025 15:20 ET Assigned Physician: Chuyita Bonilla Reviewed and Electronically Signed By: Chuyita Bonilla Signed Date: 01/14/2025 15:22 ET Workstation ID: [id number] Transcribed By: Self Edit Transcribed Date: 01/14/2025 15:20 ET us Alley Corrales MD IMG BI PROCEDURES Final Result * Lipid panel with reflex to direct LDL (09/30/2024 3:30 PM EDT) Cholesterol 157 0 - 200 mg/dL LAB CHEMISTRY METHOD 09/30/2024 7:16 PM [facility] Triglycerides 120 0 - 150 mg/dL LAB CHEMISTRY METHOD 09/30/2024 7:16 PM [facility] HDL 66 >=40 mg/dL LAB CHEMISTRY METHOD 09/30/2024 7:16 PM [facility] LDL Calculated 67 0 - 100 mg/dL LAB CHEMISTRY METHOD 09/30/2024 7:16 PM [facility] VLDL Cholesterol Emanuel 24 mg/dL LAB CHEMISTRY METHOD 09/30/2024 7:16 PM [facility] Non HDL Chol. (LDL+VLDL) 91 <145 mg/dL LAB CHEMISTRY METHOD 09/30/2024 7:16 PM [facility] Chol/HDL Ratio 2.4 0.0 - 4.4 LAB CHEMISTRY METHOD 09/30/2024 7:16 PM [facility] Blood Venous blood specimen / Unknown Venipuncture / Unknown 09/30/2024 3:30 PM EDT 09/30/2024 3:30 PM EDT us Alley Corrales MD LAB BLOOD ORDERABLES Final Resul t [facility] [address] [place] [address], * (ABNORMAL) Basic metabolic panel (09/30/2024 3:30 PM EDT) Sodium 138 133 - 145 mmol/L LAB CHEMISTRY METHOD 09/30/2024 6:56 PM [facility] Potassium 3.5 3.5 - 5.5 mmol/L LAB CHEMISTRY METHOD 09/30/2024 6:56 PM [facility] Chloride 104 96 - 110 mmol/L LAB CHEMISTRY METHOD 09/30/2024 6:56 PM [facility] CO2 29 21 - 32 mmol/L LAB CHEMISTRY METHOD 09/30/2024 6:56 PM [facility] Anion Gap 5 3 - 11 LAB CHEMISTRY METHOD 09/30/2024 6:56 PM [facility] Glucose 140(H) 70 - 100 mg/dL LAB CHEMISTRY METHOD 09/30/2024 6:56 PM [facility] BUN 22 5 - 25 mg/dL LAB CHEMISTRY METHOD 09/30/2024 6:56 PM [facility] Creatinine 0.59 0.50 - 1.10 mg/dL LAB CHEMISTRY METHOD 09/30/2024 6:56 PM [facility] eGFR 93 >=60 mL/min/1. 73m2 LAB CHEMISTRY METHOD 09/30/2024 6:56 PM [facility] Comment:Calculation based on the Chronic Kidney Disease Epidemiology Collaboration (CKD-EPI) equation refit without adjustment for race. BUN/Creatinine Ratio 37.3 LAB [...] Resul t [facility] [address] [place] [address], * Depression Screening (09/08/2023) Pathologist [facility] Depression Screening Abstracted Historical Provider HEALTH MAINTENANCE Final Result * Hepatitis C Screening (07/11/2013) [facility] Hepatitis C Screening Abstracted Historical Provider HEALTH MAINTENANCE Final Result from Last 3 Months or Most Recently Relevant to Health Maintenance Insurance [employer] Care Teams Reverser Relationship Specialty Start Date End Date Alley Corrales MD [address] [place], [place] PCP - General Internal Medicine 12/18/19
[2025-02-15 05:52] VITALS: BP 127/64; PULSE 47; RESP 15; O2SAT 97
--- NOTE | 2025-02-15 05:58 | PC.NURSE ---
pt consistently sinus sulema at 40-50, provider aware.
[2025-02-15 07:06] VITALS: BP 127/64; PULSE 47; RESP 15; TEMP 36.4; O2SAT 97
== END 2025-02-15 08:33 | disposition home or self-care (01) ==
PROVIDERS: Emergency Provider Emergency Medicine
DX: R07.89 Other chest pain (principal); R00.2 Palpitations; R00.1 Bradycardia, unspecified; I49.8 Other specified cardiac arrhythmias; Z79.899 Other long term (current) drug therapy
CPT/HCPCS: 36415; 71045; 80053; 84484; 85025; 93005; 99283; 99285

== ENCOUNTER → 2025-02-15 04:53 | Outpatient (BNV) | payer MEDICARE, SELFPAY | PROVIDERS: Emergency Provider Emergency Medicine; Visit Provider Internal Medicine | DX: I49.9 Cardiac arrhythmia, unspecified (principal); R00.1 Bradycardia, unspecified; I45.4 Nonspecific intraventricular block | CPT/HCPCS: 93010 ==

== ENCOUNTER 2025-02-22 21:23 | Emergency (ER) | payer MEDICARE, SELFPAY ==
--- NOTE | 2025-02-22 | ECG_ITS ---
Test Reason : CHEST PAIN Blood Pressure : */* mmHG Vent. Rate : 59 BPM Atrial Rate : 59 BPM P-R Int : 200 ms QRS Dur : 134 ms QT Int : 422 ms P-R-T Axes : 44 -54 64 degrees QTcB Int : 417 ms Sinus bradycardia Left axis deviation Non-specific intra-ventricular conduction block Minimal voltage criteria for LVH, may be normal variant ( Pavan product ) Cannot rule out Anterior infarct , age undetermined Abnormal ECG When compared with ECG of 15-Feb-2025 04:53, No significant change was found Referred By: Generic ED Physician Electronically Signed By: SU EVANS MD
[2025-02-22 21:40] VITALS: BP 140/94; BP 147/76; PULSE 68; PULSE 94; RESP 13; TEMP 36.9; O2SAT 95; O2SAT 96; BMI 28.0
[2025-02-22 21:56] LABS: Hematocrit 39.4 % (37.0-47.0); Hemoglobin 14.2 g/dl (12.0-16.0); Imm Gran Abs Auto 0.02 X10*3/uL (0.00-0.03); Imm Gran Pct Auto 0.2 % (0.0-0.4); Lymphocytes Absolute Auto 2.1 X10*3/uL (1.2-4.9); MANUAL DIFF FLAG NO; Mean Corpuscular HGB Conc 36.0 g/dl (31.0-35.0); Mean Corpuscular Hemoglobin 31.0 pg (27.0-33.0); Mean Corpuscular Volume 86.0 fL (80.0-98.0); NRBC Abs Auto 0.000 X10*3/uL (0.0-0.012); NRBC Pct Auto 0.0 /100WBC (0.0-0.2); Platelet Count 276 X10*3/uL (160-400); Red Blood Count 4.58 X10*6/uL (4.20-5.50); White Blood Count 8.7 X10*3/uL (4.8-10.8)
[2025-02-22 22:09] LABS: Alanine Aminotransferase 20 U/L (0-31); Albumin Level 4.3 g/dL (3.5-5.0); Alkaline Phosphatase 92 U/L (39-117); Anion Gap 14 (12-20); Aspartate Amino Transferase 23 U/L (5-31); Blood Urea Nitrogen 17 mg/dL (9-16); Calcium 9.5 mg/dL (8.4-10.2); Carbon Dioxide 24 mmol/L (22-29); Chloride 105 mmol/L (96-108); Creatinine Clr Calc Pharmacy 71.3; Estimated Glomerular Filt Rate > 60; Potassium 3.4 mmol/L (3.3-5.1); Sodium 140 mmol/L (135-145); Total Protein 6.5 g/dL (6.5-8.0)
--- OUTSIDE RECORDS SUMMARY | 2025-02-22 22:14 | XMS_ITS | Clinical Summary ---
Author Organization [facility] [address] [facility] Address [address] [place] [address] Phone Care Team Providers Care Occupational Health Nursing Director Name Role Phone Alley Corrales MD Primary Care Provider [phone] Allergies No known active allergies Medications flecainide [...] Severe obesity (BMI 35.0-35. 9 with comorbidity) ([facility] V24, [facility] V28) 05/13/2024 Cognitive impairment 09/07/2022 Assessment [...] both lower extrem ities 09/30/2005 Atrial fibrillation ([facility] V24, [facility] V28) 0 09/30/2005 Overview (05/13/2024): Onset 1999, [...] 11:59 PM EDT Hospital Encounter Radiology Department [address] [address] Encounter for screening mammogram for breast cancer [...] Care Team (Late st Contact Info) Description 04/01/2025 4:30 PM EDT Office Visit Adult Medicine [facility] [address] [place] [phone] Jennie Caraballo PA [address] [place] [address] Health Maintenance Due Date Last Done Comments Zoster Vaccines (1 of 2) 1997 RSV Immunization Adult Patients (1 - 1-dose 75+ series) 2022 Osteoporosis Screening (Bone Density Screening) 05/28/2022 Social Influencers of Health Screening 05/28/2022 COVID-19 Vaccine ( - season) 2025 11/11/2020, 10/14/2020 Influenza Vaccine (#1) 2025 3, [...] is recommended in 1 year. Mammo Location: [facility], [address] [place] [address], [address], . -------- FINAL REPORT -------- Dictated By: Chuyita Bonilla Dictated Date: 01/14/2025 15:20 ET Assigned Physician: Chuyita Bonilla Reviewed and Electronically Signed By: Chuyita Bonilla Signed Date: 01/14/2025 15:22 ET Workstation ID: [id number] Transcribed By: Self Edit Transcribed Date: 01/14/2025 [...] is recommended in 1 year. Mammo Location: [facility], [address] [place] [address], [address], . -------- FINAL REPORT -------- Dictated By: Chuyita Bonilla Dictated Date: 01/14/2025 15:20 ET Assigned Physician: Chuyita Bonilla Reviewed and Electronically Signed By: Chuyita Bonilla Signed Date: 01/14/2025 15:22 ET Workstation ID: [id number] Transcribed By: Self Edit Transcribed Date: 01/14/2025 15:20 ET us Alley Corrales MD IMG BI PROCEDURES Final Result * Lipid panel with reflex to direct LDL (09/30/2024 3:30 PM EDT) Cholesterol 157 0 - 200 mg/dL LAB CHEMISTRY METHOD 09/30/2024 7:16 PM EDT [facility] Triglycerides 120 0 - 150 mg/dL LAB CHEMISTRY METHOD 09/30/2024 7:16 PM EDT [facility] HDL 66 >=40 mg/dL LAB CHEMISTRY METHOD 09/30/2024 7:16 PM EDT [facility] LDL Calculated 67 0 - 100 mg/dL LAB CHEMISTRY METHOD 09/30/2024 7:16 PM EDT [facility] VLDL Cholesterol Emanuel 24 mg/dL LAB CHEMISTRY METHOD 09/30/2024 7:16 PM EDT [facility] Non HDL Chol. (LDL+VLDL) 91 <145 mg/dL LAB CHEMISTRY METHOD 09/30/2024 7:16 PM EDT [facility] Chol/HDL Ratio 2.4 0.0 - 4.4 LAB CHEMISTRY METHOD 09/30/2024 7:16 PM EDT [facility] Blood Venous blood specimen / Unknown Venipuncture / Unknown 09/30/2024 3:30 PM EDT 09/30/2024 3:30 PM EDT us Alley Corrales MD LAB BLOOD ORDERABLES Final Resul t [facility] [address] [place] [address], [place] [phone] * (ABNORMAL) Basic metabolic panel (09/30/2024 3:30 PM EDT) Sodium 138 133 - 145 mmol/L LAB CHEMISTRY METHOD 09/30/2024 6:56 PM [facility] Potassium 3.5 3.5 - 5.5 mmol/L LAB CHEMISTRY METHOD 09/30/2024 6:56 PM [facility] Chloride 104 96 - 110 mmol/L LAB CHEMISTRY METHOD 09/30/2024 6:56 PM [facility] CO2 29 21 - 32 mmol/L LAB CHEMISTRY METHOD 09/30/2024 6:56 PM [facility] Anion Gap 5 3 - 11 LAB CHEMISTRY METHOD 09/30/2024 6:56 PM [facility] Glucose 140(H) 70 - 100 mg/dL LAB CHEMISTRY METHOD 09/30/2024 6:56 PM [facility] BUN 22 5 - 25 mg/dL LAB CHEMISTRY METHOD 09/30/2024 6:56 PM [facility] Creatinine 0.59 0.50 - 1.10 mg/dL LAB CHEMISTRY METHOD 09/30/2024 6:56 PM [facility] eGFR 93 >=60 mL/min/1. 73m2 LAB CHEMISTRY METHOD 09/30/2024 6:56 PM [facility] Comment:Calculation based on the Chronic Kidney Disease Epidemiology Collaboration (CKD-EPI) equation refit without adjustment for race. BUN/Creatinine Ratio 37.3 LAB CHEMISTRY METHOD 09/30/2024 6:56 PM [facility] Calcium 10.1 8.5 - 10.5 mg/dL LAB CHEMISTRY METHOD 09/30/2024 6:56 PM [facility] Blood Venous blood specimen / Unknown Venipuncture / Unknown 09/30/2024 3:30 PM EDT 09/30/2024 3:30 PM EDT Alley Corrales MD LAB BLOOD ORDERABLES Final Resul t [facility] [address] [place] [address], * Depression Screening (09/08/2023) Depression Screening Abstracted Historical Provider HEALTH MAINTENANCE Final Result * Hepatitis C Screening (07/11/2013) Hepatitis C Screening Abstracted Historical Provider HEALTH MAINTENANCE Final Result from Last 3 Months or Most Recently Relevant to Health Maintenance Insurance [employer] Care Teams Occupational Health Nursing Director Relationship Specialty Start Date End Date Alley Corrales MD [address] [place] [address] PCP - General Internal Medicine 12/18/19
[2025-02-22 22:17] LABS: Troponin-I High Sensitivity < 2.7 ng/L (<3.5-17.0)
--- NOTE | 2025-02-22 22:35 | ED.CHESTPAIN ---
HPI - Chest Pain General Chief Complaint: Chest Pain Stated Complaint: Chest pain, back pain Time Seen by Provider: 02/22/25 22:14 Source: patient Mode of arrival: ambulatory Limitations: no limitations History of Present Illness ED Provider: Dr. Jo Patel HPI narrative: Patient comes to the emergency room complaining of palpitations. Patient states that she was watching TV and had palpitations. Patient states it lasted for a few sec and then went away, patient took aspirin because she got scared and then her symptoms stopped. The patient states that she has not had any chest pain at all. Patient known to take Eliquis for AFib. Patient is well-known to the ED. Usually when she comes, patient claims that she is not sure if she is taking her medications, unsure how many refills she has, patient does have mild dementia. At this time, patient has no complaints other than being hungry and requesting a sandwich Related Data Home Medications ?Medication ?Instructions ?Recorded ?Confirmed calcium 500 mg (as 1 tab PO DAILY 11/25/24 11/27/24 carbonate)-vitamin D3 10 mcg (400 unit) tablet (Calcium 500 With D) metoprolol succinate 25 mg 12.5 mg PO DAILY 11/25/24 11/27/24 tablet,extended release 24 hr potassium chloride 20 mEq 20 meq PO DAILY 11/25/24 11/27/24 tablet,extended release(part/cryst) Previous Rx's ?Medication ?Instructions ?Recorded simvastatin 10 mg tablet 10 mg PO BEDTIME #90 tabs 10/14/24 flecainide 100 mg tablet 100 mg PO Q12H 90 days #180 caps 11/01/24 hydrochlorothiazide 25 mg tablet 25 mg PO DAILY #90 tabs 11/04/24 apixaban 5 mg tablet (Eliquis) 5 mg PO BID #60 tabs 12/15/24 Allergies Allergy/AdvReac Type Severity Reaction Status Date / Time No Known Allergies Allergy Verified 02/22/25 21:43 Review of Systems Review of Systems: Constitutional : No Weight loss, No Fever, No Chills, No Night Sweats, No Fatigue, No Malaise ENT/Mouth : No Hearing loss, No Ear Pain, No Nasal Congestion, No Sinus Pain, No Hoarseness, No sore throat, No Rhinorrhea, No Swallowing Difficulty Eyes: No Eye Pain, No Swelling, No Redness, No Foreign Body, No Discharge, No Vision Changes Cardiovascular : No Chest Pain, No SOB, No Dyspnea on Exertion, No Orthopnea, No Edema, complaining of intermittent palpitations which now have resolved Respiratory : No Cough, No Sputum, No Wheezing, No Smoke Exposure, No Dyspnea Gastrointestinal : No Nausea, No Vomiting, No Diarrhea, No Constipation, No abdominal Pain, No Hematochezia, No Melena Genitourinary : no irregular bleeding, No Dysuria, No Urinary Frequency, No Hematuria, No Urinary Incontinence, No Urgency, No Flank Pain, No Urinary Flow Changes, No Hesitancy Musculoskeletal : No joint pain, No Myalgias, No Joint Swelling Skin : No Skin Lesions, No rash Neuro : No Weakness, No Numbness, No Paresthesias, No Loss of Consciousness, No Dizziness, No Headache Psych : No Anxiety/Panic, No Depression, No SI/HI/AH/VH, No Social Issues, Heme/Lymph: No Bruising, No Bleeding,No Lymphadenopathy Endocrine : No Polyuria, No Polydipsia, No Temperature Intolerance COUNTS INCLUDE 234 BEDS AT THE [facility] Past Medical History Medical History Vaginal wall prolapse Thoracic aortic aneurysm Left anterior fascicular block HTN (hypertension) Paroxysmal atrial fibrillation Surgical History History of hysterectomy Family History Family History (Updated 11/04/24 @ 09:00 by Tran Bagley CMA) Father CVD (cardiovascular disease) Mother No problems noted. Social History Social History Housing: House Alcohol intake: never Patient Tobacco Use Status: Never used Tobacco Tobacco use type: Cigarette Smoked in Last 30 Days: No e-Cigarette/Vaping Use: Never Used Second Hand Smoke Exposure: No Use of substances other than those prescribed or required for medical reasons: No Advance Directives: No Advance Directives Information Provided: Yes Do you have a plan to hurt others: No Plan Current occupational status: retired Cognitive needs: No Hearing needs: No Vision needs: Yes Physical Exam Exam: Exam: Appearance: Alert. Oriented X3. No acute distress. Well-appearing Eyes: Pupils equal, round and reactive to light. ENT: Pharynx normal. Neck: Normal inspection. Neck supple. No lymph nodes noted. No crepitus CVS: Normal heart rate and rhythm. Pulses normal. Normal S1 and S2 Respiratory: No respiratory distress. Breath sounds normal. No Wheezing. No rales Abdomen: Soft and nontender. No rigidity. No distention. Skin: Skin warm and dry. Normal skin color. Normal skin turgor. Extremities: No lower extremity edema. No Lacerations. No Rash Neuro: Oriented X 3. No motor deficit. No sensory deficit. Moving all extremities. No slurred speech. CN 2 through 12 grossly intact Psych: calm, cooperative, normal affect Vital Signs: Vital Signs: Last Vital Signs Temp 98.4 F 02/22/25 21:40 Pulse 94 02/22/25 21:40 Resp 13 02/22/25 21:40 BP 147/76 H 02/22/25 21:40 Pulse Ox 95 02/22/25 21:40 O2 Del Method Room Air 02/22/25 21:40 BMI result Body Mass Index 28.0 Course Course Course Narrative: Patient is known to the ED. Patient comes frequently complaining of either chest pain or palpitations. Frequently tells us that she does not know if she is taking her medications, or states that she is running out or has not had any meds for several months. In the past, through case management and nursing, the patient's son has been consulted multiple attempts, patient has always all of her medications at home in they are given to her by her caretakers. Patient was provided with seem which crackers and feels happy now Medical Decision Making Medical Decision Making MDM Narrative: My interpretation of EKG: Normal sinus rhythm, bradycardia, heart rate 59, no ST segment depression or elevation, no T-wave inversion, QTC 417 My interpretation of labs: No significant abnormality patient's hematology or chemistry Patient does have history of atrial fibrillation. It is possible that patient went to AFib and then back to sinus rhythm. At this time, patient asymptomatic Differential Diagnosis Differential Diagnoses: The differential diagnosis associated with the presentation includes (Anxiety, dementia, ACS, atrial fibrillation) Admission/Observation Consideration of admission/observation: Escalation of care including admission/observation considered (Given patient's age , medical history and symptoms, observation was considered.) Lab Data MDM Lab Attestation statement: I reviewed the patient's lab results. 02/22/25 21:51 02/22/25 21:51 Labs: Lab Results 02/22/25 Range/Units 21:51 WBC 8.7 (4.8-10.8) X10*3/uL RBC 4.58 (4.20-5.50) X10*6/uL Hgb 14.2 (12.0-16.0) g/dl Hct 39.4 (37.0-47.0) % MCV 86.0 (80.0-98.0) fL MCH 31.0 (27.0-33.0) pg MCHC 36.0 H (31.0-35.0) g/dl RDW 12.7 (11.0-16.0) % Plt Count 276 (160-400) X10*3/uL MPV 10.6 (9.4-12.3) fL Immature Gran % (Auto) 0.2 (0.0-0.4) % Neut % (Auto) 63.7 (45-73) % Lymph % (Auto) 24.7 (20-40) % [place] % (Auto) 9.9 (2-11) % Eos % (Auto) 1.2 (0-4) % Baso % (Auto) 0.3 (0-2) % Lymph # (Auto) 2.1 (1.2-4.9) X10*3/uL [place] # (Auto) 0.9 (0.1-1.2) X10*3/uL Eos # (Auto) 0.1 (0.0-0.4) X10*3/uL Baso # (Auto) 0.0 (0.0-0.2) X10*3/uL Abs Immat Gran (auto) 0.02 (0.00-0.03) X10*3/uL Absolute Neuts (auto) 5.5 (2.0-8.3) x10*3/uL Absolute Nucleated RBC 0.000 (0.0-0.012) X10*3/uL Nucleated RBC % (auto) 0.0 (0.0-0.2) /100WBC Sodium 140 (135-145) mmol/L Potassium 3.4 (3.3-5.1) mmol/L Chloride 105 (96-108) mmol/L Carbon Dioxide 24 (22-29) mmol/L Anion Gap 14 (12-20) BUN 17 H (9-16) mg/dL Creatinine 0.65 (0.5-1.4) mg/dL Estim Creat Clear Calc 71.3 Estimated GFR > 60 Random Glucose 131 H (60-115) mg/dL Calcium 9.5 (8.4-10.2) mg/dL Total Bilirubin 0.4 (0.0-1.0) mg/dL AST 23 (5-31) U/L ALT 20 (0-31) U/L Alkaline Phosphatase 92 (39-117) U/L Troponin I High Sens < 2.7 (<3.5-17.0) ng/L Total Protein 6.5 (6.5-8.0) g/dL Albumin 4.3 (3.5-5.0) g/dL Independent Interpretation I performed an independent interpretation of an: EKG Independent Historian Clinical information obtained from an independent historian. History obtained from or confirmed by: EMS External Record Review External record reviewed: Other (Prior ED visits here at [facility]) Chronic Conditions Patient?s care impacted by: Other (AFib, dementia) Critical Care Time Critical Care Time Critical Care Time: Yes Total Critical Care Time: 35 Attestation: I have personally provided critical care time. Time includes review of lab data, radiology results, discussion with consultants, and monitoring for potential decompensation. Intervention performed as documented. Discharge Plan Discharge Clinical Impression: Palpitations Patient Disposition: Home, Self-Care Instructions: Heart Palpitations (ED) Additional Instructions: Please follow-up with your primary care physician tomorrow. If you have any worsening or new symptoms, please return to the emergency room or call 911 Prescriptions: No Action simvastatin 10 mg tablet 10 mg PO BEDTIME Qty: 90 3RF potassium chloride 20 mEq tablet,ER particles/crystals 20 meq PO DAILY calcium carbonate-vitamin D3 [Calcium 500 With D] 500 mg-10 mcg (400 unit) tablet 1 tab PO DAILY metoprolol succinate 25 mg tablet extended release 24 hr 12.5 mg PO DAILY Eliquis 5 mg tablet 5 mg PO BID Qty: 60 0RF hydrochlorothiazide 25 mg tablet 25 mg PO DAILY Qty: 90 1RF flecainide 100 mg tablet 100 mg PO Q12H 90 Days Qty: 180 3RF Print Language: Lao
[2025-02-23 00:38] VITALS: BP 133/70; PULSE 63; RESP 14; TEMP 36.5; O2SAT 95
[2025-02-23 02:01] VITALS: BP 105/75; PULSE 62; RESP 18; TEMP 36.6; O2SAT 96
[2025-02-23 06:05] VITALS: BP 105/75; PULSE 62; RESP 18; TEMP 36.6; O2SAT 96
== END 2025-02-23 06:06 | disposition home or self-care (01) ==
PROVIDERS: Emergency Provider Emergency Medicine; PCP Internal Medicine
DX: R00.2 Palpitations (principal); I48.0 Paroxysmal atrial fibrillation; I10 Essential (primary) hypertension; Z79.01 Long term (current) use of anticoagulants; Z79.899 Other long term (current) drug therapy
CPT/HCPCS: 36415; 80053; 84484; 85025; 93005; 99283; 99285

== ENCOUNTER → 2025-02-22 21:36 | Outpatient (BNV) | payer MEDICARE, SELFPAY | PROVIDERS: Emergency Provider Emergency Medicine; PCP Internal Medicine; Visit Provider Internal Medicine Cardiovascular Disease | DX: I45.4 Nonspecific intraventricular block (principal); R00.1 Bradycardia, unspecified | CPT/HCPCS: 93010 ==

== ENCOUNTER 2025-03-30 21:56 | Emergency (ER) | payer MEDICARE, SELFPAY ==
--- NOTE | 2025-03-30 | ECG_ITS ---
Test Reason : ARM PAIN Blood Pressure : */* mmHG Vent. Rate : 59 BPM Atrial Rate : 59 BPM P-R Int : 192 ms QRS Dur : 132 ms QT Int : 434 ms P-R-T Axes : 21 -58 13 degrees QTcB Int : 429 ms Sinus bradycardia Left axis deviation Non-specific intra-ventricular conduction block Minimal voltage criteria for LVH, may be normal variant ( [employer] product ) Nonspecific T wave abnormality Abnormal ECG When compared with ECG of 22-Feb-2025 21:36, No significant change was found Referred By: Generic ED Physician Electronically Signed By: Remy Abel
--- NOTE | ~2025-03-30 | XR_ITS ---
CLINICAL HISTORY: pain 3 view left shoulder Comparison: None provided Findings: No fractures or dislocations. Moderate degenerative changes of the shoulder. No erosions. No radiopaque foreign body. IMPRESSION: 1. No acute fracture This document has been electronically signed by: Anusha Evans MD on 03/30/2025 23:54:19
[2025-03-30 22:00] VITALS: BP 166/84; BP 169/99; PULSE 66; PULSE 67; RESP 14; TEMP 36.6; O2SAT 98; BMI 29.2
[2025-03-30 22:02] VITALS: BP 166/84; PULSE 63; RESP 19; TEMP 36.6; O2SAT 97
[2025-03-30 22:14] VITALS: PULSE 60
[2025-03-30 22:21] LABS: MANUAL DIFF FLAG NO
[2025-03-30 22:22] LABS: Hematocrit 41.2 % (37.0-47.0); Hemoglobin 14.1 g/dl (12.0-16.0); Imm Gran Abs Auto 0.03 X10*3/uL (0.00-0.03); Imm Gran Pct Auto 0.4 % (0.0-0.4); Lymphocytes Absolute Auto 2.0 X10*3/uL (1.2-4.9); Mean Corpuscular HGB Conc 34.2 g/dl (31.0-35.0); Mean Corpuscular Hemoglobin 30.1 pg (27.0-33.0); Mean Corpuscular Volume 87.8 fL (80.0-98.0); NRBC Abs Auto 0.000 X10*3/uL (0.0-0.012); NRBC Pct Auto 0.0 /100WBC (0.0-0.2); Platelet Count 306 X10*3/uL (160-400); Red Blood Count 4.69 X10*6/uL (4.20-5.50); White Blood Count 8.3 X10*3/uL (4.8-10.8)
[2025-03-30 22:29] LABS: INTERNATIONAL NORM RATIO 1.1 (0.9-1.1); Prothrombin Time 12.9 SEC (10.9-12.4)
[2025-03-30 22:31] LABS: Partial Thromboplastin Time 31.8 SEC (26.7-34.1)
[2025-03-30 22:43] LABS: Anion Gap 14 (12-20); Blood Urea Nitrogen 19 mg/dL (9-16); Calcium 9.9 mg/dL (8.4-10.2); Carbon Dioxide 27 mmol/L (22-29); Chloride 103 mmol/L (96-108); Creatinine Clr Calc Pharmacy 76.0; Estimated Glomerular Filt Rate > 60; Potassium 3.5 mmol/L (3.3-5.1); Sodium 140 mmol/L (135-145)
[2025-03-30 22:52] LABS: Troponin-I High Sensitivity 3.3 ng/L (<3.5-17.0)
[2025-03-30 23:12] VITALS: BP 148/63; PULSE 63; RESP 20; TEMP 36.4; O2SAT 97
--- NOTE | 2025-03-30 23:18 | ED_ITS ---
HPI - General Adult General Chief complaint: Arrhythmia/Palpitations Stated complaint: L arm pain Time Seen by Provider: 03/30/25 23:18 Source: patient Mode of arrival: ambulatory Limitations: no limitations History of Present Illness ED Provider: Dr. Pool HPI narrative: A 79-year-old female presented hospital today for a left shoulder pain started all of a sudden today. She has states she was sitting on a couch. She was given 324 mg aspirin by EMS. Not complaining of any chest pain currently. Patient stated that it is painful when she moves her left shoulder. Related Data Home Medications ?Medication ?Instructions ?Recorded ?Confirmed calcium 500 mg (as 1 tab PO DAILY 11/25/2411/17 carbonate)-vitamin D3 10 mcg (400 unit) tablet (Calcium 500 With D) metoprolol succinate 25 mg 12.5 mg PO DAILY 11/25/24 0 11/27/24 tablet,extended release 24 hr potassium chloride 20 mEq 20 meq PO DAILY 11/25/2405/13 tablet,extended release(part/cryst) Previous Rx's ?Medication ?Instructions ?Recorded simvastatin 10 mg tablet 10 mg PO BEDTIME #90 tabs flecainide 100 mg tablet 100 mg PO Q12H 90 days #180 caps 11/01/24 hydrochlorothiazide 25 mg tablet 25 mg PO DAILY #90 ta bs 11/04/24 apixaban 5 mg tablet (Eliquis) 5 mg PO BID #60 tabs acetaminophen 500 mg tablet 1,000 mg (2 x 500 mg) PO Q 8H PRN 03/31/25 (Tylenol Extra Strength) pain 10 days #30 tabs lidocaine 5 % topical patch 1 patch topical DAILY #15 ea 03/31/25 methylprednisolone 4 mg tablets in 4 mg PO DAILY #21 e a 03/31/25 a dose pack (Medrol (Mohan)) Allergies Allergy/AdvReac Type Severity Reaction Status Date / Time No Known Allergies Allergy Verified 03/30/25 22:10 Review of Systems 2 Review of Systems: Pertinent review of systems as mentioned in [facility]. All other system otherwise negative. [facility] Past Medical History [facility] Narrative: Medical history as mentioned in HPI Medical History Vaginal wall prolapse Thoracic aortic aneurysm Left anterior fascicular block HTN (hypertension) Paroxysmal atrial fibrillation Surgical History History of hysterectomy Family History Family History (Updated 11/04/24 @ 09:00 by Tran Bagley CMA) Father CVD (cardiovascular disease) Mother No problems noted. Social History Social History Housing: House Alcohol intake: never Patient Tobacco Use Status: Never used Tobacco Tobacco use type: Cigarette Smoked in Last 30 Days: No e-Cigarette/Vaping Use: Never Used Second Hand Smoke Exposure: No Use of substances other than those prescribed or required for medical reasons: No Advance Directives: No Advance Directives Information Provided: Yes Current occupational status: retired Cognitive needs: No Hearing needs: No Vision needs: Yes Physical Exam ED Exam Exam: General: Pleasant, no distress, interacting appropriately Head: Normacephalic, atraumatic ENT: oral mucosa moist, neck supple, no tracheal deviation Cardiovascular: regular rate, regular rhythm, no murmurs, rubbing, gallops Respiratory: CTAB, no wheeze, rales, rhonchi Gastrointestinal: Soft, non distended, non tender, non guarding Extremities: Left shoulder pain on palpation, left CMS intact of upper extremity. Elbow range of motion is intact. Does have tenderness when she flexes her left shoulder. Neurological: Awake and alert, no facial droop noted Skin: Warm and dry Psychiatric: Appropriate mood and thoughts Vital Signs: Vital Signs - 24 hr 03/30/25 22:00 03/30/25 22:02 03/30/25 23:12 Temperature 97.8 F 97.8 F 97.6 F Pulse Rate 66 63 63 Respiratory Rate 14 19 20 Blood Pressure 166/84 H 166/84 H 148/63 H Pulse Oximetry 98 97 97 Oxygen Delivery Method Room Air Room Air Room Air BMI result Body Mass Index 29.2 Medications Administered Discontinued Medications Generic Name Dose Route Start Last Admin Trade Name Freq PRN Reason Stop Dose Admin Acetaminophen 975 mg 03/30/25 22:53 03/30/25 23:15 Acetaminophen 325 Mg Tablet PO 03/30/25 22:54 975 mg ONCE ONE Administration Ketorolac Tromethamine 15 mg 03/31/25 00:00 03/31/25 00:10 Ketorolac Tromethamine 15 Mg/Ml Vial IVPUSH 10/13/25 00:01 15 mg ONCE ONE Administration Lidocaine 1 patch 03/31/25 00:00 03/31/25 00:10 Lidocaine 4 % Patch Adh..Patch TRANSDERMA 03/31/25 00:01 1 patch ONCE ONE Administration Protocol Lorazepam 1 mg 03/30/25 22:53 03/30/25 23:15 Lorazepam 1 Mg Tablet PO 03/30/25 22:54 1 mg ONCE ONE Administration Medical Decision Making Medical Decision Making [facility] Narrative: 79-year-old female presented hospital for evaluation of left shoulder pain. Patient denies any traumatic injury. X-ray were obtained. No sign of acute fracture. I did give patient has some Toradol, Tylenol, lidocaine patch. EKG troponin basic labs will be obtained. Troponin is negative here. Chemistry CBC is unremarkable. The patient stated her pain has improved. Requesting to be discharged at this time. Patient will be discharged home with some Medrol Dosepak, Tylenol, lidocaine patch Differential Diagnosis Differential Diagnoses: The differential diagnosis associated with the presentation includes Shoulder arthritis, shoulder fracture, humeral fracture, biceps rupture Lab Data [facility] Lab Attestation statement: I reviewed the patient's lab results. 03/30/25 22:17 03/30/25 22:17 Labs: Lab Results 03/30/25 03/30/25 Range/Units 22:17 22:18 WBC 8.3 (4.8-10.8) X10*3/uL RBC 4.69 (4.20-5.50) X10*6/uL Hgb 14.1 (12.0-16.0) g/dl Hct 41.2 (37.0-47.0) % MCV 87.8 (80.0-98.0) fL MCH 30.1 (27.0-33.0) pg MCHC 34.2 (31.0-35.0) g/dl RDW 12.5 (11.0-16.0) % Plt Count 306 (160-400) X10*3/uL MPV 11.0 (9.4-12.3) fL Immature Gran % (Auto) 0.4 (0.0-0.4) % Neut % (Auto) 65.0 (45-73) % Lymph % (Auto) 23.9 (20-40) % [place] % (Auto) 9.2 (2-11) % Eos % (Auto) 1.0 (0-4) % Baso % (Auto) 0.5 (0-2) % Lymph # (Auto) 2.0 (1.2-4.9) X10*3/uL [place] # (Auto) 0.8 (0.1-1.2) X10*3/uL Eos # (Auto) 0.1 (0.0-0.4) X10*3/uL Baso # (Auto) 0.0 (0.0-0.2) X10*3/uL Abs Immat Gran (auto) 0.03 (0.00-0.03) X10*3/uL Absolute Neuts (auto) 5.4 (2.0-8.3) x10*3/uL Absolute Nucleated RBC 0.000 (0.0-0.012) X10*3/uL Nucleated RBC % (auto) 0.0 (0.0-0.2) /100WBC PT 12.9 H (10.9-12.4) SEC INR 1.1 (0.9-1.1) APTT 31.8 (26.7-34.1) SEC Sodium 140 (135-145) mmol/L Potassium 3.5 (3.3-5.1) mmol/L Chloride 103 (96-108) mmol/L Carbon Dioxide 27 (22-29) mmol/L Anion Gap 14 (12-20) BUN 19 H (9-16) mg/dL Creatinine 0.60 (0.5-1.4) mg/dL Estim Creat Clear Calc 76.0 Estimated GFR > 60 Random Glucose 126 H (60-115) mg/dL Calcium 9.9 (8.4-10.2) mg/dL Troponin I High Sens 3.3 (<3.5-17.0) ng/L Independent Interpretation I performed an independent interpretation of an: Plain X-Ray Radiology Impression Discussion of test interpretation with radiology: I have reviewed the radiologist's reading. Discharge Plan Discharge Clinical Impression: Arthritis of left shoulder Patient Disposition: Home, Self-Care Instructions: Osteoarthritis (ED) Prescriptions: New methylprednisolone [Medrol (Mohan)] 4 mg tablets,dose pack 4 mg PO DAILY Qty: 21 0RF acetaminophen [Tylenol Extra Strength] 500 mg tablet 1,000 mg PO Q8H PRN (Reason: pain) 10 Days Qty: 30 0RF lidocaine 5 % adhesive patch,medicated 1 patch topical DAILY Qty: 15 0RF Rx Instructions: leave on most painful area for up to 12 hrs No Action simvastatin 10 mg tablet 10 mg PO BEDTIME Qty: 90 3RF potassium chloride 20 mEq tablet,ER particles/crystals 20 meq PO DAILY calcium carbonate-vitamin D3 [Calcium 500 With D] 500 mg-10 mcg (400 unit) tablet 1 tab PO DAILY metoprolol succinate 25 mg tablet extended release 24 hr 12.5 mg PO DAILY Eliquis 5 mg tablet 5 mg PO BID Qty: 60 0RF hydrochlorothiazide 25 mg tablet 25 mg PO DAILY Qty: 90 1RF flecainide 100 mg tablet 100 mg PO Q12H 90 Days Qty: 180 3RF Print Language: Faroese
--- NOTE | 2025-03-30 23:47 | PC.NURSE ---
Took over care at 23:00 from EDWIN Harvey, pt medication for pain and anxiety, pt reposition for comfort.
[2025-03-31] MEDS: Lidocaine 4 % Patch ADH..PATCH 1 PATCH TRANSDERMA (00:10)
--- NOTE | 2025-03-31 00:12 | PC.NURSE ---
medicated for pain.
[2025-03-31 02:25] VITALS: BP 152/71; PULSE 58; RESP 19; TEMP 36.4; O2SAT 99
--- NOTE | 2025-03-31 02:57 | PC.NURSE ---
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
--- NOTE | 2025-03-31 03:41 | PC.NURSE ---
Second call to son, regarding pick remover.
--- NOTE | 2025-03-31 05:32 | PC.NURSE ---
pt assisted to the bathroom, pt given hospital brief, was able to get a hold of son, who is on his way to pick her up.
[2025-03-31 05:35] VITALS: BP 123/72; PULSE 68; RESP 18; TEMP 36.6; O2SAT 97
--- NOTE | 2025-03-31 06:00 | PC.NURSE ---
Called to see estimated time of arrival for discharge. pt waiting to be to order picker in wheel chair.
[2025-03-31 06:23] VITALS: BP 123/72; PULSE 68; RESP 18; TEMP 36.6; O2SAT 97
--- NOTE | 2025-03-31 06:23 | PC.NURSE ---
pt wheeled out to [employer]
== END 2025-03-31 06:24 | disposition home or self-care (01) ==
PROVIDERS: Emergency Provider Student in an Organized Health Care Education/Training Program
DX: M19.012 Primary osteoarthritis, left shoulder (principal); M25.512 Pain in left shoulder; M79.602 Pain in left arm
CPT/HCPCS: 36415; 73030; 80048; 84484; 85025; 85610; 85730; 93005; 96374; 99284; 99285; J1885

== ENCOUNTER → 2025-03-30 22:07 | Outpatient (BNV) | payer MEDICARE, SELFPAY | PROVIDERS: Emergency Provider Student in an Organized Health Care Education/Training Program; Visit Provider Internal Medicine Cardiovascular Disease | DX: I45.4 Nonspecific intraventricular block (principal); R00.1 Bradycardia, unspecified | CPT/HCPCS: 93010 ==

== ENCOUNTER 2025-04-13 23:53 | Emergency (ER) | payer MEDICARE, SELFPAY ==
--- NOTE | ~2025-04-13 | XR_ITS ---
CLINICAL HISTORY: chest pain 2 view chest x-ray. Comparison: CR - XR CHEST 1V - 02/15/25 04:53 EDT Findings: The lungs appear clear. There is no consolidation, effusion, or pneumothorax. There is stable borderline enlargement of the cardiac silhouette. There is a stable small hiatal hernia. IMPRESSION: No acute cardiopulmonary abnormality. This document has been electronically signed by: Elbert Mcgrath MD on 04/14/2025 02:59:54
[2025-04-13 23:54] VITALS: BP 116/62; BP 140/77; PULSE 61; PULSE 68; RESP 20; TEMP 36.8; O2SAT 97; O2SAT 98; BMI 29.2
--- NOTE | 2025-04-14 | ECG_ITS ---
Test Reason : PALPITATIONS Blood Pressure : */* mmHG Vent. Rate : 45 BPM Atrial Rate : 45 BPM P-R Int : 196 ms QRS Dur : 126 ms QT Int : 444 ms P-R-T Axes : 58 -52 -5 degrees QTcB Int : 384 ms Sinus bradycardia with sinus arrhythmia Left axis deviation Non-specific intra-ventricular conduction block Nonspecific T wave abnormality Abnormal ECG When compared with ECG of 30-Mar-2025 22:07, No significant change was found Referred By: Generic ED Physician Electronically Signed By: GUSTABO VUONG
[2025-04-14 00:04] VITALS: BP 140/77; PULSE 61; RESP 20; TEMP 36.8; O2SAT 97
--- OUTSIDE RECORDS SUMMARY | 2025-04-14 00:09 | XMS_ITS | Clinical Summary ---
Author Organization [facility] [address] [facility] Address [address] [place] [address] Phone Care Team Providers Care Immigration Coordinator Name Role Phone Alley Corrales MD Primary Care Provider [phone] Allergies No known active allergies Medications flecainide [...] Severe obesity (BMI 35.0-35. 9 with comorbidity) ([facility] V24, [facility] V28) 05/13/2024 Cognitive impairment 09/07/2022 Assessment & [...] both lower extrem ities 09/30/2005 Atrial fibrillation ([facility] [place], [facility] [place]28) 0 09/30/2005 Overview (05/13/2024): Onset 1999, [...] 11:59 PM EDT Hospital Encounter Radiology Department [address] [address] Encounter for screening mammogram for breast cancer Discharge Disposition: Home or Self Care from Last 3 Months Immunizations Immunization Administration Dates Next Due Influenza trivalent, 0.5mL [...] 09/30/2024 2:59 PM EDT Plan of Treatment Health Maintenance Due Date Last Done Comments Zoster Vaccines (1 of 2) 1997 RSV Immunization Adult Patients (1 - 1-dose 75+ series) 2022 Osteoporosis Screening (Bone Density Screening) 05/28/2022 Social Influencers of Health Screening 05/28/2022 COVID-19 Vaccine ( - season) 2025 11/11/2020, 10/14/2020 Influenza Vaccine (#1) 2025 , 03/07/2022, 07/24/2021, Additional history exists Falls Risk [...] is recommended in 1 year. Mammo Location: [facility], [address] [place] [address], [id number], . -------- FINAL REPORT -------- Dictated By: Chuyita Bonilla Dictated Date: 01/14/2025 15:20 ET Assigned Physician: Chuyita Bonilla Reviewed and Electronically Signed By: Chuyita Bonilla Signed Date: 01/14/2025 15:22 ET Workstation ID: [id number] Transcribed By: Self Edit Transcribed Date: 01/14/2025 [...] is recommended in 1 year. Mammo Location: [facility], [address] [place] [address], [id number], . -------- FINAL REPORT -------- Dictated By: Chuyita Bonilla Dictated Date: 01/14/2025 15:20 ET Assigned Physician: Chuyita Bonilla Reviewed and Electronically Signed By: Chuyita Bonilla Signed Date: 01/14/2025 15:22 ET Workstation ID: [id number] Transcribed By: Self Edit Transcribed Date: 01/14/2025 15:20 ET us Alley Corrales MD IMG BI PROCEDURES Final Result * Lipid panel with reflex to direct LDL (09/30/2024 3:30 PM EDT) Cholesterol 157 0 - 200 mg/dL LAB CHEMISTRY METHOD 09/30/2024 7:16 PM EDT [facility] Triglycerides 120 0 - 150 mg/dL LAB CHEMISTRY METHOD 09/30/2024 7:16 PM EDT [facility] HDL 66 >=40 mg/dL LAB CHEMISTRY METHOD 09/30/2024 7:16 PM EDT [facility] LDL Calculated 67 0 - 100 mg/dL LAB CHEMISTRY METHOD 09/30/2024 7:16 PM EDT [facility] VLDL Cholesterol Emanuel 24 mg/dL LAB CHEMISTRY METHOD 09/30/2024 7:16 PM EDT [facility] Non HDL Chol. (LDL+VLDL) 91 <145 mg/dL LAB CHEMISTRY METHOD 09/30/2024 7:16 PM EDT [facility] Chol/HDL Ratio 2.4 0.0 - 4.4 LAB CHEMISTRY METHOD 09/30/2024 7:16 PM EDT [facility] Blood Venous blood specimen / Unknown Venipuncture / Unknown 09/30/2024 3:30 PM EDT 09/30/2024 3:30 PM EDT Alley Corrales MD LAB BLOOD ORDERABLES Final Resul t [facility] [address] [place] [address], [place] [phone] * (ABNORMAL) Basic metabolic panel (09/30/2024 3:30 PM EDT) Sodium 138 133 - 145 mmol/L LAB CHEMISTRY METHOD 09/30/2024 6:56 PM EDT [facility] Potassium 3.5 3.5 - 5.5 mmol/L LAB CHEMISTRY METHOD 09/30/2024 6:56 PM T [facility] Chloride 104 96 - 110 mmol/L LAB CHEMISTRY METHOD 09/30/2024 6:56 PM [facility] CO2 29 21 - 32 mmol/L LAB CHEMISTRY METHOD 09/30/2024 6:56 PM [facility] Anion Gap 5 3 - 11 LAB CHEMISTRY METHOD 09/30/2024 6:56 PM T [facility] Glucose 140(H) 70 - 100 mg/dL LAB CHEMISTRY METHOD 09/30/2024 6:56 PM [facility] BUN 22 5 - 25 mg/dL LAB CHEMISTRY METHOD 09/30/2024 6:56 PM [facility] Creatinine 0.59 0.50 - 1.10 mg/dL LAB CHEMISTRY METHOD 09/30/2024 6:56 PM [facility] eGFR 93 >=60 mL/min/1. 73m2 LAB CHEMISTRY METHOD 09/30/2024 6:56 PM [facility] Comment:Calculation based on the Chronic Kidney Disease Epidemiology Collaboration (CKD-EPI) equation refit without adjustment for race. BUN/Creatinine Ratio 37.3 LAB CHEMISTRY METHOD 09/30/2024 6:56 PM [facility] Calcium 10.1 8.5 - 10.5 mg/dL LAB CHEMISTRY METHOD 09/30/2024 6:56 PM T [facility] Blood Venous blood specimen / Unknown Venipuncture / Unknown 09/30/2024 3:30 PM EDT 09/30/2024 3:30 PM EDT us Alley Corrales MD LAB BLOOD ORDERABLES Final Resul t [facility] [address] [place] [address], * Depression Screening (09/08/2023) Depression Screening Abstracted us Historical Provider HEALTH MAINTENANCE Final Result * Hepatitis C Screening (07/11/2013) Hepatitis C Screening Abstracted us Historical Provider HEALTH MAINTENANCE Final Result from Last 3 Months or Most Recently Relevant to Health Maintenance Insurance [employer] Care Teams Immigration Coordinator Relationship Specialty Start Date End Date Alley Corrales MD [address] [place] [address] PCP - General Internal Medicine 12/18/19
[2025-04-14 00:23] LABS: MANUAL DIFF FLAG NO
[2025-04-14 00:24] LABS: Hematocrit 42.8 % (37.0-47.0); Hemoglobin 14.7 g/dl (12.0-16.0); Imm Gran Abs Auto 0.03 X10*3/uL (0.00-0.03); Imm Gran Pct Auto 0.3 % (0.0-0.4); Lymphocytes Absolute Auto 2.6 X10*3/uL (1.2-4.9); Mean Corpuscular HGB Conc 34.3 g/dl (31.0-35.0); Mean Corpuscular Hemoglobin 30.3 pg (27.0-33.0); Mean Corpuscular Volume 88.2 fL (80.0-98.0); NRBC Abs Auto 0.000 X10*3/uL (0.0-0.012); NRBC Pct Auto 0.0 /100WBC (0.0-0.2); Platelet Count 285 X10*3/uL (160-400); Red Blood Count 4.85 X10*6/uL (4.20-5.50); White Blood Count 9.5 X10*3/uL (4.8-10.8)
[2025-04-14 00:30] LABS: INTERNATIONAL NORM RATIO 1.2 (0.9-1.1); Prothrombin Time 14.2 SEC (10.9-12.4)
[2025-04-14 00:40] LABS: Alanine Aminotransferase 17 U/L (0-31); Albumin Level 4.6 g/dL (3.5-5.0); Alkaline Phosphatase 89 U/L (39-117); Anion Gap 13 (12-20); Aspartate Amino Transferase 25 U/L (5-31); Blood Urea Nitrogen 13 mg/dL (9-16); Calcium 9.7 mg/dL (8.4-10.2); Carbon Dioxide 25 mmol/L (22-29); Chloride 105 mmol/L (96-108); Creatinine Clr Calc Pharmacy 75.1; Estimated Glomerular Filt Rate > 60; Magnesium 1.9 mg/dL (1.6-2.6); Potassium 3.1 mmol/L (3.3-5.1); Sodium 140 mmol/L (135-145); Total Protein 6.8 g/dL (6.5-8.0)
[2025-04-14 00:44] LABS: Troponin-I High Sensitivity 3.1 ng/L (<3.5-17.0)
[2025-04-14 00:52] LABS: NT Pro B Type Natriuretic Pept 245.6 pg/mL (<300)
[2025-04-14 01:53] LABS: Appearance Urine Cloudy; Glucose Urine UA Negative (Negative); PH 6.5 (5.0-9.0); Specific Gravity - Urine 1.010 (1.005-1.025); UMIC TRIGGER UA YES
--- NOTE | 2025-04-14 02:25 | ED.CHESTPAIN ---
HPI - Chest Pain General Chief Complaint: Chest Pain Stated Complaint: L arm pain Time Seen by Provider: 04/14/25 02:25 Source: patient, EMS, RN notes reviewed and old records reviewed Mode of arrival: EMS Limitations: no limitations History of Present Illness ED Provider: Dr. Melony Aguirre HPI narrative: 80-year-old female with a history of hypertension, hyperlipidemia, paroxysmal atrial fibrillation on Eliquis and flecainide, mild cognitive impairment presenting with left shoulder pain radiating into the chest associated with palpitations. Since calling 911, the patient reports she is feeling improved. Has extensive history of this and has been seen in this emergency department many times for this reason. Patient reports total improvement of pain after Tylenol. Denies recent illness. Patient denies associated fevers or chills, shortness of breath, cough, sputum production, nausea or vomiting, abdominal pain, numbness or tingling of the extremities, syncope or near syncope, lower extremity pain or swelling. Related Data Home Medications ?Medication ?Instructions ?Recorded ?Confirmed calcium 500 mg (as 1 tab PO DAILY 11/25/24 11/27/24 carbonate)-vitamin D3 10 mcg (400 unit) tablet (Calcium 500 With D) metoprolol succinate 25 mg 12.5 mg PO DAILY 11/25/24 11/27/24 tablet,extended release 24 hr potassium chloride 20 mEq 20 meq PO DAILY 11/25/24 11/27/24 tablet,extended release(part/cryst) Previous Rx's ?Medication ?Instructions ?Recorded simvastatin 10 mg tablet 10 mg PO BEDTIME #90 tabs 10/14/24 flecainide 100 mg tablet 100 mg PO Q12H 90 days #180 caps 11/01/24 apixaban 5 mg tablet (Eliquis) 5 mg PO BID #60 tabs 12/15/24 acetaminophen 500 mg tablet 1,000 mg (2 x 500 mg) PO Q8H PRN 03/31/25 (Tylenol Extra Strength) pain 10 days #30 tabs lidocaine 5 % topical patch 1 patch topical DAILY #15 ea 03/31/25 methylprednisolone 4 mg tablets in 4 mg PO DAILY #21 ea 03/31/25 a dose pack (Medrol (Mohan)) hydrochlorothiazide 25 mg tablet 25 mg PO DAILY #90 tabs 04/19/25 Allergies Allergy/AdvReac Type Severity Reaction Status Date / Time No Known Allergies Allergy Verified 04/19/25 16:39 Review of Systems Review of Systems: as per HPI, full review of systems performed and negative but for the above mentioned pertinent positives and negatives. [facility] Past Medical History Medical History Vaginal wall prolapse Thoracic aortic aneurysm Left anterior fascicular block HTN (hypertension) Paroxysmal atrial fibrillation Surgical History History of hysterectomy Family History Family History Father CVD (cardiovascular disease) Mother No problems noted. Social History Social History Housing: House Alcohol intake: never Patient Tobacco Use Status: Never used Tobacco Tobacco use type: Cigarette Smoked in Last 30 Days: No e-Cigarette/Vaping Use: Never Used Second Hand Smoke Exposure: No Use of substances other than those prescribed or required for medical reasons: No Advance Directives: No Advance Directives Information Provided: No Do you have a plan to hurt others: No Plan Current occupational status: retired Cognitive needs: No Hearing needs: No Vision needs: Yes Physical Exam Exam: Exam: GENERAL: Chronically ill-appearing, conversant, no acute distress. SKIN: Normal skin color for ethnicity, warm, dry, no rashes noted. HEENT: Normocephalic, atraumatic, no stridor, posterior oropharynx nonerythematous, EOMI. NECK: Soft, supple, full ROM, midline structures nontender, no step-offs, no deformities, no lymphadenopathy. CHEST: Heart regular rate and rhythm, no murmurs, symmetric chest rise and fall. PULMONARY: Clear to auscultation bilaterally, no labored breathing, no wheezes/rhales/ rhonchi. ABDOMINAL: Soft, nondistended, nontender, positive bowel sounds in all quadrants. : Deferred. MUSCULOSKELETAL: Normal tone, full range of motion, no deformities, no peripheral edema, full function of the radial, median and ulnar nerves of the left hand. NEURO: Alert and oriented to person, CN II through XII intact, no focal neurologic deficits. PSYCHIATRIC: Flat affect, fluid speech, appropriate demeanor. Vital Signs: Vital Signs: Last Vital Signs Temp 98.2 F 04/14/25 06:41 Pulse 78 04/14/25 06:41 Resp 18 04/14/25 06:41 BP 132/68 04/14/25 06:41 Pulse Ox 98 04/14/25 06:41 O2 Del Method Room Air 04/14/25 06:41 BMI result Body Mass Index 29.2 Medical Decision Making Medical Decision Making [facility] Narrative: Patient presenting with chief complaint of heart palpitations. Differential diagnosis includes heart palpitations, electrolyte abnormality, arrhythmia, ACS, thyroid dysfunction, substance use including stimulants such as caffeine, amphetamines, drug toxicity, among many others. Workup today is reassuring. Chest x-ray, EKG, blood work showing no evidence of ischemia or acute infection. Pain is totally improved after Tylenol. Using shared decision making, plan for discharge home to follow-up with primary care and/or specialist.? Patient understands and agrees with plan for discharge.? Discharged home in stable condition. Differential Diagnosis Differential Diagnoses: The differential diagnosis associated with the presentation includes (as above) Admission/Observation Consideration of admission/observation: Escalation of care including admission/observation considered Lab Data [facility] Lab Attestation statement: I reviewed the patient's lab results. 04/14/25 00:14 04/14/25 00:14 Labs: Lab Results 04/14/25 04/14/25 Range/Units 00:14 01:31 WBC 9.5 (4.8-10.8) X10*3/uL RBC 4.85 (4.20-5.50) X10*6/uL Hgb 14.7 (12.0-16.0) g/dl Hct 42.8 (37.0-47.0) % MCV 88.2 (80.0-98.0) fL MCH 30.3 (27.0-33.0) pg MCHC 34.3 (31.0-35.0) g/dl RDW 12.6 (11.0-16.0) % Plt Count 285 (160-400) X10*3/uL MPV 10.9 (9.4-12.3) fL Immature Gran % (Auto) 0.3 (0.0-0.4) % Neut % (Auto) 60.5 (45-73) % Lymph % (Auto) 27.3 (20-40) % [place] % (Auto) 10.0 (2-11) % Eos % (Auto) 1.6 (0-4) % Baso % (Auto) 0.3 (0-2) % Lymph # (Auto) 2.6 (1.2-4.9) X10*3/uL [place] # (Auto) 1.0 (0.1-1.2) X10*3/uL Eos # (Auto) 0.2 (0.0-0.4) X10*3/uL Baso # (Auto) 0.0 (0.0-0.2) X10*3/uL Abs Immat Gran (auto) 0.03 (0.00-0.03) X10*3/uL Absolute Neuts (auto) 5.8 (2.0-8.3) x10*3/uL Absolute Nucleated RBC 0.000 (0.0-0.012) X10*3/uL Nucleated RBC % (auto) 0.0 (0.0-0.2) /100WBC PT 14.2 H (10.9-12.4) SEC INR 1.2 H (0.9-1.1) Sodium 140 (135-145) mmol/L Potassium 3.1 L (3.3-5.1) mmol/L Chloride 105 (96-108) mmol/L Carbon Dioxide 25 (22-29) mmol/L Anion Gap 13 (12-20) BUN 13 (9-16) mg/dL Creatinine 0.63 (0.5-1.4) mg/dL Estim Creat Clear Calc 75.1 Estimated GFR > 60 Random Glucose 121 H (60-115) mg/dL Calcium 9.7 (8.4-10.2) mg/dL Magnesium 1.9 (1.6-2.6) mg/dL Total Bilirubin 0.5 (0.0-1.0) mg/dL AST 25 (5-31) U/L ALT 17 (0-31) U/L Alkaline Phosphatase 89 (39-117) U/L Troponin I High Sens 3.1 (<3.5-17.0) ng/L NT-Pro-B Natriuret Pep 245.6 (<300) pg/mL Total Protein 6.8 (6.5-8.0) g/dL Albumin 4.6 (3.5-5.0) g/dL Urine Color Yellow Urine Appearance Cloudy Urine pH 6.5 (5.0-9.0) Ur Specific [place] 1.010 (1.005-1.025) Urine Protein Negative (Neg-Trace) mg/dL Urine Glucose (UA) Negative (Negative) mg/dL Urine Ketones Negative (Negative) mg/dL Urine Blood Negative (Negative) Urine Nitrite Negative (Negative) Ur Leukocyte Esterase Moderate (2+) H (Negative) Urine RBC 0-2 (0-2) /HPF Urine WBC 11-20 H (0-5) /HPF Ur Squamous Epith Cells 0-2 (0-2) /HPF Urine Bacteria 4+ (None Seen) Hyaline Casts 0-2 (0-2) /LPF Independent Interpretation I performed an independent interpretation of an: EKG and Plain X-Ray Interpretation: My independent interpretation of the chest x-ray reveals no consolidations, pulmonary edema, pleural effusion, pneumothorax, obvious bony abnormalities. My independent interpretation of the ECG reveals normal sinus bradycardia with rate of 45, leftward axis, nonspecific interventricular conduction delay, no ST elevations or depressions to suggest ischemic changes, LVH, relatively unchanged from previous on 03/30/25. Radiology Impression Discussion of test interpretation with radiology: I have reviewed the radiologist's reading. Independent Historian Clinical information obtained from an independent historian. History obtained from or confirmed by: EMS External Record Review External record reviewed: Inpatient record Chronic Conditions Patient?s care impacted by: Hypertension and Other (Atrial fibrillation) Social Determinants Patient?s care significantly limited by Social Determinants of Health including: Problems related to primary support group and Other Social Determinant of Health Discharge Plan Discharge Clinical Impression: Chronic left shoulder pain, Heart palpitations Patient Disposition: Home, Self-Care Instructions: Shoulder Pain (ED) Additional Instructions: DIAGNOSIS & TREATMENT: You were seen in the Emergency Department for your chest discomfort and shoulder pain. We performed an EKG, laboratory work and chest xray which did not reveal any acute abnormalities that would explain your symptoms. FURTHER CARE: We have not found any emergent physical exam or lab abnormalities that would require admission to the hospital today. Many people who come to the ER with chest discomfortn do not leave with a specific diagnosis at the end of their visit. In the Emergency Department we try to make sure that there is no emergent problem that needs admission to the hospital or antibiotics right now. This does not mean that your evaluation is complete--please be sure to follow up with your regular doctor as additional testing as an outpatient may be indicated. Please be certain to drink plenty of fluids over the next several days. WHEN YOU SHOULD BE SEEN NEXT: Please follow-up with your primary care provider within the next 2-3 days for reevaluation of your symptoms. WHEN TO RETURN TO THE ED: Monitor your symptoms closely and return to the emergency department immediately for any new/worsening symptoms including: Worsening chest pain, difficulty breathing, fevers greater than 100 degrees, passing out, any new symptom that concerns you. Call 911 with any medical emergency. Prescriptions: No Action simvastatin 10 mg tablet 10 mg PO BEDTIME Qty: 90 3RF hydrochlorothiazide 25 mg tablet 25 mg PO DAILY Qty: 90 1RF potassium chloride 20 mEq tablet,ER particles/crystals 20 meq PO DAILY calcium carbonate-vitamin D3 [Calcium 500 With D] 500 mg-10 mcg (400 unit) tablet 1 tab PO DAILY metoprolol succinate 25 mg tablet extended release 24 hr 12.5 mg PO DAILY Eliquis 5 mg tablet 5 mg PO BID Qty: 60 0RF methylprednisolone [Medrol (Mohan)] 4 mg tablets,dose pack 4 mg PO DAILY Qty: 21 0RF acetaminophen [Tylenol Extra Strength] 500 mg tablet 1,000 mg PO Q8H PRN (Reason: pain) 10 Days Qty: 30 0RF lidocaine 5 % adhesive patch,medicated 1 patch topical DAILY Qty: 15 0RF Rx Instructions: leave on most painful area for up to 12 hrs flecainide 100 mg tablet 100 mg PO Q12H 90 Days Qty: 180 3RF Interventions: ED Discharge Assessment Last Done: 04/14/25 06:41 Discharge Date/Time: 04/14/25 07:35 Print Language: Australian
[2025-04-14 06:38] VITALS: BP 132/68; PULSE 78; RESP 18; TEMP 36.8; O2SAT 98
[2025-04-14 06:41] VITALS: BP 132/68; PULSE 78; RESP 18; TEMP 36.8; O2SAT 98
== END 2025-04-14 07:35 | disposition home or self-care (01) ==
PROVIDERS: Emergency Provider Emergency Medicine; PCP Internal Medicine
DX: R07.89 Other chest pain (principal); M79.602 Pain in left arm; R00.2 Palpitations; R06.02 Shortness of breath; Z79.899 Other long term (current) drug therapy
CPT/HCPCS: 36415; 71046; 80053; 81001; 83735; 83880; 84484; 85025; 85610; 93005; 99283; 99284

== ENCOUNTER → 2025-04-14 00:35 | Outpatient (BNV) | payer MEDICARE, SELFPAY | PROVIDERS: Emergency Provider Emergency Medicine; PCP Internal Medicine; Visit Provider Radiology Diagnostic Radiology | DX: R07.9 Chest pain, unspecified (principal) | CPT/HCPCS: 71046 ==

== ENCOUNTER → 2025-04-14 | Outpatient (BNV) | payer MEDICARE, SELFPAY | PROVIDERS: Emergency Provider Emergency Medicine; PCP Internal Medicine; Visit Provider Internal Medicine | DX: I49.9 Cardiac arrhythmia, unspecified (principal); R00.1 Bradycardia, unspecified; I45.4 Nonspecific intraventricular block | CPT/HCPCS: 93010 ==

== ENCOUNTER 2025-04-19 16:29 | Emergency (ER) | payer MEDICARE, SELFPAY ==
--- NOTE | 2025-04-19 | ECG_ITS ---
Test Reason : chest pain Blood Pressure : */* mmHG Vent. Rate : 79 BPM Atrial Rate : 79 BPM P-R Int : 180 ms QRS Dur : 126 ms QT Int : 384 ms P-R-T Axes : 49 -64 67 degrees QTcB Int : 440 ms Normal sinus rhythm Left axis deviation Left bundle branch block Abnormal ECG When compared with ECG of 14-Apr-2025 00:03, Vent. rate has increased by 34 bpm T wave inversion no longer evident in Inferior leads Nonspecific T wave abnormality, improved in Anterolateral leads QT has lengthened Referred By: Generic ED Physician Electronically Signed By: GUSTABO VUONG
--- NOTE | ~2025-04-19 | XR_ITS ---
CLINICAL HISTORY: pain 1 view chest x-ray Comparison: CR - XR CHEST 2V - 04/14/25 00:31 EDT Findings: The heart is magnified. No focal consolidation, pleural effusion, or pneumothorax. Degenerative changes of both shoulders. IMPRESSION: No acute findings. No significant change from 04/14/2025. This document has been electronically signed by: Carmelo Onofre MD on 04/19/2025 21:14:30
[2025-04-19 16:37] VITALS: BP 138/69; PULSE 84; RESP 18; TEMP 36.2; O2SAT 94; BMI 29.8
--- NOTE | 2025-04-19 16:37 | ED.GENADULT ---
HPI - General Adult General Chief complaint: Arrhythmia/Palpitations Stated complaint: chest pain/fibrilation comes and goes Time Seen by Provider: 04/19/25 20:03 Source: patient Limitations: other (Underlying cognitive impairment) History of Present Illness ED Provider: Bhumika Blake PA-C HPI narrative: 79-year-old female with a history of hypertension, hyperlipidemia, paroxysmal AFib on Eliquis, and flecainide, underlying cognitive impairment who presents with palpitations. Patient states she was out of her flecainide today, she has been having random palpitations. Denies dizziness, chest pain, shortness of breath, diaphoresis nausea vomiting. Denies recent illness, cough cold symptoms or fever. Related Data Home Medications ?Medication ?Instructions ?Recorded ?Confirmed calcium 500 mg (as 1 tab PO DAILY 11/25/24 11/27/24 carbonate)-vitamin D3 10 mcg (400 unit) tablet (Calcium 500 With D) metoprolol succinate 25 mg 12.5 mg PO DAILY 11/25/24 11/27/24 tablet,extended release 24 hr potassium chloride 20 mEq 20 meq PO DAILY 11/25/24 11/27/24 tablet,extended release(part/cryst) Previous Rx's ?Medication ?Instructions ?Recorded simvastatin 10 mg tablet 10 mg PO BEDTIME #90 tabs 10/14/24 flecainide 100 mg tablet 100 mg PO Q12H 90 days #180 caps 11/01/24 apixaban 5 mg tablet (Eliquis) 5 mg PO BID #60 tabs 12/15/24 acetaminophen 500 mg tablet 1,000 mg (2 x 500 mg) PO Q8H PRN 03/31/25 (Tylenol Extra Strength) pain 10 days #30 tabs lidocaine 5 % topical patch 1 patch topical DAILY #15 ea 03/31/25 methylprednisolone 4 mg tablets in 4 mg PO DAILY #21 ea 03/31/25 a dose pack (Medrol (Mohan)) hydrochlorothiazide 25 mg tablet 25 mg PO DAILY #90 tabs 04/19/25 Allergies Allergy/AdvReac Type Severity Reaction Status Date / Time No Known Allergies Allergy Verified 04/19/25 16:39 Review of Systems Review of Systems: Yes all other systems are reviewed and are negative Constitutional: Constitutional: Denies fatigue and Denies fever(s) ENT: Denies dizziness Cardiovascular: Cardiovascular: Denies chest pain, Reports palpitations and Denies dyspnea Respiratory: Respiratory: Denies cough and Denies dyspnea Gastrointestinal: Gastrointestinal: Denies abdominal pain, Denies nausea and Denies vomiting Neurologic: Denies dizziness Endocrine: Endocrine: Denies fatigue and Reports palpitations PMF Past Medical History Attestation statement: The following information was validated with the patient. Medical History Vaginal wall prolapse Thoracic aortic aneurysm Left anterior fascicular block HTN (hypertension) Paroxysmal atrial fibrillation Surgical History History of hysterectomy Family History Family History (Updated 11/04/24 @ 09:00 by Tran Bagley CMA) Father CVD (cardiovascular disease) Mother No problems noted. Social History Social History Housing: House Alcohol intake: never Patient Tobacco Use Status: Never used Tobacco Tobacco use type: Cigarette Smoked in Last 30 Days: No e-Cigarette/Vaping Use: Never Used Second Hand Smoke Exposure: No Use of substances other than those prescribed or required for medical reasons: No Advance Directives: No Advance Directives Information Provided: No Do you have a plan to hurt others: No Plan Current occupational status: retired Cognitive needs: No Hearing needs: No Vision needs: Yes Physical Exam ED Vital Signs: Vital Signs - 24 hr 04/19/25 16:37 04/19/25 20:24 Temperature 97.2 F Pulse Rate 84 68 Respiratory Rate 18 16 Blood Pressure 138/69 133/81 Pulse Oximetry 94 97 Oxygen Delivery Method Room Air Room Air BMI result Body Mass Index 29.8 Const Other: Alert well-appearing Orientation/consciousness: patient oriented x3 Resp Effort & Inspection: normal respiratory effort Cardio Other: Normal peripheral perfusion Skin Other: Warm dry no rash Neuro General: patient oriented x3, gait normal, no focal motor deficits and CN's II-XI intact bilaterally Extrem Other: No overt peripheral edema Psych Other: Cooperative Course Course Course Narrative: This is a Rapid Medical Exam performed in triage by Ailyn Archer PA-C. Full HPI, ROS and PE to be performed by primary ED provider. 79 yo F with a past medical history cognitive impairment, HLD, HTN, proximal AFib on Eliquis, presenting to the ED c/o palpitations x this AM. Denies CP, SOB, N/V PE: NAD, ambulating with steady gait, nontoxic Plan: EKG, Labs Medical Decision Making Medical Decision Making MDM Narrative: 79-year-old female with a history of hypertension, hyperlipidemia, paroxysmal AFib on Eliquis, and flecainide, underlying cognitive impairment who presents with palpitations. Patient states she was out of her flecainide today, she has been having random palpitations. Denies dizziness, chest pain, shortness of breath, diaphoresis nausea vomiting. Denies recent illness, cough cold symptoms or fever. Problem: AFib, hypertension, age, cognitive impairment History: Per patient I have considered the following differential diagnoses: AFib, new arrhythmia, new heart failure, ACS, dehydration, electrolyte abnormality, anemia Plan: Patient is here due to random palpitations today, she is not volume overloaded, or overtly hypertensive, not hypoxic to suggest new heart failure that could have precipitated her symptoms. Do not feel that this is ACS, she is not complaining of chest pain. Screening labs were obtained including a cardiac enzymes EKG, I am adding on a BNP and chest x-ray. She is not anemic, there are no electrolyte abnormality she is not clinically dehydrated, no underlying organic factors that could have also precipitated the palpitations. I do not think the patient understands that it can be normal for her to have ran a palpitations given she has paroxysmal AFib. I have independently reviewed the following tests: Labs: No leukocytosis, not anemic, no electrolyte abnormality, troponin less than 2.7, BNP 185.3 EKG: Normal sinus rhythm, rate of 79, no ischemic changes no ectopy, left bundle again noted, QTC 440 Chest x-ray: No pneumonia, no pleural effusion no pulmonary edema Differential Diagnosis Differential Diagnoses: The differential diagnosis associated with the presentation includes See medical decision-making Admission/Observation Consideration of admission/observation: Escalation of care including admission/observation considered Not applicable Lab Data MDM Lab Attestation statement: I reviewed the patient's lab results. 04/19/25 16:49 04/19/25 16:49 Labs: Lab Results 04/19/25 Range/Units 16:49 WBC 9.6 (4.8-10.8) X10*3/uL RBC 4.81 (4.20-5.50) X10*6/uL Hgb 14.5 (12.0-16.0) g/dl Hct 43.0 (37.0-47.0) % MCV 89.4 (80.0-98.0) fL MCH 30.1 (27.0-33.0) pg MCHC 33.7 (31.0-35.0) g/dl RDW 12.7 (11.0-16.0) % Plt Count 337 (160-400) X10*3/uL MPV 11.1 (9.4-12.3) fL Immature Gran % (Auto) 0.3 (0.0-0.4) % Neut % (Auto) 61.5 (45-73) % Lymph % (Auto) 26.7 (20-40) % [place] % (Auto) 9.5 (2-11) % Eos % (Auto) 1.5 (0-4) % Baso % (Auto) 0.5 (0-2) % Lymph # (Auto) 2.6 (1.2-4.9) X10*3/uL [place] # (Auto) 0.9 (0.1-1.2) X10*3/uL Eos # (Auto) 0.1 (0.0-0.4) X10*3/uL Baso # (Auto) 0.1 (0.0-0.2) X10*3/uL Abs Immat Gran (auto) 0.03 (0.00-0.03) X10*3/uL Absolute Neuts (auto) 5.9 (2.0-8.3) x10*3/uL Absolute Nucleated RBC 0.000 (0.0-0.012) X10*3/uL Nucleated RBC % (auto) 0.0 (0.0-0.2) /100WBC Sodium 139 (135-145) mmol/L Potassium 4.0 D (3.3-5.1) mmol/L Chloride 105 (96-108) mmol/L Carbon Dioxide 21 L (22-29) mmol/L Anion Gap 17 (12-20) BUN 12 (9-16) mg/dL Creatinine 0.61 (0.5-1.4) mg/dL Estim Creat Clear Calc 75.5 Estimated GFR > 60 Random Glucose 143 H (60-115) mg/dL Calcium 9.8 (8.4-10.2) mg/dL Magnesium 2.1 (1.6-2.6) mg/dL Total Bilirubin 0.2 (0.0-1.0) mg/dL Direct Bilirubin < 0.2 (0.0-0.5) mg/dL AST 31 (5-31) U/L ALT 23 (0-31) U/L Alkaline Phosphatase 111 (39-117) U/L Troponin I High Sens < 2.7 (<3.5-17.0) ng/L NT-Pro-B Natriuret Pep 185.3 (<300) pg/mL Total Protein 7.0 (6.5-8.0) g/dL Albumin 4.4 (3.5-5.0) g/dL TSH 1.63 (0.32-4.0) uIU/mL Independent Interpretation I performed an independent interpretation of an: EKG Discharge Plan Discharge Clinical Impression: Heart palpitations Patient Disposition: Home, Self-Care Instructions: Heart Palpitations (ED) Additional Instructions: All of your screening labs were normal including a cardiac enzyme, there were no concerning changes on the EKG in the chest x-ray is clear. It can be normal for you to have palpitations given you have known AFib. Continue to follow up with your primary care provider and switch tender as needed. Prescriptions: No Action simvastatin 10 mg tablet 10 mg PO BEDTIME Qty: 90 3RF hydrochlorothiazide 25 mg tablet 25 mg PO DAILY Qty: 90 1RF potassium chloride 20 mEq tablet,ER particles/crystals 20 meq PO DAILY calcium carbonate-vitamin D3 [Calcium 500 With D] 500 mg-10 mcg (400 unit) tablet 1 tab PO DAILY metoprolol succinate 25 mg tablet extended release 24 hr 12.5 mg PO DAILY Eliquis 5 mg tablet 5 mg PO BID Qty: 60 0RF methylprednisolone [Medrol (Mohan)] 4 mg tablets,dose pack 4 mg PO DAILY Qty: 21 0RF acetaminophen [Tylenol Extra Strength] 500 mg tablet 1,000 mg PO Q8H PRN (Reason: pain) 10 Days Qty: 30 0RF lidocaine 5 % adhesive patch,medicated 1 patch topical DAILY Qty: 15 0RF Rx Instructions: leave on most painful area for up to 12 hrs flecainide 100 mg tablet 100 mg PO Q12H 90 Days Qty: 180 3RF Print Language: Estonian
--- OUTSIDE RECORDS SUMMARY | 2025-04-19 16:44 | XMS_ITS | Clinical Summary ---
Author Organization [facility] [address] [facility] Address [address] [place] [address] Phone Care Team Providers Care Air Analyst Name Role Phone Alley Corrales MD Primary Care Provider [phone] Allergies No known active allergies Medications flecainide [...] obesity (BMI 35.0-35. 9 with comorbidity) [place] [place] [facility] 05/13/2024 Cognitive impairment 09/07/2022 Assessment & [...] lower extrem ities 09/30/2005 Atrial fibrillation [place] [place] [facility] [place] 0 09/30/2005 Overview (05/13/2024): Onset 1999, followed by Cardiology, on anticoagulation med since onset (Pradaxa, 2017). Assessment & Plan (09/30/2024 3:11 PM EDT): Orders: CBC and differential; Future One eye: profound vision imp airment; other eye: normal vision 09/30/2005 Essential hypertension, benign 09/30/2005 Assessment & Plan (09/30/2024 3:11 PM EDT): Orders: Basic metabolic panel; Future Immunizations Immunization Administration Dates Next Due Influenza [...] Health Screening 05/28/2022 COVID-19 Vaccine (3 - season) 2025 11/11/2020, 10/14/2020 Influenza Vaccine [...] Procedure Name Priority Date/Time Associated Diagnosis Comments BASIC METABOLIC PANEL Routine 09/30/2024 3:30 PM [...] mg/dL LAB CHEMISTRY METHOD 09/30/2024 7:16 PM [facility] Triglycerides 120 0 - 150 mg/dL LAB CHEMISTRY METHOD 09/30/2024 7:16 PM [facility] HDL 66 >=40 mg/dL LAB CHEMISTRY METHOD 09/30/2024 7:16 PM [facility] LDL Calculated 67 0 - 100 mg/dL LAB CHEMISTRY METHOD 09/30/2024 7:16 PM [facility] VLDL Cholesterol Emanuel 24 mg/dL LAB CHEMISTRY METHOD 09/30/2024 7:16 PM [facility] Non HDL Chol. (LDL+VLDL) 91 <145 mg/dL LAB CHEMISTRY METHOD 09/30/2024 7:16 PM [facility] Chol/HDL Ratio 2.4 0.0 - 4.4 LAB CHEMISTRY METHOD 09/30/2024 7:16 PM [facility] Blood Venous blood specimen / Unknown Venipuncture / Unknown 09/30/2024 3:30 PM EDT 09/30/2024 3:30 PM EDT us Alley Corrales MD LAB BLOOD ORDERABLES Final Resul t [facility] [address] [place] [address], [place] [phone] * (ABNORMAL) Basic metabolic panel (09/30/2024 3:30 PM EDT) Sodium 138 133 - 145 mmol/L LAB CHEMISTRY METHOD 09/30/2024 6:56 PM EDT [facility] Potassium 3.5 3.5 - 5.5 mmol/L LAB CHEMISTRY METHOD 09/30/2024 6:56 PM [facility] Chloride 104 96 - 110 mmol/L LAB CHEMISTRY METHOD 09/30/2024 6:56 PM [facility] CO2 29 21 - 32 mmol/L LAB CHEMISTRY METHOD 09/30/2024 6:56 PM [facility] Anion Gap 5 3 - 11 LAB CHEMISTRY METHOD 09/30/2024 6:56 PM [facility] Glucose 140(H) 70 - 100 mg/dL LAB CHEMISTRY METHOD 09/30/2024 6:56 PM [facility] BUN 22 5 - 25 mg/dL LAB CHEMISTRY METHOD 09/30/2024 6:56 PM [facility] Creatinine 0.59 0.50 - 1.10 mg/dL LAB CHEMISTRY METHOD 09/30/2024 6:56 PM [facility] eGFR 93 >=60 mL/min/1. 73m2 LAB CHEMISTRY METHOD 09/30/2024 6:56 PM [facility] Comment:Calculation based on the Chronic Kidney Disease Epidemiology Collaboration (CKD-EPI) equation refit without adjustment for race. BUN/Creatinine Ratio 37.3 LAB CHEMISTRY METHOD 09/30/2024 6:56 PM [facility] Calcium 10.1 8.5 - 10.5 mg/dL LAB CHEMISTRY METHOD 09/30/2024 6:56 PM EDT [facility] Blood Venous blood specimen / Unknown Venipuncture / Unknown 09/30/2024 3:30 PM EDT 09/30/2024 3:30 PM EDT Alley Corrales MD LAB BLOOD ORDERABLES Final Resul t [facility] ([facility]) [facility] [address] [place] [address], * Depression Screening (09/08/2023) Depression Screening Abstracted Historical Provider HEALTH MAINTENANCE Final Result * Hepatitis C Screening (07/11/2013) Hepatitis C Screening Abstracted Historical Provider HEALTH MAINTENANCE Final Result from Last 3 Months or Most Recently Relevant to Health Maintenance Insurance [employer] Care Teams Air Analyst Relationship Specialty Start Date End Date Alley Corrales MD [address] [place] [phone] PCP - General Internal Medicine 12/18/19
[2025-04-19 16:55] LABS: MANUAL DIFF FLAG NO
[2025-04-19 17:16] LABS: Hematocrit 43.0 % (37.0-47.0); Hemoglobin 14.5 g/dl (12.0-16.0); Imm Gran Abs Auto 0.03 X10*3/uL (0.00-0.03); Imm Gran Pct Auto 0.3 % (0.0-0.4); Lymphocytes Absolute Auto 2.6 X10*3/uL (1.2-4.9); Mean Corpuscular HGB Conc 33.7 g/dl (31.0-35.0); Mean Corpuscular Hemoglobin 30.1 pg (27.0-33.0); Mean Corpuscular Volume 89.4 fL (80.0-98.0); NRBC Abs Auto 0.000 X10*3/uL (0.0-0.012); NRBC Pct Auto 0.0 /100WBC (0.0-0.2); Platelet Count 337 X10*3/uL (160-400); Red Blood Count 4.81 X10*6/uL (4.20-5.50); White Blood Count 9.6 X10*3/uL (4.8-10.8)
[2025-04-19 17:20] LABS: Alanine Aminotransferase 23 U/L (0-31); Albumin Level 4.4 g/dL (3.5-5.0); Alkaline Phosphatase 111 U/L (39-117); Anion Gap 17 (12-20); Aspartate Amino Transferase 31 U/L (5-31); Blood Urea Nitrogen 12 mg/dL (9-16); Calcium 9.8 mg/dL (8.4-10.2); Carbon Dioxide 21 mmol/L (22-29); Chloride 105 mmol/L (96-108); Creatinine Clr Calc Pharmacy 75.5; Estimated Glomerular Filt Rate > 60; Magnesium 2.1 mg/dL (1.6-2.6); Potassium 4.0 mmol/L (3.3-5.1); Sodium 139 mmol/L (135-145); Total Protein 7.0 g/dL (6.5-8.0)
[2025-04-19 17:23] LABS: Troponin-I High Sensitivity < 2.7 ng/L (<3.5-17.0)
[2025-04-19 20:24] VITALS: BP 133/81; PULSE 68; RESP 16; O2SAT 97
[2025-04-19 20:44] LABS: NT Pro B Type Natriuretic Pept 185.3 pg/mL (<300)
[2025-04-19 21:01] VITALS: BP 133/81; PULSE 68; RESP 16; TEMP 36.1; O2SAT 97
== END 2025-04-19 21:43 | disposition home or self-care (01) ==
PROVIDERS: Physician Assistant; Physician Assistant Medical; Emergency Provider Emergency Medicine; PCP Internal Medicine
DX: R00.2 Palpitations (principal); R07.89 Other chest pain; I49.9 Cardiac arrhythmia, unspecified; I48.91 Unspecified atrial fibrillation; Z79.01 Long term (current) use of anticoagulants; Z79.899 Other long term (current) drug therapy
CPT/HCPCS: 36415; 71045; 80048; 80076; 83735; 83880; 84443; 84484; 85025; 93005; 99283; 99285

== ENCOUNTER → 2025-04-19 16:41 | Outpatient (BNV) | payer MEDICARE, SELFPAY | PROVIDERS: Emergency Provider Emergency Medicine; PCP Internal Medicine; Visit Provider Internal Medicine | DX: I44.7 Left bundle-branch block, unspecified (principal) | CPT/HCPCS: 93010 ==

== ENCOUNTER → 2025-04-19 20:03 | Outpatient (BNV) | payer MEDICARE, SELFPAY | PROVIDERS: Emergency Provider Emergency Medicine; PCP Internal Medicine; Visit Provider Student in an Organized Health Care Education/Training Program | DX: R07.9 Chest pain, unspecified (principal) | CPT/HCPCS: 71045 ==